=== PATIENT | male | born 1965 | race Caucasian/White ===

== ENCOUNTER → 2018-06-22 10:40 | Outpatient (CLI) | payer BC, SELFPAY ==
[2018-06-22 11:51] LABS: Anion Gap 10.7 mEq/L (5-15); Blood Urea Nitrogen 11 mg/dL (7-18); Calcium 9.6 mg/dL (8.5-10.1); Carbon Dioxide 32 mmol/L (21.0-32.0); Chloride 104 mmol/L (98-107); Chol/HDL Ratio 4.1 (1-3.5); Cholesterol 158 mg/dL (140-200); Creatinine,Serum 1.08 mg/dL (0.70-1.30); Estimated Glomerular Filt Rate 72 ml/min (>60); GFR (African American) 87 ML/MIN (>60); Glucose 87 mg/dL (74-106); HDL Cholesterol 39 mg/dL (27-67); LDL Cholesterol 88 mg/dL (0-130); Potassium 4.7 mmoL/L (3.5-5.1); Sodium 142 mmol/L (136-145); Triglycerides 157 mg/dL (30-200); VLDL Cholesterol 31 mg/dL (0-40)
[2018-06-22 13:03] LABS: Hemoglobin A1C 5.6 % (0.0-7.0)
[2018-06-23 09:24] LABS: HIV Screen 4th Generation wRfx Non Reactive (Non Reactive)
[2018-06-23 09:33] LABS: Hepatitis C Antibody <0.1 s/co ratio (0.0-0.9)
== END ==
PROVIDERS: PCP Internal Medicine Adolescent Medicine; Visit Provider Internal Medicine Adolescent Medicine
DX: Z00.00 Encounter for general adult medical examination without abnormal findings (principal)
CPT/HCPCS: 36415; 80048; 80061; 83036; 86703; 87380; G0432

== ENCOUNTER → 2019-03-29 14:03 | Outpatient (CLI) | payer BC, SELFPAY | PROVIDERS: PCP Internal Medicine Adolescent Medicine; Visit Provider Internal Medicine Adolescent Medicine | DX: G47.33 Obstructive sleep apnea (adult) (pediatric) (principal) | CPT/HCPCS: G0399 ==

== ENCOUNTER → 2019-07-01 09:56 | Outpatient (CLI) | payer BC, SELFPAY ==
[2019-07-01 10:16] LABS: Basophils # 0.1 K/mm3 (0-0.2); Eosinophils # 0.1 K/mm3 (0.0-0.4); Eosinophils % 1.9 % (0.1-12.0); Hematocrit 48.4 % (42.0-52.0); Hemoglobin 15.1 g/dL (14.1-18.0); Lymphocytes # 1.6 K/mm3 (0.7-4.5); Lymphocytes % 30.5 % (10-50); Mean Corpuscular HGB Conc 31.2 g/dL (31.8-35.4); Mean Corpuscular Hemoglobin 28.4 pg (27.0-31.2); Mean Corpuscular Volume 90.9 fl (80-94); Mean Platelet Volume 8.4 fl (7.4-10.4); Monocytes # 0.5 K/mm3 (0.1-1.0); Monocytes % 8.7 % (1.7-9.3); Neutrophils # 3.1 K/mm3 (1.8-7.8); Neutrophils % 57.9 % (37.0-80.0); Platelet Count 244 K/mm3 (142-424); Red Blood Count 5.32 M/mm3 (4.60-6.20); White Blood Count 5.3 K/mm3 (4.8-10.8)
[2019-07-01 11:16] LABS: Alanine Aminotransferase 29 U/L (12-78); Albumin/Globulin Ratio 1.3 (1.1-1.8); Alkaline Phosphatase 77 U/L (46-116); Anion Gap 12.5 mEq/L (5-15); Aspartate Amino Transferase 16 U/L (15-37); Bilirubin,Total 1.1 mg/dL (0.2-1.0); Blood Urea Nitrogen 16 mg/dL (7-18); Calcium 9.4 mg/dL (8.5-10.1); Carbon Dioxide 32 mmol/L (21.0-32.0); Chloride 103 mmol/L (98-107); Chol/HDL Ratio 3.9 (1-3.5); Cholesterol 165 mg/dL (140-200); Creatinine,Serum 1.11 mg/dL (0.70-1.30); Estimated Glomerular Filt Rate 69 ml/min (>60); GFR (African American) 84 ML/MIN (>60); Globulin 3.2 gm/dl (1.3-3.2); Glucose 96 mg/dL (74-106); HDL Cholesterol 42 mg/dL (27-67); LDL Cholesterol 89 mg/dL (0-130); Potassium 4.5 mmoL/L (3.5-5.1); Sodium 143 mmol/L (136-145); Total Protein,Serum 7.2 gm/dL (6.4-8.2); Triglycerides 171 mg/dL (30-200); VLDL Cholesterol 34 mg/dL (0-40)
== END ==
PROVIDERS: Visit Provider Internal Medicine Adolescent Medicine
DX: Z00.00 Encounter for general adult medical examination without abnormal findings (principal); G47.33 Obstructive sleep apnea (adult) (pediatric)
CPT/HCPCS: 36415; 80053; 80061; 85025

== ENCOUNTER → 2021-04-30 12:44 | Outpatient (CLI) | payer BC, OTHER, SELFPAY | PROVIDERS: PCP Internal Medicine Adolescent Medicine; Visit Provider Internal Medicine Adolescent Medicine | DX: R00.2 Palpitations (principal) | CPT/HCPCS: 93225; 93226 ==

== ENCOUNTER 2021-05-30 20:12 | Emergency (ER) | payer BC, OTHER, SELFPAY ==
[2021-05-30 21:00] VITALS: PULSE 75; RESP 14; TEMP 36.3; O2SAT 98; BMI 38.7
[2021-05-30 21:02] VITALS: BP 131/79; PULSE 75; RESP 14; TEMP 36.3
--- NOTE | 2021-05-30 21:21 | HMH.EDUTC ---
[facility] Disposition Clinical Impression: Exposure to COVID-19 virus Disposition: Home, Self-Care Condition on Discharge: Good Instructions: Preventing the Spread of Coronavirus Discharge Instructions, DI for COVID-19 (Suspected or Confirmed ) Additional Instructions: Drink plenty of fluids. Take tylenol for pain or fever. Return if you begin to have difficulty breathing. Follow up with your regular doctor. GO TO THE ER FOR ANY WORSENING SYMPTOMS Quarantine until you know the results of your covid-19 test. If it is positive, the health department should call you and give you further instructions about your length of Quarantine and other things. Notify your school or workplace of your results and follow their instructions regarding return to work/school. Referrals: Edwar Lance MD [Primary Care Provider] - Time of Disposition: 21:24 Medical Decision Making - Medical Records Medical records reviewed: No: I reviewed the patient's medical records. - Noah Inquiry Pt receiving controlled substance: No Vital Signs: 05/30/21 21:00 05/30/21 21:02 Temperature 97.3 F L 97.3 F L Temperature Source Temporal Artery Scan Pulse Rate 75 Pulse Rate [Left] 75 Respiratory Rate 14 14 Blood Pressure 131/79 02 Sat by Pulse Oximetry 98 Orders (Tests/Meds): ORDERS Category Date Time Status Covid-19 Nasal PCR ([facility]) Routine Lab 05/30/21 21:02 Ordered [facility] HPI - General Stated complaint: covid test Time Seen by Provider: 05/30/21 21:21 Mode of Arrival: Ambulatory Source of Information: Patient Limitations: No Limitations Description of Symptoms (Recalled from Triage Doc. by RN): covid test. HEENT Symptoms (Recalled from RN notes): No Resp Symptoms (Recalled from RN notes): No Skin Symptoms (Recalled from RN notes): No MS Symptoms (Recalled from RN notes): No Functional Status (Recalled from RN notes): na - History of Present Illness Provider Complaint: He states that he has been exposed to covid-19 in his home over the past 3 days or so. He denies any symptoms so far. He has not been vaccinated against covid-19. - Related Data Home Medications Medication Instructions Recorded Confirmed gabapentin 300 mg capsule 300 mg PO DAILY 10/11/20 10/11/20 Allergies Allergy/AdvReac Type Severity Reaction Status Date / Time No Known Allergies Allergy Unverified 10/11/20 14:47 - Worker's Comp Is this a Worker's Comp case?: No [facility] History - Hepatitis A Screen Drug use history?: No High risk sexual behaviors?: No History of sexually transmitted infection?: No Currently employed?: No Childcare worker?: No Do you have indoor plumbing?: Yes Do you have electricity?: Yes Attestation statement:: This patient has been screened for Hepatitis A risk factors. I have reviewed the patient's past medical history: Yes Other Surgeries: Yes: No Previous Surgery, Colonoscopy Amputation: No Fractures: No Comment: back surgery in 2012,10/2013, 05/2014, 10/1014, 2017, 2019 - Social History Smoking Status: Never smoker Alcohol Intake: never Substance Use Type: denies use Occupational Status: employed Housing: house Household Members: family, spouse Family Hx:: Asthma, Cancer ROS Obtained: Yes All systems reviewed & no additional complaints - Constitutional Constitutional: Reports system reviewed and no additional complaints, except as docu - Eyes Eyes: Reports system reviewed and no additional complaints, except as docu - ENT Ears, Nose, Mouth, and Throat: Reports system reviewed and no additional complaints, except as docu - Cardiovascular Cardiovascular: Reports system reviewed and no additional complaints, except as docu - Respiratory Respiratory: Reports system reviewed and no additional complaints, except as docu - Gastrointestinal Gastrointestingal: Reports: system reviewed and no additional complaints, except as docu Physical Exam - General General appea
== END 2021-05-30 21:33 | disposition home or self-care (01) ==
PROVIDERS: Emergency Provider Nurse Practitioner Family; PCP Internal Medicine Adolescent Medicine
DX: Z20.822 Contact with and (suspected) exposure to COVID-19 (principal)
CPT/HCPCS: 99202; C9803; G0463; U0003; U0005

== ENCOUNTER 2021-06-14 07:53 | Outpatient (CLI) | payer BC, SELFPAY ==
[2021-06-14 08:45] VITALS: BP 153/94; PULSE 77; RESP 16; TEMP 36.6; O2SAT 95
[2021-06-14 09:00] VITALS: BP 143/89; PULSE 72; RESP 16; TEMP 36.7; O2SAT 95
[2021-06-14 09:30] VITALS: BP 153/93; PULSE 73; RESP 16; TEMP 36.7; O2SAT 96
[2021-06-14 10:34] VITALS: BP 148/90; PULSE 72; RESP 16; TEMP 36.7; O2SAT 95
== END 2021-06-14 10:36 | disposition home or self-care (01) ==
PROVIDERS: PCP Internal Medicine Adolescent Medicine; Visit Provider Internal Medicine Adolescent Medicine
DX: U07.1 COVID-19 (principal)
CPT/HCPCS: 96365

== ENCOUNTER 2021-08-11 07:15 | Emergency (ER) | payer BC, SELFPAY ==
[2021-08-11 07:27] VITALS: BP 159/85; PULSE 69; RESP 18; TEMP 36.4; O2SAT 98; BMI 37.9
--- NOTE | 2021-08-11 07:37 | CT_ITS ---
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 All CT scans at the facility use one or more dose reduction, viz: automated exposure control, ma/kV adjustment per patient size (including targeted exams where dose is matched to indication, i.e. head), or iterative reconstruction technique. FINDINGS: LOWER THORAX: Coronary artery calcification ABDOMEN & PELVIS: The liver, spleen, adrenal glands, and pancreas have an unremarkable appearance. A 5 mm stone is present in the proximal left ureter at the L2 level. This is causing mild left-sided hydronephrosis and proximal hydroureter. A 3 mm stone is present in the lower pole of the left kidney. The right kidney has an unremarkable appearance No intestinal obstruction or free air. Unremarkable appendix. There is colonic diverticulosis but no evidence of diverticulitis. There are postsurgical changes of the lumbar spine with the posterior inter pedicular screws at L3, L2, and L1. L1, L2, L3, and superior aspect L4 all demonstrate a sclerotic appearance. This could be degenerative in nature. Blastic metastasis or renal osteodystrophy/hyperparathyroidism could also cause this finding. Disc spacer devices are present at L3-L4 L4-5 and L5-S1. There are degenerative changes of the thoracic spine with partial fusion of T10-T11 and T8-T9 IMPRESSION: 1. 5 mm proximal left ureteral stone causing mild left-sided hydronephrosis and dilated proximal ureter. Left nephrolithiasis 2. Degenerative and postsurgical changes of the lumbar spine with sclerosis of L1 and L2 and to lesser degree at L3-L4 which may be degenerative in nature. Follow-up may confirm stability as blastic metastasis and renal osteodystrophy/hyperparathyroidism could also cause this finding Dictated by: Ravindra Lemus MD 08/11/2021 09:02 Ravindra Lemus MD in [facility] 08/11/2021 09:02
--- NOTE | 2021-08-11 07:40 | PC.NURSE ---
Called ramonita to request abdominal ct
[2021-08-11 07:53] LABS: Basophils # 0.1 K/mm3 (0-0.2); Basophils % 0.8 % (0.1-2.0); Eosinophils # 0.1 K/mm3 (0.0-0.4); Eosinophils % 1.6 % (0.1-12.0); Lymphocytes # 1.5 K/mm3 (0.7-4.5); Lymphocytes % 22.1 % (10-50); Mean Corpuscular HGB Conc 33.4 g/dL (31.8-35.4); Mean Corpuscular Hemoglobin 29.4 pg (27.0-31.2); Mean Corpuscular Volume 88.2 fl (80-94); Mean Platelet Volume 9.2 fl (7.4-10.4); Monocytes # 0.4 K/mm3 (0.1-1.0); Monocytes % 5.8 % (1.7-9.3); Neutrophils # 4.9 K/mm3 (1.8-7.8); Neutrophils % 69.7 % (37.0-80.0); Platelet Count 239 K/mm3 (142-424); Red Blood Count 5.44 M/mm3 (4.60-6.20); Red Cell Distribution Width 14.3 % (11.5-17.5)
[2021-08-11 07:58] LABS: Alanine Aminotransferase 24 U/L (12-78); Albumin Level 4.3 g/dl (3.5-5.0); Albumin/Globulin Ratio 1.5 (1.1-1.8); Alkaline Phosphatase 70 U/L (38-126); Anion Gap 7.7 mEq/L (5-15); Aspartate Amino Transferase 28 U/L (17-59); Bilirubin,Total 0.9 mg/dl (0.2-1.3); Blood Urea Nitrogen 15 mg/dl (9-20); Calcium 9.8 mg/dl (8.4-10.2); Carbon Dioxide 33 mmol/L (22.0-30.0); Chloride 104 mmol/L (98-107); Creatinine Clearance Estimated 113 mL/min (50-200); Estimated Glomerular Filt Rate 69 ml/min (>60); GFR (African American) 84 ML/MIN (>60); Globulin 2.8 g/dL (1.3-3.2); Glucose 133 mg/dl (74-100); Potassium 4.7 mmoL/L (3.5-5.1); Sodium 140 mmol/L (136-145); Total Protein,Serum 7.1 g/dl (6.3-8.2)
[2021-08-11 08:01] VITALS: BP 156/79; PULSE 74; RESP 18; O2SAT 98
--- NOTE | 2021-08-11 08:08 | PC.NURSE ---
GOING TO CT
--- NOTE | 2021-08-11 08:11 | PC.NURSE ---
Pt went to CT
--- NOTE | 2021-08-11 08:38 | HMH.EDGENADL ---
ED Disposition Clinical Impression: Kidney stone on left side, Hydronephrosis concurrent with and due to calculi of kidney and ureter Disposition: Home, Self-Care Condition on Discharge: Good Referrals: Edwar Lance MD [Primary Care Provider] - - Critical Care Critical Care Time: No Attestation: On 08/11/21, the high probability of a clinically significant, sudden or life threatening deterioration of the following system(s) required my full and direct attention, intervention and personal management. The time I documented below is in addition to time spent performing reported procedures but includes the following listed in this critical care notation. Medical Decision Making - Noah Inquiry Pt receiving controlled substance: No Vital Signs: 08/11/21 07:27 08/11/21 08:01 Temperature 97.5 F L Temperature Source Oral Pulse Rate 74 Pulse Rate [Left Radial] 69 Respiratory Rate 18 18 Blood Pressure 156/79 H Blood Pressure [Right Arm] 159/85 H Blood Pressure Mean 108 Blood Pressure Mean [Right Arm] 109 Blood Pressure Source [Right Arm] Automatic Cuff Blood Pressure Position [Right Arm] Supine 02 Sat by Pulse Oximetry 98 98 Oxygen Delivery Method Room Air - Lab Data Lab Results 08/11/21 07:40: WBC 7.0, RBC 5.44, Hgb 16.0, Hct 48.0, MCV 88.2, MCH 29.4, MCHC 33.4, RDW 14.3, Plt Count 239, MPV 9.2, Neut % (Auto) 69.7, Lymph % (Auto) 22.1, [place] % (Auto) 5.8, Eos % (Auto) 1.6, Baso % (Auto) 0.8, Neut # (Auto) 4.9, Lymph # (Auto) 1.5, [place] # (Auto) 0.4, Eos # (Auto) 0.1, Baso # (Auto) 0.1 08/11/21 07:40: Sodium 140, Potassium 4.7, Chloride 104, Carbon Dioxide 33 H, Anion Gap 7.7, BUN 15, Creatinine 1.10, Estimated Creat Clear 113, Estimated GFR 69, Est GFR ( Amer) 84, Glucose 133 H, Calcium 9.8, Total Bilirubin 0.9, AST 28, ALT 24, Alkaline Phosphatase 70, Total Protein 7.1, Albumin 4.3, Globulin 2.8, Albumin/Globulin Ratio 1.5 08/11/21 08:33: Urine Color Yellow, Urine Appearance Clear, Urine pH 6.5, Ur Specific [place] 1.015, Urine Protein Negative, Urine Glucose (UA) Negative, Urine Ketones Negative, Urine Blood 3+, Urine Nitrate Negative, Urine Bilirubin Negative, Urine Urobilinogen 0.2, Ur Leukocyte Esterase Negative, Urine RBC 20-50, Urine WBC 3-5, Ur Squamous Epith Cells Occasional, Urine Bacteria None Result diagrams: 08/11/21 07:40 08/11/21 07:40 Orders (Tests/Meds): ED MEDICATIONS Discontinued Medications Generic Name Dose Route Start Last Admin Trade Name Freq PRN Reason Stop Dose Admin Sodium Chloride 1,000 mls @ 999 mls/hr 08/11/21 07:45 08/11/21 07:40 Sod Chlor 0.9% 1000ml Bag IV 08/11/21 08:45 999 mls/hr .[id number] YANELI Administration Ketorolac Tromethamine 30 mg 08/11/21 07:36 08/11/21 07:40 Ketorolac 30mg/Ml Vial IV 08/11/21 07:37 30 mg ONCE ONE Administration Ondansetron HCl 4 mg 08/11/21 07:36 08/11/21 07:40 Ondansetron 4mg/2ml Vial IV 08/11/21 07:37 4 mg ONCE ONE Administration - CT Data CT Scan: Abdomen Time Received: 09:[address] Reviewed: Yes: I have reviewed the patient's CT results, I have viewed the radiologist's interpretation Medical Decision Narrative: 55-year-old male history of hypertension, spinal fusion in 2019 presents for acute intermittent left flank pain. No other acute complaints per patient. Has isolated left flank tenderness to palpation that is mild. Vital signs are stable. Patient in no acute distress. He has no urinary symptoms. 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 Differential diagnosis includes but is not limited to nephrolithiasis, [place]STON, infected stone, electrolyte abnormality,hydronephrosis, musculoskeletal pain. Likely acute abdominal aortic aneurysm or dissection without abdominal pain, neurological symptoms, bilateral equal pulses distally in the lower extremities. And hemodynamically stable throughout ED course. Pain completely resolved Toradol here in the ED also g
[2021-08-11 08:39] LABS: Microscopic, Urine URINE MICROSCOPIC (MICROSCOPIC)
[2021-08-11 08:41] LABS: Appearance,Urine CLEAR (Clear); Bilirubin,Urine Negative (Negative); Blood, Urine 3+ (Negative); Color,Urine YELLOW (Yellow); Glucose,Urine (UA) Negative (Negative); Ketones,Urine Negative (Negative); Leukocyte Esterase,Urine Negative (Negative); Nitrate,Urine Negative (Negative); PH,Urine 6.5 (5.0-8.5); Protein,Urine Negative (Negative); Specific Gravity, Urine 1.015 (1.005-1.030); Urobilinogen,Urine 0.2 EU/dl (0.2)
[2021-08-11 09:01] LABS: RBC,Urine 20-50 #/hpf (0-3); Squamous Epithelial Cell,Urine Occasional #/hpf (0-5)
--- NOTE | 2021-08-11 09:42 | PC.NURSE ---
MESSAGE LEFT WITH DHARMESH FOR DR. CHRISTIANSON TO CALL ED ABOUT PT
[2021-08-11 10:16] VITALS: BP 129/89; PULSE 71; RESP 18; TEMP 37.1
== END 2021-08-11 10:16 | disposition home or self-care (01) ==
PROVIDERS: Emergency Medicine; Emergency Provider Student in an Organized Health Care Education/Training Program; PCP Internal Medicine Adolescent Medicine
DX: N13.2 Hydronephrosis with renal and ureteral calculous obstruction (principal); I10 Essential (primary) hypertension
CPT/HCPCS: 36415; 74176; 80053; 81001; 85025; 96365; 96375; 99283; J2405

== ENCOUNTER → 2021-08-12 12:09 | Outpatient (CLI) | payer BC, SELFPAY ==
[2021-08-12 12:11] LABS: Coronavirus 19, PCR Not Detected (NotDetected); Influenza A, PCR Not Detected (NotDetected); Influenza B, PCR Not Detected (NotDetected)
== END ==
PROVIDERS: Visit Provider Urology
DX: Z01.812 Encounter for preprocedural laboratory examination (principal); Z11.52 Encounter for screening for COVID-19; N20.0 Calculus of kidney
CPT/HCPCS: C9803; U0003; U0005

== ENCOUNTER 2021-08-12 12:43 | Day surgery (SDC) | payer BC, SELFPAY ==
[2021-08-12] VITALS (11 sets, daily range): BP systolic 101–140; BP diastolic 48–81; PULSE 70–92; RESP 14–18; TEMP 36.5–36.7; O2SAT 94–100; BMI 37.9
--- NOTE | 2021-08-12 13:03 | HMH.ANESCL ---
[facility] Anesthesia Checklist - Patient Identification Patient Identification: Arm Band - Structural Data Admitted From: Home Planned Operative Procedure/s: Cystoscopy Consent for Planned Operative Procedure(s) Verified: Yes - NPO Status Verified Time NPO: 08:00 (Sip of water with meds) - Airway Assessment C-Spine Mobility Assessed: Yes TMJ Mobility Assessed: Yes Dentition: Good Dentition - Neurological Assessment Level of Consciousness: Awake Hx Seizures: No Numbness or tingling in extremities: No - Anesthesia Plan Anesthesia Risk discussed: Yes Anesthesia Plan: Verified ASA Class: III Anesthesia Type: General [facility] History I have reviewed the patient's past medical history: Yes Medical History: Reports:: Arrhythmia, Gastroesophageal Reflux Disease(GERD), Hypertension *Have you ever received a pneumonia vaccine?: No *Have you received a flu vaccine this season?: Yes Anesthesia experience/problems:: PONV Other Surgeries: Yes: No Previous Surgery, Colonoscopy Amputation: No Fractures: No - *Social History Smoking Status: Never smoker Alcohol Intake: never Substance Use Type: denies use *Occupational Status:: employed Housing: house Household Members: family, spouse *Travel in the last 8 weeks: None Family Hx:: Asthma, Cancer
--- NOTE | 2021-08-12 15:39 | XR_ITS ---
PROCEDURE: XR KUB CLINICAL INDICATION: LEFT STENT PLACEMENT IN OR COMPARISON: No exams were available for comparison FINDINGS: Fluoroscopy time: 1.19 minutes. Interval insertion a left ureteral stent confirmed in position on 2 C-arm images. IMPRESSION: Status post left ureteral stent placement with C-arm assistance Dictated by: Ravindra Lemus MD 08/12/2021 15:46 Ravindra Lemus MD in [facility] 08/12/2021 15:46
--- NOTE | 2021-08-12 15:40 | P.PN_ITS ---
[facility] Anesthesia Record Part I Intake, IV Amount: 100 Estimated blood loss (mL): 0 Urine output (mL): 0 Blood Pressure: 101/48 SaO2: 94 Pulse Rate: 81 Respiratory Rate: 18 Temperature: 98 F Patient is:: Drowsy, Oral/Nasal airway Stable to PACU at:: 15:37
--- NOTE | 2021-08-12 15:53 | HMH.OPNOTE ---
Date of procedure: 08/12/21 Pre-op Diagnosis:: 5 mm left proximal ureteral stone Post-op Diagnosis:: Same Procedure performed:: Cystoscopy with stone manipulation and left stent placement Surgeon:: Branden Ragland MD PUBLIC HEALTH VETERINARIAN:: Zoe King Anesthesia: LMA Estimated blood loss (mL): 0 Clinical Note:: 35-year-old white male seen in the emergency room 2 days ago with left renal colic. CT scan shows a 5 mm stone with signs of obstruction. He presents for urologic management. Operative findings:: 5 mm stone still in the proximal ureter. It was manipulated proximally and a left stent placed without difficulty. Operative note:: Patient taken to the operating room after informed consent was obtained. Preoperative antibiotics and sequential compression devices placed. He was then placed into the dorsal lithotomy position and prepped and draped in the standard surgical fashion. The 22 Rahat passed into the urethra and passed into the bladder without difficulty. The bladder was examined in a systematic fashion. There is no abnormalities noted. The ureteral orifices in their normal anatomic position. A 5 Brazilian ureteral catheter passed into the left ureteral orifice and under fluoroscopy passed up to the left proximal ureteral stone. The stone was manipulated back into the renal pelvis and a 0.035 guidewire then passed through the ureteral catheter and the ureteral catheter was removed. A 4.8 x 26 Brazilian stent was then passed over the guidewire and the guidewire removed. A good curl was noted proximally and distally. The string was left on for later removal. Urojet placed into the urethra for comfort measures. Patient tolerated well no complications. Condition: stable Disposition: PACU Specimens:: None Complications:: None
--- NOTE | 2021-08-12 16:12 | SUR.PHASEI ---
1606- detailed report called to caio wyman in post op at this time. 1608- pt in stable condition in post op at this time.
--- NOTE | 2021-08-12 16:18 | P.PN_ITS ---
[facility] Anesthesia Record Part II Discharge Time: 16:07 Destination: Surgical Day Care (OP Surgery) PACU nurse assessment reviewed?: Yes Patient Condition:: Good Anesthesia Complications:: None Swallowing reflex intact?: Yes Cyanosis?: No Blood Pressure: 114/71 Pulse Rate: 92 Temperature: 98 F Mental Status: Alert & Oriented Pain level:: 0 Nausea and/or vomitting:: None Intake, IV Amount: 0
== END 2021-08-12 17:15 | disposition home or self-care (01) ==
LOC: OR 12:45
PROVIDERS: PCP Internal Medicine Adolescent Medicine; Visit Provider Urology
PROC: (CPT 52330; principal; 2021-08-12 14:15)
DX: N20.1 Calculus of ureter (principal); K21.9 Gastro-esophageal reflux disease without esophagitis; I10 Essential (primary) hypertension; I49.9 Cardiac arrhythmia, unspecified; Z79.899 Other long term (current) drug therapy
CPT/HCPCS: 52330; 74018; 96374; C2617; J2405

== ENCOUNTER 2021-08-24 11:22 | Emergency (ER) | payer BC, SELFPAY ==
[2021-08-24] VITALS (8 sets, daily range): BP systolic 119–145; BP diastolic 61–94; PULSE 94–105; RESP 20–22; TEMP 37.2–39.1; O2SAT 97–99; BMI 37.9
--- NOTE | 2021-08-24 11:39 | HMH.EDGENADL ---
ED Disposition Clinical Impression: S/P ureteral stent placement, Nephrolithiasis Fever Qualifiers: Fever type: unspecified Qualified Code(s): R50.9 - Fever, unspecified Disposition: Home, Self-Care Condition on Discharge: Fair Instructions: DI for Fever (Symptom) -- Adult Additional Instructions: Take antibiotic as prescribed. Tylenol or ibuprofen for fever. See Dr. Ragland in his office on Wednesday. Call him tomorrow if fevers persist. Prescriptions: Cefdinir [Omnicef 300mg Capsule] 300 mg PO BID #20 cap Transmission Status: Received by [id number] Referrals: Edwar Lance MD [Primary Care Provider] - - Critical Care Critical Care Time: No Attestation: On , the high probability of a clinically significant, sudden or life threatening deterioration of the following system(s) required my full and direct attention, intervention and personal management. The time I documented below is in addition to time spent performing reported procedures but includes the following listed in this critical care notation. Medical Decision Making - Medical Records Medical records reviewed: Yes: I reviewed the patient's medical records. MR Comment: Reviewed emergency department visit 08/11/2021, reviewed CT scan result, reviewed operative report 08/12/2021. He had a 5 mm proximal left ureteral stone. He was on nitrofurantoin for 7 days post procedure. - Noah Inquiry Pt receiving controlled substance: No Vital Signs: 08/24/21 11:23 08/24/21 12:31 08/24/21 13:02 Temperature 99.0 F 102.4 F H Temperature Source Oral Oral Pulse Rate 100 H 105 H Pulse Rate [Left Radial] 96 H Respiratory Rate 22 Blood Pressure 142/61 H 119/65 Blood Pressure [Right Arm] 145/94 H Blood Pressure Mean 88 Blood Pressure Mean [Right Arm] 111 Blood Pressure Source [Right Arm] Automatic Cuff Blood Pressure Position [Right Arm] Sitting 02 Sat by Pulse Oximetry 99 99 Oxygen Delivery Method Room Air 08/24/21 14:03 Temperature 100.2 F H Temperature Source Oral Pulse Rate Pulse Rate [Left Radial] Respiratory Rate Blood Pressure Blood Pressure [Right Arm] Blood Pressure Mean Blood Pressure Mean [Right Arm] Blood Pressure Source [Right Arm] Blood Pressure Position [Right Arm] 02 Sat by Pulse Oximetry Oxygen Delivery Method - Lab Data Lab Results 08/24/21 11:40: Urine Color Yellow, Urine Appearance Clear, Urine pH 6.5, Ur Specific [place] 1.020, Urine Protein 2+, Urine Glucose (UA) Negative, Urine Ketones Negative, Urine Blood 3+, Urine Nitrate Negative, Urine Bilirubin Negative, Urine Urobilinogen 1.0, Ur Leukocyte Esterase 2+ A, Urine RBC 20-50, Urine WBC 5-10, Ur Squamous Epith Cells 3-5, Urine Bacteria 1+ 08/24/21 11:40: SARS-CoV-2 (PCR) Not detected, Influenza A Untype (PCR) Not detected, Influenza Type B (PCR) Not detected 08/24/21 11:55: WBC 9.2, RBC 5.15, Hgb 15.4, Hct 45.8, MCV 89.0, MCH 30.0, MCHC 33.7, RDW 14.2, Plt Count 156, MPV 10.7 H, Neut % (Auto) 89.3 H, Lymph % (Auto) 5.5 L, [place] % (Auto) 4.0, Eos % (Auto) 0.9, Baso % (Auto) 0.4, Neut # (Auto) 8.2 H, Lymph # (Auto) 0.5 L, [place] # (Auto) 0.4, Eos # (Auto) 0.1, Baso # (Auto) 0.0, Total Counted 100, Neutrophils % (Manual) 93 H, Lymphocytes % (Manual) 3 L, Monocytes % (Manual) 4, Platelet Estimate Normal 08/24/21 11:55: Sodium 137, Potassium 4.8, Chloride 103, Carbon Dioxide 25, Anion Gap 13.8, BUN 15, Creatinine 1.00, Estimated Creat Clear 124, Estimated GFR 77, Est GFR ( Amer) 94, Glucose 140 H, Calcium 9.8, Total Bilirubin 1.3, AST 55, ALT 34, Alkaline Phosphatase 61, Total Protein 7.3, Albumin 4.2, Globulin 3.1, Albumin/Globulin Ratio 1.4 08/24/21 11:55: Lactate 1.4 Result diagrams: 08/24/21 11:55 08/24/21 11:55 Orders (Tests/Meds): ED MEDICATIONS Generic Name Dose Route Start Last Admin Trade Name Freq PRN Reason Stop Dose Admin Ceftriaxone Sodium 1 gm/ 50 mls @ 100 mls/hr 08/24/21 13:00 12/05/21 12:54 Sodium Chl
--- NOTE | 2021-08-24 11:50 | CT_ITS ---
PROCEDURE INFORMATION: Exam: CT Abdomen And Pelvis Without Contrast Exam date and time: 08/24/2021 11:50 AM Age: 55 years old Clinical indication: Abdominal pain; Flank; Left; Additional info: Fever, ureteral stent, stone, left sided pain TECHNIQUE: Imaging protocol: Computed tomography of the abdomen and pelvis without contrast. Radiation optimization: All CT scans at this facility use at least one of these dose optimization techniques: automated exposure control; mA and/or kV adjustment per patient size (includes targeted exams where dose is matched to clinical indication); or iterative reconstruction. COMPARISON: CT ABDOMEN PELVIS WO CON 08/11/2021 8:09 AM FINDINGS: Lungs: Bibasilar atelectasis. Liver: Normal. No mass. Gallbladder and bile ducts: Normal. No calcified stones. No ductal dilation. Pancreas: Normal. No ductal dilation. Spleen: splenomegaly 14 cm. Adrenal glands: Normal. No mass. Kidneys and ureters: nonobstructing left renal calculus . No ureteral calculus. Stomach and bowel: diverticulosis of the rectosigmoid. No diverticulitis. Appendix: normal appendix Intraperitoneal space: Unremarkable. No free air. No significant fluid collection. Vasculature: Unremarkable. No abdominal aortic aneurysm. Lymph nodes: Unremarkable. No enlarged lymph nodes. Urinary bladder: Ureteral stent extends from the left collecting system to the bladder. There are inflammatory changes around the proximal left ureter and distal left ureter and in the lateral aspect of the left hemipelvis. No ureteral calculus is identified along the course of the ureter. Reproductive: Unremarkable as visualized. Bones/joints: Internal fixation device L1 through L3. Parallel spinous rods and pedicular screws. Lucencies around the pedicular screws at L1 and L2 and L3 may indicate loosening.. Soft tissues: Unremarkable. IMPRESSION: 1. Ureteral stent extends from the left collecting system to the bladder. There are inflammatory changes around the proximal left ureter and distal left ureter and in the lateral aspect of the left hemipelvis. No ureteral calculus is identified along the course of the ureter. 2. Internal fixation device L1 through L3. Parallel spinous rods and pedicular screws. Lucencies around the pedicular screws at L1 and L2 and L3 may indicate loosening.. 3. Nonobstructing left renal calculus . No ureteral calculus. 4. Splenomegaly 14 cm.. Differential diagnosis of splenomegaly is lymphoma/leukemia, mononucleosis, hemolytic anemia, portal hypertension.
[2021-08-24 11:58] LABS: Coronavirus 19, PCR Not Detected (NotDetected); Influenza A, PCR Not Detected (NotDetected); Influenza B, PCR Not Detected (NotDetected); Microscopic, Urine URINE MICROSCOPIC (MICROSCOPIC)
[2021-08-24 12:10] LABS: Basophils % 0.4 % (0.1-2.0); Eosinophils # 0.1 K/mm3 (0.0-0.4); Eosinophils % 0.9 % (0.1-12.0); Hematocrit 45.8 % (42.0-52.0); Hemoglobin 15.4 g/dL (14.1-18.0); Lymphocytes # 0.5 K/mm3 (0.7-4.5); Lymphocytes % 5.5 % (10-50); Mean Corpuscular HGB Conc 33.7 g/dL (31.8-35.4); Mean Platelet Volume 10.7 fl (7.4-10.4); Monocytes # 0.4 K/mm3 (0.1-1.0); Neutrophils # 8.2 K/mm3 (1.8-7.8); Neutrophils % 89.3 % (37.0-80.0); Platelet Count 156 K/mm3 (142-424); Red Blood Count 5.15 M/mm3 (4.60-6.20); Red Cell Distribution Width 14.2 % (11.5-17.5); White Blood Count 9.2 K/mm3 (4.8-10.8)
[2021-08-24 12:12] LABS: MANUAL DIFFERENTIAL MANUAL DIFFERENTIAL (MANUAL DIFF)
[2021-08-24 12:26] LABS: Chloride 103 mmol/L (98-107); Potassium 4.8 mmoL/L (3.5-5.1); Sodium 137 mmol/L (136-145)
[2021-08-24 12:27] LABS: Appearance,Urine CLEAR (Clear); Bilirubin,Urine Negative (Negative); Blood, Urine 3+ (Negative); Color,Urine YELLOW (Yellow); Glucose,Urine (UA) Negative (Negative); Ketones,Urine Negative (Negative); Leukocyte Esterase,Urine 2+ (Negative); Nitrate,Urine Negative (Negative); PH,Urine 6.5 (5.0-8.5); Protein,Urine 2+ (Negative)
[2021-08-24 12:28] LABS: Alanine Aminotransferase 34 U/L (12-78); Alkaline Phosphatase 61 U/L (38-126); Aspartate Amino Transferase 55 U/L (17-59); Bilirubin,Total 1.3 mg/dl (0.2-1.3); Blood Urea Nitrogen 15 mg/dl (9-20); Creatinine Clearance Estimated 124 mL/min (50-200); Estimated Glomerular Filt Rate 77 ml/min (>60); GFR (African American) 94 ML/MIN (>60)
[2021-08-24 12:29] LABS: Albumin Level 4.2 g/dl (3.5-5.0); Albumin/Globulin Ratio 1.4 (1.1-1.8); Anion Gap 13.8 mEq/L (5-15); Calcium 9.8 mg/dl (8.4-10.2); Carbon Dioxide 25 mmol/L (22.0-30.0); Globulin 3.1 g/dL (1.3-3.2); Glucose 140 mg/dl (74-100); Lactic Acid 1.4 mmol/L (0.7-2.1); Total Protein,Serum 7.3 g/dl (6.3-8.2)
[2021-08-24 12:40] LABS: Lymphocytes % 3 % (10-50); Monocytes % 4 % (2-9); Neutrophils % 93 % (42-76); Total Cells Counted 100
[2021-08-24 12:41] LABS: Platelet Estimate Normal
[2021-08-24 12:46] LABS: Bacteria,Urine 1+ /lpf; RBC,Urine 20-50 #/hpf (0-3)
--- NOTE | 2021-08-24 13:29 | PC.NURSE ---
paged Dr. Ragland
--- NOTE | 2021-08-24 13:39 | XR_ITS ---
PROCEDURE INFORMATION: Exam: XR Chest Exam date and time: 08/24/2021 1:39 PM Age: 55 years old Clinical indication: Fever TECHNIQUE: Imaging protocol: XR of the chest. Views: 2 views. COMPARISON: CT ABDOMEN PELVIS WO CON 08/24/2021 12:37 PM FINDINGS: Lungs: Unremarkable. No consolidation. Pleural spaces: Unremarkable. No pleural effusion. No pneumothorax. Heart/Mediastinum: Unremarkable. No cardiomegaly. Bones/joints: Internal fixation device in the lumbar spine IMPRESSION: No acute findings.
--- NOTE | 2021-08-24 13:51 | PC.NURSE ---
Dr. Park speaking with
== END 2021-08-24 14:22 | disposition home or self-care (01) ==
PROVIDERS: Emergency Provider Emergency Medicine; PCP Internal Medicine Adolescent Medicine
DX: N20.0 Calculus of kidney (principal); K21.9 Gastro-esophageal reflux disease without esophagitis; I10 Essential (primary) hypertension
CPT/HCPCS: 71046; 74176; 80053; 81001; 83605; 85007; 85025; 87040; 87077; 87086; 87088; 87186; 96374; 96375; 99283; C9803; U0003; U0005

== ENCOUNTER → 2021-08-27 14:58 | Outpatient (CLI) | payer BC, SELFPAY | PROVIDERS: Visit Provider Urology | DX: Z01.812 Encounter for preprocedural laboratory examination (principal); Z11.52 Encounter for screening for COVID-19; N20.0 Calculus of kidney | CPT/HCPCS: C9803; U0003; U0005 ==

== ENCOUNTER 2021-08-29 10:11 | Day surgery (SDC) | payer BC, SELFPAY ==
[2021-08-29] VITALS (8 sets, daily range): BP systolic 114–151; BP diastolic 67–99; PULSE 74–86; RESP 18; TEMP 36.3–36.9; O2SAT 94–98
[2021-08-29 09:32] LABS: Basophils # 0.2 K/mm3 (0-0.2); Basophils % 1.8 % (0.1-2.0); Eosinophils # 0.3 K/mm3 (0.0-0.4); Eosinophils % 4.1 % (0.1-12.0); Hematocrit 46.5 % (42.0-52.0); Hemoglobin 15.7 g/dL (14.1-18.0); Lymphocytes # 2.7 K/mm3 (0.7-4.5); Mean Corpuscular HGB Conc 33.7 g/dL (31.8-35.4); Mean Corpuscular Hemoglobin 29.7 pg (27.0-31.2); Mean Platelet Volume 7.6 fl (7.4-10.4); Monocytes # 0.5 K/mm3 (0.1-1.0); Monocytes % 5.8 % (1.7-9.3); Neutrophils # 4.5 K/mm3 (1.8-7.8); Neutrophils % 55.3 % (37.0-80.0); Platelet Count 331 K/mm3 (142-424); Red Blood Count 5.29 M/mm3 (4.60-6.20); White Blood Count 8.1 K/mm3 (4.8-10.8)
[2021-08-29 09:47] LABS: Chloride 103 mmol/L (98-107); Potassium 4.9 mmoL/L (3.5-5.1); Sodium 142 mmol/L (136-145)
[2021-08-29 09:49] LABS: Blood Urea Nitrogen 22 mg/dl (9-20); Estimated Glomerular Filt Rate 69 ml/min (>60); GFR (African American) 84 ML/MIN (>60)
[2021-08-29 09:50] LABS: Alanine Aminotransferase 36 U/L (12-78); Albumin Level 4.2 g/dl (3.5-5.0); Albumin/Globulin Ratio 1.3 (1.1-1.8); Alkaline Phosphatase 77 U/L (38-126); Anion Gap 12.9 mEq/L (5-15); Aspartate Amino Transferase 32 U/L (17-59); Bilirubin,Total 0.7 mg/dl (0.2-1.3); Calcium 9.9 mg/dl (8.4-10.2); Carbon Dioxide 31 mmol/L (22.0-30.0); Globulin 3.2 g/dL (1.3-3.2); Glucose 104 mg/dl (74-100); Total Protein,Serum 7.4 g/dl (6.3-8.2)
[2021-08-29 09:56] LABS: Erythrocyte Sedimentation Rate 28 mm/hr (0-20)
--- NOTE | 2021-08-29 10:20 | XR_ITS ---
PROCEDURE: XR KUB CLINICAL INDICATION: kidney stone COMPARISON: CR XR KUB from 08/12/[address] ABDOMEN PELVIS WO CON from 08/24/2021 FINDINGS: There is a left ureteral stent in place which appears in good position. A stone is noted along the upper pole of the left kidney at 4 mm. No ureteral calculi parent. There postsurgical changes of the lumbar spine. Small sclerotic density overlies the right ilium and may be due to a bone island. Degenerative changes of the lumbar spine IMPRESSION: No change left ureteral stent with left nephrolithiasis. Dictated by: Ravindra Lemus MD 08/29/2021 14:28 Ravindra Lemus MD in [facility] 08/29/2021 14:28
--- NOTE | 2021-08-29 13:43 | HMH.ANESCL ---
[facility] Anesthesia Checklist - Structural Data Admitted From: Home Planned Operative Procedure/s: l eswl Consent for Planned Operative Procedure(s) Verified: Yes - Additional verifications Anesthesia Reactions: No Hx Blood Transfusions: No Blood Transfusion Reaction: No - Airway Assessment C-Spine Mobility Assessed: Yes TMJ Mobility Assessed: Yes Dentition: Good Dentition - Neurological Assessment Level of Consciousness: Alert, Appropriate - Anesthesia Plan Anesthesia Risk discussed: Yes Anesthesia Plan: Verified ASA Class: II Anesthesia Type: General [facility] History I have reviewed the patient's past medical history: Yes Medical History: Reports:: Arrhythmia, Gastroesophageal Reflux Disease(GERD), Hypertension Denies:: Cancer, Diabetes Mellitus Type 1, Diabetes Mellitus Type 2, Internal Pacemaker, MRSA, Seizures *Have you ever received a pneumonia vaccine?: No *Have you received a flu vaccine this season?: No Other Medical History: Denies: Blood Transfusion Reaction Anesthesia experience/problems:: none Laterality Cases: Bilateral: Carpal Tunnel Release Other Surgeries: Yes: No Previous Surgery, Colonoscopy. No: Pacemaker Amputation: No Fractures: No - *Social History Last grade of school completed: High school graduate Smoking Status: Never smoker Alcohol Intake: never Substance Use Type: denies use *Occupational Status:: employed Housing: house Household Members: spouse *Travel in the last 8 weeks: None Family Hx:: No significant family history
--- NOTE | 2021-08-29 14:18 | P.OP_ITS ---
Date of procedure: 08/29/21 Pre-op Diagnosis:: Left kidney stone Post-op Diagnosis:: Same Procedure performed:: Left ESWL Surgeon:: Branden Ragland MD SUPERVISING APPRAISER:: Santos Clement Anesthesia: LMA Estimated blood loss (mL): 0 Clinical Note:: 55-year-old white male with history of 5 mm left ureteral stone status post cystoscopy with left ureteral stone manipulation left stent placement on August 12. He resents today for left ESWL. Operative findings:: Preoperative KUB reveals the stone is still in the left upper pole. The stone fr agmented well with lithotripsy. Operative note:: Patient taken to the operating room after informed consent was obtained. He was placed on the operating table in the supine position and general anesthesia administered. Preoperative antibiotics administered and sequential compression devices placed. He was padded appropriately and the saline water bag placed under his left flank and all the bubbles were eradicated from the back. The lithotripter was focused onto the 5 mm left upper pole stone and 3000 shockwaves delivered at a maximum KV of 6. The stone fragmented well. Patient tolerated the procedure well. At the end of the case his left ureteral stent was removed with use of the attached string per urethra meatus. Patient transported to recovery in stable condition. He is to continue the cefdinir. Condition: stable Disposition: PACU Specimens:: Left ureteral stent was not sent Complications:: None
[2021-09-01 13:03] VITALS: BP 131/74; PULSE 78; TEMP 36.4
--- NOTE | 2021-09-01 13:03 | HMH.ANESII ---
[facility] Anesthesia Record Part II Discharge Time: 14:45 Destination: Surgical Day Care (OP Surgery) PACU nurse assessment reviewed?: Yes Patient Condition:: Good Anesthesia Complications:: None Swallowing reflex intact?: Yes Cyanosis?: No Blood Pressure: 131/74 Pulse Rate: 78 Temperature: 97.6 F Mental Status: Alert & Oriented Pain level:: 0 Nausea and/or vomitting:: None Intake, IV Amount: 0
== END 2021-08-29 15:18 | disposition home or self-care (01) ==
LOC: OR 10:13
PROVIDERS: PCP Internal Medicine Adolescent Medicine; Visit Provider Urology
PROC: (CPT 50590; principal; 2021-08-29 11:45)
DX: N20.0 Calculus of kidney (principal); I49.9 Cardiac arrhythmia, unspecified; K21.9 Gastro-esophageal reflux disease without esophagitis; I10 Essential (primary) hypertension; Z79.899 Other long term (current) drug therapy
CPT/HCPCS: 50590; 36415; 74018; 80053; 85025; 85651; 87040; J2405

== ENCOUNTER → 2021-09-18 14:40 | Outpatient (CLI) | payer BC, SELFPAY ==
--- NOTE | 2021-09-18 14:43 | XR_ITS ---
PROCEDURE: XR KUB CLINICAL INDICATION: kidney stone COMPARISON: CT CT ABDOMEN PELVIS WO CON from 08/24/2021 CR XR KUB from 08/29/2021 FINDINGS: The left ureteral stent has been removed. 4 mm stone overlies the mid aspect of the left kidney. No obvious ureteral calculus. Postsurgical changes are present in the lumbar spine as before.. IMPRESSION: Interval removal of left ureteral stent with left nephrolithiasis Dictated by: Ravindra Lemus MD 09/18/2021 16:37 Ravindra Lemus MD in [place] 09/18/2021 16:37
== END ==
PROVIDERS: PCP Internal Medicine Adolescent Medicine; Visit Provider Urology
DX: N20.0 Calculus of kidney (principal)
CPT/HCPCS: 74018

== ENCOUNTER → 2021-10-27 10:37 | Outpatient (CLI) | payer BC, SELFPAY ==
--- NOTE | 2021-10-27 10:49 | US_ITS ---
FINAL REPORT TECHNIQUE: Ultrasound images of the testicles were obtained bilaterally. Color Doppler images were obtained. CLINICAL HISTORY: left sided testicular pain/swelling X 4 days FINDINGS: The right testicle measures 1.9 x 3.3 x 2.7 cm. The left testicle measures 2.1 x 3.4 x 2.8 cm. Arterial flow is identified bilaterally. No intratesticular masses are identified. There are small hydroceles bilaterally. The left epididymis is slightly enlarged. There is increased vascularity surrounding the left testicle. These are consistent with left epididymitis. IMPRESSION: Left epididymitis as described. Small hydroceles bilaterally. Reviewed, Interpreted and Dictated by Mumtaz Gates III, MD Transcribed by Marleen Trevizo Authenticated by Mumtaz Gates III, MD on 10/27/2021 01:06:58 PM [facility]
[2021-10-27 12:10] LABS: Basophils # 0.2 K/mm3 (0-0.2); Basophils % 1.8 % (0.1-2.0); Eosinophils # 0.1 K/mm3 (0.0-0.4); Hematocrit 45.6 % (42.0-52.0); Hemoglobin 14.8 g/dL (14.1-18.0); Mean Corpuscular HGB Conc 32.5 g/dL (31.8-35.4); Mean Corpuscular Hemoglobin 29.4 pg (27.0-31.2); Mean Corpuscular Volume 90.5 fl (80-94); Mean Platelet Volume 8.7 fl (7.4-10.4); Monocytes # 1.1 K/mm3 (0.1-1.0); Monocytes % 11.1 % (1.7-9.3); Neutrophils # 6.9 K/mm3 (1.8-7.8); Neutrophils % 67.1 % (37.0-80.0); Platelet Count 229 K/mm3 (142-424); Red Blood Count 5.04 M/mm3 (4.60-6.20); Red Cell Distribution Width 14.5 % (11.5-17.5); White Blood Count 10.3 K/mm3 (4.8-10.8)
[2021-10-27 12:53] LABS: Chloride 99 mmol/L (98-107); Potassium 4.4 mmoL/L (3.5-5.1); Sodium 136 mmol/L (136-145)
[2021-10-27 12:56] LABS: Alanine Aminotransferase 20 U/L (12-78); Albumin Level 4.4 g/dl (3.5-5.0); Albumin/Globulin Ratio 1.6 (1.1-1.8); Alkaline Phosphatase 72 U/L (38-126); Anion Gap 12.4 mEq/L (5-15); Aspartate Amino Transferase 28 U/L (17-59); Bilirubin,Total 0.9 mg/dl (0.2-1.3); Blood Urea Nitrogen 17 mg/dl (9-20); Carbon Dioxide 29 mmol/L (22.0-30.0); Estimated Glomerular Filt Rate 69 ml/min (>60); GFR (African American) 83 ML/MIN (>60); Globulin 2.7 g/dL (1.3-3.2); Total Protein,Serum 7.1 g/dl (6.3-8.2)
[2021-10-27 12:57] LABS: Calcium 9.7 mg/dl (8.4-10.2); Glucose 71 mg/dl (74-100)
== END ==
PROVIDERS: PCP Internal Medicine Adolescent Medicine; Visit Provider Internal Medicine Adolescent Medicine
DX: N45.3 Epididymo-orchitis (principal)
CPT/HCPCS: 36415; 76870; 80053; 85025

== ENCOUNTER 2023-10-26 08:36 | Outpatient (CLI) | payer BC, SELFPAY ==
--- NOTE | 2023-10-26 08:44 | CT_ITS ---
FINAL REPORT CLINICAL HISTORY: LT LOWER QUAD ABD PAIN, susp diverticultlits COMPARISON: 08/24/2021 FINDINGS: CT OF THE ABDOMEN AND PELVIS WITH CONTRAST Axial CT images of the abdomen and pelvis were obtained after the administration of oral and iv contrast. Coronal reformatted images were also obtained and reviewed.This study was performed with techniques to keep radiation doses as low as reasonably achievable (ALARA). Individualized dose reduction techniques using automated exposure control or adjustment of mA and/or kV according to the patient's size were employed. Abdomen: The lung bases are clear. The heart is normal in size. The liver has an unremarkable appearance, without evidence of mass or biliary ductal dilatation. The spleen is unremarkable. No adrenal mass is present. The pancreas has an unremarkable appearance. There is a less than 3 mm nonobstructing left renal stone. There is no hydronephrosis. The aorta is normal in caliber. There is no free fluid or adenopathy. Pelvis: There are multiple sigmoid diverticula. There is stranding adjacent to the mid sigmoid colon consistent with diverticulitis. There is no evidence of abscess, bowel obstruction, or perforation the appendix is normal. The urinary bladder is unremarkable. There are postoperative changes from fusion of the lumbar spine and degenerative changes of the lumbar spine. IMPRESSION: Acute mid sigmoid diverticulitis. Reviewed, Interpreted and Dictated by Mumtaz Gates III, MD Transcribed by Deysi Fay Authenticated and [facility]
[2023-10-26] MEDS: IOPAMIDOL-370 (76%);100ML BOTTLE 75 ML IV (09:13)
[2023-10-26] MEDS: BARIUM SULFATE(READI-CAT2);450ML BOTTLE 450 ML PO (09:13)
== END 2023-10-26 23:59 ==
LOC: RAD 08:36
PROVIDERS: PCP Internal Medicine Adolescent Medicine; Visit Provider Internal Medicine Adolescent Medicine
DX: R10.32 Left lower quadrant pain (principal)
CPT/HCPCS: 74177; Q9967

== ENCOUNTER 2024-04-19 16:00 | Outpatient (RCR) | payer BC, SELFPAY | END 2024-04-19 16:05 | disposition home or self-care (01) | LOC: PT 16:00 | PROVIDERS: Visit Provider Neurological Surgery | DX: M54.16 Radiculopathy, lumbar region (principal) | CPT/HCPCS: 97010; 97014; 97035; 97110; 97163; G0283 ==

== ENCOUNTER 2025-05-03 08:16 | Outpatient (CLI) | payer BC, SELFPAY ==
--- NOTE | 2025-05-03 08:19 | US_ITS ---
FINAL REPORT TECHNIQUE: Sonographic images of the right upper quadrant were obtained. CLINICAL HISTORY: RUQ PAIN COMPARISON: None FINDINGS: PANCREAS: Unremarkable. LIVER: The liver is fatty infiltrated and enlarged. No focal hepatic lesion. . GALLBLADDER: There are gallstones present. No gallbladder wall thickening or pericholecystic fluid. COMMON DUCT: 3 mm. Normal for age. RIGHT KIDNEY: The right kidney measures 11.6 cm. There is no hydronephrosis, mass, or stone. FREE FLUID: None. IMPRESSION: Enlarged fatty liver. Gallstones. Reviewed, Interpreted and Dictated by Carina Rizo MD Transcribed by Kim Arthur Authenticated and [facility]
--- OUTSIDE RECORDS SUMMARY | 2025-05-03 08:20 | XMS_ITS | Encounter Summary ---
Author Organization [employer] ([place], [place], [place], [place]) Address [address] [place] [address] Care Team Providers Care Dust Handler Name Role Phone Edwar Lance MD Primary Care Provider + [phone] Encounter Details Date Type Department Care Team (Late st Contact Info) Description 06/11/2020 Transcribed Document [facility] [place] [facility] [place] [address] ProviderGonzalez MD [address] [place] [address] [id number] Social History Tobacco Use Types Packs/Day Years Used Date Smoking Tobacco: Never Assessed Sex and Gender Information Value Date Recorded Sex Assigned at Male 03/17/2022 7:15 PM CDT Legal Sex Male 7:15 PM CDT Gender Identity Male 03/17/2022 7:15 PM CDT Sexual Orientation Not on file documented as of this encounter Miscellaneous Notes * Cerner Conversion Note - Gonzalez ProviderMD - 06/11/2020 9:31 AM CDT Pain Assessment Entered On: 06/11/2020 20:30 EDT Performed On: 06/11/2020 14:04 EDT by SASCHA ANDRADE RN Intervention Information: fentaNYL Performed by TERRY THOMAS RN on 06/11/2020 13:34:00 EDT fentaNYL,25mcg IV Push,Right Mid Forearm,Pain (Moderate 4-6) Pain Assessment Pain Assessment : Initial assessment Pain Scale Goal : 3 Pain Scale Used : 0-10 Scale Location : Back Onset : Other: acute on chronic Quality : Aching Pain Radiation : No Pain Improved by : Medication, Relaxation Pain Improved by Intervention : Yes SASCHA ANDRADE RN - 06/11/2020 20:29 EDT Pain Scale Intensity : 7 SASCHA ANDRADE, RN - 06/11/2020 20:29 EDT Image 4 - Images currently included in the form version of this document have not been included in the text rendition version of the form. documented in this encounter Plan of Treatment Not on file documented as of this encounter Visit Diagnoses Not on filedocumented in this encounter Care Teams Dust Handler Relationship Specialty Start Date End Date Edwar Lance MD [address] [place] [address] PCP - General Adolescent Medicine 05/29/24 documented as of this encounter
--- OUTSIDE RECORDS SUMMARY | 2025-05-03 08:20 | XMS_ITS | Clinical Summary ---
Author Organization [facility] Address [address] [place] [address] Phone Care Team Providers Care Full Time Staff Interpreter Name Role Phone Jennifer NAVARRETE, Rai Mahoney [phone] [ ] Conditions or Problems Problem Name Problem Code Onset Date Status Entry Date Provider Comment Standard Description Annotate Morbid obesity due to excess calories E66.01 (ICD-10-C M) 11/24 Active 11/24 Laura Andrae Morbid (severe) obesity due to excess calories Diverticulitis of large intestine K57.32 (ICD-10-C M) 11/24 Active 11/24 Laura Andrae Diverticulitis of large intestine without perforation or abscess without bleeding Medications Medication Instructions Start Date Stop Date Generic Name [facility] Provider BISOPROLOL FUMARATE 10 MG TABS by mouth once a day bisoprolol fumarate 59391863714 Marce Minor RA FISH OIL 1000 MG CAPS by mouth once a day docosahexaenoic acid-epa [id number] Marce Minor FIBER 625 MG TABS by mouth once a day calcium polycarbophil [id number] Marce Minor Medications Administered No information available. Allergies, Adverse Reactions, Alerts Observed no known allergies at Results Date Name Value Unit Range Flag Description Clinical Lists Update: Prelo ad SMOK STATUS Never smoker Toba key account representative smoking status MEDS REVIEW Done Documenta tion of current medications (procedure) Plan of Care No information available. Procedures No information available. Vital Signs No information available. Immunizations No information available. Advance Directives No information available.
--- OUTSIDE RECORDS SUMMARY | 2025-05-03 08:20 | XMS_ITS | Encounter Summary ---
Author Organization [employer] ([place], [place], [place], [place]) Address [address] [place] [address] Care Team Providers Care Hospice Administrator Name Role Phone Edwar Lance MD Primary Care Provider + [phone] Encounter Details Date Type Department Care Team (Late st Contact Info) Description 06/13/2020 Transcribed Document [facility] Family Medicine [address] [place] [address] ProviderGonzalez MD [address] [place] [address] Social History Tobacco Use Types Packs/Day Years Used Date Smoking Tobacco: Never Assessed Sex and Gender Information Value Date Recorded Sex Assigned at Male 03/17/2022 7:15 PM CDT Legal Sex Male 7:15 PM CDT Gender Identity Male 03/17/2022 7:15 PM CDT Sexual Orientation Not on file documented as of this encounter Miscellaneous Notes * Cerner Conversion Note - Gonzalez ProviderMD - 06/13/2020 11:59 AM CDT [facility] Authorization Entered On: 06/13/2020 12:00 EDT Performed On: 06/13/2020 11:59 EDT by SHAVON VAIL Rn-Utilization Review Primary Insurance Authorization Authorization and Policy Numbers : Insurance 1 Health Plan: [employer] Policy Number: [id number] Authorization Number: [id number] Insurance 2 Health Plan: MED[place] Policy Number: [id number] Authorization Number: [id number] Insurance Primary Name : Omega [id number] Authorization Status-Primary : Admit approved Reference Number-Primary : [id number] Authorization Number-Primary : [id number] Number of Days Authorized-Primary : 1 Day(s) Authorized Service Begin Date-Primary : 06/11/2020 EDT Authorized Service End Date-Primary : 06/12/2020 EDT Authorization Comments-Primary : Per Kindra with [employer], Inpt Auth approved 1 additional day. Non DRG, NRD 06/13. Historical Authorization Comments-Primary : Comment 1: please change auth number in star once case is completeclinical faxed for c/s per donny (Ashley Wagner, Rn-Utilization Review 06/12/2020 10:31) Comment 2: per manjinder @ md office auth for omega is [id number] IP x 1day. Medicaid auth is [id number] (Ashley Wagner, Rn-Utilization Review 06/12/2020 10:19) Comment 3: pt is scheduled for INPT lumbar fusion posterior 3 level on Wednesday06/11/2020 (ERNESTINA COOPER, Strategic Intelligence Officer 06/10/2020 14:22) SHAVON VAIL Rn-Utilization Review - 06/13/2020 11:59 EDT documented in this encounter Plan of Treatment Not on file documented as of this encounter Visit Diagnoses Not on filedocumented in this encounter Care Teams Hospice Administrator Relationship Specialty Start Date End Date Edwar Lance MD [address] [place] [address] PCP - General Adolescent Medicine 05/29/24 documented as of this encounter
--- OUTSIDE RECORDS SUMMARY | 2025-05-03 08:21 | XMS_ITS | Encounter Summary ---
Author Organization [employer] ([place], [place], [place], [place]) Address [address] [place] [address] Care Team Providers Care Turning Sander Operator Name Role Phone Edwar Lance MD Primary Care Provider + [phone] Encounter Details Date Type Department Care Team (Late st Contact Info) Description 06/11/2020 Transcribed Document [facility] [place] Family Medicine [address] [place] [address] ProviderGonzalez MD [address] [place], [place] [address] Social History Tobacco Use Types Packs/Day Years Used Date Smoking Tobacco: Never Assessed Sex and Gender Information Value Date Recorded Sex Assigned at Male 03/17/2022 7:15 PM CDT Legal Sex Male 7:15 PM CDT Gender Identity Male 03/17/2022 7:15 PM CDT Sexual Orientation Not on file documented as of this encounter Miscellaneous Notes * Cerner Conversion Note - Gonzalez ProviderMD - 06/11/2020 12:45 PM CDT Evaluation, Physical Therapy Entered On: 06/12/2020 12:43 EDT Performed On: 06/12/2020 9:24 EDT by KARI SPENCER, DONN General Information, PT Visit Type, PT : Initial evaluation Patient Orders : Order Date Order Ordering 06/11/2020 12:45 Physical Therapy Eval and Treat Ordered By: MARLY CANTU MD 06/12/2020 12:30 PT Additional Treatment Ordered By: KARI SPENCER, PT Active Diagnoses : 06/11/2020 12:00 Fusion of spine, lumbar region 06/11/2020 12:00 Spinal stenosis, lumbar region with neurogenic claudication Therapy Diagnosis, PT : Acute pain and difficulty walking Onset of Problem, PT : 06/12/2020 EDT Admission Date : 06/11/2020 05:59 Co-treated by, PT : Occupational Therapist Personal Devices : Personal Devices Glasses Assistive Devices : Assistive Devices No Devices Recorded Precautions in Place : Fall prevention measures, Spinal Precautions General Information Comment, PT : Admit Dx: s/p L1-L3 posterolateral, arthrodesis, LLE radiculopathy Spine Precautions/BRACE Hx: TUSCARORA KARI SPENCER, PT - 06/12/2020 12:31 EDT General Status Patient Received Status : Supine in bed Treatment Start Time : 06/12/2020 9:24 EDT Patient Left Status : Up in chair, Communication board completed, All needs met and within reach Treatment End Time : 06/12/2020 9:50 EDT Treatment Time : 26 Minute(s) KARI SPENCER, PT - 06/12/2020 12:31 EDT History and Environment Living Situation, Therapy : Home Patient Lives With : Adult Child/Children, Spouse Persons Assisting Patient at Home : Alone Persons Providing Information : Patient Home Equipment Therapy, PT : Walker Walker : Walker, front wheel Home Setup : One story Stairs : Yes Stair Location(s) : Outside Outside Stairs, Number of Steps : 1 Railing Outside : No KARI SPENCER, PT - 06/12/2020 12:31 EDT Prior Level of Function PT GRID Prior LOF Ambulation, Household : Independent Prior LOF Ambulation, Community : Independent Prior LOF Bed Mobility : Independent Prior LOF Toileting : Independent Prior LOF Transfer : Independent KARI SPENCER PT - 06/12/2020 12:31 EDT Lower Extremity RLE Active ROM : WFL Right LE Strength : WFL LLE Active ROM : WFL Left LE Strength : WFL KARI SPENCER, PT - 06/12/2020 12:31 EDT Functional Mobility Mobility Grid Supine to Sit : Rehab Minimal assistance Sit to Stand : Rehab Minimal assistance Bed to Chair : Rehab Minimal assistance Stand to Sit : Rehab Minimal assistance KARI SPENCER, PT - 06/12/2020 12:31 EDT Sit to Stand Device : Belt, gait, Walker, front wheel Bed to Chair Device : Belt, gait, Walker, front wheel Stand to Sit Device : Belt, gait, Walker, front wheel Functional MobilityComment : cues for body mechanics and logroll sequencing KARI SPENCER, PT - 06/12/2020 12:31 EDT Gait Training/Assessment, PT Gait Assistance Level : Assist, minimal Walking Distance : 280ft with RWx Alexandro for balance; BRACE (but only the strap due to defective missing velcro pieces) Ambulatory Devices : Gait belt, Walker, front wheel KARI SPENCER, PT - 06/12/2020 12:31 EDT Cognition Assessment, PT Orientation : Oriented x 4 Attention Assessment : Present KARI SPENCER PT - 06/12/2020 12:31 EDT Edu Topics Physical Therapy Education Grid Gait Training : Verbalizes understanding, Returns demonstration, Needs reinforcement Transfer Training : Verbalizes understanding, Returns demonstration, Needs reinforcement KARI SPENCER, PT - 06/12/2020 12:31 EDT Indication Assesessment, PT Physical Therapy Indicated : Yes PT Problem List : Impaired, endurance tolerance, Impaired, gait, Impaired, strength, Impaired, transfers KARI SPENCER, PT - 06/12/2020 12:31 EDT Plan of Care, PT PT Tx Plan/Goals Established w Patient : Yes PT Frequency Rehab : Daily, twice (bid) PT Duration Rehab : Fourteen days PT Treatments Planned : Gait training, Therapeutic exercises, Transfer training KARI SPENCER, PT - 06/12/2020 12:31 EDT Half-Way Goals Mobility/Bed Mobility LTG PT Grid Goal #1 Goal #2 Activity : Supine to sit Sit to stand Assist : Independent, modified Independent, modified Date to Meet : 06/26/2020 EDT 06/26/2020 EDT Goal Status : Intial Goal Intial Goal Comment : via logroll KARI SPENCER PT - 06/12/2020 12:31 EDT KARI SPENCER, PT - 06/12/2020 12:31 EDT Ambulation LTG Grid Goal #1 Device : Walker, front wheel Distance : 300ft Assist : Independent, modified Date to Meet : 06/26/2020 EDT Goal Status : Intial Goal KARI SPENCER PT - 06/12/2020 12:31 EDT Treatment Note Subjective Comment : pt agreed to PTx eval; I go by [place] Patient's Response to Treatment : Stable KARI SPENCER, PT - 06/12/2020 12:31 EDT Additional Objective Information : Reviewed BLT and spine precautions Assisted for bathroom transfer for voiding KARI SPENCER PT - 06/12/2020 12:43 EDT Assessment : pt with back pain, limited endurance, impaired functional mobility but able to ambulate 280ft with RWx Alexandro Plan for Treatment : cont PTx POC REAL SPENCERUAN, PT - 06/12/2020 12:31 EDT Pain Assessment Pain Scaled Used : 0-10 Pain scale Pain Score Pre-Intervention : 3 Location : Back KARI SPENCER, PT - 06/12/2020 12:31 EDT Image 1 - Images currently included in the form version of this document have not been included in the text rendition version of the form. Anticipated Discharge Needs, OT/PT Anticipated Discharge to : Home, with family care Recommend Continued Therapy at Discharge : No SPENCERREALKARI, PT - 06/12/2020 12:31 EDT [place] PT Charges PT Ther Activities Ea 15 Min : 1 JOHANNA KARI, PT - 06/12/2020 12:43 EDT PT Eval Moderate Complexity : 1 JOHANNA KARI, PT - 06/12/2020 12:31 EDT Electronically signed by [facility] Conversion Volleyball Coach Cerner at 01/08/2023 2:03 PM CDT documented in this encounter Plan of Treatment Not on file documented as of this encounter Visit Diagnoses Not on filedocumented in this encounter Care Teams Turning Sander Operator Relationship Specialty Start Date End Date Edwar Lance MD [address] [place] [address] PCP - General Adolescent Medicine 05/29/24 documented as of this encounter
--- OUTSIDE RECORDS SUMMARY | 2025-05-03 08:21 | XMS_ITS | Encounter Summary ---
Author Organization [facility] ([place], [place], [place], [place]) Address [address] [place] [address] Care Team Providers Care Seal Delivery Vehicle Officer Name Role Phone Edwar Lambert MD Primary Care Provider + [phone] Encounter Details Date Type Department Care Team (Late st Contact Info) Description 06/13/2020 Transcribed Document [facility] Family Medicine [address] [place] [address] ProviderGonzalez MD [address] [place] [address] Social History Tobacco Use Types Packs/Day Years Used Date Smoking Tobacco: Never Assessed Sex and Gender Information Value Date Recorded Sex Assigned at Male 03/17/2022 7:15 PM CDT Legal Sex Male 7:15 PM CDT Gender Identity Male 03/17/2022 7:15 PM CDT Sexual Orientation Not on file documented as of this encounter Miscellaneous Notes * Cerner Conversion Note - Gonzalez Tan MD - 06/13/2020 12:24 PM CDT [facility] [place] [address] [place] II :1965 Visit Time:06/11/2020 Your Visit Summary Your Care Team Admitting Physician - MARLY CANTU MD Attending Physician - MARLY CANTU MD Primary Care Physician - EDWAR LAMBERT (REF)BLU Referring Physician - EDWAR LAMBERT (REF), BLU Your Diagnosis Fusion of lumbar spine Lumbar stenosis with neurogenic claudication Other spondylosis with myelopathy, lumbar region, Other spondylosis with myelopathy, lumbar region Discharge Vitals Temperature 36.9 ??C Heart Rate (Monitored) 92 Respiratory Rate 18 Blood Pressure 133/74 What to do next Instructions From Your Care Team Diet after Discharge: Resume usual diet as tolerated Activity after Discharge: No strenuous activity Lifting Restrictions: No heavy lifting over 10 pounds Weight Bearing: Full weight bearing Driving after Discharge: Do not drive Showering/Bathing: May shower, No tub bathing, soaking or swimming; Do not allow water to hit directly on incision, pat incision dry immediately Notify Provider of: Fever above 101 for 24 hours; Increase in pain at site, redness, swelling at incision, drainage or foul odor Wound/Incision Care after Discharge: Keep operative site/wound site clean and dry, Change dressing with dry dressing daily and as needed; May leave open to air after three days Medical Equipment for Home Use: Home Health Services: Community Services: Discharge Activity: don lso when up and about, Discharge Activity: No heavy lifting over 10 lbs Diet: Discharge Diet: Resume usual diet as tolerated Follow-Up Appointments Follow Up with MARLY CANTU When 07/10/2020 01:30 PM EDT Comments Please go to [facility] at 12:45 for x-rays before appointment Where: [address] [place] [address] [address] Business (1) Follow Up with MARLY CANTU When 06/26/2020 03:15 PM EDT Comments Appointment has been made for staple/suture removal Where: [address] [place] [address] [address] Business (1) Medications What How Much When Instructions Next Dose acetaminophen-oxyCODONE (Percocet 7.5 mg-325 mg oral tablet) 1 Tablet(s) Oral Every 6 Hours one tablet every 6 - 8 hours cyclobenzaprine (cyclobenzaprine 10 mg oral tablet) 1 Tablet(s) Oral Three Times A Day as needed for as needed for spasm Refills: 1 as needed docusate (Colace 100 mg oral capsule) 1 Capsule(s) Oral Every Day Printed Prescription in am Take your medications faithfully. Do NOT skip medication. Do NOT stop taking medications without the direction of a physician. Carry a list of your medications with you at all times, and take this medication list with you to your first follow up visit. Report any side effects. Avoid herbal remedies unless discussed with your physician. As part of your treatment plan, your physician may have prescribed a limited course of a controlled substance. This medication may be given to help people with moderate or severe pain or for other medical conditions, but there are risks involved with treatment. Common side effects may include nausea, constipation, drowsiness, sweating, itching, dry mouth, and rash. More serious side effects may include cognitive and motor impairment, like problems with thinking, concentrating, alertness, and movement (e.g. slowed reflexes), and driving and operating heavy machinery can be dangerous. It is important for you to talk to your physician if you have these side effects or questions. These controlled substances can produce physical dependence and be habit-forming if taken for an extended period of time, which means that the body has gotten used to them and may experience withdrawal symptoms if they are abruptly stopped. Withdrawal symptoms can include runny nose, sweating, goose bumps, diarrhea, abdominal cramping, rapid heartbeat, difficulty sleeping, and nervousness. Please dispose of unused and medications per your retail pharmacy guidance. Allergies No Known Allergies Immunizations This Visit influenza virus vaccine, inactivated 06/12/2020 Education Materials Wound Infection A wound infection happens when germs start to grow in a wound. Germs that cause wound infections are most often bacteria. Other types of infections can occur as well. An infection can cause the wound to break open. Wound infections need treatment. If a wound infection is not treated, problems can happen. What are the causes? Most often caused by germs (bacteria) that grow in a wound. ??? Other germs, such as yeast and funguses, can also cause wound infections. What increases the risk? Having a weak body defense system (immune system). ??? Having diabetes. ??? Taking certain medicines (steroids) for a long time. ??? Smoking. ??? Being an older person. ??? Being overweight. ??? Taking certain medicines for cancer treatment. What are the signs or symptoms? Having more redness, swelling, or pain at the wound site. ??? Having more blood or fluid at the wound site. ??? A bad smell coming from a wound or bandage (dressing). ??? Having a fever. ??? Feeling very tired. ??? Having warmth at or around the wound. ??? Having pus at the wound site. How is this treated? This condition is most often treated with an antibiotic medicine. ? The infection should improve 24???48 hours after you start antibiotics. ? After 24???48 hours, redness around the wound should stop spreading. The wound should also be less painful. Follow these instructions at home: Medicines ??? Take or apply ncqm-rby-hedgasf and prescription medicines only as told by your doctor. ??? If you were prescribed an antibiotic medicine, take or apply it as told by your doctor. Do not stop using the antibiotic even if you start to feel better. Wound care ??? Clean the wound each day, or as told by your doctor. ? Wash the wound with mild soap and water. ? Rinse the wound with water to remove all soap. ? Pat the wound dry with a clean towel. Do not rub it. ??? Follow instructions from your doctor about how to take care of your wound. Make sure you: ? Wash your hands with soap and water before and after you change your bandage. If you cannot use soap and water, use hand heading repairer. ? Change your bandage as told by your doctor. ? Leave stitches (sutures), skin glue, or skin tape (adhesive) strips in place if your wound has been closed. They may need to stay in place for 2 weeks or longer. If tape strips get loose and curl up, you may trim the loose edges. Do not remove tape strips completely unless your doctor says it is okay. Some wounds are left open to heal on their own. ??? Check your wound every day for signs of infection. Watch for: ? More redness, swelling, or pain. ? More fluid or blood. ? Warmth. ? Pus or a bad smell. General instructions ??? Keep the bandage dry until your doctor says it can be removed. ??? Do not take baths, swim, or use a hot tub until your doctor approves. Ask your doctor if you may take showers. You may only be allowed to take sponge baths. ??? Raise (elevate) the injured area above the level of your heart while you are sitting or lying down. ??? Do not scratch or pick at the wound. ??? Keep all follow-up visits as told by your doctor. This is important. Contact a doctor if: ??? Medicine does not help your pain. ??? You have more redness, swelling, or pain around your wound. ??? You have more fluid or blood coming from your wound. ??? Your wound feels warm to the touch. ??? You have pus coming from your wound. ??? You notice a bad smell coming from your wound or your bandage. ??? Your wound that was closed breaks open. Get help right away if: ??? You have a red streak going away from your wound. ??? You have a fever. Summary ??? A wound infection happens when germs start to grow in a wound. ??? This condition is usually treated with an antibiotic medicine. ??? Follow instructions from your doctor about how to take care of your wound. ??? Contact a doctor if your wound infection does not start to get better in 24???48 hours, or your symptoms get worse. ??? Keep all follow-up visits as told by your doctor. This is important. This information is not intended to replace advice given to you by your health care provider. Make sure you discuss any questions you have with your health care provider. Document Released: 06/15/2009 Document Revised: 04/18/2019 Document Reviewed: 04/18/2019 [employer] Patient Education ?? 2020 [employer] Spinal Fusion, Adult, Care After This sheet gives you information about how to care for yourself after your procedure. Your health care provider may also give you more specific instructions. If you have problems or questions, contact your health care provider. What can I expect after the procedure? After the procedure, it is common to have: ??? Back pain and stiffness. ??? Pain in the incision area. Follow these instructions at home: Medicines ??? Take rhrz-tmq-hvkcbvv and prescription medicines only as told by your health care provider. These include any pain medicines or blood thinning medicines (anticoagulants). ??? If you were prescribed an antibiotic medicine, take it as told by your health care provider. Do not stop taking the antibiotic even if you start to feel better. ??? Do not drive for 24 hours if you received a medicine to help you relax (sedative). ??? Do not drive or use heavy machinery while taking prescription pain medicine. If you have a brace: ??? Wear the brace as told by your health care provider. Remove it only as told by your health care provider. ??? Keep the brace clean. Managing pain, stiffness, and swelling ??? If directed, put ice on the injured area: ? If you have a removable brace, remove it as told by your health care provider. ? Put ice in a plastic bag. ? Place a towel between your skin and the bag. ? Leave the ice on for 20 minutes, 2-3 times a day. Incision care ??? Follow instructions from your health care provider about how to take care of your incision. Make sure you: ? Wash your hands with soap and water before you change your bandage (dressing). If soap and water are not available, use hand heading repairer. ? Change your dressing as told by your health care provider. ? Leave stitches (sutures), skin glue, or adhesive strips in place. These skin closures may need to be in place for 2 weeks or longer. If adhesive strip edges start to loosen and curl up, you may trim the loose edges. Do not remove adhesive strips completely unless your health care provider tells you to do that. ??? Keep your incision clean and dry. Do not take baths, swim, or use a hot tub until your health care provider approves. ??? Check your incision area every day for signs of infection. Check for: ? More redness, swelling, or pain. ? Fluid or blood. ? Warmth. ? Pus or a bad smell. Physical activity ??? Rest and protect your back as much as possible. ??? Follow instructions from your health care provider about how to move and use good posture to help your spine heal. ??? Do not lift anything that is heavier than 8 lb (3.6 kg) or as told by your health care provider. ??? Do not twist or bend at the waist until your health care provider approves. ??? Avoid: ? Pushing and pulling motions. ? Lifting anything over your head. ? Sitting or lying down in the same position for long periods of time. ??? Do not exercise until your health care provider approves. Once your health care provider has approved exercise, ask him or her what kinds of exercises you can do to make your back stronger (physical therapy). General instructions ??? Wear compression stockings and walk at least every few hours as told by your health care provider. Doing this will help to prevent blood clots and reduce swelling in your legs. ??? Do not use any products that contain nicotine or tobacco, such as cigarettes and e-cigarettes. These can delay bone healing. If you need help quitting, ask your health care provider. ??? To prevent or treat constipation while you are taking prescription pain medicine, your health care provider may recommend that you: ? Drink enough fluid to keep your urine clear or pale yellow. ? Take imqz-fwb-czazula or prescription medicines. ? Eat foods that are high in fiber, such as fresh fruits and vegetables, whole grains, and beans. ? Limit foods that are high in fat and processed sugars, such as fried and sweet foods. ??? Keep all follow-up visits as told by your health care provider. This is important. Contact a health care provider if: ??? You have pain that gets worse or does not get better with medicine. ??? Your legs or feet become painful or swollen. ??? You have more redness, swelling, or pain around your incision. ??? You have fluid or blood coming from your incision. ??? Your incision feels warm to the touch. ??? You have pus or a bad smell coming from your incision. ??? You have a fever. ??? You vomit or feel nausea. ??? You have weakness or numbness in your legs that is new or getting worse. ??? You have trouble controlling urination or bowel movements. Get help right away if: ??? You have severe pain. ??? You have chest pain. ??? You have trouble breathing. ??? You develop a cough. These symptoms may represent a serious problem that is an emergency. Do not wait to see if the symptoms will go away. Get medical help right away. Call your local emergency services (911 in the [place] Do not drive yourself to the hospital. Summary ??? It is common to have pain at the back and incision area. ??? Icing and pain medicines may help to control the pain. Follow directions from your health care provider. ??? Rest and protect your back as much as possible. Do not twist or bend at the waist. Get up and walk at least every few hours as told by your health care provider. This information is not intended to replace advice given to you by your health care provider. Make sure you discuss any questions you have with your health care provider. Document Released: 03/26/2006 Document Revised: 05/27/2019 Document Reviewed: 08/25/2017 [employer] Patient Education ?? 2020 [email or web address] docusate (oral/rectal) (DOK ue sate) Colace, Diocto, Doc-Q-Lace, Docu, Doculase, Docusil, Docusoft S, DocuSol, Dulcolax Stool Softener, Enemeez Mini, Jostin-Tin, Pedia-Lax Stool Softener, Cantu Stool Softener, Promolaxin, Silace, Surfak Stool Softener, Zandra-Q-Lax What is the most important information I should know about docusate? You should not use docusate if you also use mineral oil, unless your doctor tells you to. What is docusate? Docusate is a stool softener that makes bowel movements softer and easier to pass. Docusate is used to relieve occasional constipation (irregularity). There are many brands and forms of docusate available. Not all brands are listed on this leaflet. Docusate may also be used for purposes not listed in this medication guide. What should I discuss with my healthcare provider before using docusate? You should not use docusate if you are allergic to it. Ask a doctor or pharmacist if this medicine is safe to use if you have: ?? stomach pain; ?? nausea; ?? vomiting; or ?? a sudden change in bowel habits that lasts over 2 weeks. Ask a doctor before using this medicine if you are or . Do not give this medicine to a child without medical advice. How should I use docusate? Use exactly as directed on the label, or as prescribed by your doctor. Drink plenty of liquids while you are using docusate. Measure liquid medicine carefully. Use the dosing syringe provided, or use a medicine dose-measuring device (not a kitchen spoon). Do not take the rectal enema by mouth. Rectal medicine is for use only in the rectum. Wash your hands before and after using the enema. To use the enema, lie on your left side with your left leg extended and your right leg slightly bent. Remove the cap from the applicator tip and gently insert the tip into your rectum. Slowly squeeze the bottle to empty the contents into the rectum. After using the enema, lie down on your left side for at least 30 minutes to allow the liquid to distribute throughout your intestines. Avoid using the bathroom, and hold in the enema at least 1 hour, or all night if possible. Read and carefully follow any Instructions for Use provided with your medicine. Ask your doctor or pharmacist if you do not understand these instructions. Docusate generally produces bowel movement in 12 to 72 hours. Call your doctor if your symptoms do not improve after 72 hours. You should not use docusate for longer than 1 week, unless your doctor tells you to. Store at room temperature away from moisture and heat. Do not freeze liquid medicine. What happens if I miss a dose? Since docusate is used when needed, you may not be on a dosing schedule. Skip any missed dose if it's almost time for your next dose. Do not use two doses at one time. What happens if I overdose? Seek emergency medical attention or call the Poison Help line at . What should I avoid while using docusate? Avoid using mineral oil, unless told to do so by a doctor. What are the possible side effects of docusate? Get emergency medical help if you have signs of an allergic reaction: hives; difficult breathing; swelling of your face, lips, tongue, or throat. Stop using docusate and call your doctor at once if you have: ?? rectal bleeding or irritation; or ?? no bowel movement after 72 hours. Less serious side effects may be more likely, and you may have none at all. This is not a complete list of side effects and others may occur. Call your doctor for medical advice about side effects. You may report side effects to FDA at 5-072-BWJ-0100. What other drugs will affect docusate? Other drugs may affect docusate, including prescription and ogdq-iht-jcsvyol medicines, vitamins, and herbal products. Tell your doctor about all your current medicines and any medicine you start or stop using. Where can I get more information? Your pharmacist can provide more information about docusate. Remember, keep this and all other medicines out of the reach of children, never share your medicines with others, and use this medication only for the indication prescribed. Every effort has been made to ensure that the information provided by [employer]') is accurate, up-to-date, and complete, but no guarantee is made to that effect. Drug information contained herein may be time sensitive. [employer] information has been compiled for use by healthcare practitioners and consumers in the [place] and therefore [employer] does not warrant that uses outside of the [place] are appropriate, unless specifically indicated otherwise. [employer]'s drug information does not endorse drugs, diagnose patients or recommend therapy. [employer] drug information is an informational resource designed to assist licensed healthcare practitioners in caring for their patients and/or to serve consumers viewing this service as a supplement to, and not a substitute for, the expertise, skill, knowledge and judgment of healthcare practitioners. The absence of a warning for a given drug or drug combination in no way should be construed to indicate that the drug or drug combination is safe, effective or appropriate for any given patient. [employer] does not assume any responsibility for any aspect of healthcare administered with the aid of information [employer] provides. The information contained herein is not intended to cover all possible uses, directions, precautions, warnings, drug interactions, allergic reactions, or adverse effects. If you have questions about the drugs you are taking, check with your doctor, nurse or pharmacist. Copyright 1222-8445 [employer]. Version: 4.01. Revision Date: 03/27/2019. acetaminophen and oxycodone (a SEET a MIN oh fen and OX i KOE done) Endocet 10/325, Endocet 2.5/325, Endocet 5/325, Endocet 7.5/325, Nalocet, Percocet, Primlev What is the most important information I should know about acetaminophen and oxycodone? MISUSE OF OPIOID MEDICINE CAN CAUSE ADDICTION, OVERDOSE, OR . Keep the medication in a place where others cannot get to it. An overdose of acetaminophen can damage your liver or cause . Call your doctor at once if you have pain in your upper stomach, loss of appetite, dark urine, or jaundice (yellowing of your skin or eyes). Taking opioid medicine during may cause life-threatening withdrawal symptoms in the . Fatal side effects can occur if you use opioid medicine with alcohol, or with other drugs that cause drowsiness or slow your breathing. Stop taking this medicine and call your doctor right away if you have skin redness or a rash that spreads and causes blistering and peeling. What is acetaminophen and oxycodone? Acetaminophen and oxycodone is a combination medicine used to relieve moderate to severe pain. Acetaminophen and oxycodone may also be used for purposes not listed in this medication guide. What should I discuss with my healthcare provider before taking acetaminophen and oxycodone? You should not use this medicine if you are allergic to acetaminophen or oxycodone, or if you have: ?? severe asthma or breathing problems; or ?? a blockage in your stomach or intestines. Tell your doctor if you have ever had: ?? breathing problems, sleep apnea; ?? liver disease; ?? a drug or alcohol addiction; ?? kidney disease; ?? a head injury or seizures; ?? urination problems; or ?? problems with your thyroid, pancreas, or gallbladder. If you use opioid medicine while you are , your baby could become dependent on the drug. This can cause life-threatening withdrawal symptoms in the baby after it is born. Babies born dependent on opioids may need medical treatment for several weeks. Do not breastfeed. This medicine can pass into breast milk and cause drowsiness, breathing problems, or in a nursing baby. How should I take acetaminophen and oxycodone? Follow all directions on your prescription label. Never take this medicine in larger amounts, or for longer than prescribed. An overdose can damage your liver or cause . Tell your doctor if you feel an increased urge to use more of this medicine. Never share this medicine with another person, especially someone with a history of drug abuse or addiction. MISUSE CAN CAUSE ADDICTION, OVERDOSE, OR . Keep the medicine in a place where others cannot get to it. Selling or giving away acetaminophen and oxycodone is against the law. Measure liquid medicine carefully. Use the dosing syringe provided, or use a medicine dose-measuring device (not a kitchen spoon). If you need surgery or medical tests, tell the doctor ahead of time that you are using this medicine. You should not stop using this medicine suddenly. Follow your doctor's instructions about tapering your dose. Store at room temperature away from moisture and heat. Keep track of your medicine. You should be aware if anyone is using it improperly or without a prescription. Do not keep leftover opioid medication. Just one dose can cause in someone using this medicine accidentally or improperly. Ask your pharmacist where to locate a drug take-back disposal program. If there is no take-back program, flush the unused medicine down the toilet. What happens if I miss a dose? Since this medicine is used for pain, you are not likely to miss a dose. Skip any missed dose if it is almost time for your next dose. Do not use two doses at one time. What happens if I overdose? Seek emergency medical attention or call the Poison Help line at . An overdose of acetaminophen and oxycodone can be fatal. The first signs of an acetaminophen overdose include loss of appetite, nausea, vomiting, stomach pain, sweating, and confusion or weakness. Later symptoms may include pain in your upper stomach, dark urine, and yellowing of your skin or the whites of your eyes. Overdose can also cause severe muscle weakness, pinpoint pupils, very slow breathing, extreme drowsiness, or coma. What should I avoid while taking acetaminophen and oxycodone? Avoid driving or operating machinery until you know how this medicine will affect you. Dizziness or drowsiness can cause falls, accidents, or severe injuries. Do not drink alcohol. Dangerous side effects or could occur. Ask a doctor or pharmacist before using any other medicine that may contain acetaminophen (sometimes abbreviated as APAP). Taking certain medications together can lead to a fatal overdose. What are the possible side effects of acetaminophen and oxycodone? Get emergency medical help if you have signs of an allergic reaction: hives; difficulty breathing; swelling of your face, lips, tongue, or throat. Opioid medicine can slow or stop your breathing, and may occur. A person caring for you should seek emergency medical attention if you have slow breathing with long pauses, blue colored lips, or if you are hard to wake up. In rare cases, acetaminophen may cause a severe skin reaction that can be fatal. This could occur even if you have taken acetaminophen in the past and had no reaction. Stop taking this medicine and call your doctor right away if you have skin redness or a rash that spreads and causes blistering and peeling. Call your doctor at once if you have: ?? noisy breathing, sighing, shallow breathing, breathing that stops during sleep; ?? a light-headed feeling, like you might pass out; ?? weakness, tiredness, fever, unusual bruising or bleeding; ?? confusion, unusual thoughts or behavior; ?? problems with urination; ?? liver problems--nausea, upper stomach pain, tiredness, loss of appetite, dark urine, deana-colored stools, jaundice (yellowing of the skin or eyes); or ?? low cortisol levels-- nausea, vomiting, loss of appetite, dizziness, worsening tiredness or weakness. Seek medical attention right away if you have symptoms of serotonin syndrome, such as: agitation, hallucinations, fever, sweating, shivering, fast heart rate, muscle stiffness, twitching, loss of coordination, nausea, vomiting, or diarrhea. Serious side effects may be more likely in older adults and those who are overweight, malnourished, or debilitated. Long-term use of opioid medication may affect fertility (ability to have children) in men or women. It is not known whether opioid effects on fertility are permanent. Common side effects include: ?? dizziness, drowsiness, feeling tired; ?? feelings of extreme happiness or sadness; ?? nausea, vomiting, stomach pain; ?? constipation; or ?? headache. This is not a complete list of side effects and others may occur. Call your doctor for medical advice about side effects. You may report side effects to FDA at 5-826-TUU-4001. What other drugs will affect acetaminophen and oxycodone? You may have breathing problems or withdrawal symptoms if you start or stop taking certain other medicines. Tell your doctor if you also use an antibiotic, antifungal medication, heart or blood pressure medication, seizure medication, or medicine to treat HIV or hepatitis C. Opioid medication can interact with many other drugs and cause dangerous side effects or . Be sure your doctor knows if you also use: ?? cold or allergy medicines, bronchodilator asthma/COPD medication, or a diuretic ('water pill'); ?? medicines for motion sickness, irritable bowel syndrome, or overactive bladder; ?? other narcotic medications--opioid pain medicine or prescription cough medicine; ?? a sedative like Valium--diazepam, alprazolam, lorazepam, Xanax, Klonopin, Versed, and others; ?? drugs that make you sleepy or slow your breathing--a sleeping pill, muscle relaxer, medicine to treat mood disorders or mental illness; ?? drugs that affect serotonin levels in your body--a stimulant, or medicine for depression, Parkinson's disease, migraine headaches, serious infections, or nausea and vomiting. This list is not complete. Other drugs may affect acetaminophen and oxycodone, including prescription and pvtm-szl-xviqgyr medicines, vitamins, and herbal products. Not all possible interactions are listed here. Where can I get more information? Your doctor or pharmacist can provide more information about acetaminophen and oxycodone. Remember, keep this and all other medicines out of the reach of children, never share your medicines with others, and use this medication only for the indication prescribed. Every effort has been made to ensure that the information provided by [employer] is accurate, up-to-date, and complete, but no guarantee is made to that effect. Drug information contained herein may be time sensitive. [employer] information has been compiled for use by healthcare practitioners and consumers in the [place] and therefore [employer] does not warrant that uses outside of the [place] are appropriate, unless specifically indicated otherwise. [facility] drug information does not endorse drugs, diagnose patients or recommend therapy. [facility] drug information is an informational resource designed to assist licensed healthcare practitioners in caring for their patients and/or to serve consumers viewing this service as a supplement to, and not a substitute for, the expertise, skill, knowledge and judgment of healthcare practitioners. The absence of a warning for a given drug or drug combination in no way should be construed to indicate that the drug or drug combination is safe, effective or appropriate for any given patient. [employer] does not assume any responsibility for any aspect of healthcare administered with the aid of information [employer] provides. The information contained herein is not intended to cover all possible uses, directions, precautions, warnings, drug interactions, allergic reactions, or adverse effects. If you have questions about the drugs you are taking, check with your doctor, nurse or pharmacist. Copyright 4295-9734 [employer]. Version: .. Revision Date: 10/11/2019. cyclobenzaprine (garrick roman) Amrix, Comfort Pac with Cyclobenzaprine, Fexmid What is the most important information I should know about cyclobenzaprine? You should not use cyclobenzaprine if you have a thyroid disorder, heart block, congestive heart failure, a heart rhythm disorder, or you have recently had a heart attack. Do not use cyclobenzaprine if you have taken an MAO inhibitor in the past 14 days, such as isocarboxazid, linezolid, phenelzine, rasagiline, selegiline, or tranylcypromine. What is cyclobenzaprine? Cyclobenzaprine is a muscle relaxant. It works by blocking nerve impulses (or pain sensations) that are sent to your brain. Cyclobenzaprine is used together with rest and physical therapy to relieve muscle spasms caused by painful conditions such as an injury. Cyclobenzaprine may also be used for purposes not listed in this medication guide. What should I discuss with my healthcare provider before taking cyclobenzaprine? You should not use cyclobenzaprine if you are allergic to it, or if you have: ?? a thyroid disorder; ?? heart block, heart rhythm disorder, congestive heart failure; or ?? if you have recently had a heart attack. Cyclobenzaprine is not approved for use by anyone younger than 15 years old. Do not use cyclobenzaprine if you have taken an MAO inhibitor in the past 14 days. A dangerous drug interaction could occur. MAO inhibitors include isocarboxazid, linezolid, phenelzine, rasagiline, selegiline, and tranylcypromine. Some medicines can interact with cyclobenzaprine and cause a serious condition called serotonin syndrome. Be sure your doctor knows if you also take stimulant medicine, opioid medicine, herbal products, or medicine for depression, mental illness, Parkinson's disease, migraine headaches, serious infections, or prevention of nausea and vomiting. Ask your doctor before making any changes in how or when you take your medications. Tell your doctor if you have ever had: ?? liver disease; ?? glaucoma; ?? enlarged prostate; or ?? problems with urination. It is not known whether this medicine will harm an unborn baby. Tell your doctor if you are or plan to become . It may not be safe to breast-feed while using this medicine. Ask your doctor about any risk. Older adults may be more sensitive to the effects of this medicine. How should I take cyclobenzaprine? Follow all directions on your prescription label and read all medication guides or instruction sheets. Your doctor may occasionally change your dose. Use the medicine exactly as directed. Cyclobenzaprine is usually taken once daily for only 2 or 3 weeks. Follow your doctor's dosing instructions very carefully. Swallow the capsule whole and do not crush, chew, break, or open it. Take the medicine at the same time each day. Call your doctor if your symptoms do not improve after 3 weeks, or if they get worse. Store at room temperature away from moisture, heat, and light. What happens if I miss a dose? Take the medicine as soon as you can, but skip the missed dose if it is almost time for your next dose. Do not take two doses at one time. What happens if I overdose? Seek emergency medical attention or call the Poison Help line at . An overdose of cyclobenzaprine can be fatal. Overdose symptoms may include severe drowsiness, vomiting, fast heartbeats, tremors, agitation, or hallucinations. What should I avoid while taking cyclobenzaprine? Avoid driving or hazardous activity until you know how this medicine will affect you. Your reactions could be impaired. Avoid drinking alcohol. Dangerous side effects could occur. What are the possible side effects of cyclobenzaprine? Get emergency medical help if you have signs of an allergic reaction: hives; difficult breathing; swelling of your face, lips, tongue, or throat. Stop using cyclobenzaprine and call your doctor at once if you have: ?? fast or irregular heartbeats; ?? chest pain or pressure, pain spreading to your jaw or shoulder; or ?? sudden numbness or weakness (especially on one side of the body), slurred speech, balance problems. Seek medical attention right away if you have symptoms of serotonin syndrome, such as: agitation, hallucinations, fever, sweating, shivering, fast heart rate, muscle stiffness, twitching, loss of coordination, nausea, vomiting, or diarrhea. Serious side effects may be more likely in older adults. Common side effects may include: ?? drowsiness, tiredness; ?? headache, dizziness; ?? dry mouth; or ?? upset stomach, nausea, constipation. This is not a complete list of side effects and others may occur. Call your doctor for medical advice about side effects. You may report side effects to FDA at 5-998-QZC-9650. What other drugs will affect cyclobenzaprine? Using cyclobenzaprine with other drugs that make you drowsy can worsen this effect. Ask your doctor before using opioid medication, a sleeping pill, a muscle relaxer, or medicine for anxiety or seizures. Tell your doctor about all your other medicines, especially: ?? bupropion (Zyban, for smoking cessation); ?? meperidine; ?? tramadol; ?? verapamil; ?? cold or allergy medicine that contains an antihistamine (Benadryl and others); ?? medicine to treat Parkinson's disease; ?? medicine to treat excess stomach acid, stomach ulcer, motion sickness, or irritable bowel syndrome; ?? medicine to treat overactive bladder; or ?? bronchodilator asthma medication. This list is not complete. Other drugs may affect cyclobenzaprine, including prescription and erhi-vdm-etzteco medicines, vitamins, and herbal products. Not all possible drug interactions are listed here. Where can I get more information? Your pharmacist can provide more information about cyclobenzaprine. Remember, keep this and all other medicines out of the reach of children, never share your medicines with others, and use this medication only for the indication prescribed. Every effort has been made to ensure that the information provided by [employer] is accurate, up-to-date, and complete, but no guarantee is made to that effect. Drug information contained herein may be time sensitive. [employer] information has been compiled for use by healthcare practitioners and consumers in the [place] and therefore [employer] does not warrant that uses outside of the [place] are appropriate, unless specifically indicated otherwise. [facility] drug information does not endorse drugs, diagnose patients or recommend therapy. [facility] drug information is an informational resource designed to assist licensed healthcare practitioners in caring for their patients and/or to serve consumers viewing this service as a supplement to, and not a substitute for, the expertise, skill, knowledge and judgment of healthcare practitioners. The absence of a warning for a given drug or drug combination in no way should be construed to indicate that the drug or drug combination is safe, effective or appropriate for any given patient. [employer] does not assume any responsibility for any aspect of healthcare administered with the aid of information [employer] provides. The information contained herein is not intended to cover all possible uses, directions, precautions, warnings, drug interactions, allergic reactions, or adverse effects. If you have questions about the drugs you are taking, check with your doctor, nurse or pharmacist. Copyright 1812-8300 [employer]. Version: 5.01. Revision Date: 06/15/2018. Emergency Awareness and Preventative Care STROKE is an EMERGENCY Every Minute Counts Act FAST and Check for these signs: FACE Does the face look uneven? ARM Does one arm drift down? SPEECH Does their speech sound strange? TIME Call at any sign of stroke Stroke Risk Factors Atrial Fibrillation (irregular heartbeat) Diabetes Family history of stroke Heart Disease Heavy alcohol use High Blood Pressure High Cholesterol Physical inactivity and obesity Smoking Cigarette Smoking The facts are clear, cigarette smoking will shorten your life. Smoking can cause many illnesses along the way. As a healthcare provider, we recommend that you stop smoking. Assistance with quitting is available by contacting 9-234-ERPVAirex EnergyNOW. This is a free resource providing counseling, support, and referral. Or you may contact your personal physician. National Suicide Prevention Lifeline: The National Suicide Prevention Lifeline is a national network of local crisis centers that provides free and confidential emotional support to people in suicidal crisis or emotional distress 24 hours a day, 7 days a week. Don't Wait! Stop a Heart Attack Before it Starts What is a heart attack? A heart attack is damage or to a part of the heart from severely decreased or lack of blood flow to the heart. Over time, arteries can become narrow from the buildup of fat and cholesterol, which is called plaque. The plaque can rupture causing a blood clot to form. When the blood clot forms, the artery can become severely narrowed or completely blocked, causing a heart attack. Heart attack is the leading cause of in the [place]. 85% of muscle damage occurs within the first 2 hours. Delay in the recognition of heart attack symptoms increases the chances of . Know the early symptoms of a heart attack: Nausea Feeling of fullness in chest Jaw Pain Pain that travels down one or both arms Fatigue/being tired Anxiety Back Pain Chest pressure, squeezing, or discomfort Shortness of breath Sweating, or a cold sweat Feeling of impending doom There are unusual signs of a heart attack, too! Women, the elderly, and diabetics may present with atypical symptoms: Fainting/dizziness Weakness Confusion Risk Factors for a Heart Attack Some heart disease risk factors, such as age and family history, cannot be changed. Others, like smoking and lack of exercise, can be changed. Smoking High Cholesterol High Blood Pressure Family History Obesity Age Gender (Males are at higher risk) Lack of Exercise Diabetes Diet Stress Excessive Alcohol Intake If you or someone you know is experiencing the signs and symptoms of a heart attack, DON???T DELAY. Call immediately and seek help. If someone collapses, perform CPR! Do not attempt to drive if you are having symptoms of heart attack. Hands-Only CPR Why Hands-Only CPR? Hands-Only CPR has been shown to be as effective as conventional CPR for cardiac arrests that occur outside of a hospital. Survival depends on immediately receiving CPR from someone nearby. How do you perform Hands-Only CPR? There are two easy steps: Call if you see a teen or adult collapse Push hard and fast in the center of the chest at a beat of 100 beats per minute. Save a life! 4 WAYS TO GET AHEAD OF SEPSIS SEPSIS is a MEDICAL EMERGENCY. Time matters! Infections put you and your family at risk for a life-threatening condition called sepsis. Sepsis is the body's extreme response to an infection. It is life-threatening, and without timely treatment, sepsis can rapidly lead to tissue damage, organ failure, and . Sepsis happens when an infection you already have-in your skin, lungs, urinary tract or somewhere else-triggers a chain reaction throughout your body. 1 PREVENT INFECTIONS Take good care of chronic conditions. Talk to your doctor about getting the recommended vaccines. 2 PRACTICE GOOD HYGIENE Wash your hands frequently. Keep cuts or open sores clean and covered until they are healed. 3 KNOW THE SYMPTOMS Confusion or disorientation Shortness of breath High heart rate Fever, shivering, or feeling very cold Extreme pain or discomfort Clammy or sweaty skin 4 ACT FAST Get medical care IMMEDIATELY if you suspect sepsis or if you have an infection that is not getting better or is getting worse. To learn more about sepsis and how to prevent infections, visit www.cdc.gov/sepsis. Test Results Laboratory or Other Results This Visit (last charted value for your 06/11/2020 visit) Hematology 06/13/2020 3:33 AM WBC: 9.2 K/uL -- Normal range between ( 3.6 and 9.5 ) RBC: 4.52 Million/uL -- Normal range between ( 4.20 and 5.70 ) Hct: 40.7 % -- Normal range between ( 40.1 and 51.0 ) Hgb: 13.5 g/dL -- Normal range between ( 13.5 and 17.3 ) Platelet Count: 196 K/uL -- Normal range between ( 163 and 369 ) MCH: 29.9 pg -- Normal range between ( 25.6 and 32.2 ) MCHC: 33.2 Gram/dL -- Normal range between ( 32.2 and 36.5 ) MCV: 90.0 fL -- Normal range between ( 79.0 and 94.8 ) Slide Review: No Eos %: 1.5 % -- Normal range between ( 0.0 and 7.0 ) [place] #: 0.98 K/uL -- Normal range between ( 0.16 and 1.00 ) Eos #: 0.14 x10(3)/uL -- Normal range between ( 0.00 and 0.80 ) [place] %: 10.6 % -- Normal range between ( 3.0 and 9.0 ) Baso %: 0.4 % -- Normal range between ( 0.0 and 1.5 ) Baso #: 0.04 x10(3)/uL -- Normal range between ( 0.00 and 0.20 ) RDW: 13.3 % -- Normal range between ( 11.7 and 14.9 ) Neut %: 66.8 % -- Normal range between ( 34.0 and 71.0 ) Neut #: 6.18 K/uL -- Normal range between ( 1.56 and 6.13 ) Lymph %: 19.9 % -- Normal range between ( 19.3 and 53.1 ) Lymph #: 1.84 x10(3)/uL -- Normal range between ( 1.00 and 3.90 ) MPV: 10.7 fL -- Normal range between ( 9.4 and 12.4 ) IG#: 0.07 x10(3)/uL -- Normal range between ( 0.00 and 0.05 ) IG%: 0.80 % -- Normal range between ( 0.00 and 0.60 ) Urinalysis 06/11/2020 8:08 AM Ur RBC: 0-2 /HPF Urine Nitrite: Negative Urine Leukocyte Esterase: Negative Urine Appearance: Clear Urine Glucose Dipstick: Negative Urine Blood Dipstick: Negative Urine Type: U CleanCatch Urine Urobilinogen Dipstick: 0.2 EU/dL Urine Protein Dipstick: Negative Urine Color: Yellow Urine Ketones Dipstick: Negative Urine pH Dipstick: 5.5 -- Normal range between ( 6.0 and 8.0 ) Urine Bilirubin Dipstick: Negative Urine Specific [place]: 1.018 -- Normal range between ( 1.005 and 1.030 ) Microbiology 06/07/2020 10:45 AM Novel Coronavirus 2019: Not Detected Blood Bank 06/11/2020 8:08 AM ABO/Rh (ECHO): O NEG Antibody Screen: Negative ABSC General Chemistry 06/13/2020 3:33 AM Creatinine Level: 1.20 mg/dL -- Normal range between ( 0.70 and 1.30 ) Sodium Level: 134 mmol/L -- Normal range between ( 136 and 146 ) Potassium Level: 4.2 mmol/L -- Normal range between ( 3.5 and 5.1 ) Chloride Level: 103 mmol/L -- Normal range between ( 102 and 112 ) Carbon Dioxide Level: 27 mmol/L -- Normal range between ( 21 and 32 ) Anion Gap: 8 -- Normal range between ( 9 and 20 ) Bun/Creatinine: 12.5 -- Normal range between ( 8.0 and 20.0 ) Calcium Level: 8.8 mg/dL -- Normal range between ( 8.4 and 10.1 ) eGFR : >60 mL/min/1.73m2 eGFR NonAfrican: >60 mL/min/1.73m2 Glucose Level: 114 mg/dL -- Normal range between ( 74 and 106 ) Blood Urea Nitrogen: 15 mg/dL -- Normal range between ( 7 and 22 ) 06/12/2020 11:22 AM Glucose POC2: 111 mg/dL -- Normal range between ( 70 and 110 ) Device Comment 1: Notified MD [facility] Diagnostic Radiology 06/11/2020 11:10 AM CR Fluoro in OR: CR Fluoro in OR Patient Name:AL COSTA II, I have received and understand this information and was given the opportunity to ask questions. Patient/Airfreight Loading Supervisor Name: Patient/Airfreight Loading Supervisor Signature: Relationship to Patient: Clinician/Hospital Airfreight Loading Supervisor Signature: Date: documented in this encounter Plan of Treatment Not on file documented as of this encounter Visit Diagnoses Not on filedocumented in this encounter Care Teams Seal Delivery Vehicle Officer Relationship Specialty Start Date End Date Edwar Lambert MD [address] [place] [id number] PCP - General Adolescent Medicine 05/29/24 documented as of this encounter
--- OUTSIDE RECORDS SUMMARY | 2025-05-03 08:21 | XMS_ITS | Encounter Summary ---
Author Organization [employer] ([place], [place], [place], [place]) Address [address] [place] [address] Care Team Providers Care Education Coordinator Name Role Phone Edwar Lance MD Primary Care Provider + [phone] Encounter Details Date Type Department Care Team (Late st Contact Info) Description 06/11/2020 Transcribed Document [facility] [address] [place] [address] Hortencia Stack MD [address] [place], [place] [id number] Social History Tobacco Use Types Packs/Day Years Used Date Smoking Tobacco: Never Assessed Sex and Gender Information Value Date Recorded Sex Assigned at Male 03/17/2022 7:15 PM CDT Legal Sex Male 7:15 PM CDT Gender Identity Male 03/17/2022 7:15 PM CDT Sexual Orientation Not on file documented as of this encounter Miscellaneous Notes * Cerner Conversion Note - Hortencia Stack MD - 06/11/2020 10:19 AM EDT Patient: AL COSTA II Age: 54 years Sex: Male : 1965 Associated Diagnoses: None Author: ARJUN QUEZADA PA 06/11/2020 cc: medical management s/p extension of fusion to L1 per Dr. Zarate HPI: Patient is a 54 yo male admitted to [facility] per Dr. Zarate for an extension of fusion to L1. Preoperatively patient was found to have advanced spondylolisthesis of the lumbar spine and elected surgical intervention after failing conservative treatment. Patient is followed perioperatively while hospitalized for medical management. Patient is seen today postoperatively. Reports this is his 6th spinal operation secondary to persistent back and leg pain associated with difficulty walking. Patient reports that he has baseline pain at 6/10 on a daily basis. Pain rated at 8/10 at this time. Reports he has been healthy lately without f/c/s. No n/v/d. No SOA or Chest Pain. He has regular BMs at baseline with last BM yesterday. Last meal at dinner. No history of postoperative urinary retention. Has postoperative N/V in the past with Scopolamine applied. Patient without other concerns at this time. Reports he has a PCP that he sees regularly for annual lab monitoring. Past Med Hx: Active Problems (8) Back pain History of obstructive sleep apnea [place] (hard of hearing) Left leg numbness Numbness in both legs JASWINDER on CPAP PONV (postoperative nausea and vomiting) Seasonal allergies Active Procedures (1) back surgery Family Hx: Heart disease. Social & Psychosocial Habits Alcohol Comment: none - 10/23/2013 11:43 - YANNA COREAS RN 05/12/2018 Alcohol Use History, Social Habits No Substance Abuse Comment: none - 10/23/2013 11:43 - YANNA COREAS RN 05/12/2018 Recreational Drug Use History No Recreational Drug Use Last 12 Months No Tobacco 10/23/2013 Smoking Status Never smoker 05/12/2018 Smoking Status Never (less than 100 in l Smokeless Tobacco Status Never Allergies: NKDA HOME MEDICATIONS: No qualifying data available Exam: Vitals Signs (last 24 hrs) Last Charted Minimum Maximum Temp 98.2 (JUN 11 07:00) 98.2 (JUN 11 07:00) 98.2 (JUN 11 07:00) Mon HR 79 (JUN 11 07:00) 79 (JUN 11 07:00) 79 (JUN 11 07:00) Resp Rate H 22 (JUN 11 07:00) H 22 (JUN 11 07:00) H 22 (JUN 11 07:00) SBP H 147 (JUN 11 07:00) H 147 (JUN 11 07:00) H 147 (JUN 11 07:00) DBP H 92 (JUN 11 07:00) H 92 (JUN 11 07:00) H 92 (JUN 11:00) SpO2 96 (JUN 11 07:00) 96 (JUN 11:00) 96 (JUN 11:00) General: patient is lethargic but awakens without difficulty. Overweight. HEENT: sclera white without conjunctival injection. No erythema, exudate or ulceration. No thrush present. Neck: Supple without nuchal rigidity Lymphatic: No palpable cervical or axillary LAD Lungs: Clear to auscultation bilaterally without wheezes, rales, or rhonchi. Normal respiratory effort with o2 applied. Good cough effort. Cardiovascular: normal S1/S2; RRR, no m/r/g. Abdomen: soft, non-tender, non-distended, hypoactive bowel sounds throughout. : Negative for Chen catheter Lower extremity: No cyanosis, clubbing or edema Neuro: Alert and oriented x3. No focal deficits. Motor 5/5 upper ext strength MSK: No joint effusions and without limitations to mobility Skin: Without rash; c/d/i Psych: Appropriate in mood and affect and cooperative with exam Data: Labs (Last four charted values) WBC 7.1 (JUN 11) HB 16.1 (JUN 11) HCT 46.4 (JUN 11) Plt 205 (JUN 11) Na 139 (JUN 11) K 4.5 (JUN 11) Cl 107 (JUN 11) CO2 27 (JUN 11) BUN 15 (JUN 11) Cr 1.20 (JUN 11) Glu R 100 (JUN 11) Ca 9.4 (JUN 11) Impression: spondylolisthesis Lspine -Awaiting extension of fusion to L1 per Dr. Zarate JASWINDER with CPAP use Plan: Home CPAP with tubing for nighttime use AM labs Monitor HTN; add PRN's, hold parameters bowel regimen incentive spirometer PT/OT DVT prophylaxis noted Pain management deferred to surgeon will monitor hb/hct daily for signs of ongoing acute blood loss will monitor bun/cr daily for signs of dehydration, prerenal azotemia will monitor for signs/symptoms of post-op wound infection or hospital acquired infectious process resume outpatient medication regimen for comorbidities Scribed by Roberta Loja documented in this encounter Plan of Treatment Not on file documented as of this encounter Visit Diagnoses Not on filedocumented in this encounter Care Teams Education Coordinator Relationship Specialty Start Date End Date Edwar Lance MD [address] [place] [address] [place] [address] PCP - General Adolescent Medicine 05/29/24 documented as of this encounter
--- OUTSIDE RECORDS SUMMARY | 2025-05-03 08:21 | XMS_ITS | Encounter Summary ---
Author Organization [employer] ([place], [place], [place], [place]) Address [address] [place] [address] Care Team Providers Care Greens Keeper Name Role Phone Edwar Lance MD Primary Care Provider + [phone] Encounter Details Date Type Department Care Team (Late st Contact Info) Description 06/11/2020 Transcribed Document [facility] [place] Family Medicine [address] [place] [address] ProviderGonzalez MD [address] [place] [id number] Social History Tobacco Use Types Packs/Day Years [...] AM CDT Pain Assessment Entered On: 06/11/2020 14:21 EDT Performed On: 06/11/2020 13:23 EDT by TERRY THOMAS RN Intervention Information: HYDROmorphone Performed by TERRY THOMAS RN on 06/11/2020 12:53:00 EDT HYDROmorphone,0.5mg IV Push,Right Mid Forearm,Pain (Severe 7-10) Pain Assessment Pain Assessment : Follow-up assessment Pain Scale Goal : 3 Pain Scale Used : 0-10 Scale Location : Back TERRY THOMAS RN - 06/11/2020 14:21 EDT Pain Scale Intensity : 6 TERRY THOMAS RN - 06/11/2020 14:21 EDT Image 4 - Images currently included in the form version of this document have not been included in the text rendition version of the form. documented in this encounter Plan of Treatment Not on file documented as of this encounter Visit Diagnoses Not on filedocumented in this encounter Care Teams Greens Keeper Relationship Specialty Start Date End Date Edwar Lance MD [address] [place] [address] [place] [address] PCP - General Adolescent Medicine 05/29/24 documented as of this encounter
--- OUTSIDE RECORDS SUMMARY | 2025-05-03 08:21 | XMS_ITS | Encounter Summary ---
Author Organization [employer] ([place], [place], [place], [place]) Address [address] [place] [address] Care Team Providers Care Resolution Agent Name Role Phone Edwar Lance MD Primary Care Provider + [phone] Encounter Details Date Type Department Care Team (Late st Contact Info) Description 06/10/2020 Transcribed Document [facility] [place] [address] [place] [address] ProviderGonzalez MD [address] [place], [place] [id number] Social History Tobacco Use Types Packs/Day Years Used Date Smoking Tobacco: Never Assessed Sex and Gender Information Value Date Recorded Sex Assigned at Male 03/17/2022 7:15 PM CDT Legal Sex Male 7:15 PM CDT Gender Identity Male 03/17/2022 7:15 PM CDT Sexual Orientation Not on file documented as of this encounter Miscellaneous Notes * Cerner Conversion Note - Gonzalez ProviderMD - 06/10/2020 2:22 PM CDT UM Authorization Entered On: 06/10/2020 14:22 EDT Performed On: 06/10/2020 14:22 EDT by ERNESTINA COOPER, Nba Player Primary Insurance Authorization Authorization and Policy Numbers : Insurance 1 Health Plan: [employer] Policy Number: [id number] Authorization Number: Insurance 2 Health Plan: MEDICAID [facility] Policy Number: [id number] Authorization Number: Insurance Primary Name : Jose C [id number] Authorization Number-Primary : email to KULWANT remichelle status of auth Authorized Service Begin Date-Primary : 06/11/2020 EDT Authorization Comments-Primary : pt is scheduled for INPT lumbar fusion posterior 3 level on Wednesday06/11/2020 Historical Authorization Comments-Primary : No Authorization Comments Found ERNESTINA COOPER, Nba Player - 06/10/2020 14:22 EDT Electronically signed by Roberto Colunga Conversion Commercial Lines Underwriter Cerner at 01/08/2023 2:30 PM CDT documented in this encounter Plan of Treatment Not on file documented as of this encounter Visit Diagnoses Not on filedocumented in this encounter Care Teams Resolution Agent Relationship Specialty Start Date End Date Edwar Lance MD [address] [place] [address] PCP - General Adolescent Medicine 05/29/24 documented as of this encounter
--- OUTSIDE RECORDS SUMMARY | 2025-05-03 08:21 | XMS_ITS | Encounter Summary ---
Author Organization [employer] ([place], [place], [place], [place]) Address [address] [place] [address] Care Team Providers Care Industrial Health Engineer Name Role Phone Edwar Lance MD Primary Care Provider + [phone] Encounter Details Date Type Department Care Team (Late st Contact Info) Description 06/13/2020 Transcribed Document [facility] [place] [facility] [place] [address] ProviderGonzalez MD [address] [place] [id number] Social History Tobacco Use Types Packs/Day Years Used Date Smoking Tobacco: Never Assessed Sex and Gender Information Value Date Recorded Sex Assigned at Male 03/17/2022 7:15 PM CDT Legal Sex Male 7:15 PM CDT Gender Identity Male 03/17/2022 7:15 PM CDT Sexual Orientation Not on file documented as of this encounter Miscellaneous Notes * Cerner Conversion Note - Gonzalez ProviderMD - 06/13/2020 4:38 PM CDT On Going Discharge Planning Entered On: 06/13/2020 16:38 EDT Performed On: 06/13/2020 16:38 EDT by MIRANDA ROSE RN-Vp Celebrity ServicesControls Project Engineer Progress Note Discharge Arrangements : Patient Post-Acute Information Patient Name: AL COSTA II Gender: Male : [birth year] Age: 54 Years No Post-Acute Placement(s) Listed No Post-Acute Service(s) Listed No Curaspan Referral(s) Listed Discharge Options Discussed with Patient : Home Health Barriers to Discharge Unresolved : All resolved Does the Patient have a Floor to SNF Benefit? : No Physician Agreeable to Move Forward with D/C Plan? : Yes Did you Attend Multidisciplinary Rounds? : Yes MIRANDA ROSE RN-Vp Celebrity [employer] - 06/13/2020 16:38 EDT Electronically signed by [facility] Conversion Speech Pathology Supervisor Cerner at 01/08/2023 2:20 PM CDT documented in this encounter Plan of Treatment Not on file documented as of this encounter Visit Diagnoses Not on filedocumented in this encounter Care Teams Industrial Health Engineer Relationship Specialty Start Date End Date Edwar Lance MD [address] [place] [address] PCP - General Adolescent Medicine 05/29/24 documented as of this encounter
--- OUTSIDE RECORDS SUMMARY | 2025-05-03 08:21 | XMS_ITS | Encounter Summary ---
Author Organization [employer] ([place], [place], [place], [place]) Address [address] [place] [address] Care Team Providers Care Verification Engineer Name Role Phone Edwar Lance MD Primary Care Provider + [phone] Encounter Details Date Type Department Care Team (Late st Contact Info) Description 06/11/2020 Transcribed Document [facility] [place] [address] [place] [address] ProviderGonzalez MD [address] [place], [place] [address] Social History Tobacco Use Types Packs/Day Years [...] Gonzalez ProviderMD - 06/11/2020 12:45 PM CDT Pain Assessment Entered On: 06/11/2020 20:30 EDT Performed On: 06/11/2020 15:24 EDT by SASCHA ANDRADE RN Intervention Information: acetaminophen-oxyCODONE Performed by SASCHA ANDRADE RN on 06/11/2020 14:24:00 EDT acetaminophen-oxyCODONE,1Tab Oral,Pain (Severe 7-10) Pain Assessment Pain Assessment : Follow-up assessment Pain Scale Goal : 3 Pain Scale Used : 0-10 Scale Location : Back Pain Improved by Intervention : Yes SASCHA ANDRADE RN - 06/11/2020 20:30 EDT Pain Scale Intensity : 4 SASCHA ANDRADE RN - 06/11/2020 20:30 EDT Image 4 - Images currently included in the form version of this document have not been included in the text rendition version of the form. documented in this encounter Plan of Treatment Not on file documented as of this encounter Visit Diagnoses Not on filedocumented in this encounter Care Teams Verification Engineer Relationship Specialty Start Date End Date Edwar Lance MD [address] [place] [address] PCP - General Adolescent Medicine 05/29/24 documented as of this encounter
--- OUTSIDE RECORDS SUMMARY | 2025-05-03 08:21 | XMS_ITS | Encounter Summary ---
Author Organization [employer] ([place], [place], [place], [place]) Address [address] [place] [address] Care Team Providers Care Train Driver Name Role Phone Edwar Lance MD Primary Care Provider + [phone] Encounter Details Date Type Department Care Team (Late st Contact Info) Description 06/10/[address] [facility] [place] Family Medicine [address] [place] [address] ProviderGonzalez MD [address] [place] [address] Social History Tobacco Use Types Packs/Day Years Used Date Smoking Tobacco: Never Assessed Sex and Gender Information Value Date Recorded Sex Assigned at Male 03/17/2022 7:15 PM CDT Legal Sex Male 7:15 PM CDT Gender Identity Male 03/17/2022 7:15 PM CDT Sexual Orientation Not on file documented as of this encounter Miscellaneous Notes * Cerner Conversion Note - Gonzalez ProviderMD - 06/10/2020 1:59 PM CDT Spiritual Care Assessment Entered On: 06/11/2020 7:04 EDT Performed On: 06/10/2020 6:49 EDT by JOAQUINA EVERETT General Information Initial Visit : Yes Referred by : Patient Referral Reason Comment : Pre-surgery visit Ministry Provided to : Patient JOAQUINA EVERETT - 06/11/2020 7:03 EDT Spiritual Assessment Spiritual Assessment Comment/Summary Points : Provided pre-surgery visit and prayer. Spirital Assessment Comment/Summary Report : SPIRITUAL ASSESSMENT COMMENT/SUMMARY No qualifying data available. JOAQUINA EVERETT - 06/11/2020 7:03 EDT Interventions Emotional Support : Empathic/Engaged listening Spiritual and Adventism : Prayer shared, Spiritual/Adventism support provided JOAQUINA EVERETT 06/11/2020 7:03 EDT documented in this encounter Plan of Treatment Not on file documented as of this encounter Visit Diagnoses Not on filedocumented in this encounter Care Teams Train Driver Relationship Specialty Start Date End Date Edwra Lance MD [address] [place] [address] PCP - General Adolescent Medicine 05/29/24 documented as of this encounter
--- OUTSIDE RECORDS SUMMARY | 2025-05-03 08:22 | XMS_ITS | Encounter Summary ---
Author Organization [employer] ([place], [place], [place], [place]) Address [address] [place] [address] Care Team Providers Care Software Asset Manager Name Role Phone Edwar Lance MD Primary Care Provider + [phone] Encounter Details Date Type Department Care Team (Late st Contact Info) Description 06/13/2020 Transcribed Document [facility] [place] [facility] [place] [address] ProviderGonzalez MD [address] [place] [id number] Social History Tobacco Use Types Packs/Day Years [...] Gonzalez ProviderMD - 06/13/2020 4:38 PM CDT Final Discharge Planning Entered On: 06/13/2020 16:39 EDT Performed On: 06/13/2020 16:38 EDT by MIRANDA ROSE RN-Car Carder Final Discharge Planning Discharge Arrangements : Patient Post-Acute Information Patient Name: AL COSTA II Gender: Male : [birth year] Age: 54 Years No Post-Acute Placement(s) Listed No Post-Acute Service(s) Listed No Curaspan Referral(s) Listed Important Medicare Message Reviewed With : Other: Commercial Transportation Needs : Family/Friend Follow Up Appointment Scheduled : Yes Is Patient High/Moderate Readmission Risk? : No Patient/Family Notified of Plan : Yes Is Patient Ready for Discharge? : Yes Physician Notified Patient is Ready for Discharge? : Yes Discharge To Care Management : Home/Residential/Alf or Self Care - MIRANDA ROSE RN-Car Carder - 06/13/2020 16:38 EDT Electronically signed by [facility] Conversion Slag Mixer Cerner at 01/08/2023 2:11 PM CDT documented in this encounter Plan of Treatment Not on file documented as of this encounter Visit Diagnoses Not on filedocumented in this encounter Care Teams Software Asset Manager Relationship Specialty Start Date End Date Edwar Lance MD [address] [place] [address] PCP - General Adolescent Medicine 05/29/24 documented as of this encounter
--- OUTSIDE RECORDS SUMMARY | 2025-05-03 08:22 | XMS_ITS | Encounter Summary ---
Author Organization [employer] ([place], [place], [place], [place]) Address [address] [place] [address] Care Team Providers Care Budget Assistant Name Role Phone Edwar Lance MD Primary Care Provider + [phone] Encounter Details Date Type Department Care Team (Late st Contact Info) Description 06/13/2020 Transcribed Document [facility] [place] [facility] [place] [address] ProviderGonzalez MD [address] [place], [place] [address] Social History Tobacco Use Types Packs/Day Years Used Date Smoking Tobacco: Never Assessed Sex and Gender Information Value Date Recorded Sex Assigned at Male 03/17/2022 7:15 PM CDT Legal Sex Male 7:15 PM CDT Gender Identity Male 03/17/2022 7:15 PM CDT Sexual Orientation Not on file documented as of this encounter Miscellaneous Notes * [employer]ner Conversion Note - Gonzalez ProviderMD - 06/13/2020 12:12 PM CDT Patient Education Materials Follows: Wound Infection A wound infection happens when [...] antibiotic medicine. ? The infection should improve 24?48 hours after you start antibiotics. ? After 24?48 hours, redness around the wound should stop spreading. The wound should also be less painful. Follow these instructions at home: Medicines ??? Take or apply mxhu-rak-aoelwmg and prescription medicines only as told by [...] cannot use soap and water, use hand project management. ? Change your bandage as told by [...] does not start to get better in 24?48 hours, or your symptoms get worse. ??? Keep all follow-up visits as told by your doctor. This is important. This information is not intended to replace advice given to you by your health care provider. Make sure you discuss any questions you have with your health care provider. Document Released: 06/15/2009 Document Revised: 04/18/2019 Document Reviewed: 04/18/2019 [employer] Patient Education ? 2020 [employer] Spinal Fusion, Adult, Care After This [...] these instructions at home: Medicines ??? Take euad-scr-yfziuho and prescription medicines only as told by [...] and water are not available, use hand project management. ? Change your dressing as told by [...] urine clear or pale yellow. ? Take drmc-xoc-adhxfsx or prescription medicines. ? Eat foods that [...] 03/26/2006 Document Revised: 05/27/2019 Document Reviewed: 08/25/2017 [employer] Patient Education ? 2020 [employer]. documented in this encounter Plan of Treatment Not on file documented as of this encounter Visit Diagnoses Not on filedocumented in this encounter Care Teams Budget Assistant Relationship Specialty Start Date End Date Edwar Lance MD [address] [place] [address] PCP - General Adolescent Medicine 05/29/24 documented as of this encounter
--- OUTSIDE RECORDS SUMMARY | 2025-05-03 08:22 | XMS_ITS | Encounter Summary ---
Author Organization [employer] ([place], [place], [place], [place]) Address [address] [place] [address] Care Team Providers Care Hand Carver Name Role Phone Edwar Lance MD Primary Care Provider + [phone] Encounter Details Date Type Department Care Team (Late st Contact Info) Description 06/10/2020 Transcribed Document [facility] [place] [facility] [place] [address] ProviderGonzalez MD [address] [place], [place] [id number] Social History Tobacco Use Types Packs/Day Years Used Date Smoking Tobacco: Never Assessed Sex and Gender Information Value Date Recorded Sex Assigned at Male 03/17/2022 7:15 PM CDT Legal Sex Male 7:15 PM CDT Gender Identity Male 03/17/2022 7:15 PM CDT Sexual Orientation Not on file documented as of this encounter Miscellaneous Notes * Cerner Conversion Note - Gonzalez ProviderMD - 06/10/2020 1:56 PM CDT PAT Adult Entered On: 06/10/2020 13:59 EDT Performed On: 06/10/2020 13:56 EDT by YING MIDDLETON Height and Weight, Clinical Dosing Height, Feet : 5 ft(Converted to: 152 cm, 60 Inch) Height, Inches : 5 Inch(Converted to: 0 ft 5 Inch, 12.70 cm) Clinical Height : 165.1 cm Clinical Dosing Weight : 106.77 kg Weight, Pounds : 234.9 lb Body Surface Area (BSA) : 2.12 m2 Body Mass Index : 39.2 kg/m2 (HI) Elizabeth Body Weight : 61 kg Mckenna Martin Rn - 06/11/2020 7:34 EDT Height Source : Measured Height Entry Format : Cavalier Weight Source : Standing scale Weight Entry Format : Cavalier YING MIDDLETON - 06/10/2020 13:56 EDT Health Histories Smoking Status : Never (less than 100 in lifetime; none in last 30 days) Smokeless Tobacco Status : Never YING MIDDLETON - 06/10/2020 13:56 EDT Social History (As Of: 06/10/2020 13:59:54 EDT) Tobacco: Smoking Status Never smoker. (Last Updated: 10/23/2013 11:43:04 EST by YANNA COREAS RN) Never (less than 100 in lifetime) Smoking Status. Never Smokeless Tobacco Status. (Last Updated: 05/12/2018 12:33:25 EDT by Mckenzie Denis RN) Alcohol: Comments: 10/23/2013 11:43 - YANNA COREAS RN: none (Last Updated: 10/23/2013 11:43:10 EST by YANNA COREAS RN) Alcohol Use History No. (Last Updated: 05/12/2018 12:33:30 EDT by Mckenzie Denis RN) Substance Abuse: Comments: 10/23/2013 11:43 - YANNA COREAS RN: none (Last Updated: 10/23/2013 11:43:17 EST by YANNA COREAS RN) Drug Use Hx: No. Use in Last 12 Months: No. (Last Updated: 05/12/2018 12:33:34 EDT by Mckenzie Denis RN) Infectious Disease History Has the patient ever been tested for COVID-19? : Yes, Patient stated results Negative Where are the test results? : In EMR Results Date of COVID-19 test known? : Yes Date of COVID-19 Test : 06/08/2020 EDT Does patient have symptoms of COVID-19? : No COVID19 Screening : No Experiencing Infectious Disease Symptoms : No symptoms Physical contact outside [place] in the last 30 days : No Infectious Disease History : Chicken pox/Shingles Tuberculosis Symptoms : None YING MIDDLETON - 06/10/2020 13:56 EDT COVID19 PreProcedure Screening Is this an Emergent or Add on Procedure? : No Date of COVID-19 test known? : Yes Date of COVID-19 Test : 06/08/2020 EDT Has patient been isolated since the test : Yes Exposed to COVID19 symptoms since test? : No YING MIDDLETON 06/10/2020 13:56 EDT Anesthesia/Transfusion History Family History of Anesthesia Reaction : No prior transfusion(s) Transfusion History : Prior anesthesia reaction Type of Anesthesia Reaction : Excessive nausea/vomiting, Other: aggressive - in 2012 Family History of Anesthesia Reaction : None YING MIDDLETON 06/10/2020 13:56 EDT Functional Assessment Functional ADL Evaluation Index EBN Bathing : Independent (2) Dressing : Independent (2) Toileting : Independent (2) Transferring Bed or Chair : Independent (2) Continence : Independent (2) Feeding : Independent (2) YING MIDDLETON 06/10/2020 13:56 EDT ADL Index Score : 12 YING MIDDLETON 06/10/2020 13:56 EDT Advance Directive Patient has Advance Directive *Q : No, patient refuses Advance Directive information YING MIDDLETON 06/10/2020 13:56 EDT Spiritual/Cultural Needs Any Spiritual/Cultural Needs or Requests : Yes Spiritual/Cultural Needs Comment : preop prayer, surgery 06/12/2014, in at 0600 Spiritual/Cultural Needs Comment : preop prayer, surgery 06/12/2014, in at 0600 YING MIDDLETON - 06/10/2020 13:56 EDT [place] Suicide Severity Rating Scale (C-SSRS) CSSRS Past Month Wish to be : No CSSRS Past Month Suicidal Thoughts : No CSSRS Lifetime Suicide Behavior : No Suicide Severity Rating Score : 0 Suicide Severity Rating : No Additional Care Required at this time Mckenna Martin Rn - 06/11/2020 7:34 EDT Psychosocial History Currently in Unsafe Situation : No Mckenna Martin Rn - 06/11/2020 7:34 EDT Do You Have a History of the Following? : Patient denies history YING MIDDLETON 06/10/2020 13:56 EDT General Info Preferred Name : [place] Arrived From : Home Mode of Arrival on Unit : Ambulatory Legal Guardian : Unaccompanied Support Person/Patient Sales Operations Lead : Yes Support Person/Pt Rep Name : Joi Costa- Support Person/Pt Rep Contact Information : [phone] cell Want Family/Rep/Phys Notified of Admit : No Emergency Contact #1 : none Emergency Contact #1 Phone Number : - Emergency Contact #1 Relationship : - Emergency Contact #2 : - Emergency Contact #2 Phone Number : - Emergency Contact #2 Relationship : - Primary Language : Sami Preferred Communication Mode : Verbal Communication Barrier : None Size Worker Needed : No YING MIDDLETON - 06/10/2020 13:56 EDT Osvaldo Scale Osvaldo Sensory Perception : No impairment Osvaldo Score : 22 Mckenna Martin Rn - 06/11/2020 7:34 EDT Osvaldo Moisture : Rarely moist Osvaldo Activity : Walks occasionally Osvaldo Mobility : No limitation Osvaldo Nutrition : Excellent Osvaldo Friction and Shear : No apparent problem YING MIDDLETON - 06/10/2020 13:56 EDT Sleep Apnea Risk Assmt BiPAP/CPAP Ordered for Home Use : Yes Hx of Obstructive Sleep Apnea Diagnosis : Yes BiPAP/CPAP Used at Home : Yes Age over 50 Years Old : Yes Gender Male : Yes YING MIDDLETON - 06/10/2020 13:56 EDT documented in this encounter Plan of Treatment Not on file documented as of this encounter Visit Diagnoses Not on filedocumented in this encounter Care Teams Hand Carver Relationship Specialty Start Date End Date Edwar Lance MD [address] [place] [address] PCP - General Adolescent Medicine 05/29/24 documented as of this encounter
--- OUTSIDE RECORDS SUMMARY | 2025-05-03 08:22 | XMS_ITS | Encounter Summary ---
Author Organization [employer] ([place], [place], [place], [place]) Address [address] [place] [address] Care Team Providers Care Respiratory Support Technician Name Role Phone Edwar Lance MD Primary Care Provider + [phone] Encounter Details Date Type Department Care Team (Late st Contact Info) Description 06/13/2020 Transcribed Document [facility] [place] [facility] [place] [address] ProviderGonzalez MD [address] [place] [id number] Social History Tobacco Use Types Packs/Day Years Used Date Smoking Tobacco: Never Assessed Sex and Gender Information Value Date Recorded Sex Assigned at Male 03/17/2022 7:15 PM CDT Legal Sex Male 7:15 PM CDT Gender Identity Male 03/17/2022 7:15 PM CDT Sexual Orientation Not on file documented as of this encounter Miscellaneous Notes * Cerner Conversion Note - Historical ProviderMD - 06/13/2020 10:25 AM CDT Patient: AL COSTA II Age: 54 Years Sex: Male : 1965 Assessment/Plan POD 2 ext fusion to L1 - antoni for dvt ppx - lso when up and about, pt/ot eval - dc cheryle - dc home this afternoon after pt VTE Prophylaxis - Medical Enoxaparin 40 mg, SubCutaneous, Inj, [id number], Routine, Start 06/12/20 8:00:00 EDT (GEE FROST) Subjective pain controlled ambulated 400' with PT yesterday amendable to dc home today denies cp soa cough abd pain nv nt Vital Signs T: 37.1 ??C TMIN: 36.6 ??C TMAX: 37.6 ??C HR: 94(Monitored) RR: 18 BP: 99/56 SpO2: 97% Oxygen Settings (Last) Oxygen Therapy Mode: Room air (06/13/20 10:14:00) Oxygen Flow Rate: 2 Liter/Min (06/11/20 18:35:00) Intake & Output Totals Last 24 Hours (7a-7a) IV Fluids & Drains Last 24 Hours (7a-7a) Intake (1) Lactated Ringers Injection intravenous solution 1,000 mL 375 mL Intake Total: 375mL Output (1) Surgical Drain/Tube Output: 200 mL Output Total: 200mL Physical Exam nad incision cdi gibbons 01/22 cheryle to suciton Electronically signed by Interface, [facility] Conversion Law Office Manager Cerner at 01/08/2023 2:04 PM CDT documented in this encounter Plan of Treatment Not on file documented as of this encounter Visit Diagnoses Not on filedocumented in this encounter Care Teams Respiratory Support Technician Relationship Specialty Start Date End Date Edwar Lance MD [address] [place] [address] PCP - General Adolescent Medicine 05/29/24 documented as of this encounter
--- OUTSIDE RECORDS SUMMARY | 2025-05-03 08:22 | XMS_ITS | Encounter Summary ---
Author Organization [employer] ([place], [place], [place], [place]) Address [address] [place] [address] Care Team Providers Care Pants Presser Automatic Name Role Phone Edwar Lambert MD Primary Care Provider + [phone] Encounter Details Date Type Department Care Team (Late st Contact Info) Description 06/13/2020 Transcribed Document [facility] [place] Family Medicine [address] [place] [address] ProviderGonzalez MD [facility] [place], [place] [address] Social History Tobacco Use Types Packs/Day Years Used Date Smoking Tobacco: Never Assessed Sex and Gender Information Value Date Recorded Sex Assigned at Male 03/17/2022 7:15 PM CDT Legal Sex Male 7:15 PM CDT Gender Identity Male 03/17/2022 7:15 PM CDT Sexual Orientation Not on file documented as of this encounter Miscellaneous Notes * Cerner Conversion Note - Gonzalez ProviderMD - 06/13/2020 12:03 PM CDT Patient: AL COSTA II Age: 54 Years Sex: Male : 1965 Admit Date 06/11/2020 05:59 Discharge Date 06/13/2020 Primary Care Provider EDWAR LAMBERT (REF)[facility] Discharge Diagnosis 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/2020 M43.26 ICD-10-CM Lumbar stenosis with neurogenic claudication 06/11/2020 M48.062 ICD-10-CM Procedures SN - Proc - Procedure: Lumbar Fusion Posterior 3 Level (06/11/20 09:06:39) Reason for Hospitalization lumbar fusion Hospital Course 34-year-old male initially evaluated in the office found to have adjacent level disease. Dr. Zarate recommended extension of fusion. After consent was obtained he underwent above said procedure without major complication. Dr. Vasquez team was consulted for medical management. He was transferred from the operating room to the recovery room in stable condition eventually up to the floor in stable condition. He was started on Lovenox postop day 1. Chen was DC'd on postop day 1. FERN drain was DC'd on postop day 2. He participated with PT OT. Showed good functional mobility. His pain was controlled. He remained hemodynamically stable and afebrile during this admission. On postop day 2 he was amenable to DC home. Vital Signs T: 36.9 ??C TMIN: 36.6 ??C TMAX: 37.6 ??C HR: 92(Monitored) RR: 18 BP: 133/74 SpO2: 97% Oxygen Settings (Last) Oxygen Therapy Mode: Room air (06/13/20 10:14:00) Oxygen Flow Rate: 2 Liter/Min (06/11/20 18:35:00) Physical Exam nad incision cdi gibbons 5/5 Discharge Disposition Home Discharge Follow Up No Follow Up Appointments on Record Discharge Medications (3) Active Colace 100 mg oral capsule 100 mg = 1 Cap, Oral, Daily cyclobenzaprine 10 mg oral tablet 10 mg = 1 Tab, PRN, Oral, TID Percocet 7.5 mg-325 mg oral tablet 1 Tab, Oral, Q6H Code Status Start: 06/11/20 12:45:00 EDT, Full Code, Continuous Order Condition on Discharge stable and improved Consulting Physicians DARCY COOL MD-ANS BURBERRY, KEITH, MD-ANS DOODNAUTH, DAVANAND C, MD-INT Current Diet Order Diet, Adult - Ordered -- Start: 06/11/20 12:45:00 EDT, Regular Diet, Isolation: Standard Precautions Patient Discharge Summary Orders Discharge Activity: don lso when up and about, Discharge Activity: No heavy lifting over 10 lbs Diet: Discharge Diet: Resume usual diet as tolerated Pending Labs In Process SENDOUT REPORT [id number], [id number], RT - Routine, 06/11/20 9:15:00 EDT Pathology Tissue Request [id number], [id number], 06/11/20 9:15:00 EDT, Collected, RT - Routine, 06/11/20 12:49:57 EDT, LIBBY HEDRICK, [employer]otech, Specimen Type: AP Specimen, Specimen Desc: EXPLANTED HARDWARE Ordered BMP Basic Metabolic Panel Specimen Type: Blood, AM Draw collect, 06/12/20 4:00:00 EDT, Daily, Lab Collect CBC w/ Auto Diff Specimen Type: Blood, AM Draw collect, 06/12/20 4:00:00 EDT, Daily, Lab Collect Electronically signed by [facility], [facility] Conversion Newspaper Vendor Cerner at 01/08/2023 2:07 PM CDT documented in this encounter Plan of Treatment Not on file documented as of this encounter Visit Diagnoses Not on filedocumented in this encounter Care Teams Pants Presser Automatic Relationship Specialty Start Date End Date Edwar Lambert MD [address] [place] [address] PCP - General Adolescent Medicine 05/29/24 documented as of this encounter
--- OUTSIDE RECORDS SUMMARY | 2025-05-03 08:23 | XMS_ITS | Referral Summary ---
Author Organization [employer] ([place], [place], [place], [place]) Address [address] [place] [address] Care Team Providers Care Supervisor Cigar Processing Name Role Phone Edwar Lance MD Primary Care Provider + [phone] Allergies No known active allergies Medications bisoprolol (ZEBETA) 10 MG tablet Take 1 tablet (10 mg total) by mouth daily. 02/25/2024 Active rosuvastatin (CRESTOR) 20 MG tablet Take 1 tablet (20 mg total) by mouth nightly. 03/07/2024 Active multivitamin per tablet Take 1 tablet by mouth daily. Active inulin (FIBER GUMMIES ORAL) Take 2 Doses by mouth daily. Active omega-3 fatty acids (FISH OIL CONCENTRATE ORAL) Take 2,000 mg by mouth daily. Active oxyCODONE-acetam inophen (PERCOCET) 7.5-325 mg per tablet Take 1 tablet by mouth every 6 (six) hours as needed for pain. Max Daily Amount: 4 tablets 50 tablet 06/01/2024 Active Active Problems Problem Noted Date Diagnosed Date Adjacent segment disease of lumbar spine with history of fusion procedure 05/29/2024 S/P ureteral stent placement 05/19/2024 PONV (postoperative nausea and vomiting) 024 JASWINDER on CPAP 05/19/2024 Numbness of lower extremity 05/19/2024 Nephrolithiasis 05/19/2024 Kidney stone on left side 05/19/2024 Hydronephrosis concurrent wi th and due to calculi of kidney and ureter 05/19/2024 CAHUILLA (hard of hearing) 05/19/2024 History of obstructive sleep apnea 05/19/2024 Back pain 05/19/2024 Social History Tobacco Use Types Packs/Day Years Used Date Smoking Tobacco: Never Smokeless Tobacco: Never Tobacco Cessation:Counseling Given: Not Answered Alcohol Use Standard Drinks/Week Comments Never 0 (1 standard drink = 0.6 oz pur e alcohol) [facility] [place] - Mental Health Answer Date Recorde d Little interest or pleasure in doing things Not at all 05/19/2024 Feeling down, depressed, or hopeless Not at all 05/19/2024 Feeling of Stress Not on file 05/19/2024 CHI Intimate Partner Violence Answer Da te Recorded Within the last year, have y ou been afraid of your partner or ex-partner? No 05/19/2024 Within the last year, have y ou been humiliated or emotionally abused in other ways by your partner or ex-partner? No Within the last year, have y ou been kicked, hit, slapped, or otherwise physically hurt by your partner or ex-partner? No 05/19/2024 Within the last year, have y ou been raped or forced to have any kind of sexual activity by your partner or ex-partner? No 05/19/2024 Food Insecurity Answer Date Recorded Food run out past 12 months Not on file 04/21 Food did not last past 12 months Not on file 05/12/2024 Employment Answer Date Recorded Help finding and keeping a job Not on file 0 05/12/2024 Family and Community Support Answer Guerrero e Recorded Help with Day to Day Activities Not on file 05/12/2024 Feeling Lonely or Isolated Not on file 05/12 Educational Attainment Answer Date Marco Antonio rded Speak language other than Comoran at home Not on file 05/12/2024 Want help with school or training Not on file 05/12/2024 Substance Use Answer Date Recorded Used prescription meds for non-medical reasons N ot on file 05/12/2024 Used illegal drugs past 12 months Not on file 05/12/2024 Sex and Gender Information Value Date Recorded Sex Assigned at Male 03/17/2022 7:15 PM CDT Legal Sex Male 7:15 PM CDT Gender Identity Male 03/17/2022 7:15 PM CDT Sexual Orientation Not on file Last Filed Vital Signs Vital Sign Reading Time Taken Comments Blood Pressure 113/57 06/01/2024 11:28 AM EDT Pulse 77 06/01/2024 11:28 AM EDT Temperature 37.2 C (99 F) 06/01/2024 11:28 AM EDT Respiratory Rate 16 06/01/2024 11:28 AM EDT Oxygen Saturation 92% 06/01/2024 11:28 AM EDT Inhaled Oxygen Concentration - - Weight 106 kg (233 lb 9.6 oz) 05/29/2024 7:07 AM EDT Height 167.6 cm (5' 6 ) 05/29/2024 7:07 AM EDT Body Mass Index 37.7 05/29/2024 7:07 AM EDT Plan of Treatment Not on file Medical Devices Implanted Type Area Dynamics Ax Consultant Device Identifier Shelf Expiration Date Model / Serial / Lot Scr Spne Navarro Fix Fen 5x50mm 550 - [id number] Implanted:Qty : 1 on 05/29/[address] [facility] at [facility] IMPLANTS N/A: Spine Thoracic J &J:DEPUY:DEPUY SPINE 50 / 50 / Trey Spinal 5.5x80mm Ti .185 - [id number] Implanted:Qty : 2 on 05/29/[address] MD at [facility] IMPLANTS N/A: Spine Thoracic J &J:DEPUY:DEPUY SPINE .18 5 / 18 5 / Scr Spne Navarro Fix 5x55mm -555 - [id number] Implanted:Qty : 1 on 05/29/[address] MD at [facility] IMPLANTS N/A: Spine Thoracic J &J:DEPUY:DEPUY SPINE 5 55 / 5 55 / Scr Spne Navarro Fix 6x50mm 650 - [id number] Implanted:Qty : 3 on 05/29/[address] MD at [facility] IMPLANTS N/A: Spine Thoracic J &J:DEPUY:DEPUY SPINE 6 50 / 6 50 / Scr Spne Navarro Fix 7x50mm 750 - Implanted:Qty : 9 on 05/29/[address] MD at [facility] IMPLANTS N/A: Spine Thoracic J &J:DEPUY:DEPUY SPINE 50 / 50 / Felisha Conley Scrw Set Ti - Implanted:Qty : 14 on 05/29/[address] MD at [facility] IMPLANTS N/A: Spine Thoracic J &J:DEPUY:DEPUY SPINE 00 / 00 / Bone Fibers 10.0cc Plfx Crtcl Bl-1800-10 - [id number] Implanted:Qty : 1 on 05/29/[address] MD at [facility] IMPLANTS N/A: Spine LIFENET:LIFENET TRANSPLANT SRV 02/16/2029 BL-1800-1 0 / [id number] / Bone Crush Canc Fd 30ml X2 Can30 - [id number] Implanted:Qty : 1 on 05/29/[address] MD at [facility] IMPLANTS N/A: Spine LIFENET:LIFENET TRANSPLANT SRV 10/04/2028 CAN30 / [id number] / Bone Vivigen Frmble Cell 10cc -1600-003 - [id number] Implanted:Qty : 1 on 05/29/[address] MD at [facility] IMPLANTS N/A: Spine LIFENET:LIFENET TRANSPLANT SRV 02/20/2026 BL-1600-0 03 / [id number] / Explanted Type Area Dynamics Ax Consultant Device Identifier Shelf Expiration Date Model / Serial / Lot Felisha Conely Scrw Set Ti - Explanted:Qty : 1 on 05/29/2024 at [facility] IMPLANTS N/A: Spine Thoracic J &J:DEPUY:DEPUY SPINE 00 / 00 / Scr Spne Navarro Fix 7x50mm - Explanted:Qty : 1 on 05/29/2024 at [facility] IMPLANTS N/A: Spine Thoracic J &J:DEPUY:DEPUY SPINE -7 50 / 50 [place] [id number] BLUE CROSS/BLUE SHIELD Advance Directives For more information, please contact: [phone] * Full Code (Latest Code Status on File) Date Activated Date Inactivated Comments 05/29/2024 1:31 PM 06/01/2024 3:39 PM Care Teams Supervisor Cigar Processing Relationship Specialty Start Date End Date Edwar Lance MD [address] [place] [address] PCP - General Adolescent Medicine 05/29/24
--- OUTSIDE RECORDS SUMMARY | 2025-05-03 08:23 | XMS_ITS | Encounter Summary ---
Author Organization [employer] ([place], [place], [place], [place]) Address [address] [place] [address] Care Team Providers Care Hardware Assembler Name Role Phone Edwar Lance MD Primary Care Provider + [phone] Encounter Details Date Type Department Care Team (Late st Contact Info) Description 06/11/2020 Transcribed Document [facility] [place] [address] [place] [address] Provider, MD Gonzalez [address] [place], [place] [address] Social History Tobacco Use Types Packs/Day Years Used Date Smoking Tobacco: Never Assessed Sex and Gender Information Value Date Recorded Sex Assigned at Male 03/17/2022 7:15 PM CDT Legal Sex Male 7:15 PM CDT Gender Identity Male 03/17/2022 7:15 PM CDT Sexual Orientation Not on file documented as of this encounter Miscellaneous Notes * Cerner Conversion Note - Gonzalez ProviderMD - 06/11/2020 8:58 AM CDT [facility] Main OR PACU Summary Primary Physician: MARLY CANTU MD Finalized Date/Time: 06/11/20 14:24:58 Pt. Name: AL COSTA II, D.O.B./Sex: 1965 Male Med Rec #: [id number] Physician: MARLY CANTU MD Financial #: [id number] Pt. Type: I Room/Bed: [facility]/1 Admit/Disch: 06/11/20 05:59:00 - Institution: [facility] Main OR PACU I Case Times Entry 1 In PACU I 06/11/20 11:34:00 Ready for PACU 06/11/20 13:35:00 Discharge Discharge from PACU 06/11/20 13:35:00 I Last Modified By: TERRY THOMAS, DOMINGUEZ 06/11/20 14:24:50 Finalized By: TERRY THOMAS, RN Document Signatures Signed By: TERRY THOMAS RN 06/11/20 14:24 Electronically signed by Cristine [facility] Conversion Plug Making Operator Cerner at 01/08/2023 2:26 PM CDT documented in this encounter Plan of Treatment Not on file documented as of this encounter Visit Diagnoses Not on filedocumented in this encounter Care Teams Hardware Assembler Relationship Specialty Start Date End Date Edwar Lance MD [address] [place] [address] PCP - General Adolescent Medicine 05/29/24 documented as of this encounter
--- OUTSIDE RECORDS SUMMARY | 2025-05-03 08:23 | XMS_ITS | Encounter Summary ---
Author Organization [employer] ([place], [place], [place], [place]) Address [address] [place] [address] Care Team Providers Care Rf Engineer Name Role Phone Edwar Lance MD Primary Care Provider + [phone] Encounter Details Date Type Department Care Team (Late st Contact Info) Description 06/11/2020 Transcribed Document [facility] [place] [address] [place] [address] ProviderGonzalez MD [address] [place], [place] [address] Social History Tobacco Use Types Packs/Day Years Used Date Smoking Tobacco: Never Assessed Sex and Gender Information Value Date Recorded Sex Assigned at Male 03/17/2022 7:15 PM CDT Legal Sex Male 7:15 PM CDT Gender Identity Male 03/17/2022 7:15 PM CDT Sexual Orientation Not on file documented as of this encounter Miscellaneous Notes * Cerner Conversion Note - Gonzalez ProviderMD - 06/11/2020 5:00 PM CDT Chart Check - Review Order Profile Entered On: 06/11/2020 20:30 EDT Performed On: 06/11/2020 17:00 EDT by SASCHA ANDRADE RN Chart Check Powerplans Initiated/Discontinued as Appropriate : Yes All Active Orders Reviewed : Yes SASCHA ANDRADE RN - 06/11/2020 20:30 EDT Electronically signed by Cristine [facility] Conversion Mortgage Closing Clerk Cerner at 01/08/2023 2:27 PM CDT documented in this encounter Plan of Treatment Not on file documented as of this encounter Visit Diagnoses Not on filedocumented in this encounter Care Teams Rf Engineer Relationship Specialty Start Date End Date Edwar Lance MD [address] [place] [address] PCP - General Adolescent Medicine 05/29/24 documented as of this encounter
--- OUTSIDE RECORDS SUMMARY | 2025-05-03 08:23 | XMS_ITS | Clinical Summary ---
Author Organization [employer] ([place], [place], [place], [place]) Address [address] [place] [address] Care Team Providers Care Cut Roll Machine Offbearer Name Role Phone Edwar Lance MD Primary Care Provider + [phone] Allergies No known active allergies Medications bisoprolol [...] to calculi of kidney and ureter 05/19/2024 NENANA (hard of hearing) 05/19/2024 History of obstructive sleep apnea 05/19/2024 Back pain 05/19/2024 Social History Tobacco Use Types Packs/Day Years Used Date Smoking Tobacco: Never Smokeless Tobacco: Never Tobacco Cessation:Counseling Given: Not Answered Alcohol Use Standard Drinks/Week Comments Never 0 (1 standard drink = 0.6 oz pur e alcohol) [facility] - Mental Health Answer Date Recorde d [...] Marco Antonio rded Speak language other than Salvadorean at home Not on file 05/12/2024 Want [...] 05/29/2024 7:07 AM EDT Plan of Treatment Health Maintenance Due Date Last Done Comments CT Colonography 1965 Colonoscopy 1965 Colorectal Cancer Screening 1965 FOBT/FIT 1964 Fit-DNA (Cologuard) 1965 Sigmoidoscopy 1964 HIV Screening 1979 Hepatitis C Screening 1982 DTAP/TDAP/TD VACCINES (1 - Tdap) 1983 Lipid Panel 1999 Pneumococcal 50+ years (1 of 1 - PCV) 2014 Shingles Vaccine (Zoster) (2 of 2) 05/06/20192018 COVID-19 VACCINE (1 - ) 05/21/2024 Depression Screening (12+) 05/19/2025 05/19/2024 Tobacco Cessation Counseling and Screening (12+) 05/19/2025 05/19/2024 Influenza Vaccine (#1) 2025 05/28/2021, 2019 Medical Devices Implanted Type Area Associate Professor Of Psychology Device Identifier Shelf Expiration Date Model / Serial / Lot Scr Spne Navarro Fix Fen 5x50mm [id number] - [id number] Implanted:Qty : 1 on 05/29/[address] MD at [facility] ([place], [place]) IMPLANTS N/A: Spine Thoracic J &J:DEPUY:DEPUY SPINE -5 50 / -5 50 / Trey Spinal 5.5x80mm Ti [id number] - [id number] Implanted:Qty : 2 on 05/29/[address] MD at [facility] ([place], [place]) IMPLANTS N/A: Spine Thoracic J &J:DEPUY:DEPUY SPINE .18 5 / . 5 / Scr Spne Navarro Fix 5x55mm 555 - [id number] Implanted:Qty : 1 on 05/29/[address] MD at [facility] ([place], [place]) IMPLANTS N/A: Spine Thoracic J &J:DEPUY:DEPUY SPINE 5 55 / 5 55 / Scr Spne Navarro Fix 6x50mm 650 - [id number] Implanted:Qty : 3 on 05/29/[address] MD at [facility] ([place], [place]) IMPLANTS N/A: Spine Thoracic J &J:DEPUY:DEPUY SPINE 50 / 6 50 / Scr Spne Navarro Fix 7x50mm 750 - [id number] Implanted:Qty : 9 on 05/29/[address] MD at [facility] ([place], [place]) IMPLANTS N/A: Spine Thoracic J &J:DEPUY:DEPUY SPINE 7 50 / 7 50 / Mis Malcolm Ply Scrw Set Ti - Implanted:Qty : 14 on 05/29/[address] MD at [facility] ([place], [place]) IMPLANTS N/A: Spine Thoracic J &J:DEPUY:DEPUY SPINE -0 00 / 0 00 / Bone Fibers 10.0cc Plfx Crtcl Bl-1800-10 - [id number] Implanted:Qty : 1 on 05/29/[address] MD at [facility] ([place], [place]) IMPLANTS N/A: Spine LIFENET:LIFENET TRANSPLANT SRV 02/16/2029-1799- 0 / [id number] / Bone Crush Canc Fd 30ml X2 Can30 - [id number] Implanted:Qty : 1 on 05/29/[address] MD at [facility] ([place], [place]) IMPLANTS N/A: Spine LIFENET:LIFENET TRANSPLANT SRV 10/04/2028 CAN30 / [id number] / Bone Vivigen Frmble Cell 10 Bl-1600-003 - [id number] Implanted:Qty : 1 on 05/29/[address] MD at [facility] ([place], [place]) IMPLANTS N/A: Spine LIFENET:LIFENET TRANSPLANT SRV 02/20/2026 BL-1600-0 03 / [id number] / Explanted Type Area Associate Professor Of Psychology Device Identifier Shelf Expiration Date Model / Serial / Lot Mis Malcolm Ply Scrw Set Ti - [id number] Explanted:Qty : 1 on 05/29/[address] [facility] ([place], [place]) IMPLANTS N/A: Spine Thoracic J &J:DEPUY:DEPUY SPINE 00 / 00 / Scr Spne Navarro Fix 7x50mm - Explanted:Qty : 1 on 05/29/[address] [facility] ([place], [place]) IMPLANTS N/A: Spine Thoracic J &J:DEPUY:DEPUY SPINE 50 / 50 / [place] [id number] BLUE CROSS/BLUE SHIELD Advance Directives For more information, please contact: [phone] * Full Code (Latest Code Status on File) Date Activated Date Inactivated Comments 05/29/2024 1:31 PM 06/01/2024 3:39 PM Care Teams Cut Roll Machine Offbearer Relationship Specialty Start Date End Date Edwar Lance MD [address] [place] [address] PCP - General Adolescent Medicine 05/29/24
--- OUTSIDE RECORDS SUMMARY | 2025-05-03 08:23 | XMS_ITS | Encounter Summary ---
Author Organization [employer] ([place], [place], [place], [place]) Address [address] [place] [address] Care Team Providers Care Tobacco Sizer Name Role Phone Edwar Lance MD Primary Care Provider + [phone] Encounter Details Date Type Department Care Team (Late st Contact Info) Description 06/11/2020 Transcribed Document [facility] [place] [address] ProviderGonzalez MD [address] [place] [id number] Social History Tobacco Use Types Packs/Day Years Used Date Smoking Tobacco: Never Assessed Sex and Gender Information Value Date Recorded Sex Assigned at Male 03/17/2022 7:15 PM CDT Legal Sex Male 7:15 PM CDT Gender Identity Male 03/17/2022 7:15 PM CDT Sexual Orientation Not on file documented as of this encounter Miscellaneous Notes * Cerner Conversion Note - Gonzalez ProviderMD - 06/11/2020 1:44 PM CDT Meds to Bed Enrollment Entered On: 06/11/2020 15:15 EDT Performed On: 06/11/2020 13:44 EDT by Guillermo Leroy, JUSTOWRITER OPERATOR-PHARMACY Meds to Bed Enrollment Patient Enrollment Decision: : Yes/enroll in meds to bed program Guillermo Leroy, JUSTOWRITER OPERATOR-PHARMACY - 06/11/2020 15:15 EDT documented in this encounter Plan of Treatment Not on file documented as of this encounter Visit Diagnoses Not on filedocumented in this encounter Care Teams Tobacco Sizer Relationship Specialty Start Date End Date Edwar Lance MD [address] [place] [address] PCP - General Adolescent Medicine 05/29/24 documented as of this encounter
--- OUTSIDE RECORDS SUMMARY | 2025-05-03 08:23 | XMS_ITS | Encounter Summary ---
Author Organization [employer] ([place], [place], [place], [place]) Address [address] [place] [address] Care Team Providers Care Dross Puller Name Role Phone Edwar Lance MD Primary Care Provider + [phone] Encounter Details Date Type Department Care Team (Late st Contact Info) Description 06/11/2020 Transcribed Document [facility] [place] [address] [place] [address] Provider, MD Gonzalez [address] [place], [place] [id number] Social History Tobacco Use Types Packs/Day Years Used Date Smoking Tobacco: Never Assessed Sex and Gender Information Value Date Recorded Sex Assigned at Male 03/17/2022 7:15 PM CDT Legal Sex Male 7:15 PM CDT Gender Identity Male 03/17/2022 7:15 PM CDT Sexual Orientation Not on file documented as of this encounter Miscellaneous Notes * Cerner Conversion Note - Gonzalez ProviderMD - 06/11/2020 8:00 AM CDT [facility] Main OR Preop Summary Primary Physician: MARLY CANTU MD Finalized Date/Time: 06/11/20 08:21:40 Pt. Name: AL COSTA II, D.O.B./Sex: 1965 Male Med Rec #: [id number] Physician: MARLY CANTU MD Financial #: [id number] Pt. Type: I Room/Bed: ASA/2 Admit/Disch: 06/11/20 05:59:00 - Institution: [facility] PreOp Case Times Entry 1 In Preop 06/11/20 06:22:00 Ready for Holding n/a Room Patient Ready for 06/11/20 08:15:00 Surgery Patient Out of Preop 06/11/20 08:20:00 Patient Out of n/a Holding Room Last Modified By: Mckenna Martin Rn 06/11/20 08:21:37 [facility] PreOp Case Times Audit 06/11/20 08:21:37 Branch Administrator: HEATHERLAWRENCE Modifier: HEATHERLAWRENCE 1 <*> Patient Out of Preop 06/11/20 08:20:00 1 <+> Patient Ready for Surgery Finalized By: Mckenna Martin, Rn Document Signatures Signed By: Mckenna Martin Rn 06/11/20 08:21 Electronically signed by Cristine [facility] Conversion Wood Carving Lathe Operator Cerner at 01/08/2023 2:20 PM CDT documented in this encounter Plan of Treatment Not on file documented as of this encounter Visit Diagnoses Not on filedocumented in this encounter Care Teams Dross Puller Relationship Specialty Start Date End Date Edwar Lance MD [address] [place] [address] PCP - General Adolescent Medicine 05/29/24 documented as of this encounter
--- OUTSIDE RECORDS SUMMARY | 2025-05-03 08:23 | XMS_ITS | Encounter Summary ---
Author Organization [employer] ([place], [place], [place], [place]) Address [address] [place] [address] Care Team Providers Care Securities Clerk Name Role Phone Edwar Lance MD Primary Care Provider + [phone] Encounter Details Date Type Department Care Team (Late st Contact Info) Description 06/11/2020 Transcribed Document [facility] [place] [address] [place] [address] ProviderGonzalez MD [address] [place], [place] [id number] Social History Tobacco Use Types Packs/Day Years [...] ProviderMD - 06/11/2020 12:45 PM CDT Evaluation, Occupational Therapy Entered On: 06/12/2020 10:46 EDT Performed On: 06/12/2020 10:32 EDT by GO ARRINGTON, STUDENT-OCCUPATIONAL THERAPIST General Information, OT Visit Type, OT : Initial evaluation Patient Orders : Order Date Order Ordering 06/11/2020 12:45 Occupational Therapy Evaluation and Treatme Ordered By: MARLY CANTU MD Active Diagnoses : 06/11/2020 12:00 Fusion of spine, lumbar region 06/11/2020 12:00 Spinal stenosis, lumbar region with neurogenic claudication Therapy Diagnosis, OT : Decreased I in ADL and fxnl mobility secondary to weakness, resulting in fxnl decline Onset of Problem, OT : 06/12/2020 EDT Admission Date : 06/11/2020 05:59 Co-treated by, OT : Physical Therapist Personal Devices : Personal Devices Glasses Assistive Devices : Assistive Devices No Devices Recorded Precautions in Place : Fall prevention measures General Information Comment, OT : Diagnosis: S/P L1-L2 Laminectomy GO ARRINGTON STUDENT-OCCUPATIONAL THERAPIST - 06/12/2020 10:32 EDT General Status Patient Received Status : Supine in bed Treatment Start Time : 06/12/2020 9:24 EDT Patient Left Status : Up in chair, RN/PCT informed, All needs met and within reach Treatment End Time : 06/12/2020 10:09 EDT Treatment Time : 45 Minute(s) GO ARRINGTON STUDENT-OCCUPATIONAL THERAPIST - 06/12/2020 10:32 EDT History and Environment, OT Living Situation, Therapy : Home Patient Lives With : Adult Child/Children, Spouse Persons Assisting Patient at Home : Alone Home Equipment, Therapy : Cane, Walker Cane : Cane, quad based Walker : Walker, front wheel Home Setup : One story Stairs : Yes Stair Location(s) : Outside Outside Stairs, Number of Steps : 1 Railing Outside : No GO ARRINGTON STUDENT-OCCUPATIONAL THERAPIST - 06/12/2020 10:32 EDT Prior LOF Bathing, OT : Independent Prior LOF Bed Mobility : Independent Prior LOF Upper Body Dressing, OT : Independent Prior LOF Lower Body Dressing, OT : Assist needed (Comment: Assist from spouse for lacing workboots [GO ARRINGTON STUDENT-OCCUPATIONAL THERAPIST - 06/12/2020 10:32 EDT] ) Prior LOF Toileting : Independent Prior LOF Transfer : Independent Prior LOF Grooming, OT : Independent Prior LOF for IADLs, OT : Independent GO ARRINGTON STUDENT-OCCUPATIONAL THERAPIST - 06/12/2020 10:32 EDT Upper Extremity Right UE Active ROM : WFL Right UE Strength : WFL Left UE Active ROM : WFL Left UE Strength : WFL Upper Extremity Strength Impaired : No Right UE Strength : WFL Left UE Strength : WFL GO ARRINGTON STUDENT-OCCUPATIONAL THERAPIST - 06/12/2020 10:32 EDT Self Care/Home Management, OT Self Feeding Assist Level, OT : Supervision or set-up Grooming Assist Level, OT : Supervision or set-up GO ARRINGTON STUDENT-OCCUPATIONAL THERAPIST - 06/12/2020 10:32 EDT Bathing Assist Level, OT : Supervision or set-up AMI SINGH, OTR/L - 06/12/2020 11:10 EDT Upper Body Dressing Assist Level, OT : Supervision or set-up Lower Body Dressing Assist Level, OT : Independent, modified Toileting Assist Level : Supervision or set-up Toilet Transfer Assist Level : Supervision or set-up Bed/Chair/WC Transfer Assist Level : Assist, minimal Bed/Chair/WC Transfer Comment : CGA GO ARRINGTON STUDENT-OCCUPATIONAL THERAPIST - 06/12/2020 10:32 EDT Functional Mobility Mobility Grid AMI SINGH OTR/L - 06/12/2020 11:10 EDT Supine to Sit : Rehab Minimal assistance Bed to Chair : Supervision/set-up GO ARRINGTON STUDENT-OCCUPATIONAL THERAPIST - 06/12/2020 10:32 EDT Sit to Stand : Supervision/set-up (Comment: CGA [GO ARRINGTON STUDENT-OCCUPATIONAL THERAPIST - 06/12/2020 10:32 EDT] ) Stand to Sit : Rehab Minimal assistance (Comment: CGA [GO ARRINGTON STUDENT-OCCUPATIONAL THERAPIST - 06/12/2020 10:32 EDT] ) AMI SINGH OTR/L - 06/12/2020 11:10 EDT Supine to Sit Device : Rails Sit to Stand Device : Belt, gait, Walker, front wheel Bed to Chair Device : Belt, gait, Walker, front wheel Chair to Bed Device : Belt, gait, Walker, front wheel Stand to Sit Device : Belt, gait, Walker, front wheel GO ARRINGTON STUDENT-OCCUPATIONAL THERAPIST - 06/12/2020 10:32 EDT Cognition Assessment, OT Orientation : Oriented x 4 GO ARRINGTON STUDENT-OCCUPATIONAL THERAPIST - 06/12/2020 10:32 EDT Teaching/Learning Assessment Barriers To Learning : None evident Readiness to Learn : Cooperative, Denies need for education Baseline Knowledge of Topic : Good Readiness to Learn : Demonstration, Explanation Learning Style Preferences Patient : Printed materials, Verbal explanation Learning Style Preferences Family : Printed materials, Verbal explanation GO ARRINGTON STUDENT-OCCUPATIONAL THERAPIST - 06/12/2020 10:32 EDT Indication Assessment, OT Occupational Therapy Indicated : No Occupational Therapy Not Indicated : At prior level of function GO ARRINGTON STUDENT-OCCUPATIONAL THERAPIST - 06/12/2020 10:32 EDT Plan of Care, OT OT Tx Plan/Goals Established w Patient : No Reason OT Treatment/Plan Not Established : Pt at fxnl baseline, skilled OT services not needed at this time GO ARRINGTON STUDENT-OCCUPATIONAL THERAPIST - 06/12/2020 10:32 EDT Treatment Note Subjective Comment : PT agreeable, states he has anxiety about pulling something loose Patient's Response to Treatment : Pt tolerated eval well Additional Objective Information : PT supine in bed upon arrival. Demo good logroll, with Min A for sup to sit, sit to stand. Sup for amb in hallway, toileting, Min A for stand to sit in chair. PT provided AE and pt education on use of AE for LB dressing. Pt mod I in LB dressing. Left pt sitting up in chair with RN informed, all needs met, and CL within reach. Assessment : PT provided AE for LB dressing at home. Pt at fxnl baseline, skilled OT services not indicated at this time. Plan for Treatment : Skilled OT services not indicated at this time. GO ARRINGTON STUDENT-OCCUPATIONAL THERAPIST - 06/12/2020 10:32 EDT Pain Assessment Pain Score Pre-Intervention : 0 Pain Comment : Pt did not report pain GO ARRINGTON STUDENT-OCCUPATIONAL THERAPIST - 06/12/2020 10:32 EDT Image 1 - Images currently included in the form version of this document have not been included in the text rendition version of the form. Anticipated Discharge Needs, OT/PT Anticipated Discharge to : Home, with family care, Home, with home health, Outpatient rehabilitation GO ARRINGTON STUDENT-OCCUPATIONAL THERAPIST - 06/12/2020 10:[address] [facility] OT Charges OT Selfcare/Hm Mgmt Ea 15 Min : 1 AMI SINGH OTR/L - 06/12/2020 11:10 EDT OT Eval Low Complexity : 1 GO ARRINGTON STUDENT-OCCUPATIONAL THERAPIST - 06/12/2020 10:32 EDT documented in this encounter Plan of Treatment Not on file documented as of this encounter Visit Diagnoses Not on filedocumented in this encounter Care Teams Securities Clerk Relationship Specialty Start Date End Date Edwar Lance MD [address] [place] [address] PCP - General Adolescent Medicine 05/29/24 documented as of this encounter
--- OUTSIDE RECORDS SUMMARY | 2025-05-03 08:23 | XMS_ITS | Encounter Summary ---
Author Organization [employer] ([place], [place], [place], [place]) Address [address] [place] [address] Care Team Providers Care Diamond Sorter Name Role Phone Edwar Lance MD Primary Care Provider + [phone] Encounter Details Date Type Department Care Team (Late st Contact Info) Description 06/11/2020 Transcribed Document [facility] [place] Family Medicine [address] [place] [address] ProviderGonzalez MD [address] [place] [address] Social History Tobacco Use Types Packs/Day Years Used Date Smoking Tobacco: Never Assessed Sex and Gender Information Value Date Recorded Sex Assigned at Male 03/17/2022 7:15 PM CDT Legal Sex Male 7:15 PM CDT Gender Identity Male 03/17/2022 7:15 PM CDT Sexual Orientation Not on file documented as of this encounter Miscellaneous Notes * Cerner Conversion Note - Gonzalez ProviderMD - 06/11/2020 5:58 AM CDT Admission History, Adult Entered On: 06/11/2020 16:14 EDT Performed On: 06/11/2020 16:00 EDT by SASCHA ANDRADE RN Advance Directive Patient has Advance Directive *Q : No, patient refuses Advance Directive information SASCHA ANDRADE RN - 06/11/2020 16:06 EDT Anesthesia/Transfusion History Family History of Anesthesia Reaction : No prior transfusion(s) Blood Transfusion Acceptable to Patient : Yes Transfusion History : Prior anesthesia reaction Type of Anesthesia Reaction : Excessive nausea/vomiting, Other: aggressive - in 2012 Family History of Anesthesia Reaction : None SASCHA ANDRADE RN - 06/11/2020 16:06 EDT Anticipated Discharge Needs Discharge To, Anticipated : Home Anticipated Discharge Needs at This Time : None SASCHA ANDRADE RN - 06/11/2020 16:21 EDT Education Topics, Admission Orientation DCP GENERIC CODE Bed Control : Verbalizes understanding Call Light : Verbalizes understanding Diet/Room Service : Verbalizes understanding Fall Prevention : Verbalizes understanding Orientation to Room/Bathroom : Verbalizes understanding Patient Rights/Responsibilities : Verbalizes understanding Patient Safety : Verbalizes understanding Rounding : Verbalizes understanding Television/Phone : Verbalizes understanding Visiting Policy : Verbalizes understanding SASCHA ANDRADE RN - 06/11/2020 16:21 EDT Functional Assessment Living Situation : Home Patient Lives With : Spouse Persons Assisting Patient at Home : Alone Mobility Assistance Prior to Admission : Independent Current Home Treatments : None, CPAP Home Equipment : Walker Special Services and Community Resources : None SASCHA ANDRADE RN - 06/11/2020 16:06 EDT General Info Preferred Name : [place] Arrived From : Home Mode of Arrival on Unit : Ambulatory Legal Guardian : Unaccompanied Support Person/Patient Linux System Administrator : Yes Support Person/Pt Rep Name : Joi Costa- Support Person/Pt Rep Contact Information : [phone] cell Want Family/Rep/Phys Notified of Admit : No Emergency Contact #1 : none Emergency Contact #1 Phone Number : - Emergency Contact #1 Relationship : - Emergency Contact #2 : - Emergency Contact #2 Phone Number : - Emergency Contact #2 Relationship : - Primary Language : Croatian Preferred Communication Mode : Verbal Communication Barrier : None Scratcher Tender Needed : No SASCHA ANDRADE RN - 06/11/2020 16:06 EDT Fall Risk Scales ABC Fall Injury Risk : Moderate to high injury risk Injury Moderate to High Risk Interventions : Supervise toileting as indicated MOSER Hx Falls Immediate/Within 3 Months : No Moser Secondary Diagnosis : No MOSER Use of Ambulatory Aid : Crutches/Cane/Walker MOSER IV Therapy or IV Access : Yes Moser Gait/Transferring : Weak Moser Mental Status : Oriented to own ability MOSER Fall Scale Risk Level : 25-45 Medium Risk [place] Fall Interventions : Adequate lighting, Assistive devices within reach, Bed in low position, Call device within reach, Fall prevention handout/education per facility policy, Hourly comfort/safety rounds, Non-slip footwear, Personal items within reach, Reinforced to call for assistance before getting out of bed, Room free of clutter/spills, Upper side-rails up, Wheels locked, Wires/Cords secured SASCHA ANDRADE RN - 06/11/2020 16:21 EDT Fall Risk Education Grid Call light use : Verbalizes understanding Fall Prevention in the Home : Verbalizes understanding Fall Prevention Protocol : Verbalizes understanding Symptom Reporting : Verbalizes understanding Transfer/Mobility Techniques : Verbalizes understanding Wait for Assistance : Verbalizes understanding SASCHA ANDRADE RN - 06/11/2020 16:21 EDT Barriers to Learning : None evident Individuals Taught : Patient, Spouse Readiness to Learn : Cooperative Baseline Knowledge of Topic : Good Teaching Method : Printed materials Learning Style Preferences Family : Printed materials, Verbal explanation Learning Style Preferences Patient : Printed materials, Verbal explanation Teaching Evaluation : Verbalizes understanding Fall Risk Scale Calc Temp : 0 SASCHA ANDRADE RN - 06/11/2020 16:21 EDT ABCs Fall Injury Risk Identification : Bones, Coagulation, Surgery SASCHA ANDRADE RN - 06/11/2020 16:06 EDT Health Histories Smoking Status : Never (less than 100 in lifetime; none in last 30 days) Smokeless Tobacco Status : Never SASCHA ANDRADE RN - 06/11/2020 16:21 EDT Social History (As Of: 06/11/2020 16:27:01 EDT) Tobacco: Smoking Status Never smoker. (Last [...] 05/12/2018 12:33:34 EDT by Mckenzie Denis RN) Height and Weight, Clinical Dosing Height Source : Measured Height Entry Format : [place] Height, Feet : 5 ft(Converted to: 152 cm, 60 Inch) Height, Inches : 5 Inch(Converted to: 0 ft 5 Inch, 12.70 cm) Clinical Height : 165.1 cm Weight Source : Standing scale Weight Entry Format : [place]aden Clinical Dosing Weight : 106.77 kg Weight, Pounds : 234.9 lb Body Surface Area (BSA) : 2.12 m2 Body Mass Index : 39.2 kg/m2 (HI) [place] Body Weight : 61 kg SASCHA ANDRADE RN - 06/11/2020 16:21 EDT Infectious Disease History Has the patient ever [...] No Infectious Disease History : Chicken pox/Shingles Active Surveillance Screen Assessment : Patient does not meet any of above criteria Active Surveillance Screen Negative : Yes Exposure to Contagious Illness : No Tuberculosis Symptoms : None SASCHA ANDRADE RN - 06/11/2020 16:21 EDT Influenza Vaccine Asmt, Adult Previous Vaccines from Immunization Schedule : No qualifying data available. Influenza Immunization, Current Season : No Inactivated Flu Vaccine Contraindications : No contraindications to inactivated influenza vaccine Transplant Workup/Recent Transplant : No Order for Influenza Vaccine : Order for influenza vaccine sent to pharmacy SASCHA ANDRADE RN - 06/11/2020 16:06 EDT Pneumococcal Vaccine Previous Vaccines from Immunization Schedule : No qualifying data available. Pneumonia Immunization Received : No Pneumococcal Risk Assessment < Age 65 : None SASCHA ANDRADE RN - 06/11/2020 16:06 EDT Nutrition History Feeding Ability : Independent Adaptive Feeding Equipment : Regular Eating Poorly Due to Decreased Appetite : No Unplanned Weight Loss in Past 3-6 Months : No Malnutrition Screening Tool Total(mal) : 0 Malnutrition Screening Tool Risk Level : Patient not at risk SASCHA ANDRADE RN - 06/11/2020 16:06 EDT [place] Suicide Severity Rating Scale (C-SSRS) CSSRS Past Month Wish to be : No CSSRS Past Month Suicidal Thoughts : No CSSRS Lifetime Suicide Behavior : No Suicide Severity Rating Score : 0 Suicide Severity Rating : No Additional Care Required at this time SASCHA ANDRADE RN - 06/11/2020 16:06 EDT Psychosocial History Does Someone Depend on You for Care? : No Do You Have a History of the Following? : Patient denies history Currently in Unsafe Situation : No Restraining Order Against Another Person : No SASCHA ANDRADE RN - 06/11/2020 16:21 EDT Sleep Apnea Risk Assmt BiPAP/CPAP Ordered for Home Use : Yes Hx of Obstructive Sleep Apnea Diagnosis : Yes BiPAP/CPAP Used at Home : Yes Age over 50 Years Old : Yes Gender Male : Yes SASCHA ANDRADE RN - 06/11/2020 16:21 EDT Valuables and Belongings Valuables and Belongings : Clothing, Personal devices, Personal items, Respiratory devices, No comfort items, No jewelry Clothing : Outerwear Clothing Disposition : Bedside Personal Device Disposition : Bedside Personal Devices : Glasses Personal Items : Cell phone, Electronic device(s) Personal Items Disposition : Bedside Respiratory Devices : Other: cpap mask Respiratory Device Disposition : Bedside SASCHA ANDRADE RN - 06/11/2020 16:21 EDT Electronically signed by Cristine [facility] Conversion Recruiting Operations Consultant Cerner at 01/08/2023 2:20 PM CDT documented in this encounter Plan of Treatment Not on file documented as of this encounter Visit Diagnoses Not on filedocumented in this encounter Care Teams Diamond Sorter Relationship Specialty Start Date End Date Edwar Lance MD [address] [place] [address] PCP - General Adolescent Medicine 05/29/24 documented as of this encounter
--- OUTSIDE RECORDS SUMMARY | 2025-05-03 08:23 | XMS_ITS | Encounter Summary ---
Author Organization [employer] ([place], [place], [place], [place]) Address [address] [place] [address] Care Team Providers Care Table Cover Folder Name Role Phone Edwar Lance MD Primary Care Provider + [phone] Encounter Details Date Type Department Care Team (Late st Contact Info) Description 06/13/2020 Transcribed Document [facility] Family Medicine [facility] [place] [address] ProviderGonzalez MD [address] [place] [id number] Social History Tobacco Use Types Packs/Day Years Used Date Smoking Tobacco: Never Assessed Sex and Gender Information Value Date Recorded Sex Assigned at Male 03/17/2022 7:15 PM CDT Legal Sex Male 7:15 PM CDT Gender Identity Male 03/17/2022 7:15 PM CDT Sexual Orientation Not on file documented as of this encounter Miscellaneous Notes * Cerner Conversion Note - Historical ProviderMD - 06/13/2020 3:40 PM CDT Discharge Summary, PT Entered On: 06/13/2020 15:43 EDT Performed On: 06/13/2020 15:40 EDT by KULDEEP HARTLEY, PT Discharge Summary Discharge Summary Provider Notified : Nursing Reason for Discharge : Discharged from hospital Discharged to, Therapy : Home, with family care Discharge Summary Comment, PT : PT eval done 06/12 with PT following until discharge to home on 06/13. Pt seen by PT prior discharge and was mod independent for sit-stand and to amb 300' with gt belt and rwx with back brace and amb 50' without AD with supervision. Pt was supervision for up/down 5 steps with 1 handrail and was given post-op back HEP KULDEEP HARTLEY, PT - 06/13/2020 15:40 EDT Fisher Mussel Goals Mobility/Bed Mobility LTG PT Grid Goal #1 Goal #2 Activity : Supine to sit Sit to stand Assist : Independent, modified Independent, modified Date to Meet : 06/26/2020 EDT 06/26/2020 EDT Goal Status : Not met Goal met Date Met : 06/13/2020 EDT Comment : via logroll KULDEEP HARTLEY, PT - 06/13/2020 15:40 EDT KULDEEP HARTLEY, PT - 06/13/2020 15:40 EDT Ambulation LTG Grid Goal #1 Device : Walker, front wheel Distance : 300ft Assist : Independent, modified Date to Meet : 06/26/2020 EDT Goal Status : Goal met Date Met : 06/13/2020 EDT KULDEEP HARTLEY, PT - 06/13/2020 15:40 EDT Electronically signed by Crsitine [facility] Conversion Oral Pathologist Cerner at 01/08/2023 2:07 PM CDT documented in this encounter Plan of Treatment Not on file documented as of this encounter Visit Diagnoses Not on filedocumented in this encounter Care Teams Table Cover Folder Relationship Specialty Start Date End Date Edwar Lance MD [address] [place] [address] PCP - General Adolescent Medicine 05/29/24 documented as of this encounter
--- OUTSIDE RECORDS SUMMARY | 2025-05-03 08:23 | XMS_ITS | Encounter Summary ---
Author Organization [employer] ([place], [place], [place], [place]) Address [address] [place] [address] Care Team Providers Care Senior Graduate Advisor Name Role Phone Edwar Lance MD Primary Care Provider + [phone] Encounter Details Date Type Department Care Team (Late st Contact Info) Description 06/11/2020 Transcribed Document [facility] [place] Family Medicine [address] [place] [address] ProviderGonzalez MD [address] [place] [address] Social History Tobacco Use Types Packs/Day Years Used Date Smoking Tobacco: Never Assessed Sex and Gender Information Value Date Recorded Sex Assigned at Male 03/17/2022 7:15 PM CDT Legal Sex Male 7:15 PM CDT Gender Identity Male 03/17/2022 7:15 PM CDT Sexual Orientation Not on file documented as of this encounter Miscellaneous Notes * Cerner Conversion Note - Gonzalez ProviderMD - 06/11/2020 6:35 AM CDT Patient: AL COSTA II Age: 54 years Sex: Male : 1965 Associated Diagnoses: None Author: CECIL MCKEON APRN Chief Complaint back, LLE pain Review of Systems ROS reviewed as documented in chart no change since last seen by surgeon Health Status Allergies: Allergic Reactions (Selected) No Known Allergies , No qualifying data available Current medications: No qualifying data available , Medications (5) Active Scheduled: (4) ceFAZolin/D5w 2 Gram 50 mL, IV Piggyback, PREOP famotidine 20 mg tab 20 mg 1 Tab, Oral, 1-Time lidocaine 1% *PF* inj 30 mL 0.5 mL, IntraDermal, 1-Time mupirocin 2% nasal oint 1 g 1 Application, Nostrils Both, 1-Time Continuous: (1) lactated ringers 1,000 mL 1,000 mL, IntraVENous, 50 mL/Hr PRN: (0) Problem list: All Problems Seasonal allergies / SNOMED CT 719716723 / Confirmed PONV (postoperative nausea and vomiting) / SNOMED CT 4347825 / Confirmed JASWINDER on CPAP / SNOMED CT 683795084 / Confirmed Left leg numbness / SNOMED CT 619764343 / Confirmed Numbness in both legs / SNOMED CT 031210207 / Confirmed History of obstructive sleep apnea / IMO 45942230 / Confirmed [place] (hard of hearing) / SNOMED CT 78770269 / Confirmed Back pain / PNED [id number] / Confirmed Inactive: left / SNOMED CT 973831993 Resolved: Sinusitis / SNOMED CT 52230490 Resolved: Pneumonia / SNOMED CT 117641178 , Active Problems (8) Back pain History of obstructive sleep apnea [place] (hard of hearing) Left leg numbness Numbness in both legs JASWINDER on CPAP PONV (postoperative nausea and vomiting) Seasonal allergies Histories Past Medical History: Resolved Pneumonia (418934099): Onset on 08/08/2014 at 48 years. Resolved. Sinusitis (89741231): Resolved. Family History: No family history items have been selected or recorded. Procedure history: lumbar fusion in 2014 at 50 Years. Revision of Lumbar Fusion in the week of 06/12/2014 at 48 Years. lumbar fusion in the week of 10/24/2013 at 48 Years. lumbar discectomy in 2012 at 48 Years. bilateral carpal tunnel release. colonoscopy. back surgery. Social History Social & Psychosocial Habits Alcohol Comment: none [...] 100 in l Smokeless Tobacco Status Never . Physical Examination VS/Measurements Vitals Signs (last 24 hrs) Last Charted Minimum Maximum Temp 98.2 (JUN 11 07:00) 98.2 (JUN 11 07:00) 98.2 (JUN 11 07:00) Mon HR 79 (JUN 11 07:00) 79 (JUN 11 07:00) 79 (JUN 11 07:00) Resp Rate H 22 (JUN 11 07:00) H 22 (JUN 11 07:00) H 22 (JUN 11 07:00) SBP H 147 (JUN 11:00) H 147 (JUN 11:00) H 147 (JUN 11:00) DBP H 92 (JUN 11 07:00) H 92 (JUN 11 07:00) H 92 (JUN 11 07:00) SpO2 96 (JUN 11 07:00) 96 (JUN 11:00) 96 (JUN 11:00) , Measurements from flowsheet : Measurements 06/10/2020 13:56 EDT Height Source Measured Height Entry Format Clark Height/Length, UPPER SORBIAN (ft) 5 ft Height/Length UPPER SORBIAN 5 Inch CLINICALHEIGHT 165.1 cm [place] Body Weight 61 kg Weight Source Standing scale Weight Entry Format Clark Weight Latvian lb 234.9 lb CLINICALWEIGHT 106.77 kg Body Surface Area (BSA) 2.12 m2 Body Mass Index 39.2 kg/m2 HI General: Alert and oriented, No acute distress, obese. Eye: Pupils are equal, round and reactive to light, Extraocular movements are intact, glasses. HENT: Normocephalic, [place]. Neck: Supple, Non-tender. Respiratory: Lungs are clear to auscultation, Respirations are non-labored. Cardiovascular: Normal rate, Regular rhythm, No murmur, No gallop, No edema. Gastrointestinal: Soft, Non-tender. Genitourinary: No costovertebral angle tenderness. Lymphatics: No lymphadenopathy neck, axilla, groin. Musculoskeletal: Normal strength, painfuL ROM back. Integumentary: Warm, Dry, [place]. Neurologic: Alert, Oriented. Psychiatric: Cooperative, Appropriate mood & affect. Review / Management Results review: No qualifying data available . Impression and Plan Condition: Stable. documented in this encounter Plan of Treatment Not on file documented as of this encounter Visit Diagnoses Not on filedocumented in this encounter Care Teams Senior Graduate Advisor Relationship Specialty Start Date End Date Edwar Lance MD [address] [place] [address] PCP - General Adolescent Medicine 05/29/24 documented as of this encounter
--- OUTSIDE RECORDS SUMMARY | 2025-05-03 08:24 | XMS_ITS | Encounter Summary ---
Author Organization [employer] ([place], [place], [place], [place]) Address [address] [place] [address] Care Team Providers Care Centrifuge Separator Tender Name Role Phone Edwar Lance MD Primary Care Provider + [phone] Encounter Details Date Type Department Care Team (Late st Contact Info) Description 06/12/2020 Transcribed Document [facility] [place] Family Medicine [facility] [place] [address] ProviderGonzalez MD [address], [place] [address] Social History Tobacco Use Types Packs/Day Years Used Date Smoking Tobacco: Never Assessed Sex and Gender Information Value Date Recorded Sex Assigned at Male 03/17/2022 7:15 PM CDT Legal Sex Male 7:15 PM CDT Gender Identity Male 03/17/2022 7:15 PM CDT Sexual Orientation Not on file documented as of this encounter Miscellaneous Notes * Cerner Conversion Note - Historical ProviderMD - 06/12/2020 8:20 AM CDT Patient: AL COSTA II Age: 54 Years Sex: Male : 1965 Assessment/Plan POD 1 ext fusion to L1 - antoni for dvt ppx - lso when up and about, pt/ot eval - pain control - cont cheryle - is use - anticipate dc in 1-2 days VTE Prophylaxis - Medical Enoxaparin 40 mg, SubCutaneous, Inj, [id number], Routine, Start 06/12/20 8:00:00 EDT (GEE FROST) Subjective unsure if preop leg pain is any better yet incisional pain controlled using IS +voiding, +flatus denies cp soa cough abd pain nv nt Vital Signs T: 36.4 ??C TMIN: 36.4 ??C TMAX: 36.9 ??C HR: 84(Monitored) RR: 16 BP: 141/74 SpO2: 95% HT: 165.1 cm WT: 106.77 kg BMI: 39.2 Oxygen Settings (Last) Oxygen Therapy Mode: Room air (06/12/20 05:30:00) Oxygen Flow Rate: 2 Liter/Min (06/11/20 18:35:00) IV Fluids & Drains Last 24 Hours (7a-7a) Intake (0) No IV fluid intake events found in the last 24 hours. Output (1) Surgical Drain/Tube Output: 255 mL Output Total: 255mL Physical Exam nad A&O incision cdi chreyle to suction, bloody lifts LE off bed Electronically signed by Interface, [facility] Conversion Cattle Trader Cerner at 01/08/2023 2:28 PM CDT documented in this encounter Plan of Treatment Not on file documented as of this encounter Visit Diagnoses Not on filedocumented in this encounter Care Teams Centrifuge Separator Tender Relationship Specialty Start Date End Date Edwar Lance MD [address] [place] [address] PCP - General Adolescent Medicine 05/29/24 documented as of this encounter
--- OUTSIDE RECORDS SUMMARY | 2025-05-03 08:24 | XMS_ITS | Encounter Summary ---
Author Organization [employer] ([place], [place], [place], [place]) Address [address] [place] [address] Care Team Providers Care Golf Course Laborer Name Role Phone Edwar Lance MD Primary Care Provider + [phone] Encounter Details Date Type Department Care Team (Late st Contact Info) Description 06/12/2020 Transcribed Document [facility] [place] Family Medicine [address] [place] [address] ProviderGonzalez MD [address] [place] [address] Social History Tobacco Use Types Packs/Day Years Used Date Smoking Tobacco: Never Assessed Sex and Gender Information Value Date Recorded Sex Assigned at Male 03/17/2022 7:15 PM CDT Legal Sex Male 7:15 PM CDT Gender Identity Male 03/17/2022 7:15 PM CDT Sexual Orientation Not on file documented as of this encounter Miscellaneous Notes * Cerner Conversion Note - Gonzalez ProviderMD - 06/12/2020 10:31 AM CDT UM Authorization Entered On: 06/12/2020 10:34 EDT Performed On: 06/12/2020 10:31 EDT by Ashley Wagner Rn-Utilization Review Primary Insurance Authorization Authorization and Policy Numbers : Insurance 1 Health Plan: [employer]OP[employer] Policy Number: [id number] Authorization Number: [id number] Insurance 2 Health Plan: [place]ID [place] Policy Number: [id number] Authorization Number: Insurance Primary Name : Omega [id number] Authorization Status-Primary : Admit approved Reference Number-Primary : [id number] Authorization Number-Primary : email to PA req status of auth Number of Days Authorized-Primary : 0 Day(s) Authorized Service Begin Date-Primary : 06/11/2020 EDT Authorized Service End Date-Primary : 06/11/2020 EDT Authorization Comments-Primary : please change auth number in star once case is completeclinical faxed for c/s per donny Historical Authorization Comments-Primary : Comment 1: per manjinder @ md office auth for omega is [id number] IP x 1day. Medicaid auth is [id number] (Ashley Wagner, Rn-Utilization Review 06/12/2020 10:19) Comment 2: pt is scheduled for INPT lumbar fusion posterior 3 level on Wednesday06/11/2020 (ERNESTINA COOPER, Deck Cadet 06/10/2020 14:22) Ashley Wagner Rn-Utilization Review - 06/12/2020 10:31 EDT Electronically signed by Cristine [facility] Conversion Gold Assayer Cerner at 01/08/2023 2:10 PM CDT documented in this encounter Plan of Treatment Not on file documented as of this encounter Visit Diagnoses Not on filedocumented in this encounter Care Teams Golf Course Laborer Relationship Specialty Start Date End Date Edwar Lance MD [address] [place] [address] PCP - General Adolescent Medicine 05/29/24 documented as of this encounter
--- OUTSIDE RECORDS SUMMARY | 2025-05-03 08:24 | XMS_ITS | Encounter Summary ---
Author Organization [employer] ([place], [place], [place], [place]) Address [address] [place] [address] Care Team Providers Care Bag Inspector Name Role Phone Edwar Lambert MD Primary Care Provider + [phone] Encounter Details Date Type Department Care Team (Late st Contact Info) Description 06/12/2020 Transcribed Document [facility] [place] Family Medicine [address] [place] [address] ProviderGonzalez MD [address] [place] [id number] Social History Tobacco Use Types Packs/Day Years Used Date Smoking Tobacco: Never Assessed Sex and Gender Information Value Date Recorded Sex Assigned at Male 03/17/2022 7:15 PM CDT Legal Sex Male 7:15 PM CDT Gender Identity Male 03/17/2022 7:15 PM CDT Sexual Orientation Not on file documented as of this encounter Miscellaneous Notes * Cerner Conversion Note - Gonzalez ProviderMD - 06/12/2020 4:06 PM CDT Initial Discharge Planning Entered On: 06/12/2020 16:08 EDT Performed On: 06/12/2020 16:06 EDT by MIRANDA ROSE, RN-Manufacturing Plant Manager Initial Assessment I Previously Documented Living Environment : No qualifying data available. Living Situation : Home Patient Lives With : Adult Child/Children, Spouse Is the Patient a Caregiver at Home? : No Emergency Contact #1 : none Emergency Contact #1 Phone Number : - Emergency Contact #1 Relationship : - Emergency Contact #2 : - Emergency Contact #2 Phone Number : - Emergency Contact #2 Relationship : - Enter Doctors Name : EDWAR LAMBERT (REF)MD-FAM Does Patient have PCP Listed? : Yes MIRANDA ROSE RN-Manufacturing Plant Manager - 06/12/2020 16:06 EDT Initial Assessment II Sensory and Motor Deficits : None Current Home Treatments and Equipment : Walker Does the Patient have a Floor to SNF Benefit? : No MIRANDA ROSE RN-Manufacturing Plant Manager - 06/12/2020 16:06 EDT Discharge Needs I Anticipated Discharge Date : 06/13/2020 EDT Anticipated Discharge To, CM : Home with family care Current Home Treatment/Equipment : Current Home Treatment/Equipment No qualifying data available. Post Acute/Home Treatments : None Documentation Status Complete : Yes MIRANDA ROSE RN-Manufacturing Plant Manager - 06/12/2020 16:06 EDT Discharge Needs II Professional Skilled Services : Professional Skilled Services No qualifying data available. Needs Assistance with Transportation : No Discharge Options Discussed with Patient : Home Health MIRANDA ROSE RN-Manufacturing Plant Manager - 06/12/2020 16:06 EDT Narrative Note Narrative Note : 54yo male pt s/p L1-2 lami with L1 fusion extension. Pt a,jorgeulated 280ft this am. Met with pt at bedside to discuss DCP. Pt has DME at home and has used HH previously. He denies CM needs at this time. CM will follow. MIRANDA ROSE RN-Manufacturing Plant Manager - 06/12/2020 16:06 EDT documented in this encounter Plan of Treatment Not on file documented as of this encounter Visit Diagnoses Not on filedocumented in this encounter Care Teams Bag Inspector Relationship Specialty Start Date End Date Edwar Lambert MD [address] [place] [address] PCP - General Adolescent Medicine 05/29/24 documented as of this encounter
--- OUTSIDE RECORDS SUMMARY | 2025-05-03 08:24 | XMS_ITS | Encounter Summary ---
Author Organization [employer] ([place], [place], [place], [place]) Address [address] [place] [address] Care Team Providers Care Twitchell Operator Name Role Phone Edwar Lance MD Primary Care Provider + [phone] Encounter Details Date Type Department Care Team (Late st Contact Info) Description 06/13/2020 Transcribed Document [facility] [place] [address] [place] [address] ProviderGonzalez MD [address] [place] [address] Social History Tobacco Use Types Packs/Day Years Used Date Smoking Tobacco: Never Assessed Sex and Gender Information Value Date Recorded Sex Assigned at Male 03/17/2022 7:15 PM CDT Legal Sex Male 7:15 PM CDT Gender Identity Male 03/17/2022 7:15 PM CDT Sexual Orientation Not on file documented as of this encounter Miscellaneous Notes * Cerner Conversion Note - Gonzalez ProviderMD - 06/13/2020 12:16 PM CDT Stroke/Warfarin Instructions Entered On: 06/13/2020 12:17 EDT Performed On: 06/13/2020 12:16 EDT by BRADY SEXTON, RN Stroke/Warfarin Instructions Stroke/TIA Discharge Ins : N/A Warfarin Discharge Ins : N/A BRADY SEXTON, RN - 06/13/2020 12:16 EDT documented in this encounter Plan of Treatment Not on file documented as of this encounter Visit Diagnoses Not on filedocumented in this encounter Care Teams Twitchell Operator Relationship Specialty Start Date End Date Edwar Lance MD [address] [place] [address] PCP - General Adolescent Medicine 05/29/24 documented as of this encounter
--- OUTSIDE RECORDS SUMMARY | 2025-05-03 08:24 | XMS_ITS | Encounter Summary ---
Author Organization [employer] ([place], [place], [place], [place]) Address [address] [place] [address] Care Team Providers Care Application Security Developer Name Role Phone Edwar Lance MD Primary Care Provider + [phone] Encounter Details Date Type Department Care Team (Late st Contact Info) Description 06/11/2020 Transcribed Document [facility] [place] [facility] [place] [address] ProviderGonzalez MD [address] [place] [address] Social History Tobacco Use Types Packs/Day Years Used Date Smoking Tobacco: Never Assessed Sex and Gender Information Value Date Recorded Sex Assigned at Male 03/17/2022 7:15 PM CDT Legal Sex Male 7:15 PM CDT Gender Identity Male 03/17/2022 7:15 PM CDT Sexual Orientation Not on file documented as of this encounter Miscellaneous Notes * Cerner Conversion Note - Gonzalez ProviderMD - 06/11/2020 11:20 AM CDT DATE OF PROCEDURE: 06/11/2020 NEUROSURGERY OPERATIVE REPORT SURGEON: Uzair Zarate MD CIVIL DIVISION COMMANDER DEPUTY SHERIFF: Pillo Hwang PA-C, scrubbed and present assisting in cleaning and closure of the wound. PREOPERATIVE DIAGNOSES: 1. Previous L1 and previous L2 to sacrum fusion. 2. 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 POSTOPERATIVE DIAGNOSES: 1. Previous L1 and previous L2 to sacrum fusion. 2. 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 PROCEDURE PERFORMED: 1. L1-L2 laminectomy. 2. Extension of fusion with navigation to L1 (L1-L3 hardware) Zim navigation. 3. Posterolateral arthrodesis, L1-L2, L2-L3. 4. Removal of hardware, L4. 5. Right iliac crest graft. ANESTHESIA: General endotracheal anesthesia. ESTIMATED BLOOD LOSS: 150 mL. COMPLICATIONS: None. HARDWARE: Medtronic Solera pedicle screw and benja system. DRAINS: One subfascial drain. BRIEF HISTORY: Mr. Costa is a 54-year-old gentleman who has undergone multiple lumbar fusions in the past, most recently in 2018. He presented with new onset symptoms since December. Referred pain in the left leg, right paraspinous region. Updated MRI and CT scan were performed. This confirmed the junctional stenosis at L1-L2 that correlated with the patient's symptomatology. There was not evidence of pseudoarthrosis detected. Treatment options were discussed with the patient. The patient failed to respond to conservative measures. The decision was made to proceed with the operation with plans to proceed with extension of the fusion L1. OPERATIVE DETAILS: The patient was intubated without incident, flipped from the supine to the prone position onto the operating table. The pressure points were identified and padded. The lumbar spine was prepped and draped. Time-out was performed. Antibiotics were given. Films were available and reviewed in the room prior to incision. A preliminary navigation spin was performed with the reference range, secured to the skin. This allowed for localization of the incision as well as identification of the right iliac crest. Stab incision made over the right iliac crest. A spinal needle inserted into the cancellous bone and 5 mL of aspirate was obtained for the fusion. The Steinmann pins placed with the navigation into the iliac crest x2. Incision performed in the low back, continued dissection through the scar and subcu fat. Lumbar fascia incised. Exposure of the lumbar spine L1-L4 including the previous hardware from L2-L4. Retractors were placed into the wound. The facet and transverse process of L1 were exposed as well. The set screws of the previous hardware were removed. We removed the rods. There was evidence of posterolateral arthrodesis with bony growth over the previous hardware in the posterolateral gutter. Once the rods were in, the screws were inspected sequentially. No evidence of pseudoarthrosis. The L4 screws were removed. Once this was completed, the reference frame was secured to the Steinmann pins. A second intraoperative navigation spin was performed. Now using the navigation system, the L1 pedicle was identified. Leksell was used to access through the facet complex. Now, the navigated gearshift probe used to access the pedicle, inspected with a ballpoint probe, prepared for placement of the screw with a tap. The following hardware was placed at L1, 7.5 x 50 mm screws x2. The right L3 screw was inspected, had a slightly superior trajectory. This was modified. The screw removed. A 6.5 x 45 screw replaced. A more inferior trajectory that was parallel to the endplate was then used with good bony purchase throughout the new screw angulation. We now turned our attention towards the decompression. The L1 spinous process was removed. This bone was repurposed for autograft. The laminectomy was completed with the Midas drill. This included mobilization of the epidural scar from the previous laminectomy. The laminectomy extended well to the point of the pedicle of the L2 screws and superiorly to the pedicle of the L1 screw. Redundant ligament facet arthropathy was encountered. Both medial facets were removed. This bone was repurposed for autograft. Once laminectomy was completed, transforaminal approach was now undertaken for access to the disk space. Pars drilled out. The remaining ligament within the recess and the foramen was removed. The exiting nerve root was skeletonized out. The disk space was explored. Access collapsed disk space with a small retrolisthesis at this level. Disk material was removed. A small inferior disk protrusion was also removed as part of the decompression. The endplates were prepared for arthrodesis. The access point at L1-L2 did not allow for a cage. We did pack fused material into the disk space to assist with the fusion. At this point, a final AP and lateral x-ray showed excellent placement of the hardware. We turned our attention towards placement of the rods. Posterolateral arthrodesis completed decorticating the remaining lamina, pars, transverse processes from L1-L3, packed the posterolateral corridors with Bern allograft, ViviGen allograft, autograft, iliac crest graft. A 60 mm benja was placed in the patient's right and 70 mm benja placed on the left. Set screws placed. Caps were tightened and then broken off with a counter-torque instrument. The drain was in the subfascial space. The wound was inspected, copiously irrigated. Meticulous hemostasis was achieved. The muscle fascia and subcuticular layers were closed in layers. Prineo mesh used for final wound closure. The drain was secured in place. The iliac pins were removed without incident. The counts were recorded as correct. The patient was flipped from prone to supine position, extubated without incident, and left the OR in stable condition. /[id number] Uzair Zarate MD GP/AQ / GP / MODL /[id number] Electronically signed by Cristine, [facility] Conversion Lead Applications Developer Cerner at 01/08/2023 2:11 PM CDT documented in this encounter Plan of Treatment Not on file documented as of this encounter Visit Diagnoses Not on filedocumented in this encounter Care Teams Application Security Developer Relationship Specialty Start Date End Date Edwar Lance MD [address] [place] [address] PCP - General Adolescent Medicine 05/29/24 documented as of this encounter
--- OUTSIDE RECORDS SUMMARY | 2025-05-03 08:24 | XMS_ITS | Encounter Summary ---
Author Organization [employer] ([place], [place], [place], [place]) Address [address] [place] [address] Care Team Providers Care Flight Surgeon Name Role Phone Edwar Lance MD Primary Care Provider + [phone] Encounter Details Date Type Department Care Team (Late st Contact Info) Description 06/10/2020 Transcribed Document [facility] [place] [address] [place] [address] ProviderGonzalez MD [address] [place] [address] Social History Tobacco Use Types Packs/Day Years Used Date Smoking Tobacco: Never Assessed Sex and Gender Information Value Date Recorded Sex Assigned at Male 03/17/2022 7:15 PM CDT Legal Sex Male 7:15 PM CDT Gender Identity Male 03/17/2022 7:15 PM CDT Sexual Orientation Not on file documented as of this encounter Miscellaneous Notes * Cerner Conversion Note - Gonzalez ProviderMD - 06/10/2020 3:16 PM CDT UM Authorization Entered On: 06/10/2020 15:16 EDT Performed On: 06/10/2020 15:16 EDT by Ashley Wagner Rn-Utilization Review Primary Insurance Authorization Authorization and Policy Numbers : Insurance 1 Health Plan: [employer] Policy Number: [id number] Authorization Number: Insurance 2 Health Plan: MEDICAID [facility] Policy Number: [id number] Authorization Number: Insurance Primary Name : Jose C [id number] Authorization Number-Primary : email to [facility] status of auth Authorized Service Begin Date-Primary : 06/11/2020 EDT Historical Authorization Comments-Primary : Comment 1: pt is scheduled for INPT lumbar fusion posterior 3 level on Wednesday06/11/2020 (ERNESTINA COOPER, Electrical Design Technologist 06/10/2020 14:22) Ashley Wagner, Rn-Utilization Review - 06/10/2020 15:16 EDT Electronically signed by [facility], [facility] Conversion Cabin Furnishings Installer Cerner at 01/08/2023 2:08 PM CDT documented in this encounter Plan of Treatment Not on file documented as of this encounter Visit Diagnoses Not on filedocumented in this encounter Care Teams Flight Surgeon Relationship Specialty Start Date End Date Edwar Lance MD [address] [place] [address] PCP - General Adolescent Medicine 05/29/24 documented as of this encounter
--- OUTSIDE RECORDS SUMMARY | 2025-05-03 08:24 | XMS_ITS | Encounter Summary ---
Author Organization [employer] ([place], [place], [place], [place]) Address [address] [place] [address] Care Team Providers Care Business Reporting Developer Name Role Phone Edwar Lance MD Primary Care Provider + [phone] Encounter Details Date Type Department Care Team (Late st Contact Info) Description 06/12/2020 Transcribed Document [facility] [place] [address] [place] [address] ProviderGonzalez MD [address] [place] [address] Social History Tobacco Use Types Packs/Day Years Used Date Smoking Tobacco: Never Assessed Sex and Gender Information Value Date Recorded Sex Assigned at Male 03/17/2022 7:15 PM CDT Legal Sex Male 7:15 PM CDT Gender Identity Male 03/17/2022 7:15 PM CDT Sexual Orientation Not on file documented as of this encounter Miscellaneous Notes * Cerner Conversion Note - Gonzalez ProviderMD - 06/12/2020 10:19 AM CDT UM Authorization Entered On: 06/12/2020 10:29 EDT Performed On: 06/12/2020 10:19 EDT by Ashley Wagner Rn-Utilization Review Primary Insurance Authorization Authorization and Policy Numbers : Insurance 1 Health Plan: [employer]M [employer] Policy Number: [id number] Authorization Number: [id number] Insurance 2 Health Plan: [place]ID [place] Policy Number: [id number] Authorization Number: Insurance Primary Name : Omega [id number] Authorization Status-Primary : Admit approved Reference Number-Primary : [id number] Authorization Number-Primary : email to [place] req status of auth Number of Days Authorized-Primary : 0 Day(s) Authorized Service Begin Date-Primary : 06/11/2020 EDT Authorized Service End Date-Primary : 06/11/2020 EDT Authorization Comments-Primary : hernando dunbar @ [facility] auth for omega is [id number] IP x 1day. Medicaid auth is [id number] Historical Authorization Comments-Primary : Comment 1: pt is scheduled for INPT lumbar fusion posterior 3 level on Wednesday06/11/2020 (ERNESTINA COOPER, Preschool Teacher Aide 06/10/2020 14:22) Ashley Wagner Rn-Utilization Review - 06/12/2020 10:19 EDT Electronically signed by [facility] Conversion Production Inspector Cerner at 01/08/2023 2:18 PM CDT documented in this encounter Plan of Treatment Not on file documented as of this encounter Visit Diagnoses Not on filedocumented in this encounter Care Teams Business Reporting Developer Relationship Specialty Start Date End Date Edwar Lance MD [address] [place] [address] PCP - General Adolescent Medicine 05/29/24 documented as of this encounter
--- OUTSIDE RECORDS SUMMARY | 2025-05-03 08:24 | XMS_ITS | Encounter Summary ---
Author Organization [employer] ([place], [place], [place], [place]) Address [address] [place] [address] Care Team Providers Care Machinist Wood Name Role Phone Edwar Lance MD Primary Care Provider + [phone] Encounter Details Date Type Department Care Team (Late st Contact Info) Description 06/12/2020 Transcribed Document [facility] [place] [address] [place] [address] ProviderGonzalez MD [address] [place] [address] Social History Tobacco Use Types Packs/Day Years Used Date Smoking Tobacco: Never Assessed Sex and Gender Information Value Date Recorded Sex Assigned at Male 03/17/2022 7:15 PM CDT Legal Sex Male 7:15 PM CDT Gender Identity Male 03/17/2022 7:15 PM CDT Sexual Orientation Not on file documented as of this encounter Miscellaneous Notes * Cerner Conversion Note - Gonzalez ProviderMD - 06/12/2020 10:34 AM CDT UM Authorization Entered On: 06/12/2020 10:34 EDT Performed On: 06/12/2020 10:34 EDT by Ashley Wagner Rn-Utilization Review Primary Insurance Authorization Authorization and Policy Numbers : Insurance 1 Health Plan: [employer]M [employer] Policy Number: [id number] Authorization Number: [id number] Insurance 2 Health Plan: [place] Policy Number: [id number] Authorization Number: [id number] Insurance Primary Name : Omega [id number] Authorization Status-Primary : Admit approved Reference Number-Primary : [id number] Authorization Number-Primary : [id number] Number of Days Authorized-Primary : 0 Day(s) Authorized Service Begin Date-Primary : 06/11/2020 EDT Authorized Service End Date-Primary : 06/11/2020 EDT Historical Authorization Comments-Primary : Comment 1: please change auth number in star once case is completeclinical faxed for c/s per donny (Ashley Wagner, Rn-Utilization Review 06/12/2020 10:31) Comment 2: per manjinder @ [facility] auth for omega is [id number] IP x 1day. Medicaid auth is [id number] (Ashley Wagner, Rn-Utilization Review 06/12/2020 10:19) Comment 3: pt is scheduled for INPT lumbar fusion posterior 3 level on Wednesday06/11/2020 (ERNESTINA COOPER, General Assembler Installer 06/10/2020 14:22) Ashley Wagner, Teresa-Utilization Review - 06/12/2020 10:34 EDT Electronically signed by Cristine [facility] Conversion Warehouse Manager Donny at 01/08/2023 2:15 PM CDT documented in this encounter Plan of Treatment Not on file documented as of this encounter Visit Diagnoses Not on filedocumented in this encounter Care Teams Machinist Wood Relationship Specialty Start Date End Date Edwar Lance MD [address] [place] [address] PCP - General Adolescent Medicine 05/29/24 documented as of this encounter
--- OUTSIDE RECORDS SUMMARY | 2025-05-03 08:24 | XMS_ITS | Encounter Summary ---
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 Family Medicine [address] [place] [address] Provider, MD Gonzalez [address] [place] [address] [id number] Social History Tobacco Use Types Packs/Day Years [...] Gonzalez ProviderMD - 06/11/2020 8:58 AM CDT [facility] Main OR IntraOp Summary Primary Physician: MARLY CANTU MD Finalized Date/Time: 06/12/20 11:05:01 Pt. Name: SCAR COSTA II, D.O.B./Sex: 1965 Male Med Rec #: [id number] Physician: MARLY CANTU MD Financial #: [id number] Pt. Type: I Room/Bed: [facility]/ Admit/Disch: 06/11/20 05:59:00 - Institution: [facility] IntraOp Case Attendance Entry 1 Entry 2 Entry 3 Case Attendee MARLY CANTU MD Byrd, Charlie D, RN JEAN EMERY ST Role Performed Surgeon/Proceduralist, Certified Novell Administrator, First Scrub, First First Time In 06/11/20 08:21:00 06/11/20 08:21:00 06/11/20 08:21:00 Time Out 06/11/20 11:31:00 06/11/20 11:31:00 06/11/20 11:31:00 Procedure Lumbar Fusion Posterior Lumbar Fusion Posterior Lumbar Fusion Posterior 3 Level 3 Level 3 Level Other Attendee Superficial Wound Closed By: Last Modified By: Derick Cummings, Derick Moraes, Derick Moraes, DOMINGUEZ 06/11/20 11:31:51 06/11/20 11:31:51 06/11/20 11:31:51 Entry 4 Entry 5 Entry 6 Case Attendee GEE FROST Mark, SCAGLIOLA MECHANIC Agustina Hayes, Clerk Rating Role Performed Physician fiscal assistant SCAGLIOLA MECHANIC/Nurse Pace Analyst Chest Painting And Sealing Supervisor Time In 06/11/20 08:21:00 06/11/20 08:21:00 06/11/20 08:21:00 Time Out 06/11/20 11:31:00 06/11/20 11:31:00 06/11/20 11:31:00 Procedure Lumbar Fusion Posterior Lumbar Fusion Posterior Lumbar Fusion Posterior 3 Level 3 Level 3 Level Other Attendee Superficial Wound Closed By: Last Modified By: Derick Cummings RN Byrd, Charlie D, Derick Moraes, DOMINGUEZ 06/11/20 11:31:51 06/11/20 11:31:51 06/11/20 11:31:51 Entry 7 Entry 8 Entry 9 Case Attendee OTHER, ATTENDEE #1 OTHER, ATTENDEE #2 BRITTANIE ROWLEY MD-ANS Role Performed Student Vendor Anesthesiologist of Record Time In 06/11/20 08:21:00 06/11/20 08:21:00 06/11/20 08:21:00 Time Out 06/11/20 11:31:00 06/11/20 11:31:00 06/11/20 11:31:00 Procedure Lumbar Fusion Posterior Lumbar Fusion Posterior Lumbar Fusion Posterior 3 Level 3 Level 3 Level Other Attendee RIVKA VERDUZCO SCAGLIOLA MECHANIC STUDENT DAVONTE LANDAVERDE Superficial Wound Closed By: Last Modified By: Derick Cummings RN Byrd, Charlie D, RN Byrd, Charlie D, RN 06/11/20 11:31:51 06/11/20 11:31:51 06/11/20 11:31:51 Entry 10 Entry 11 Case Attendee Mini Gomes, Marcie Weinberg, Brittany Belcher, DOMINGUEZ Pref Card Builder Role Performed Certified Novell Administrator, Second Certified Novell Administrator, Second Time In 06/11/20 09:46:00 06/11/20 11:07:00 Time Out 06/11/20 09:59:00 06/11/20 11:31:00 Procedure Lumbar Fusion Posterior Lumbar Fusion Posterior 3 Level 3 Level Other Attendee BREAK LUNCH RELIEF Superficial Wound Closed By: Last Modified By: Derick Cummings RN Byrd, Charlie D, RN 06/11/20 11:31:51 06/11/20 11:31:51 [facility] IntraOp Case Attendance Audit 06/11/20 11:31:51 Continuing Education Dean: [email or web address] Modifier: [email or web address] 1 <+> Time Out 1 <*> Procedure Lumbar Fusion Posterior 3 Level 2 <+> Time Out 2 <*> Procedure Lumbar Fusion Posterior 3 Level 3 <+> Time Out 3 <*> Procedure Lumbar Fusion Posterior 3 Level 4 <+> Time Out 4 <*> Procedure Lumbar Fusion Posterior 3 Level 5 <+> Time Out 5 <*> Procedure Lumbar Fusion Posterior 3 Level 6 <+> Time Out 6 <*> Procedure Lumbar Fusion Posterior 3 Level 7 <+> Time Out 7 <*> Procedure Lumbar Fusion Posterior 3 Level 8 <+> Time Out 8 <*> Procedure Lumbar Fusion Posterior 3 Level 9 <+> Time Out 9 <*> Procedure Lumbar Fusion Posterior 3 Level 10 <*> Procedure Lumbar Fusion Posterior 3 Level 11 <+> Time Out 11 <*> Procedure Lumbar Fusion Posterior 3 Level 06/11/20 11:16:49 Continuing Education Dean: [email or web address] Modifier: [email or web address] <+> 11 Case Attendee <+> 11 Role Performed <+> 11 Time In <+> 11 Procedure <+> 11 Other Attendee 06/11/20 10:00:30 Continuing Education Dean: [email or web address] Modifier: [email or web address] 1 <*> Procedure Lumbar Fusion Posterior 3 Level 2 <*> Procedure Lumbar Fusion Posterior 3 Level 3 <*> Procedure Lumbar Fusion Posterior 3 Level 4 <*> Procedure Lumbar Fusion Posterior 3 Level 5 <*> Procedure Lumbar Fusion Posterior 3 Level 6 <*> Procedure Lumbar Fusion Posterior 3 Level 7 <+> Time In 7 <*> Procedure Lumbar Fusion Posterior 3 Level 8 <+> Time In 8 <*> Procedure Lumbar Fusion Posterior 3 Level 9 <+> Time In 9 <*> Procedure Lumbar Fusion Posterior 3 Level <+> 10 Case Attendee <+> 10 Role Performed <+> 10 Time In <+> 10 Time Out <+> 10 Procedure <+> 10 Other Attendee 06/11/20 09:05:25 Continuing Education Dean: ANN Modifier: ANN 1 <*> Procedure Lumbar Fusion Posterior 3 Level 2 <+> Time In 2 <*> Procedure Lumbar Fusion Posterior 3 Level 3 <+> Time In 3 <*> Procedure Lumbar Fusion Posterior 3 Level 4 <+> Time In 4 <*> Procedure Lumbar Fusion Posterior 3 Level 5 <+> Time In 5 <*> Procedure Lumbar Fusion Posterior 3 Level 6 <+> Time In 6 <*> Procedure Lumbar Fusion Posterior 3 Level <+> 7 Case Attendee <+> 7 Role Performed <+> 7 Procedure <+> 7 Other Attendee <+> 8 Case Attendee <+> 8 Role Performed <+> 8 Procedure <+> 8 Other Attendee <+> 9 Case Attendee <+> 9 Role Performed <+> 9 Procedure [facility] IntraOp Case Times Entry 1 Patient In Room Time 06/11/20 08:21:00 Out Room Time 06/11/20 11:31:00 Anesthesia Start Time 06/11/20 08:21:00 Stop Time 06/11/20 11:31:00 Surgery / Procedure Times Start Time 06/11/20 08:58:00 Stop Time 06/11/20 11:16:00 Last Modified By: Derick Cummings RN 06/11/20 11:31:31 [facility] IntraOp Case Times Audit 06/11/20 11:31:31 Continuing Education Dean: ANN Modifier: ANN <+> 1 Out Room Time <+> 1 Stop Time 06/11/20 11:28:09 Continuing Education Dean: [email or web address] Modifier: [email or web address] <+> 1 Stop Time 06/11/20 08:59:17 Continuing Education Dean: [email or web address] Modifier: [email or web address] <+> 1 Start Time [facility] IntraOp Cautery Entry 1 Entry 2 ESU Identification Cautery Type Other BiPolar ESU Cautery Type PLASMA BLADE Comments ID Number [id number] ID Type Hospital Number Hospital Number Cautery Settings Cut Setting 7 8 Coag Setting 7 45 Blend Setting Bipolar Setting Argon Setting Argon Rhodes [facility]SU Grounding Pad Ground Pad Type Adult Grounding Pad Type Comment Grounding Pad Site Right thigh Grounding Pad Site Comment Grounding Pad Derick Cummings RN Applied By Grounding Pad Site Warm, Dry, Intact Skin Condition Before Cautery Site Skin Condition WNL Before Comment Grounding Pad Site Unchanged Skin Condition After Cautery Site Skin Condition WNL After Comment Last Modified By: Derick Cummings RN Byrd, Charlie D, RN 06/11/20 09:06:10 06/11/20 09:06:10 [facility] IntraOp Communication Entry 1 Communication To Family/Significant other Comment START Communication By Derick Cummings RN Date and Time 06/11/20 08:59:00 Last Modified By: Derick Cummings RN 06/11/20 09:01:21 [facility] IntraOp Counts Verification Entry 1 Procedure Lumbar Fusion Posterior 3 Level Count Info Count Type Sponge, Sharps, Miscellaneous Counts Verification Baseline/pre-procedure Sequence Count Results Not Applicable Counts Performed By Count Performed By JEAN EMERY ST (Scrub) Count Performed By Derick Cummings RN (RN) Last Modified By: Derick Cummings RN 06/11/20 09:01:41 [facility] IntraOp Counts Final Entry 1 Procedure Lumbar Fusion Posterior 3 Level Final Count Info Count Type Sponge, Sharps, Miscellaneous Counts Verification Skin Closure/end of Sequence procedure Count Results Correct, surgeon notified Counts Performed By Count Performed By JEAN EMERY ST (Scrub) Count Performed By Derick Cummings RN (RN) Last Modified By: Derick Cummings RN 06/11/20 11:04:31 [facility] IntraOp Cultures and Spec Summary Entry 1 Cultrures and Specimens Specimen Ordered: Yes Test(s) Routine/Path-Lab Requested/Final Disposition Last Modified By: Derick Cummings RN 06/11/20 09:16:40 General Comments: A. EXPLANTED HARDWARE [facility] IntraOp Delays Entry 1 Delay Reason Ancillary department delay Duration 21 Minute(s) Comment PATIENT NOT READY IN PREOP Last Modified By: Derick Cummings RN 06/11/20 09:06:23 [facility] IntraOp Departure from OR Entry 1 Integumentary Assessment Integumentary WDL Assessment WDL Transfer/Handoff Transfer to PACU Phase I Handoff Method Bedside/Face to face, Phone call Post-op Transport Stretcher/Gurney Via Patient Transport GEE FROST, Accompanied by Rai Sandoval CRNA, OTHER, ATTENDEE #1 Last Modified By: Derick Cummings RN 06/11/20 09:12:55 [facility] IntraOp Drains and Tubes Entry 1 Device Type Vargas Drain Size 15 FR Drain/Tube Activity Inserted Drain/Tube Suction Bulb Drain/Tube Drainage Serosanguineous Device Location OP SITE Method of Drainage Compression Last Modified By: Derick Cummings RN 06/11/20 11:04:14 [facility] IntraOp Dressing and Packing Entry 1 Type Dressing Location BACK Wound Dressing Item Occlusive dressing Applied By GEE FROST Other Comments PRINEO Last Modified By: Derick Cummings RN 06/11/20 09:13:06 [facility] IntraOp Fire Risk Assessment Entry 1 Fire Info Surgical Site or 0- No Incision Above the Xyphoid Open O2 Source 0- No (Mask or Cannula) Available Ignition 1- Yes (ESU, Laser, Light Source) Fire Risk 1 Assessment Score Fire Score Fire Risk Yes Assessment Complete Fire Risk Derick Cummings, osha inspector Verified By Fire Risk 06/11/20 08:20:00 Assessment Verified Date/Time Fire Risk Standard Fire Yes Safety Precautions Followed Last Modified By: Derick Cummings RN 06/11/20 09:06:47 [facility] IntraOp General Case Information Strategist 1 Case Information OR OR [facility] Case Level 1 Room Verified Yes Wound Class I - Clean Specialty SN Neurosurgery Anesthesia Type General ASA Class 2 Diagnosis Preop Diagnosis LUMBAR RADICULOPATHY M54.16 Postop Same As Preop No Postop Diagnosis SEE MD POST OP NOTE Last Modified By: Derick Cummings RN 06/11/20 09:12:42 [facility] IntraOp General Case Data Audit 06/11/20 09:12:42 Continuing Education Dean: ANN Modifier: ANN <+> 1 Preop Diagnosis <+> 1 Postop Diagnosis [facility] IntraOp Implant Log Entry 1 Entry 2 Entry 3 Type Tissue Implant Tissue Implant Implant (Synthetic) (Biologic) (Biologic) Implant Log Implant Type Hardware Tissue Implant Type Bone Bone Implant BONE VIVIGEN FORMABLE BONE PUTTY GRFT 5CC [facility] Identification [facility]LL [id number] Description Implant Quantity 1 1 2 Implant Site OP SITE OP SITE OP SITE Implant [id number] Identification Model Number Implant [id number] Identification Serial Number Implant Identification Lot Number Implant Lifenet:Lifenet Medtronic:Spine:Sofamor Medtronic:Spine:Sofamor Identification Transplant Srv Zee Koch Slurry Mixer Name: Implant [id number] Identification Catalog Number Implant Size Implant Has an Yes Yes Expiration Date Implant Expiration 05/14/21 07/18/22 Date Wasted Radioactive Material Time Implanted Tissue Implant Continue for Tissue Implant Documentation Tissue Identification Number Graft Prep Per Slurry Mixer Instructions: Tissue Preparation Method: Reconstitution Solution: Reconstitution Solution Lot Number Reconstitution Solution Expiration Date: Thawing Solution Thawing Solution Lot Number Thawing Solution Expiration Date Preparation Materials, Other Preparation Materials, Other Lot Number Preparation Materials, Other Expiration Date Tissue Prepared/Processed By Slurry Mixer Paperwork Completed Implant Type Comment Last Modified By: Derick Cummings RN Byrd, Charlie D, RN Byrd, Charlie D, RN 06/11/20 10:01:55 06/11/20 10:01:55 06/11/20 10:55:10 Entry 4 Entry 5 Entry 6 Type Implant (Synthetic) Implant (Synthetic) Implant (Synthetic) Implant Log Implant Type Hardware Hardware Hardware Tissue Implant Type Implant [facility] [id number] JEANNINE [id number] Identification [id number] Description Implant Quantity 1 6 1 Implant Site OP SITE OP SITE OP SITE Implant Identification Model Number Implant Identification Serial Number Implant Identification Lot Number Implant Medtronic:Spine:Sofamor Medtronic:Spine:Sofamor Medtronic:Spine:Sofamor Identification Zee Koch Slurry Mixer Name: Implant [id number] Identification Catalog Number Implant Size Implant Has an Expiration Date Implant Expiration Date Wasted Radioactive Material Time Implanted Tissue Implant Continue for Tissue Implant Documentation Tissue Identification Number Graft Prep Per Slurry Mixer Instructions: Tissue Preparation Method: Reconstitution Solution: Reconstitution Solution Lot Number Reconstitution Solution Expiration Date: Thawing Solution Thawing Solution Lot Number Thawing Solution Expiration Date Preparation Materials, Other Preparation Materials, Other Lot Number Preparation Materials, Other Expiration Date Tissue Prepared/Processed By Slurry Mixer Paperwork Completed Implant Type Comment Last Modified By: Derick Cummings RN Byrd, Charlie D, RN Byrd, Charlie D, RN 06/11/20 10:55:10 06/11/20 10:55:10 06/11/20 10:55:10 Entry 7 Type Implant (Synthetic) Implant Log Implant Type Hardware Tissue Implant Type Implant [id number] Identification Description Implant Quantity 1 Implant Site OP SITE Implant Identification Model Number Implant Identification Serial Number Implant Identification Lot Number Implant Medtronic:Spine:Sofamor Veronica Koch Slurry Mixer Name: Implant [id number] Identification Catalog Number Implant Size Implant Has an Expiration Date Implant Expiration Date Wasted Radioactive Material Time Implanted Tissue Implant Continue for Tissue Implant Documentation Tissue Identification Number Graft Prep Per Slurry Mixer Instructions: Tissue Preparation Method: Reconstitution Solution: Reconstitution Solution Lot Number Reconstitution Solution Expiration Date: Thawing Solution Thawing Solution Lot Number Thawing Solution Expiration Date Preparation Materials, Other Preparation Materials, Other Lot Number Preparation Materials, Other Expiration Date Tissue Prepared/Processed By Slurry Mixer Paperwork Completed Implant Type Comment Last Modified By: Derick Cummings RN 06/11/20 10:55:10 [facility] IntraOp Implant Log Audit 06/11/20 10:55:10 Continuing Education Dean: [email or web address] Modifier: [email or web address] <+> 3 Implant Identification Description <+> 3 Implant Identification Slurry Mixer Name: <+> 3 Implant Site <+> 3 Implant Quantity <+> 3 Implant Identification Catalog Number <+> 3 Implant Type <+> 3 Type <+> 4 Implant Identification Description <+> 4 Implant Identification Slurry Mixer Name: <+> 4 Implant Site <+> 4 Implant Quantity <+> 4 Implant Identification Catalog Number <+> 4 Implant Type <+> 4 Type <+> 5 Implant Identification Description <+> 5 Implant Identification Slurry Mixer Name: <+> 5 Implant Site <+> 5 Implant Quantity <+> 5 Implant Identification Catalog Number <+> 5 Implant Type <+> 5 Type <+> 6 Implant Identification Description <+> 6 Implant Identification Slurry Mixer Name: <+> 6 Implant Site <+> 6 Implant Quantity <+> 6 Implant Identification Catalog Number <+> 6 Implant Type <+> 6 Type <+> 7 Implant Identification Description <+> 7 Implant Identification Slurry Mixer Name: <+> 7 Implant Site <+> 7 Implant Quantity <+> 7 Implant Identification Catalog Number <+> 7 Implant Type <+> 7 Type [facility] IntraOp Intraoperative Assessment Entry 1 Handoff Method Online nursing summary Valid History / Yes Physical in Chart Preoperative Yes Checklist Reviewed/Evaluated Allergies Reviewed Yes Patient is Latex No Sensitive Isolation Not applicable Precautions Noted Level of WDL Consciousness (WDL = Alert, Oriented to Person, Place, and Time) Skin Assessment No Verified Present Upon IVs Arrival to OR Last Modified By: Derick Cummings RN 06/11/20 09:08:34 [facility] IntraOp Intraoperative Equipment Entry 1 Type Equipment Equipment Equipment Magdi Suction System ID Number [id number] Setting 200 MM HG Intraop Monitoring Electrocardiogram Five lead placement (ECG) Electrode Placement Blood Pressure Non-Invasive BP Device Source Blood Pressure Arm, left upper Location Pulse Oximeter Hand, right Probe Site Antiembolic Devices Antiembolic Devices Sequential compression device, knee high Antiembolic Device Bilateral Location Antiembolic Device [id number] ID Number Scopes Photo/Video Documentation Last Modified By: Derick Cummings RN 06/11/20 09:11:54 [facility] IntraOp Medication Admin Entry 1 Entry 2 Entry 3 Medication/Irrigant lidocaine 1% w/ Bacitracin 50,00units Marcaine 0.25% 30ml epinephrine 1:100,000 powder vial vial - [id number] 30ml vial - [id number] Combo Med List Time Administered Route of LOCAL ADDED TO NS IRRIGATION LOCAL Administration Dose Dose 10 40860 30 Unit of Measure ml units ml Volume Administered By MARLY CANTU MD PHILLIPS, GABRIEL, MD PHILLIPS, GABRIEL, MD Procedure Irrigation Irrigant Volume In Irrigant Volume Out Last Modified By: Derick Cummings RN Byrd, Charlie D, RN Byrd, Charlie D, RN 06/11/20 09:11:24 06/11/20 09:11:24 06/11/20 09:11:24 Entry 4 Entry 5 Entry 6 Medication/Irrigant SEALR AQUAMANTYS BIPLR thrombin 5000units SPNG SURGFOAM 6.0-492236 topical powder - [id number] Combo Med List Time Administered Route of OTHER TOPICAL TOPICAL Administration Dose Dose 5000 1 Unit of Measure units pkt Volume Administered By MARLY CANTU MD PHILLIPS, GABRIEL, MD PHILLIPS, GABRIEL, MD Procedure Irrigation Irrigant Volume In Irrigant Volume Out Last Modified By: Derick Cummings RN Byrd, Charlie D, RN Byrd, Charlie D, RN 06/11/20 09:11:24 06/11/20 09:11:24 06/11/20 09:11:24 [facility] IntraOp Patient Positioning Entry 1 Procedure Lumbar Fusion Posterior 3 Level Body Position Prone Left Arm Position Secured on padded arm board Right Arm Position Secured on padded arm board Left Leg Position Elevated Right Leg Position Elevated Feet Uncrossed Yes Pressure Points Yes Checked Positioning Devices Head Rest, Pad, Arm, Pillows, Safety Strap, Thighs, Wm Table Device Position PRONE ON WM TABLE WITH CHEST, HIP, AND THIGH PADS Positioned By Derick Cummings RN, MARLY CANTU MD, Rai Sandoval, RACHID, MARGOT, GEE, OTHER, ATTENDEE #1 Position Verified Positioning Yes Verified by Anesthesia Positioning Yes Verified by Surgeon Last Modified By: Derick Cummings RN 06/11/20 09:10:12 [facility] IntraOp Sign In Entry 1 Patient, Site, Yes Procedure Identified Surgical Consent Yes Confirmed Relevant Surgical Yes Documents Available Surgical Site N/A Marked by person performing procedure Anesthesia Machine Yes Check Completed Medication Checks Yes Completed Allergies Yes Airway Difficult No Airway/Aspiration Risk Difficult Yes Airway/Aspiration Intervention Equipment Available Blood Loss Risk Yes Blood Loss Yes Intervention Equipment Prepared and Ready Blood Identifiers Not applicable Verified Per Policy Hypothermia Risk Yes Warming Measures Yes Taken Last Modified By: Derick Cummings RN 06/11/20 09:09:31 [facility] IntraOp Sign Out Entry 1 RN Confirmation Surgical Yes Procedure(s) Identified Instrument, Sponge Yes and Sharps Counts Correct/Documented Equipment Problems Yes Documented Specimen Labeled Yes Correctly Urinary Catheter N/A Documented in IView Garcia Patient Yes Recovery Concerns Reviewed with Anesthesia Provider, Surgeon and RN Garcia Patient Yes Management Concerns Reviewed with Anesthesia Provider, Surgeon and RN Safety Checklist Yes Elements Complete? RN Sign Out Derick Cummings RN Signature RN Sign Out 06/11/20 11:31:00 Signature Date/Time Plan of Care Outcome - Fire Risk OUTCOME STATEMENT: Goal met Patient is free from injury related to surgical fire Plan of Care Outcome - Pt Positioning OUTCOME STATEMENT: Goal met Absence of signs and symptoms of positioning injury. Plan of Care Outcome - Skin Prep OUTCOME STATEMENT: Goal met Intraoperative care is consistent with measures to prevent infection Plan of Care Outcome - Xray/Images OUTCOME STATEMENT: Goal met Absence of observable signs or symptoms of radiation injury Plan of Care Outcome - Counts OUTCOME STATEMENT: Goal met Absence of signs and symptoms of injury related to extraneous objects Last Modified By: Derick Cummings RN 06/11/20 11:31:45 [facility] IntraOp Sign Out Audit 06/11/20 11:31:45 Continuing Education Dean: ANN Modifier: [email or web address] <+> 1 RN Sign Out Signature Date/Time [facility] IntraOp Skin Prep Entry 1 Entry 2 Procedure Lumbar Fusion Posterior Lumbar Fusion Posterior 3 Level 3 Level Prescribed Yes Yes Pre-Surgical Prep Completed Prep Area BACK BACK Intraop Prep Integumentary WDL WDL Assessment WDL WDL Patient Exceptions Patients Normal Integumentary Variance(s) Integumentary Assessment Comment Prep Agents Alcohol, Chlorhexadine DuraPrep gluconate Prep by MARLY CANTU MD Byrd, Charlie D, RN Skin Prep Comment Hair Removal Methods No hair removal No hair removal performed performed Hair Removal Site Hair Removal By Last Modified By: Derick Cummings RN Byrd, Charlie D, RN 06/11/20 09:09:09 06/11/20 09:09:09 [facility] IntraOp Surgical Procedures Entry 1 Procedure Lumbar Fusion Posterior 3 Level Additional (EXTENSION OF FUSION TO Procedure L1 WITH ZIEHM) Description Primary Procedure Yes Primary Surgeon MARLY CANTU MD Start 06/11/20 08:58:00 Stop 06/11/20 11:16:00 Anesthesia Type General Specialty SN Neurosurgery Wound Class I - Clean Last Modified By: Derick Cummings RN 06/11/20 11:31:50 [facility] IntraOp Surgical Procedures Audit 06/11/20 11:31:50 Continuing Education Dean: ANN Modifier: [email or web address] <+> 1 Stop [facility] IntraOp Temp Regulation Devices Entry 1 Temp Regulation Temperature Forced Air Warming Regulation Device device, Warm blankets Temperature 35041 Regulation Device Serial/Unit Number Temperature Upper body Regulation Site Temperature Device 43 C Setting Temperature JaimeRai, SCAGLIOLA MECHANIC Regulation Device Applied by Last Modified By: Derick Cummings RN 06/11/20 09:08:45 [facility] IntraOP Time Out Entry 1 Procedure to be Lumbar Fusion Posterior Performed 3 Level Time Out Time Out Pause Time 06/11/20 08:57:00 All activity Yes suspended (unless life threatening emergency) Team Verbally Correct patient Confirms Information identity, Consent form is present and accurate, Agreement on the procedure to be done, Correct patient position, Relevant images/results properly labeled/appropriately displayed, Confirm antibiotics have been administered, Confirm the skin prep has dried, Confirm prosthesis/implant/devic e is present, Performed in location of procedure after prepped/draped Antibiotic Yes Prophylaxis Administered Or In Progress Within the Last 60 Minutes Beta Ger N/A Administered Venous Yes Thromboembolism Prophylaxis Required Anticipated Critical Events Surgeon None expected Anesthesia Provider None expected Nursing Assures Sterility of instruments, Equipment concerns or issues, Implant Availability Essential Imaging Yes Labeled and Displayed Last Modified By: Derick Cummings RN 06/11/20 08:59:14 [facility] IntraOp X-Ray and Images Entry 1 X-Ray/Imaging Type Fluoroscopy Fluoroscopy Type C-Arm Site BACK Information Lead Name Agustina Hayes, Clerk Rating Protective Devices Yes Used Last Modified By: Derick Cummings RN 06/11/20 09:06:36 Case Comments <None> Finalized By: RADHA RHODES Document Signatures Signed By: Derick Cummings RN 06/11/20 11:32 RADHA RHODES 06/12/20 11:05 Unfinalized History Date/Time Username Reason for Unfinalizing Freetext Reason for Unfinalizing 06/12/20 11:02 WATTSDR Correct Billing Electronically signed by Cristine [facility] Conversion [employer]ner at 01/08/2023 2:23 PM CDT documented in this encounter Plan of Treatment Not on file documented as of this encounter Visit Diagnoses Not on filedocumented in this encounter Care Teams Rear Load Truck Driver Relationship Specialty Start Date End Date Edwar Lance MD [address] [place] [address] PCP - General Adolescent Medicine 05/29/24 documented as of this encounter
--- OUTSIDE RECORDS SUMMARY | 2025-05-03 08:24 | XMS_ITS | Encounter Summary ---
Author Organization [employer] ([place], [place], [place], [place]) Address [address] [place] [address] Care Team Providers Care Data Support Specialist Name Role Phone Edwar Lance MD Primary Care Provider + [phone] Encounter Details Date Type Department Care Team (Late st Contact Info) Description 06/11/2020 Transcribed Document [facility] Family Medicine [address] [place] [address] ProviderGonzalez MD [address] [place] [id number] Social History Tobacco Use Types Packs/Day Years [...] AM CDT Pain Assessment Entered On: 06/11/2020 12:53 EDT Performed On: 06/11/2020 13:10 EDT by TERRY THOMAS RN Intervention Information: fentaNYL Performed by TERRY THOMAS RN on 06/11/2020 12:40:00 EDT fentaNYL,25mcg IV Push,Right Mid Forearm,Pain (Severe 7-10) Pain Assessment Pain Assessment : Follow-up assessment Pain Scale Goal : 3 Pain Scale Used : 0-10 Scale Location : Back TERRY THOMAS RN - 06/11/2020 12:53 EDT Pain Scale Intensity : 8 TERRY THOMAS RN - 06/11/2020 12:53 EDT Image 4 - Images currently included in the form version of this document have not been included in the text rendition version of the form. documented in this encounter Plan of Treatment Not on file documented as of this encounter Visit Diagnoses Not on filedocumented in this encounter Care Teams Data Support Specialist Relationship Specialty Start Date End Date Edwar Lance MD [address] [place] [address] PCP - General Adolescent Medicine 05/29/24 documented as of this encounter
--- OUTSIDE RECORDS SUMMARY | 2025-05-03 08:24 | XMS_ITS | Encounter Summary ---
Author Organization [employer] ([place], [place], [place], [place]) Address [address] [place] [address] Care Team Providers Care Public Information Relations Manager Name Role Phone Edwar Lance MD Primary Care Provider + [phone] Encounter Details Date Type Department Care Team (Late st Contact Info) Description 06/11/2020 Transcribed Document [facility] Family Medicine [facility] [place] [address] ProviderGonzalez MD [address] [place] [id number] Social History Tobacco Use Types Packs/Day Years [...] 12:45 PM CDT Pain Assessment Entered On: 06/13/2020 0:37 EDT Performed On: 06/12/2020 23:40 EDT by Sharon Mccain LPN Intervention Information: acetaminophen-oxyCODONE Performed by Sharon Mccain LPN on 06/12/2020 22:40:00 EDT acetaminophen-oxyCODONE,1Tab Oral,Pain (Moderate 4-6) Pain Assessment Pain Assessment : Follow-up assessment Pain Scale Goal : 3 Pain Scale Used : 0-10 Scale Location : Back Onset : Acute Quality : Aching, Sharp Pain Radiation : No Pain Worsened by : Movement Pain Improved by : Medication, Repositioning Pain Intervention, Drug : Medicated Pain Intervention, Non-Drug : Positioning Opioid Adverse Effects : None Pain Improved by Intervention : Yes Sharon Mccain LPN - 06/13/2020 0:36 EDT Pain Scale Intensity : 2 Sharon Mccain LPN - 06/13/2020 0:36 EDT Image 4 - Images currently included in the form version of this document have not been included in the text rendition version of the form. Electronically signed by Cristine, [facility] Conversion Director Patient Financial Services Cerner at 01/08/2023 2:15 PM CDT documented in this encounter Plan of Treatment Not on file documented as of this encounter Visit Diagnoses Not on filedocumented in this encounter Care Teams Public Information Relations Manager Relationship Specialty Start Date End Date Edwar Lance MD [address] [place] [address] PCP - General Adolescent Medicine 05/29/24 documented as of this encounter
--- OUTSIDE RECORDS SUMMARY | 2025-05-03 08:24 | XMS_ITS | Encounter Summary ---
Author Organization [employer] ([place], [place], [place], [place]) Address [address] [place] [address] Care Team Providers Care Business Librarian Name Role Phone Edwar Lance MD Primary Care Provider + [phone] Encounter Details Date Type Department Care Team (Late st Contact Info) Description 06/13/2020 Transcribed Document [facility] Radiology [address] [place] [address] Hortencia Stack MD [address] [place] [address] Social History Tobacco Use Types Packs/Day Years Used Date Smoking Tobacco: Never Assessed Sex and Gender Information Value Date Recorded Sex Assigned at Male 03/17/2022 7:15 PM CDT Legal Sex Male 7:15 PM CDT Gender Identity Male 03/17/2022 7:15 PM CDT Sexual Orientation Not on file documented as of this encounter Miscellaneous Notes * [employer]ner Conversion Note - Hortencia Stack MD - 06/13/2020 9:25 AM EDT Patient: AL COSTA II Age: 54 years Sex: Male : 1965 Associated Diagnoses: None Author: ARJUN QUEZADA PA 06/13/2020 cc: medical management s/p extension of fusion to L1 per Dr. Zarate S: Patient is seen sitting in BSC. Reports he is well without f/c/s. no n/v/d. Worked with therapy and was a bit lightheaded today. Feeling better now. Plans for drain removal and home d/c today. Patient without acute concerns today. HPI: Patient is a 54 yo male admitted to [facility] per Dr. Zarate for an extension of [...] Back pain History of obstructive sleep apnea [place] (hard of hearing) Left leg numbness Numbness in both legs JASWINDER on CPAP PONV (postoperative nausea and vomiting) Seasonal allergies Active Procedures (1) back surgery Allergies: NKDA HOME MEDICATIONS: No qualifying data available Exam: Vitals Signs (last 24 hrs) Last Charted Minimum Maximum Temp 98.7 (JUN 13 06:00) 97.9 (JUN 13 01:27) 99.3 (JUN 12 10:42) Mon HR 94 (JUN 13 07:48) 80 (JUN 12 10:42) 95 (JUN 12 21:58) Resp Rate 18 (JUN 13 07:48) 16 (JUN 12 10:42) 18 (JUN 12 18:00) SBP 99 (JUN 13 06:00) 99 (JUN 13 06:00) H 152 (JUN 12 15:19) DBP L 56 (JUN 13 06:00) L 56 (JUN 13 06:00) 90 (JUN 12 15:19) MAP 76 (JUN 13 06:00) 76 (JUN 13 06:00) 125 (JUN 12 15:19) SpO2 97 (JUN 13 07:48) 95 (JUN 12 18:00) 99 (JUN 12 10:42) General: patient is lethargic but awakens without difficulty. Overweight. HEENT: sclera white without conjunctival injection. No erythema, exudate or ulceration. No thrush present. Neck: Supple without nuchal rigidity Lymphatic: No palpable cervical or axillary LAD Lungs: Clear to auscultation bilaterally without wheezes, rales, or rhonchi. Normal respiratory effort without o2 applied. Cardiovascular: normal S1/S2; RRR, no m/r/g. Abdomen: soft, non-tender, non-distended, hypoactive bowel sounds throughout. : Negative for Chen catheter Lower extremity: No cyanosis, clubbing or edema Neuro: Alert and oriented x3. No focal deficits. Motor 5/5 upper ext strength MSK: No joint effusions and without limitations to mobility. Diminished ROM Lumbar spine. Skin: Without rash; c/d/i FERN in placed with bloody drainage. Psych: Appropriate in mood and affect and cooperative with exam Data: Blood Gases (Current Encounter/Past 24 Hours) No Blood Gas Results Found (Past 24 Hours) Electrolytes(BMP) Results (Current Encounter/Past 24 Hours) Sodium Level 134 mmol/L LOW 06/13/2020 04:43 Potassium Level 4.2 mmol/L 06/13/2020 04:43 Chloride Level 103 mmol/L 06/13/2020 04:43 Carbon Dioxide Level 27 mmol/L 06/13/2020 04:43 Anion Gap 8 LOW 06/13/2020 04:43 Blood Urea Nitrogen 15 mg/dL 06/13/2020 04:43 Glucose Level 114 mg/dL HI 06/13/2020 04:43 Calcium Level 8.8 mg/dL 06/13/2020 04:43 Creatinine Level 1.20 mg/dL 06/13/2020 04:43 Cardiac Markers (Current Encounter/Past 24 Hours) No Cardiac Marker Results Found (Past 24 Hours) CBC Results (Current Encounter/Past 24 Hours) WBC 9.2 K/uL 06/13/2020 04:25 Hct 40.7 % 06/13/2020 04:25 Hgb 13.5 g/dL 06/13/2020 04:25 Platelet Count 196 K/uL 06/13/2020 04:25 CMP Results (Current Encounter/Past 24 Hours) Creatinine Level 1.20 mg/dL 06/13/2020 04:43 Bun/Creatinine 12.5 06/13/2020 04:43 eGFR >60 mL/min/1.73m2 06/13/2020 04:43 eGFR NonAfrican >60 mL/min/1.73m2 06/13/2020 04:43 Sodium Level 134 mmol/L LOW 06/13/2020 04:43 Potassium Level 4.2 mmol/L 06/13/2020 04:43 Chloride Level 103 mmol/L 06/13/2020 04:43 Carbon Dioxide Level 27 mmol/L 06/13/2020 04:43 Anion Gap 8 LOW 06/13/2020 04:43 Blood Urea Nitrogen 15 mg/dL 06/13/2020 04:43 Glucose Level 114 mg/dL HI 06/13/2020 04:43 Calcium Level 8.8 mg/dL 06/13/2020 04:43 Coagulation Results (Current Encounter/Past 24 Hours) No Coagulation Results Found (Past 24 Hours) Creatinine Clearance (Current Encounter/Past 24 Hours) Creatinine Level 1.20 mg/dL 06/13/2020 04:43 Bun/Creatinine 12.5 06/13/2020 04:43 Estimated Creatinine Clearance 60.50 mL/Min 06/13/2020 04:43 Radiology Results (Last 48 hours) [id number] -- 06/11/2020 05:59 CR Fluoro in OR (06/11/2020 11:10) Result: FLUOROSCOPY TIMEPROCEDURE: Fluoroscopy in the operating room.HISTORY: Back pain.FINDINGS: 2.1 minutes of fluoroscopy time were provided by the radiologydepartment for the clinical service. 3 intraoperative spot films demonstrate L1-L2 fusion Please see the operative report.IMPRESSION: Fluoroscopy provided as aboveImages reviewed, interpreted, and dictated by Db Ca MD Impression: spondylolisthesis Lspine -s/p extension of fusion to L1 per Dr. Zarate JASWINDER with CPAP use Mild Hypotension Plan: Anticipate DC home later today per ortho NS 500 cc Bolus prior to d/c Drain out today Home CPAP with tubing for nighttime use Monitor HTN; add PRN's, hold parameters bowel regimen incentive spirometer PT/OT DVT prophylaxis noted; Lovenox per neurosurgery Pain management deferred to surgeon Discussed with patient side effects of narcotics including chronic constipation. Discussed with patient timeline for bowel movement not to exceed 7 days from date of procedure. At which point, recommend enema, suppository, Magnesium Citrate OTC Discussed with patient signs and symptoms of infection requiring urgent evaluation. Scribed by Roberta Loja documented in this encounter Plan of Treatment Not on file documented as of this encounter Visit Diagnoses Not on filedocumented in this encounter Care Teams Business Librarian Relationship Specialty Start Date End Date Edwar Lance MD [address] [place] [address] PCP - General Adolescent Medicine 05/29/24 documented as of this encounter
--- OUTSIDE RECORDS SUMMARY | 2025-05-03 08:25 | XMS_ITS | Encounter Summary ---
Author Organization [employer] [facility] ([place], [place], [place], [place]) Address [address] [place] [address] Care Team Providers Care Environmental Planner Name Role Phone Edwar Lance MD Primary Care Provider + [phone] Encounter Details Date Type Department Care Team (Late st Contact Info) Description 06/12/2020 Transcribed Document [facility] Family Medicine [address] [place] [address] ProviderGonzalez MD [address] [place] [id number] Social History Tobacco Use Types Packs/Day Years Used Date Smoking Tobacco: Never Assessed Sex and Gender Information Value Date Recorded Sex Assigned at Male 03/17/2022 7:15 PM CDT Legal Sex Male 7:15 PM CDT Gender Identity Male 03/17/2022 7:15 PM CDT Sexual Orientation Not on file documented as of this encounter Miscellaneous Notes * [employer]ner Conversion Note - Historical ProviderMD - 06/12/2020 12:30 PM CDT Treatment Intervention, PT Entered On: 06/12/2020 15:46 EDT Performed On: 06/12/2020 14:45 EDT by LAURENCE ANTONIO PTA General Information, PT Visit Type, PT : Treatment Note Patient Orders : Order Date Order Ordering 06/11/2020 12:45 Physical Therapy Eval and Treat Ordered By: MARLY CANTU MD 06/12/2020 12:30 PT Additional Treatment Ordered By: KARI SPENCER PT Active Diagnoses : 06/11/2020 12:00 Fusion of spine, lumbar region 06/11/2020 12:00 Spinal stenosis, lumbar region with neurogenic claudication Therapy Diagnosis, PT : Acute pain and difficulty walking Admission Date : 06/11/2020 05:59 Personal Devices : Personal Devices Glasses Assistive Devices : Assistive Devices No Devices Recorded Precautions in Place : Fall prevention measures LAURENCE ANTONIO PTA 06/12/2020 15:38 EDT General Status Patient Received Status : Supine in bed Treatment Start Time : 06/12/2020 14:22 EDT Patient Left Status : Up in chair, RN/PCT informed, All needs met and within reach RN/PCT Informed Comment : nsg Maggie Treatment End Time : 06/12/2020 14:45 EDT Treatment Time : 23 Minute(s) LAURENCE ANTONIO PTA 06/12/2020 15:38 EDT Therapeutic Activities Standing Activities Grid Activity #1 Activities : Static Position : Standing unsupported Time : 2 minutes Assistance : Supervision Patient Response/Comment : pt stood to use commode and wash hands at sink LAURENCE ANTONIO PTA - 06/12/2020 15:38 EDT Functional Mobility Mobility Grid Supine to Sit : Supervision/set-up Sit to Stand : Supervision/set-up Stand to Sit : Supervision/set-up LAURENCE ANTONIO PTA 06/12/2020 15:38 EDT Gait Training/Assessment, PT Weight Bearing Status : Full Gait Assistance Level : Assist, minimal Walking Distance : 400' Ambulatory Devices : Gait belt, Walker, front wheel, Other: band of lumbar brace Left Lower Gait Deviation : [place], decreased, Step length, decreased Right Lower Gait Deviation : [place], decreased, Step length, decreased Gait Training Comment : 2 standing rest breaks LAURENCE ANTONIO PTA - 06/12/2020 15:38 EDT Cognitive Treatment, PT Orientation : Oriented x 4 LAURENCE ANTONIO PTA 06/12/2020 15:38 EDT Edu Topics Physical Therapy Education Grid Bed Mobility Training : Needs further teaching Gait Training : Needs further teaching Role of Physical Therapy : Verbalizes understanding Safety : Needs further teaching Transfer Training : Needs further teaching LAURENCE ANTONIO PTA 06/12/2020 15:38 EDT Indication Assesessment, PT Physical Therapy Indicated : Yes LAURENCE ANTONIO PTA 06/12/2020 15:38 EDT Plan of Care, PT PT Tx Plan/Goals Established w Patient : Yes LAURENCE ANTONIO PTA 06/12/2020 15:38 EDT Custodial Goals Mobility/Bed Mobility LTG PT Grid Goal #1 Goal #2 Activity : Supine to sit Sit to stand Assist : Independent, modified Independent, modified Date to Meet : 06/26/2020 EDT 06/26/2020 EDT Goal Status : Progressing, continue Progressing, continue Comment : via logroll LAURENCE ANTONIONAYELY - 06/12/2020 15:38 EDT LAURENCE ANTONIONAYELY - 06/12/2020 15:38 EDT Ambulation LTG Grid Goal #1 Device : Walker, front wheel Distance : 300ft Assist : Independent, modified Date to Meet : 06/26/2020 EDT Goal Status : Progressing, continue LAURENCE ANTONIO CREAM RIPENER - 06/12/2020 15:38 EDT Treatment Note Subjective Comment : pt agreeable to PTx, nsg cleared pt for PTx Assessment : pt able to ambulate with very minimal assistance for safety, pt would benefit with further PT for endurance training Plan for Treatment : continue POC LAURENCE ANTONIONAYELY - 06/12/2020 15:38 EDT Pain Assessment Pain Score During-Intervention : 4 Location : Back Pain Improved by : Medication, Relaxation, Repositioning LAURENCE ANTONIONAYELY - 06/12/2020 15:38 EDT Image 1 - Images currently included in the form version of this document have not been included in the text rendition version of the form. Anticipated Discharge Needs, OT/PT Anticipated Discharge to : Home, with home health Recommend Continued Therapy at Discharge : Yes LAURENCE ANTONIONAYELY - 06/12/2020 15:38 EDT [facility] PT Charges CREAM RIPENER PT Therap. Exercise 15 min-CREAM RIPENER : 1 PT Ther Activities Ea 15 Min-CREAM RIPENER : 1 ANTONIOLAURENCENAYELY - 06/12/2020 15:38 EDT Electronically signed by Cristine [facility] Conversion Product Marketing Executive Cerner at 01/08/2023 2:28 PM CDT documented in this encounter Plan of Treatment Not on file documented as of this encounter Visit Diagnoses Not on filedocumented in this encounter Care Teams Environmental Planner Relationship Specialty Start Date End Date Edwar Lance MD [address] [place] [address] PCP - General Adolescent Medicine 05/29/24 documented as of this encounter
--- OUTSIDE RECORDS SUMMARY | 2025-05-03 08:25 | XMS_ITS | Encounter Summary ---
Author Organization [employer] ([place], [place], [place], [place]) Address [address] [place] [address] Care Team Providers Care School Custodian Name Role Phone Edwar Lance MD Primary Care Provider + [phone] Encounter Details Date Type Department Care Team (Late st Contact Info) Description 06/12/2020 Transcribed Document [facility] Radiology [address] [place] [address] Hortencia Stack MD [address] [place], [place] [id number] Social History Tobacco Use Types Packs/Day Years Used Date Smoking Tobacco: Never Assessed Sex and Gender Information Value Date Recorded Sex Assigned at Male 03/17/2022 7:15 PM CDT Legal Sex Male 7:15 PM CDT Gender Identity Male 03/17/2022 7:15 PM CDT Sexual Orientation Not on file documented as of this encounter Miscellaneous Notes * [employer]ner Conversion Note - Hortencia Stack MD - 06/12/2020 9:27 AM EDT Patient: AL COSTA II Age: 54 years Sex: Male : 1965 Associated Diagnoses: None Author: ARJUN QUEZADA PA 06/12/2020 cc: medical management s/p extension of fusion to L1 per Dr. Zarate S: Patient is seen today sitting in BSC. Reports that he got about 6 hours of sleep last night . Did not want to use CPAP. Reports no f/c/s. No n/v/d. Good flatus. Good PO intake. WQalking > 250 feet. Plans for home in the morning. HPI: Patient is a 54 yo male admitted to [facility] per Dr. Zarate for an extension of [...] Back pain History of obstructive sleep apnea [place] (hard of hearing) Left leg numbness Numbness in both legs JASWINDER on CPAP PONV (postoperative nausea and vomiting) Seasonal allergies Active Procedures (1) back surgery Allergies: NKDA HOME MEDICATIONS: No qualifying data available Exam: Vitals Signs (last 24 hrs) Last Charted Minimum Maximum Temp 97.5 (JUN 12 05:30) 97.5 (JUN 12 05:30) 98.3 (JUN 11 18:05) Mon HR 84 (JUN 12 05:30) 66 (JUN 11 12:45) 91 (JUN 11 20:32) Resp Rate 16 (JUN 12 05:00) L 8 (JUN 11 12:45) H 22 (JUN 11 12:20) SBP H 141 (JUN 12 05:30) 107 (JUN 11 20:32) H 161 (JUN 11 12:30) DBP 74 (JUN 12 05:30) 63 (JUN 12 01:22) 87 (JUN 11 12:40) MAP 88 (JUN 12 05:30) 76 (JUN 12 01:22) 111 (JUN 11 12:40) SpO2 95 (JUN 12 05:30) 95 (JUN 12 05:30) 100 (JUN 11 11:34) General: patient is lethargic but awakens without [...] Data: Labs (Last four charted values) WBC H 10.7 (JUN 12) 7.1 (JUN 11) HB 13.6 (JUN 12) 16.1 (JUN 11) HCT 40.7 (JUN 12) 46.4 (JUN 11) Plt 203 (JUN 12) 205 (JUN 11) Na L 135 (JUN 12) 139 (JUN 11) K 4.3 (JUN 12) 4.5 (JUN 11) Cl 104 (JUN 12) 107 (JUN 11) CO2 28 (JUN 12) 27 (JUN 11) BUN 19 (JUN 12) 15 (JUN 11) Cr 1.30 (JUN 12) 1.20 (JUN 11) Glu R H 119 (JUN 12) 100 (JUN 11) Ca 8.6 (JUN 12) 9.4 (JUN 11) Impression: spondylolisthesis Lspine -s/p extension of fusion to L1 per Dr. Zarate JASWINDER with CPAP use Plan: Home CPAP with tubing for nighttime use AM labs look good Monitor HTN; add PRN's, hold parameters bowel regimen incentive spirometer PT/OT DVT prophylaxis noted; Lovenox per neurosurgery Pain management deferred to surgeon will monitor [...] on filedocumented in this encounter Care Teams School Custodian Relationship Specialty Start Date End Date Edwar Lance MD [address] [place] [address] PCP - General Adolescent Medicine 05/29/24 documented as of this encounter
== END 2025-05-03 23:59 | disposition home or self-care (01) ==
LOC: RAD 08:17
PROVIDERS: PCP Internal Medicine Adolescent Medicine; Visit Provider Internal Medicine Adolescent Medicine
DX: K76.0 Fatty (change of) liver, not elsewhere classified (principal); K80.20 Calculus of gallbladder without cholecystitis without obstruction
CPT/HCPCS: 76705

== ENCOUNTER 2025-05-10 08:15 | Outpatient (CLI) | payer BC, SELFPAY | END 2025-05-10 23:59 | disposition home or self-care (01) | LOC: RAD 08:16 | PROVIDERS: PCP Internal Medicine Adolescent Medicine; Visit Provider Internal Medicine Adolescent Medicine | DX: R69 Illness, unspecified (principal) ==

== ENCOUNTER 2025-06-20 10:19 | Outpatient (CLI) | payer BC, SELFPAY ==
[2025-06-20 08:20] VITALS: BMI 38.7
--- NOTE | 2025-06-20 10:28 | ECG_ITS ---
APPROVED REPORT Exam: Resting ECG HR:62 bpm ECG Measurements Heart Rate 62 AXES IN 211 P 34 QRSd 105 QRS 41 QT 417 T 52 QTc 421 Conclusion SINUS RHYTHM WITH FIRST DEGREE AV BLOCK NONSPECIFIC ST ELEVATION [0.05+ mV ST ELEVATION] ABNORMAL ECG UNCONFIRMED REPORT Electronically signed by : Edwar Lance MD 06/21/2025 09:00:50
--- OUTSIDE RECORDS SUMMARY | 2025-06-20 10:50 | XMS_ITS | Clinical Summary ---
Author Organization [facility] Address [address] [place] [id number] Phone Care Team Providers Care Knitter Machine Name Role Phone Jennifer NAVARRETE, Rai Mahoney [phone] [ ] Conditions or Problems Problem [...] Instructions Start Date Stop Date Generic Name [facility] Provider BISOPROLOL FUMARATE 10 MG TABS by mouth once a day bisoprolol fumarate [id number] Marce Minor RA FISH OIL 1000 MG CAPS by mouth once a day docosahexaenoic acid-epa [id number] Marce Minor FIBER 625 MG TABS by mouth once a day calcium polycarbophil [id number] Marce Minor Medications Administered No information available. Allergies, Adverse Reactions, Alerts Observed no known allergies at Results Date Name Value Unit Range Flag Description Clinical Lists Update: Prelo ad SMOK STATUS Never smoker Toba sales account executive smoking status MEDS REVIEW Done Documenta tion of current medications (procedure) Plan of Care No information available. Procedures No information available. Vital Signs No information available. Immunizations No information available. Advance Directives No information available.
--- OUTSIDE RECORDS SUMMARY | 2025-06-20 10:51 | XMS_ITS | Encounter Summary ---
Author Organization [employer] ([place], [place], [place], [place]) Address [address] [place] [address] Care Team Providers Care Fish Cleaner Name Role Phone Edwar Lance MD Primary Care Provider + [phone] Encounter Details Date Type Department Care Team (Late st Contact Info) Description 06/11/2020 Transcribed Document [facility] Family Medicine [facility] [place] [address] ProviderGonzalez MD [address] [place] [address] Social History Tobacco Use Types Packs/Day Years [...] on filedocumented in this encounter Care Teams Fish Cleaner Relationship Specialty Start Date End Date Edwar Lance MD [address] [place] [address] PCP - General Adolescent Medicine 05/29/24 documented as of this encounter
--- OUTSIDE RECORDS SUMMARY | 2025-06-20 10:51 | XMS_ITS | Encounter Summary ---
Author Organization [employer] ([place], [place], [place], [place]) Address [address] [place] [address] Care Team Providers Care Qc Analyst Name Role Phone Edwar Lance MD Primary Care Provider + [phone] Encounter Details Date Type Department Care Team (Late st Contact Info) Description 06/11/2020 Transcribed Document [facility] [place] Medicine [address] [place] [address] ProviderGonzalez MD [address] [place], [place] [address] Social History Tobacco Use Types Packs/Day Years [...] Physical Therapy Eval and Treat Ordered By: AMRLY CANTU MD 06/12/2020 12:30 PT Additional Treatment [...] posterolateral, arthrodesis, LLE radiculopathy Spine Precautions/BRACE Hx: TANACROSS KARI SPENCER, PT - 06/12/2020 12:31 EDT [...] KARI SPENCER, PT - 06/12/2020 12:31 EDT Correction Goals Mobility/Bed Mobility LTG PT Grid Goal [...] agreed to PTx eval; I go by Sherrill Patient's Response to Treatment : Stable KARI [...] No SPENCERREALKARI, PT - 06/12/2020 12:31 EDT [place] PT Charges PT Ther Activities Ea 15 Min : 1 JOHANNA KARI, PT - 06/12/2020 12:43 EDT PT Eval Moderate Complexity : 1 JOHANNA KARI, PT - 06/12/2020 12:31 EDT Electronically signed by [facility] Conversion [employer] Cerner at 01/08/2023 2:03 PM CDT documented in this encounter Plan of Treatment Not on file documented as of this encounter Visit Diagnoses Not on filedocumented in this encounter Care Teams Qc Analyst Relationship Specialty Start Date End Date Edwar Lance MD [address] [place] [address] PCP - General Adolescent Medicine 05/29/24 documented as of this encounter
--- OUTSIDE RECORDS SUMMARY | 2025-06-20 10:51 | XMS_ITS | Encounter Summary ---
Author Organization [employer] ([place], [place], [place], [place]) Address [address] [place] [address] Care Team Providers Care Pulpit Operator Name Role Phone Edwar Lance MD Primary Care Provider + [phone] Encounter Details Date Type Department Care Team (Late st Contact Info) Description 06/11/2020 Transcribed Document [facility] [place] [address] [place] [address] ProviderGonzalez MD [address] [place], [place] [id number] Social History Tobacco Use Types Packs/Day Years [...] on filedocumented in this encounter Care Teams Pulpit Operator Relationship Specialty Start Date End Date Edwar Lance MD [address] [place] [address] PCP - General Adolescent Medicine 05/29/24 documented as of this encounter
--- OUTSIDE RECORDS SUMMARY | 2025-06-20 10:51 | XMS_ITS | Encounter Summary ---
Author Organization [employer] ([place], [place], [place], [place]) Address [address] [place] [address] Care Team Providers Care Hemotherapist Name Role Phone Edwar Lance MD Primary Care Provider + [phone] Encounter Details Date Type Department Care Team (Late st Contact Info) Description 06/13/2020 Transcribed Document [facility] [place] [facility] [place] [address] ProviderGonzalez MD [address] [place], [place] [address] Social History Tobacco Use Types Packs/Day Years [...] at home: Medicines ??? Take or apply huul-fdp-cfekrfo and prescription medicines only as told by [...] cannot use soap and water, use hand site supervisor. ? Change your bandage as told by [...] 06/15/2009 Document Revised: 04/18/2019 Document Reviewed: 04/18/2019 [employer] Patient Education ? 2020 [employer] Spinal Fusion, Adult, Care After This [...] these instructions at home: Medicines ??? Take jfhy-klv-zaifkuk and prescription medicines only as told by [...] and water are not available, use hand site supervisor. ? Change your dressing as told by [...] urine clear or pale yellow. ? Take wgxc-bsy-txdpyuw or prescription medicines. ? Eat foods that [...] 03/26/2006 Document Revised: 05/27/2019 Document Reviewed: 08/25/2017 [employer] Patient Education ? 2020 [employer]. documented in this encounter Plan of Treatment Not on file documented as of this encounter Visit Diagnoses Not on filedocumented in this encounter Care Teams Hemotherapist Relationship Specialty Start Date End Date Edwar Lance MD [address] [place] [address] PCP - General Adolescent Medicine 05/29/24 documented as of this encounter
--- OUTSIDE RECORDS SUMMARY | 2025-06-20 10:51 | XMS_ITS | Encounter Summary ---
Author Organization [employer] ([place], [place], [place], [place]) Address [address] [place] [address] Care Team Providers Care Revenue Tax Specialist Name Role Phone Edwar Lance MD Primary Care Provider + [phone] Encounter Details Date Type Department Care Team (Late st Contact Info) Description 06/11/2020 Transcribed Document [facility] [place] [address] [place] [address] ProviderGonzalez MD [address] [place] [address] Social History Tobacco Use Types Packs/Day Years [...] All Problems Seasonal allergies / SNOMED CT 149821195 / Confirmed PONV (postoperative nausea and vomiting) / SNOMED CT 1794089 / Confirmed JASWINDER on CPAP / SNOMED CT 123826826 / Confirmed Left leg numbness / SNOMED CT 310278867 / Confirmed Numbness in both legs / SNOMED CT 407704335 / Confirmed History of obstructive sleep apnea / IMO 11717362 / Confirmed [place] (hard of hearing) / SNOMED CT 92190244 / Confirmed Back pain / PNED [id number] / Confirmed Inactive: left / SNOMED CT 133247063 Resolved: Sinusitis / SNOMED CT 97304063 Resolved: Pneumonia / SNOMED CT 833569166 , Active Problems (8) Back pain History of obstructive sleep apnea [place] (hard of hearing) Left leg numbness Numbness in both legs JASWINDER on CPAP PONV (postoperative nausea and vomiting) Seasonal allergies Histories Past Medical History: Resolved Pneumonia (635327940): Onset on 08/08/2014 at 48 years. Resolved. Sinusitis (09747394): Resolved. Family History: No family history items [...] EDT Height Source Measured Height Entry Format Gila Height/Length, YAKUT (ft) 5 ft Height/Length YAKUT 5 Inch CLINICALHEIGHT 165.1 cm D[place]ur Body Weight 61 kg Weight Source Standing scale Weight Entry Format Gila Weight Bulgarian lb 234.9 lb CLINICALWEIGHT 106.77 kg Body Surface Area (BSA) 2.12 m2 Body Mass Index 39.2 kg/m2 HI General: Alert and oriented, No acute distress, obese. Eye: Pupils are equal, round and reactive to light, Extraocular movements are intact, glasses. HENT: Normocephalic, [place]. Neck: Supple, Non-tender. Respiratory: Lungs are clear to auscultation, Respirations are non-labored. Cardiovascular: Normal rate, Regular rhythm, No murmur, No gallop, No edema. Gastrointestinal: Soft, Non-tender. Genitourinary: No costovertebral angle tenderness. Lymphatics: No lymphadenopathy neck, axilla, groin. Musculoskeletal: Normal strength, painfuL ROM back. Integumentary: Warm, Dry, [place]. Neurologic: Alert, Oriented. Psychiatric: Cooperative, Appropriate mood & affect. Review / Management Results review: No qualifying data available . Impression and Plan Condition: Stable. documented in this encounter Plan of Treatment Not on file documented as of this encounter Visit Diagnoses Not on filedocumented in this encounter Care Teams Revenue Tax Specialist Relationship Specialty Start Date End Date Edwar Lance MD [address] [place] [address] PCP - General Adolescent Medicine 05/29/24 documented as of this encounter
--- OUTSIDE RECORDS SUMMARY | 2025-06-20 10:51 | XMS_ITS | Encounter Summary ---
Author Organization [employer] ([place], [place], [place], [place]) Address [address] [place] [address] Care Team Providers Care Brass Reclaimer Name Role Phone Edwar Lance MD Primary Care Provider + [phone] Encounter Details Date Type Department Care Team (Late st Contact Info) Description 06/11/2020 Transcribed Document [facility] [place] Family Medicine [address] [place] [address] Provider, MD Gonzalez [address] [place] [id number] Social History Tobacco Use Types Packs/Day Years [...] Gonzalez ProviderMD - 06/11/2020 8:58 AM CDT [facility] Main OR IntraOp Summary Primary Physician: MARLY CANTU MD Finalized Date/Time: 06/12/20 11:05:01 Pt. Name: SCAR COSTA II, D.O.B./Sex: 1965 Male Med Rec #: [id number] Physician: MARLY CANTU MD Financial #: [id number] Pt. Type: I Room/Bed: [facility]/ Admit/Disch: 06/11/20 05:59:00 - Institution: [facility] IntraOp Case Attendance Entry 1 Entry 2 Entry 3 Case Attendee MARLY CANTU MD Byrd, Charlie D, RN JEAN EMERY ST Role Performed Surgeon/Proceduralist, Dice Dealer, First Scrub, First First Time In 06/11/20 [...] Entry 6 Case Attendee GEE FROST Mark, IN HOME CAREGIVER Agustina Hayes, Airborne Weapons Technical Manager Role Performed Physician or assistant IN HOME CAREGIVER/Nurse Litharge Supervisor Rfid Manager Time In 06/11/20 08:21:00 06/11/20 08:21:00 06/11/20 [...] Level 3 Level Other Attendee RIVKA VERDUZCO IN HOME CAREGIVER STUDENT DAVONTE LANDAVERDE Superficial Wound Closed By: Last Modified By: Derick Cummings RN Byrd, Charlie D, RN Byrd, Charlie D, RN 06/11/20 11:31:51 06/11/20 11:31:51 06/11/20 11:31:51 Entry 10 Entry 11 Case Attendee Mini Gomes, Marcie Weinberg, Brittany Belcher, DOMINGUEZ Pref Card Builder Role Performed Dice Dealer, Second Dice Dealer, Second Time In 06/11/20 09:46:00 06/11/20 11:07:00 Time Out 06/11/20 09:59:00 06/11/20 11:31:00 Procedure Lumbar Fusion Posterior Lumbar Fusion Posterior 3 Level 3 Level Other Attendee BREAK LUNCH RELIEF Superficial Wound Closed By: Last Modified By: Derick Cummings RN Byrd, Charlie D, RN 06/11/20 11:31:51 06/11/20 11:31:51 [facility] IntraOp Case Attendance Audit 06/11/20 11:31:51 Diagrammer: [email or web address] Modifier: [email or web address] 1 <+> Time Out [...] Lumbar Fusion Posterior 3 Level 06/11/20 11:16:49 Diagrammer: [email or web address] Modifier: [email or web address] <+> 11 Case Attendee <+> 11 Role Performed <+> 11 Time In <+> 11 Procedure <+> 11 Other Attendee 06/11/20 10:00:30 Diagrammer: [email or web address] Modifier: [email or web address] 1 <*> Procedure Lumbar [...] Procedure <+> 10 Other Attendee 06/11/20 09:05:25 Diagrammer: ANN Modifier: ANN 1 <*> Procedure Lumbar [...] <+> 9 Role Performed <+> 9 Procedure [facility] IntraOp Case Times Entry 1 Patient In Room Time 06/11/20 08:21:00 Out Room Time 06/11/20 11:31:00 Anesthesia Start Time 06/11/20 08:21:00 Stop Time 06/11/20 11:31:00 Surgery / Procedure Times Start Time 06/11/20 08:58:00 Stop Time 06/11/20 11:16:00 Last Modified By: Derick Cummings RN 06/11/20 11:31:31 [facility] IntraOp Case Times Audit 06/11/20 11:31:31 Diagrammer: ANN Modifier: ANN <+> 1 Out Room Time <+> 1 Stop Time 06/11/20 11:28:09 Diagrammer: [email or web address] Modifier: [email or web address] <+> 1 Stop Time 06/11/20 08:59:17 Diagrammer: [email or web address] Modifier: [email or web address] <+> 1 Start Time [facility] IntraOp Cautery Entry 1 Entry 2 ESU Identification Cautery Type Other BiPolar ESU Cautery Type PLASMA BLADE Comments ID Number [id number] ID Type Hospital Number Hospital Number Cautery [...] Charlie D, RN 06/11/20 09:06:10 06/11/20 09:06:10 [facility] IntraOp Communication Entry 1 Communication To Family/Significant other Comment START Communication By Derick Cummings RN Date and Time 06/11/20 08:59:00 Last Modified By: Derick Cummings RN 06/11/20 09:01:21 [facility] IntraOp Counts Verification Entry 1 Procedure Lumbar Fusion Posterior 3 Level Count Info Count Type Sponge, Sharps, Miscellaneous Counts Verification Baseline/pre-procedure Sequence Count Results Not Applicable Counts Performed By Count Performed By JEAN EMERY ST (Scrub) Count Performed By Derick Cummings RN (RN) Last Modified By: Derick Cummings RN 06/11/20 09:01:41 [facility] IntraOp Counts Final Entry 1 Procedure Lumbar Fusion Posterior 3 Level Final Count Info Count Type Sponge, Sharps, Miscellaneous Counts Verification Skin Closure/end of Sequence procedure Count Results Correct, surgeon notified Counts Performed By Count Performed By JEAN EMERY ST (Scrub) Count Performed By Derick Cummings RN (RN) Last Modified By: Derick Cummings RN 06/11/20 11:04:31 [facility] IntraOp Cultures and Spec Summary Entry 1 Cultrures and Specimens Specimen Ordered: Yes Test(s) Routine/Path-Lab Requested/Final Disposition Last Modified By: Derick Cummings RN 06/11/20 09:16:40 General Comments: A. EXPLANTED HARDWARE [facility] IntraOp Delays Entry 1 Delay Reason Ancillary department delay Duration 21 Minute(s) Comment PATIENT NOT READY IN PREOP Last Modified By: Derick Cummings RN 06/11/20 09:06:23 [facility] IntraOp Departure from OR Entry 1 Integumentary Assessment Integumentary WDL Assessment WDL Transfer/Handoff Transfer to PACU Phase I Handoff Method Bedside/Face to face, Phone call Post-op Transport Stretcher/Gurney Via Patient Transport GEE FROST, Accompanied by Rai Sandoval CRNA, OTHER, ATTENDEE #1 Last Modified By: Derick Cummings RN 06/11/20 09:12:55 [facility] IntraOp Drains and Tubes Entry 1 Device Type Vargas Drain Size 15 FR Drain/Tube Activity Inserted Drain/Tube Suction Bulb Drain/Tube Drainage Serosanguineous Device Location OP SITE Method of Drainage Compression Last Modified By: Derick Cummings RN 06/11/20 11:04:14 [facility] IntraOp Dressing and Packing Entry 1 Type Dressing Location BACK Wound Dressing Item Occlusive dressing Applied By GEE FROST Other Comments PRINEO Last Modified By: Derick Cummings RN 06/11/20 09:13:06 [facility] IntraOp Fire Risk Assessment Entry 1 Fire Info Surgical Site or 0- No Incision Above the Xyphoid Open O2 Source 0- No (Mask or Cannula) Available Ignition 1- Yes (ESU, Laser, Light Source) Fire Risk 1 Assessment Score Fire Score Fire Risk Yes Assessment Complete Fire Risk Derick Cummings, peer tutor Verified By Fire Risk 06/11/20 08:20:00 Assessment Verified Date/Time Fire Risk Standard Fire Yes Safety Precautions Followed Last Modified By: Derick Cummings RN 06/11/20 09:06:47 [facility] IntraOp General Case Data Base Design Analyst 1 Case Information OR OR [facility] Case Level 1 Room Verified Yes Wound Class I - Clean Specialty SN Neurosurgery Anesthesia Type General ASA Class 2 Diagnosis Preop Diagnosis LUMBAR RADICULOPATHY M54.16 Postop Same As Preop No Postop Diagnosis SEE MD POST OP NOTE Last Modified By: Derick Cummings RN 06/11/20 09:12:42 [facility] IntraOp General Case Data Audit 06/11/20 09:12:42 Diagrammer: ANN Modifier: ANN <+> 1 Preop Diagnosis <+> 1 Postop Diagnosis [facility] IntraOp Implant Log Entry 1 Entry 2 Entry 3 Type Tissue Implant Tissue Implant Implant (Synthetic) (Biologic) (Biologic) Implant Log Implant Type Hardware Tissue Implant Type Bone Bone Implant BONE VIVIGEN FORMABLE BONE PUTTY GRFT 5CC [facility] Identification [id number] Description Implant Quantity 1 1 2 Implant Site OP SITE OP SITE OP SITE Implant [id number] Identification Model Number Implant [id number] Identification Serial Number Implant Identification Lot Number Implant Lifenet:Lifenet Medtronic:Spine:Sofamor Medtronic:Spine:Sofamor Identification Transplant Srv Zee Koch Design Draftsman Name: Implant [id number] Identification Catalog Number Implant Size Implant Has an Yes Yes Expiration Date Implant Expiration 05/14/21 07/18/22 Date Wasted Radioactive Material Time Implanted Tissue Implant Continue for Tissue Implant Documentation Tissue Identification Number Graft Prep Per Design Draftsman Instructions: Tissue Preparation Method: Reconstitution Solution: Reconstitution Solution Lot Number Reconstitution Solution Expiration Date: Thawing Solution Thawing Solution Lot Number Thawing Solution Expiration Date Preparation Materials, Other Preparation Materials, Other Lot Number Preparation Materials, Other Expiration Date Tissue Prepared/Processed By Design Draftsman Paperwork Completed Implant Type Comment Last Modified By: Derick Cummings RN Byrd, Charlie D, RN Byrd, Charlie D, RN 06/11/20 10:01:55 06/11/20 10:01:55 06/11/20 10:55:10 Entry 4 Entry 5 Entry 6 Type Implant (Synthetic) Implant (Synthetic) Implant (Synthetic) Implant Log Implant Type Hardware Hardware Hardware Tissue Implant Type Implant [facility] [id number] JEANNINE [id number] Identification [id number] Description Implant Quantity 1 6 1 Implant Site OP SITE OP SITE OP SITE Implant Identification Model Number Implant Identification Serial Number Implant Identification Lot Number Implant Medtronic:Spine:Sofamor Medtronic:Spine:Sofamor Medtronic:Spine:Sofamor Identification Zee Koch Design Draftsman Name: Implant [id number] Identification Catalog Number Implant Size Implant Has an Expiration Date Implant Expiration Date Wasted Radioactive Material Time Implanted Tissue Implant Continue for Tissue Implant Documentation Tissue Identification Number Graft Prep Per Design Draftsman Instructions: Tissue Preparation Method: Reconstitution Solution: Reconstitution Solution Lot Number Reconstitution Solution Expiration Date: Thawing Solution Thawing Solution Lot Number Thawing Solution Expiration Date Preparation Materials, Other Preparation Materials, Other Lot Number Preparation Materials, Other Expiration Date Tissue Prepared/Processed By Design Draftsman Paperwork Completed Implant Type Comment Last Modified By: Derick Cummings RN Byrd, Charlie D, RN Byrd, Charlie D, RN 06/11/20 10:55:10 06/11/20 10:55:10 06/11/20 10:55:10 Entry 7 Type Implant (Synthetic) Implant Log Implant Type Hardware Tissue Implant Type Implant JEANNINE [id number] Identification Description Implant Quantity 1 Implant Site OP SITE Implant Identification Model Number Implant Identification Serial Number Implant Identification Lot Number Implant Medtronic:Spine:Sofamor Veronica Koch Design Draftsman Name: Implant [id number] Identification Catalog Number Implant Size Implant Has an Expiration Date Implant Expiration Date Wasted Radioactive Material Time Implanted Tissue Implant Continue for Tissue Implant Documentation Tissue Identification Number Graft Prep Per Design Draftsman Instructions: Tissue Preparation Method: Reconstitution Solution: Reconstitution Solution Lot Number Reconstitution Solution Expiration Date: Thawing Solution Thawing Solution Lot Number Thawing Solution Expiration Date Preparation Materials, Other Preparation Materials, Other Lot Number Preparation Materials, Other Expiration Date Tissue Prepared/Processed By Design Draftsman Paperwork Completed Implant Type Comment Last Modified By: Derick Cummings RN 06/11/20 10:55:10 [facility] IntraOp Implant Log Audit 06/11/20 10:55:10 Diagrammer: [email or web address] Modifier: [email or web address] <+> 3 Implant Identification Description <+> 3 Implant Identification Design Draftsman Name: <+> 3 Implant Site <+> 3 Implant Quantity <+> 3 Implant Identification Catalog Number <+> 3 Implant Type <+> 3 Type <+> 4 Implant Identification Description <+> 4 Implant Identification Design Draftsman Name: <+> 4 Implant Site <+> 4 Implant Quantity <+> 4 Implant Identification Catalog Number <+> 4 Implant Type <+> 4 Type <+> 5 Implant Identification Description <+> 5 Implant Identification Design Draftsman Name: <+> 5 Implant Site <+> 5 Implant Quantity <+> 5 Implant Identification Catalog Number <+> 5 Implant Type <+> 5 Type <+> 6 Implant Identification Description <+> 6 Implant Identification Design Draftsman Name: <+> 6 Implant Site <+> 6 Implant Quantity <+> 6 Implant Identification Catalog Number <+> 6 Implant Type <+> 6 Type <+> 7 Implant Identification Description <+> 7 Implant Identification Design Draftsman Name: <+> 7 Implant Site <+> 7 Implant Quantity <+> 7 Implant Identification Catalog Number <+> 7 Implant Type <+> 7 Type [facility] IntraOp Intraoperative Assessment Entry 1 Handoff Method [...] Modified By: Derick Cummings RN 06/11/20 09:08:34 [facility] IntraOp Intraoperative Equipment Entry 1 Type Equipment Equipment Equipment Magdi Suction System ID Number [id number] Setting 200 MM HG Intraop Monitoring Electrocardiogram Five lead placement (ECG) Electrode Placement Blood Pressure Non-Invasive BP Device Source Blood Pressure Arm, left upper Location Pulse Oximeter Hand, right Probe Site Antiembolic Devices Antiembolic Devices Sequential compression device, knee high Antiembolic Device Bilateral Location Antiembolic Device [id number] ID Number Scopes Photo/Video Documentation Last Modified By: Derick Cummings RN 06/11/20 09:11:54 [facility] IntraOp Medication Admin Entry 1 Entry 2 Entry 3 Medication/Irrigant lidocaine 1% w/ Bacitracin 50,00units Marcaine 0.25% 30ml epinephrine 1:100,000 powder vial vial - [id number] 30ml vial - [id number] Combo Med List Time Administered Route of LOCAL ADDED TO NS IRRIGATION LOCAL Administration Dose Dose 10 21936 30 Unit of Measure ml units ml Volume Administered By MARLY CANTU MD PHILLIPS, GABRIEL, MD PHILLIPS, GABRIEL, MD Procedure Irrigation Irrigant Volume In Irrigant Volume Out Last Modified By: Derick Cummings RN Byrd, Charlie D, RN Byrd, Charlie D, RN 06/11/20 09:11:24 06/11/20 09:11:24 06/11/20 09:11:24 Entry 4 Entry 5 Entry 6 Medication/Irrigant SEALR AQUAMANTYS BIPLR thrombin 5000units SPNG SURGFOAM 6.0-242451 topical powder - [id number] Combo Med List Time Administered Route of OTHER TOPICAL TOPICAL Administration Dose Dose 5000 1 Unit of Measure units pkt Volume Administered By MARLY CANTU MD PHILLIPS, GABRIEL, MD PHILLIPS, GABRIEL, MD Procedure Irrigation Irrigant Volume In Irrigant Volume Out Last Modified By: Derick Cummings RN Byrd, Charlie D, RN Byrd, Charlie D, RN 06/11/20 09:11:24 06/11/20 09:11:24 06/11/20 09:11:24 [facility] IntraOp Patient Positioning Entry 1 Procedure Lumbar [...] Modified By: Derick Cummings RN 06/11/20 09:10:12 [facility] IntraOp Sign In Entry 1 Patient, Site, [...] Modified By: Derick Cummings RN 06/11/20 09:09:31 [facility] IntraOp Sign Out Entry 1 RN Confirmation [...] Modified By: Derick Cummings RN 06/11/20 11:31:45 [facility] IntraOp Sign Out Audit 06/11/20 11:31:45 Diagrammer: ANN Modifier: [email or web address] <+> 1 RN Sign Out Signature Date/Time [facility] IntraOp Skin Prep Entry 1 Entry 2 Procedure Lumbar Fusion Posterior Lumbar Fusion Posterior 3 Level 3 Level Prescribed Yes Yes Pre-Surgical Prep Completed Prep Area BACK BACK Intraop Prep Integumentary WDL WDL Assessment WDL WDL Patient Exceptions Patients Normal Integumentary Variance(s) Integumentary Assessment Comment Prep Agents Alcohol, Chlorhexadine DuraPrep gluconate Prep by MARLY CNATU MD Byrd, Charlie D, RN Skin Prep Comment Hair Removal Methods No hair removal No hair removal performed performed Hair Removal Site Hair Removal By Last Modified By: Derick Cummings RN Byrd, Charlie D, RN 06/11/20 09:09:09 06/11/20 09:09:09 [facility] IntraOp Surgical Procedures Entry 1 Procedure Lumbar Fusion Posterior 3 Level Additional (EXTENSION OF FUSION TO Procedure L1 WITH ZIEHM) Description Primary Procedure Yes Primary Surgeon MARLY CANTU MD Start 06/11/20 08:58:00 Stop 06/11/20 11:16:00 Anesthesia Type General Specialty SN Neurosurgery Wound Class I - Clean Last Modified By: Derick Cummings RN 06/11/20 11:31:50 [facility] IntraOp Surgical Procedures Audit 06/11/20 11:31:50 Diagrammer: ANN Modifier: [email or web address] <+> 1 Stop [facility] IntraOp Temp Regulation Devices Entry 1 Temp Regulation Temperature Forced Air Warming Regulation Device device, Warm blankets Temperature 37084 Regulation Device Serial/Unit Number Temperature Upper body Regulation Site Temperature Device 43 C Setting Temperature JaimeRai, IN HOME CAREGIVER Regulation Device Applied by Last Modified By: Derick Cummings RN 06/11/20 09:08:45 [facility] IntraOP Time Out Entry 1 Procedure to [...] Modified By: Derick Cummings RN 06/11/20 08:59:14 [facility] IntraOp X-Ray and Images Entry 1 X-Ray/Imaging Type Fluoroscopy Fluoroscopy Type C-Arm Site BACK Double End Chucking Machine Operator Name Agustian Hayes, Airborne Weapons Technical Manager Protective Devices Yes Used Last Modified By: Derick Cummings RN 06/11/20 09:06:36 Case Comments <None> Finalized By: RADHA RHODES Document Signatures Signed By: Derick Cummings RN 06/11/20 11:32 RADHA RHODES 06/12/20 11:05 Unfinalized History Date/Time Username Reason for Unfinalizing Freetext Reason for Unfinalizing 06/12/20 11:02 [email or web address] Correct Billing Electronically signed by [facility] Conversion Chemical Process Project Engineer Cerner at 01/08/2023 2:23 PM CDT documented in this encounter Plan of Treatment Not on file documented as of this encounter Visit Diagnoses Not on filedocumented in this encounter Care Teams Brass Reclaimer Relationship Specialty Start Date End Date Edwar Lance MD [address] [place] [address] PCP - General Adolescent Medicine 05/29/24 documented as of this encounter
--- OUTSIDE RECORDS SUMMARY | 2025-06-20 10:51 | XMS_ITS | Encounter Summary ---
Author Organization [employer] ([place], [place], [place], [place]) Address [address] [place] [address] Care Team Providers Care Ship Manager Name Role Phone Edwar Lance MD Primary Care Provider + [phone] Encounter Details Date Type Department Care Team (Late st Contact Info) Description 06/10/[address] [facility] [place] Family Medicine [address] [place] [address] ProviderGonzalez MD [address] [place], [place] [address] Social History Tobacco Use Types Packs/Day Years [...] On: 06/10/2020 14:22 EDT by ERNESTINA COOPER, Real Estate Asset Manager Primary Insurance Authorization Authorization and Policy Numbers : Insurance 1 Health Plan: ANTHEM HMOPPO Policy Number: [id number] Authorization Number: Insurance 2 Health Plan: MEDICAID [facility] Policy Number: [id number] Authorization Number: Insurance Primary Name : Jose C [id number] Authorization Number-Primary : email to KULWANT remichelle status of auth Authorized Service Begin Date-Primary : 06/11/2020 EDT Authorization Comments-Primary : pt is scheduled for INPT lumbar fusion posterior 3 level on Wednesday06/11/2020 Historical Authorization Comments-Primary : No Authorization Comments Found ERNESTINA COOPER, Real Estate Asset Manager - 06/10/2020 14:22 EDT Electronically signed by Roberto Colunga Conversion Continuous Vulcanizing Machine Operator Cerner at 01/08/2023 2:30 PM CDT documented in this encounter Plan of Treatment Not on file documented as of this encounter Visit Diagnoses Not on filedocumented in this encounter Care Teams Ship Manager Relationship Specialty Start Date End Date Edwar Lance MD [address] [place] [address] PCP - General Adolescent Medicine 05/29/24 documented as of this encounter
--- OUTSIDE RECORDS SUMMARY | 2025-06-20 10:51 | XMS_ITS | Referral Summary ---
Author Organization [employer] ([place], [place], [place], [place]) Address [address] [place] [address] Care Team Providers Care Material Inspector Name Role Phone Edwar Lance MD Primary Care Provider + [phone] Allergies No known active allergies Medications bisoprolol [...] to calculi of kidney and ureter 05/19/2024 KOI (hard of hearing) 05/19/2024 History of obstructive sleep apnea 05/19/2024 Back pain 05/19/2024 Social History Tobacco Use Types Packs/Day Years Used Date Smoking Tobacco: Never Smokeless Tobacco: Never Tobacco Cessation:Counseling Given: Not Answered Alcohol Use Standard Drinks/Week Comments Never 0 (1 standard drink = 0.6 oz pur e alcohol) [facility] Intimate Partner Violence Answer Da te [...] Marco Antonio rded Speak language other than Hungarian at home Not on file 05/12/2024 Want [...] on file Medical Devices Implanted Type Area Pilling Machine Operator Device Identifier Shelf Expiration Date Model / Serial / Lot Scr Spne Naavrro Fix Fen 5x50mm 550 - [id number] Implanted:Qty : 1 on 05/29/[address] MD at [facility] IMPLANTS N/A: Spine Thoracic J &J:DEPUY:DEPUY SPINE 50 / 50 / Trey Spinal 5.5x80mm Ti 633.185 - [id number] Implanted:Qty : 2 on 05/29/[address] MD at [facility] IMPLANTS N/A: Spine Thoracic J &J:DEPUY:DEPUY SPINE .18 5 .18 5 / Scr Spne Navarro Fix 5x55mm 555 - [id number] Implanted:Qty : 1 on 05/29/[address] MD at [facility] IMPLANTS N/A: Spine Thoracic J &J:DEPUY:DEPUY SPINE 55 / 55 / Scr Spne Navarro Fix 6x50mm - [id number] Implanted:Qty : 3 on 05/29/[address] MD at [facility] IMPLANTS N/A: Spine Thoracic J &J:DEPUY:DEPUY SPINE 50 / 50 / Scr Spne Navarro Fix 7x50mm 750 - [id number] Implanted:Qty : 9 on 05/29/[address] MD at [facility] IMPLANTS N/A: Spine Thoracic J &J:DEPUY:DEPUY SPINE 50 / 50 / Mis Malcolm Conley Scrw Set Ti - Implanted:Qty : 14 on 05/29/[address] MD at [facility] IMPLANTS N/A: Spine Thoracic J &J:DEPUY:DEPUY SPINE 0 00 / 00 / Bone Fibers 10.0cc Plfx Crtcl -1800-10 - [id number] Implanted:Qty : 1 on 05/29/[address] MD at [facility] IMPLANTS N/A: Spine LIFENET:LIFENET TRANSPLANT SRV 02/16/2029 BL-1800-1 0 / [id number] / Bone Crush Canc Fd 30ml X2 Can30 - [id number] Implanted:Qty : 1 on 05/29/[address] MD at [facility] IMPLANTS N/A: Spine LIFENET:LIFENET TRANSPLANT SRV 10/04/2028 CAN30 / [id number] / Bone Vivigen Frmble Cell 10cc Bl-1600-003 - [id number] Implanted:Qty : 1 on 05/29/[address] MD at [facility] IMPLANTS N/A: Spine LIFENET:LIFENET TRANSPLANT SRV 02/20/2026 BL-1600-0 03 / [id number] / Explanted Type Area Pilling Machine Operator Device Identifier Shelf Expiration Date Model / Serial / Lot Felisha Conley Scrw Set Ti - Explanted:Qty : 1 on 05/29/2024 at [facility] IMPLANTS N/A: Spine Thoracic J &J:DEPUY:DEPUY SPINE 0 00 / 00 / Scr Spne Navarro Fix 7x50mm - Explanted:Qty : 1 on 05/29/2024 at [facility] IMPLANTS N/A: Spine Thoracic J &J:DEPUY:DEPUY SPINE 50 / 50 / [place] [id number] BLUE CROSS/BLUE SHIELD Advance Directives For more information, please contact: [phone] * Full Code (Latest Code Status on File) Date Activated Date Inactivated Comments 05/29/2024 1:31 PM 06/01/2024 3:39 PM Care Teams Material Inspector Relationship Specialty Start Date End Date Edwar Lance MD [address] [place] [address] PCP - General Adolescent Medicine 05/29/24
--- OUTSIDE RECORDS SUMMARY | 2025-06-20 10:51 | XMS_ITS | Encounter Summary ---
Author Organization [employer] ([place], [place], [place], [place]) Address [address] [place] [address] Care Team Providers Care Welt Slasher Name Role Phone Edwar Lance MD Primary Care Provider + [phone] Encounter Details Date Type Department Care Team (Late st Contact Info) Description 06/11/2020 Transcribed Document [facility] [place] Family Medicine [address] [place] [address] ProviderGonzalez MD [facility] [place], [place] [address] Social History Tobacco Use Types Packs/Day Years [...] on filedocumented in this encounter Care Teams Welt Slasher Relationship Specialty Start Date End Date Edwar Lance MD [address] [place] [address] PCP - General Adolescent Medicine 05/29/24 documented as of this encounter
--- OUTSIDE RECORDS SUMMARY | 2025-06-20 10:51 | XMS_ITS | Encounter Summary ---
Author Organization [employer] ([place], [place], [place], [place]) Address [address] [place] [address] Care Team Providers Care Brick Tester Name Role Phone Edwar Lance MD Primary Care Provider + [phone] Encounter Details Date Type Department Care Team (Late st Contact Info) Description 06/11/2020 Transcribed Document [facility] [place] [address] [place] [address] ProviderGonzalez MD [facility] [place] [address] Social History Tobacco Use Types Packs/Day Years [...] 16:06 EDT General Info Preferred Name : [place] Arrived From : Home Mode of Arrival on Unit : Ambulatory Legal Guardian : Unaccompanied Support Person/Patient Watch Train Inspector : Yes Support Person/Pt Rep Name : Joi Costa- Support Person/Pt Rep Contact Information : [phone] cell Want Family/Rep/Phys Notified of Admit : No Emergency Contact #1 : none Emergency Contact #1 Phone Number : - Emergency Contact #1 Relationship : - Emergency Contact #2 : - Emergency Contact #2 Phone Number : - Emergency Contact #2 Relationship : - Primary Language : Vietnamese Preferred Communication Mode : Verbal Communication Barrier : None Attorney Lawyer Needed : No SASCHA ANDRADE RN - [...] Scale Risk Level : 25-45 Medium Risk [place] Fall Interventions : Adequate lighting, Assistive devices [...] Source : Measured Height Entry Format : Dillon Height, Feet : 5 ft(Converted to: 152 cm, 60 Inch) Height, Inches : 5 Inch(Converted to: 0 ft 5 Inch, 12.70 cm) Clinical Height : 165.1 cm Weight Source : Standing scale Weight Entry Format : Dillon Clinical Dosing Weight : 106.77 kg Weight, Pounds : 234.9 lb Body Surface Area (BSA) : 2.12 m2 Body Mass Index : 39.2 kg/m2 (HI) [place] Body Weight : 61 kg SASCHA ANDRADE [...] SASCHA ANDRADE RN - 06/11/2020 16:06 EDT [place] Suicide Severity Rating Scale (C-SSRS) CSSRS Past [...] 06/11/2020 16:21 EDT Electronically signed by Cristine [facility] Conversion Radio Frequency Design Engineer Cerner at 01/08/2023 2:20 PM CDT documented in this encounter Plan of Treatment Not on file documented as of this encounter Visit Diagnoses Not on filedocumented in this encounter Care Teams Brick Tester Relationship Specialty Start Date End Date Edwar Lance MD [address] [place] [address] PCP - General Adolescent Medicine 05/29/24 documented as of this encounter
--- OUTSIDE RECORDS SUMMARY | 2025-06-20 10:51 | XMS_ITS | Encounter Summary ---
Author Organization [employer] ([place], [place], [place], [place]) Address [address] [place] [address] Care Team Providers Care Wood Preserving Plant Laborer Name Role Phone Edwar Lance MD Primary Care Provider + [phone] Encounter Details Date Type Department Care Team (Late st Contact Info) Description 06/13/2020 Transcribed Document [facility] [place] Family Medicine [facility] [place] [address] ProviderGonzalez MD [address] [place] [id number] Social History Tobacco Use Types Packs/Day Years [...] - Medical Enoxaparin 40 mg, SubCutaneous, Inj, [id number], Routine, Start 06/12/20 8:00:00 EDT (GEE FROST) [...] cheryle to suciton Electronically signed by Interface, [facility] Conversion O And M Supervisor Cerner at 01/08/2023 2:04 PM CDT documented in this encounter Plan of Treatment Not on file documented as of this encounter Visit Diagnoses Not on filedocumented in this encounter Care Teams Wood Preserving Plant Laborer Relationship Specialty Start Date End Date Edwar Lance MD [address] [place] [address] PCP - General Adolescent Medicine 05/29/24 documented as of this encounter
--- OUTSIDE RECORDS SUMMARY | 2025-06-20 10:51 | XMS_ITS | Encounter Summary ---
Author Organization [employer] ([place], [place], [place], [place]) Address [address] [place] [address] Care Team Providers Care Training Technician Name Role Phone Edwar Lance MD Primary Care Provider + [phone] Encounter Details Date Type Department Care Team (Late st Contact Info) Description 06/13/2020 Transcribed Document [facility] [place] Family Medicine [facility] [place] [address] ProviderGonzalez MD [address] [place] [id number] Social History Tobacco Use Types Packs/Day Years [...] On: 06/13/2020 16:38 EDT by MIRANDA ROSE RN-Business Asst Final Discharge Planning Discharge Arrangements : Patient [...] : Yes Discharge To Care Management : Home/Residential/Detention or Self Care - MIRANDA ROSE RN-Business Asst - 06/13/2020 16:38 EDT Electronically signed by [facility] Conversion Supervisor Mill Cerner at 01/08/2023 2:11 PM CDT documented in this encounter Plan of Treatment Not on file documented as of this encounter Visit Diagnoses Not on filedocumented in this encounter Care Teams Training Technician Relationship Specialty Start Date End Date Edwar Lance MD [address] [place] [address] PCP - General Adolescent Medicine 05/29/24 documented as of this encounter
--- OUTSIDE RECORDS SUMMARY | 2025-06-20 10:51 | XMS_ITS | Encounter Summary ---
Author Organization [employer] ([place], [place], [place], [place]) Address [address] [place] [address] Care Team Providers Care Church Secretary Name Role Phone Edwar Lance MD Primary Care Provider + [phone] Encounter Details Date Type Department Care Team (Late st Contact Info) Description 06/11/2020 Transcribed Document [facility] [place] [address] [place] [address] ProviderGonzalez MD [address] [place] [id number] Social History Tobacco Use Types Packs/Day Years [...] on filedocumented in this encounter Care Teams Church Secretary Relationship Specialty Start Date End Date Edwar Lance MD [address] [place] [address] PCP - General Adolescent Medicine 05/29/24 documented as of this encounter
--- OUTSIDE RECORDS SUMMARY | 2025-06-20 10:51 | XMS_ITS | Encounter Summary ---
Author Organization [employer] ([place], [place], [place], [place]) Address [address] [place] [address] Care Team Providers Care Doll Wig Maker Name Role Phone Edwar Lance MD Primary Care Provider + [phone] Encounter Details Date Type Department Care Team (Late st Contact Info) Description 06/11/2020 Transcribed Document [facility] [place] [facility] [place] [address] ProviderGonzalez MD [address] [place] [address] Social History Tobacco Use Types Packs/Day Years [...] Performed On: 06/11/2020 13:44 EDT by Guillermo eLroy, TOOL AND MACHINE MAINTAINER-PHARMACY Meds to Bed Enrollment Patient Enrollment Decision: : Yes/enroll in meds to bed program Guillermo Leroy, TOOL AND MACHINE MAINTAINER-PHARMACY - 06/11/2020 15:15 EDT documented in this encounter Plan of Treatment Not on file documented as of this encounter Visit Diagnoses Not on filedocumented in this encounter Care Teams Doll Wig Maker Relationship Specialty Start Date End Date Edwar Lance MD [address] [place] [address] PCP - General Adolescent Medicine 05/29/24 documented as of this encounter
--- OUTSIDE RECORDS SUMMARY | 2025-06-20 10:51 | XMS_ITS | Encounter Summary ---
Author Organization [employer] ([place], [place], [place], [place]) Address [address] [place] [address] Care Team Providers Care Sweater Operator Name Role Phone Edwar Lance MD Primary Care Provider + [phone] Encounter Details Date Type Department Care Team (Late st Contact Info) Description 06/10/2020 Transcribed Document [facility] [place] [address] [place] [address] ProviderGonzalez MD [address] [place] [address] Social History Tobacco Use Types Packs/Day Years [...] Emotional Support : Empathic/Engaged listening Spiritual and Buddhism : Prayer shared, Spiritual/Buddhism support provided JOAQUINA EVERETT 06/11/2020 7:03 EDT documented in this encounter Plan of Treatment Not on file documented as of this encounter Visit Diagnoses Not on filedocumented in this encounter Care Teams Sweater Operator Relationship Specialty Start Date End Date Edwar Lance MD [address] [place] [address] PCP - General Adolescent Medicine 05/29/24 documented as of this encounter
--- OUTSIDE RECORDS SUMMARY | 2025-06-20 10:51 | XMS_ITS | Encounter Summary ---
Author Organization [employer] ([place], [place], [place], [place]) Address [address] [place] [address] Care Team Providers Care Limousine Driver Name Role Phone Edwar Lance MD Primary Care Provider + [phone] Encounter Details Date Type Department Care Team (Late st Contact Info) Description 06/11/2020 Transcribed Document [facility] [place] Family Medicine [address] [place] [address] ProviderGonzalez MD [address] [place], [place] [address] Social History Tobacco Use Types Packs/Day Years [...] 06/11/2020 20:30 EDT Electronically signed by Cristine [facility] Conversion Plant And Maintenance Technician Cerner at 01/08/2023 2:27 PM CDT documented in this encounter Plan of Treatment Not on file documented as of this encounter Visit Diagnoses Not on filedocumented in this encounter Care Teams Limousine Driver Relationship Specialty Start Date End Date Edwar Lance MD [address] [place] [address] PCP - General Adolescent Medicine 05/29/24 documented as of this encounter
--- OUTSIDE RECORDS SUMMARY | 2025-06-20 10:51 | XMS_ITS | Encounter Summary ---
Author Organization [employer] ([place], [place], [place], [place]) Address [address] [place] [address] Care Team Providers Care Patient Companion Name Role Phone Edwar Lance MD Primary Care Provider + [phone] Encounter Details Date Type Department Care Team (Late st Contact Info) Description 06/11/2020 Transcribed Document [facility] [place] Family Medicine [address] [place] [address] Provider, MD Gonzalez [address] [place], [place] [address] Social History Tobacco Use Types Packs/Day Years [...] Gonzalez ProviderMD - 06/11/2020 8:00 AM CDT [facility] Main OR Preop Summary Primary Physician: MARLY CANTU MD Finalized Date/Time: 06/11/20 08:21:40 Pt. Name: AL COSTA II, D.O.B./Sex: 1965 Male Med Rec #: [id number] Physician: MARLY CANTU MD Financial #: [id number] Pt. Type: I Room/Bed: ASA/2 Admit/Disch: 06/11/20 05:59:00 - Institution: [facility] PreOp Case Times Entry 1 In Preop 06/11/20 06:22:00 Ready for Holding n/a Room Patient Ready for 06/11/20 08:15:00 Surgery Patient Out of Preop 06/11/20 08:20:00 Patient Out of n/a Holding Room Last Modified By: Mckenna Martin Rn 06/11/20 08:21:37 [facility] PreOp Case Times Audit 06/11/20 08:21:37 Medical Secretary: HEATHERLAWRENCE Modifier: HEATHERLAWRENCE 1 <*> Patient Out of Preop 06/11/20 08:20:00 1 <+> Patient Ready for Surgery Finalized By: Mckenna Martin, Rn Document Signatures Signed By: Mckenna Martin Rn 06/11/20 08:21 Electronically signed by Cristine [facility] Conversion Tailing Hand Cerner at 01/08/2023 2:20 PM CDT documented in this encounter Plan of Treatment Not on file documented as of this encounter Visit Diagnoses Not on filedocumented in this encounter Care Teams Patient Companion Relationship Specialty Start Date End Date Edwar Lance MD [address] [place] [address] PCP - General Adolescent Medicine 05/29/24 documented as of this encounter
--- OUTSIDE RECORDS SUMMARY | 2025-06-20 10:51 | XMS_ITS | Encounter Summary ---
Author Organization [employer] ([place], [place], [place], [place]) Address [address] [place] [address] Care Team Providers Care Grounds Cleaner Name Role Phone Edwar Lance MD Primary Care Provider + [phone] Encounter Details Date Type Department Care Team (Late st Contact Info) Description 06/10/2020 Transcribed Document [facility] [place] [facility] [place] [place] [address] ProviderGonzalez MD [address] [place], [place] [address] Social History Tobacco Use Types Packs/Day Years [...] Body Mass Index : 39.2 kg/m2 (HI) [place] Body Weight : 61 kg Mckenna Martin Rn - 06/11/2020 7:34 EDT Height Source : Measured Height Entry Format : Ware Weight Source : Standing scale Weight Entry Format : Ware YING MIDDLETON - 06/10/2020 13:56 EDT Health [...] 0600 YING MIDDLETON - 06/10/2020 13:56 EDT [place] Suicide Severity Rating Scale (C-SSRS) CSSRS Past [...] 13:56 EDT General Info Preferred Name : [place] Arrived From : Home Mode of Arrival on Unit : Ambulatory Legal Guardian : Unaccompanied Support Person/Patient Transplant Surgeon : Yes Support Person/Pt Rep Name : Joi Costa- Support Person/Pt Rep Contact Information : [phone] cell Want Family/Rep/Phys Notified of Admit : No Emergency Contact #1 : none Emergency Contact #1 Phone Number : - Emergency Contact #1 Relationship : - Emergency Contact #2 : - Emergency Contact #2 Phone Number : - Emergency Contact #2 Relationship : - Primary Language : Estonian Preferred Communication Mode : Verbal Communication Barrier : None Environmental Inspector Needed : No YING MIDDLETON - 06/10/2020 [...] on filedocumented in this encounter Care Teams Grounds Cleaner Relationship Specialty Start Date End Date Edwar Lance MD [address] [place] [address] PCP - General Adolescent Medicine 05/29/24 documented as of this encounter
--- OUTSIDE RECORDS SUMMARY | 2025-06-20 10:51 | XMS_ITS | Encounter Summary ---
Author Organization [employer] ([place], [place], [place], [place]) Address [address] [place] [address] Care Team Providers Care Lobbyist Name Role Phone Edwar Lambert MD Primary Care Provider + [phone] Encounter Details Date Type Department Care Team (Late st Contact Info) Description 06/13/2020 Transcribed Document [facility] [place] [address] [place] [address] ProviderGonzalez MD [facility] [place], [place] [address] Social History Tobacco Use Types Packs/Day Years [...] Date 06/13/2020 Primary Care Provider EDWAR LAMBERT (REF[facility] Discharge Diagnosis 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/2020 [...] tolerated Pending Labs In Process SENDOUT REPORT [id number], [id number], RT - Routine, 06/11/20 9:15:00 EDT Pathology Tissue Request [id number], [id number], 06/11/20 9:15:00 EDT, Collected, RT - Routine, 06/11/20 12:49:57 EDT, LIBBY HEDRICK, [employer]otech, Specimen Type: AP Specimen, Specimen Desc: EXPLANTED HARDWARE Ordered BMP Basic Metabolic Panel Specimen Type: Blood, AM Draw collect, 06/12/20 4:00:00 EDT, Daily, Lab Collect CBC w/ Auto Diff Specimen Type: Blood, AM Draw collect, 06/12/20 4:00:00 EDT, Daily, Lab Collect Electronically signed by [facility] Conversion Gift Shop Clerk Cerner at 01/08/2023 2:07 PM CDT documented in this encounter Plan of Treatment Not on file documented as of this encounter Visit Diagnoses Not on filedocumented in this encounter Care Teams Lobbyist Relationship Specialty Start Date End Date Edwar Lambert MD [address] [place] [address] PCP - General Adolescent Medicine 05/29/24 documented as of this encounter
--- OUTSIDE RECORDS SUMMARY | 2025-06-20 10:51 | XMS_ITS | Encounter Summary ---
Author Organization [employer] ([place], [place], [place], [place]) Address [address] [place] [address] Care Team Providers Care Insurance Agency Owner Name Role Phone Edwar Lance MD Primary Care Provider + [phone] Encounter Details Date Type Department Care Team (Late st Contact Info) Description 06/13/2020 Transcribed Document [facility] [place] Medicine [facility] [address] ProviderGonzalez MD [address] [place] [address] Social History Tobacco Use Types Packs/Day Years [...] On: 06/13/2020 16:38 EDT by MIRANDA ROSE RN-Registered Sales AssistantPediatrician Managing Partner Progress Note Discharge Arrangements : Patient Post-Acute [...] Attend Multidisciplinary Rounds? : Yes MIRANDA ROSE RN-Registered Sales Assistant - 06/13/2020 16:38 EDT Electronically signed by [facility] Conversion Embedded Processor Cerner at 01/08/2023 2:20 PM CDT documented in this encounter Plan of Treatment Not on file documented as of this encounter Visit Diagnoses Not on filedocumented in this encounter Care Teams Insurance Agency Owner Relationship Specialty Start Date End Date Edwar Lance MD [address] [place] [address] PCP - General Adolescent Medicine 05/29/24 documented as of this encounter
--- OUTSIDE RECORDS SUMMARY | 2025-06-20 10:51 | XMS_ITS | Encounter Summary ---
Author Organization [employer] ([place], [place], [place], [place]) Address [address] [place] [address] Care Team Providers Care Funding Analyst Name Role Phone Edwar Lance MD Primary Care Provider + [phone] Encounter Details Date Type Department Care Team (Late st Contact Info) Description 06/11/2020 Transcribed Document [facility] [place] [address] [place] [address] ProviderGonzalez MD [address] [place], [place] [address] Social History Tobacco Use Types Packs/Day Years [...] on filedocumented in this encounter Care Teams Funding Analyst Relationship Specialty Start Date End Date Edwar Lance MD [address] [place] [address] PCP - General Adolescent Medicine 05/29/24 documented as of this encounter
--- OUTSIDE RECORDS SUMMARY | 2025-06-20 10:51 | XMS_ITS | Encounter Summary ---
Author Organization [employer] ([place], [place], [place], [place]) Address [address] [place] [address] Care Team Providers Care Meat Scrubber Name Role Phone Edwar Lance MD Primary Care Provider + [phone] Encounter Details Date Type Department Care Team (Late st Contact Info) Description 06/11/2020 Transcribed Document [facility] Family Medicine [address] [place] [address] Provider, MD Gonzalez [address], [place] [address] Social History Tobacco Use Types Packs/Day Years [...] Gonzalez ProviderMD - 06/11/2020 8:58 AM CDT [facility] Main OR PACU Summary Primary Physician: MARLY CANTU MD Finalized Date/Time: 06/11/20 14:24:58 Pt. Name: AL COSTA II, D.O.B./Sex: 1965 Male Med Rec #: [id number] Physician: MARLY CANTU MD Financial #: [id number] Pt. Type: I Room/Bed: [facility]/1 Admit/Disch: 06/11/20 05:59:00 - Institution: [facility] Main OR PACU I Case Times Entry 1 In PACU I 06/11/20 11:34:00 Ready for PACU 06/11/20 13:35:00 Discharge Discharge from PACU 06/11/20 13:35:00 I Last Modified By: TERRY THOMAS, DOMINGUEZ 06/11/20 14:24:50 Finalized By: TERRY THOMAS, RN Document Signatures Signed By: TERRY THOMAS RN 06/11/20 14:24 Electronically signed by Cristine [facility] Conversion High Rigger Cerner at 01/08/2023 2:26 PM CDT documented in this encounter Plan of Treatment Not on file documented as of this encounter Visit Diagnoses Not on filedocumented in this encounter Care Teams Meat Scrubber Relationship Specialty Start Date End Date Edwar Lance MD [address] [place] [address] PCP - General Adolescent Medicine 05/29/24 documented as of this encounter
--- OUTSIDE RECORDS SUMMARY | 2025-06-20 10:51 | XMS_ITS | Encounter Summary ---
Author Organization [employer] ([place], [place], [place], [place]) Address [address] [place] [address] Care Team Providers Care Blending Plant Operator Name Role Phone Edwar Lance MD Primary Care Provider + [phone] Encounter Details Date Type Department Care Team (Late st Contact Info) Description 06/11/2020 Transcribed Document [facility] Radiology [address] [place] [address] Hortencia Stack MD [address] [place], [place] [id number] Social History Tobacco Use Types Packs/Day Years [...] is a 54 yo male admitted to [facility] per Dr. Zarate for an extension [...] Back pain History of obstructive sleep apnea [place] (hard of hearing) Left leg numbness Numbness [...] on filedocumented in this encounter Care Teams Blending Plant Operator Relationship Specialty Start Date End Date Edwar Lance MD [address] [place] [address] PCP - General Adolescent Medicine 05/29/24 documented as of this encounter
--- OUTSIDE RECORDS SUMMARY | 2025-06-20 10:51 | XMS_ITS | Continuity of Care Document ---
Author Organization [facility], NEUROSURGERY [address] Address [address] [place] [address] Care Team Providers Care Quality Assurance Analyst Name Role Phone NAVEEN LAMBERT Primary Care Provider Assessment Encounter Date Assessment Date Assessment LastModified by Organization Details LastModified Time 05/25/2025 05/25/2025 Scar Costa is a 59-year-old man status post numerous lumbar surgeries in the past, most recently extension to T9 from previous L1-S1 in 05/2024 who returns for follow-up visit. I studied his repeat T-spine and L-spine x-rays performed today, which show no hardware complications . He continues to do well. He will return for a follow-up visit in [address] [email or web address] Not available 05/25/2025 13:12:26 Plan of Treatment Reminders Order Date Submit Date Provider Last Modified By Organization Details Last Modified Time Details Appointments CT SCAN 2025 10:00A M ct_scan Not available Not available Not available CT SCAN 2025 10:20A M ct_scan Not available Not available Not available RECHEC K r 2025 10:45A M KYLAH DOBBS MD Not available Not available Not available Lab None record ed. Referral None record ed. Procedures None record ed. Surgeries None record ed. Imaging None record ed. Medication Orders None record ed. Patient TargetsNo targets recorded. Patient InstructionsNo instructions recorded. Reason for Referral None Reported. Results Created Date Observation Date Name Description Value Unit Range Abnormal Flag Note LastModifiedBy Organization Detail LastModifiedTime 05/14/20 25 05/12/2025 elect lynn dueñasgr am No observ ation record ed. [email or web address] Not Available 2024 10:54:55 05/25/2005/25/2025 XR, thora cic spine , [address] [address] [phone] Paticassie t Name: PIPPA COATESCEL Ye Villaseñor t : 1964 Paticassie t Orderi ng Provid er: ALEXANDRE DOBBS EXAM DATE: 2024 EXAM: XR THORAC IC AP/LAT CLINIC AL INFORM ATION: Back pain. IMAGES PROVID ED: AP, and latera l views of the thorac ic spine. COMPAR MONET: None. FINDIN GS: Previo us thorac olumba r spine fusion . The visibl e hardwa re shows no compli cation s. Diffus e degene rative endpla te spurri ng with flowin g calcif icatio n along the anteri or verteb ral body line likely indica tive of DISH. No radiog raphic eviden ce of injury is noted. IMPRES NELL: Modera te DDD with likely DISH Interp reted By: Arthur Penaloza MD Electr onical ly Signed By: Arthur Penaloza MD on 05/25/20 12:42 PM INTERFACE [facility] Radiology [address], [address], 05/25/2025 12:47:28 05/25/2005/25/2025 XR, lumbo sacra l spine , 2 or [address] [address] [phone] Paticassie t Name: PIPPA Villaseñor t : 1964 Patien t Orderi ng Provid er: ALEXANDRE DOBBS EXAM DATE: 2024 EXAM: XR LUMBAR AP/LAT CLINIC AL INFORM ATION: Back pain. IMAGES PROVID ED: AP, latera l and coned down views of the lumbar spine. COMPAR MONET: 2024 FINDIN GS: Previo us thorac olumba r sacral fusion . The hardwa re visibl e shows no compli cation . No loosen ing is seen. There is no hardwa re fractu re in. Stable appear ance. No radiog raphic eviden ce of injury is noted. IMPRES NELL: Stable . Uncomp licate d appear ing thorac olumba r sacral fusion Interp reted By: Arthur Penaloza MD Electr onical ly Signed By: Arthur Penaloza MD on 05/25/20 12:43 PM INTERFACE [facility] Radiology [address], [address], 05/25/2025 12:48:26 Result Notes Documentation Provider Name and Address Organization Details Recorded Time Xr, Thoracic Spine, 2 View : [place] [address] Patient Name: SCAR COSTA Patient : 1965 Patient Ordering Provider: ALEXANDRE DOBBS EXAM DATE: 05/25/2025 EXAM: XR THORACIC AP/LAT CLINICAL INFORMATION: Back pain. IMAGES PROVIDED: AP, and lateral views of the thoracic spine. COMPARISON: None. FINDINGS: Previous thoracolumbar spine fusion. The visible hardware shows no complications. Diffuse degenerative endplate spurring with flowing calcification along the anterior vertebral body line likely indicative of DISH. No radiographic evidence of injury is noted. IMPRESSION: Moderate DDD with likely DISH Interpreted By: Arthur Penaloza MD Not Available [facility] 05/25/2025 12:47:28 Xr, Lumbosacral Spine, 2 Or 3 View : [address] [address] Patient Name: SCAR COSTA Patient : 1965 Patient Ordering Provider: ALEXANDRE DOBBS EXAM DATE: 05/25/2025 EXAM: XR LUMBAR AP/LAT CLINICAL INFORMATION: Back pain. IMAGES PROVIDED: AP, lateral and coned down views of the lumbar spine. COMPARISON: 11/24/2024 FINDINGS: Previous thoracolumbar sacral fusion. The hardware visible shows no complication. No loosening is seen. There is no hardware fracture in. Stable appearance. No radiographic evidence of injury is noted. IMPRESSION: Stable. Uncomplicated appearing thoracolumbar sacral fusion Interpreted By: Arthur Penaloza MD Not Available [facility] 05/25/2025 12:48:26 Procedures Surgical History Date Name Laterality Status Provider Name and Address Organization Details Recorded Time 09/19/20 18 Echocardiogram - Stress Test completed BRIJESH VAIL MD [address] [place], [address], [facility] 09/21/2018 08:20:45 09/19/20 18 Stress Test - Echo completed BRIJESH VAIL MD [address] [place], [address], [facility] 09/22/2018 10:09:26 05/24/20 18 LUMBAR FUSION (SURG) completed [facility] 05/27/2018 13:01:29 11/12/19 15 Back Surgery completed Kathy Gerhard [facility] 04/20/2018 13:21:56 06/12/20 14 revision of fusion of lumbar spine completed [facility] 09/12/2018 08:33:20 Carpal tunnel surgery completed [facility] 09/12/2018 08:32:39 primary lumbar discectomy completed [facility] 09/12/2018 08:34:00 Imaging Results None recorded. Procedure Notes None recorded. Medical Equipment None Reported. Allergies No known drug allergies Medications Name Sig Start Date Stop Date Status Note LastModified by Organization Details LastModified Time cyclobenzap rine 10 mg tablet Take 1 tablet 3 times a day by oral route as needed. active Not Available Not Available No t Available Percocet 7.5 mg-325 mg tablet Take 1 tablet every 6 hours by oral route as needed. 2023 active Not Available Not Available Not Avai lable ibuprofen 800 mg tablet TAKE 1 TABLET BY MOUTH THREE TIMES DAILY NEEDED active Not Available Not Available No t Available prednisone 20 mg tablet TAKE 1 TABLET BY MOUTH ONCE DAILY active Not Available Not Available No t Available metronidazo le 500 mg tablet TAKE 1 TABLET BY MOUTH THREE TIMES DAILY FOR 7 DAYS active Not Available Not Available No t Available ciprofloxac in 500 mg tablet TAKE 2 TABLETS BY MOUTH EVERY 12 HOURS FOR 10 DAYS active Not Available Not Available No t Available sulfamethox azole 800 mg-trimetho prim 160 mg tablet TAKE 1 TABLET BY MOUTH TWICE DAILY active Not Available Not Available No t Available bisoprolol fumarate 10 mg tablet TAKE 1 TABLET BY MOUTH ONCE DAILY active Not Available Not Available No t Available bisoprolol fumarate 5 mg tablet active Not Available Not Available No t Available amoxicillin 875 mg tablet TAKE 1 TABLET BY MOUTH TWICE DAILY FOR 7 DAYS active Not Available Not Available No t Available oseltamivir 75 mg capsule TAKE 1 CAPSULE BY MOUTH TWICE DAILY FOR 5 DAYS active Not Available Not Available No t Available gabapentin 300 mg capsule TAKE 1 CAPSULE BY MOUTH THREE TIMES DAILY active Not Available Not Available No t Available diclofenac sodium 75 mg tablet,marie yed release 09/12 completed Not Available Not Available Not Available mupirocin 2 % topical ointment active Not Available Not Available Not Available levofloxaci n 500 mg tablet TAKE 1 TABLET BY MOUTH ONCE DAILY FOR 7 DAYS active Not Available Not Available No t Available methylpredn isolone 4 mg tablets in a dose pack TAKE BY MOUTH DIRECTED ON INSIDE OF PACKAGE active Not Available Not Available No t Available diazepam 5 mg tablet Take 1 tablet twice a day by oral route as needed. 09/12 completed Not Available Not Available Not Available amoxicillin 875 mg-potassiu m clavulanate 125 mg tablet active Not Available Not Available Not Available cyclobenzap rine 5 mg tablet active Not Available Not Available Not Available rosuvastati n 20 mg tablet TAKE 1 TABLET BY MOUTH ONCE DAILY active Not Available Not Available No t Available Havrix (PF) 1,440 TABATHA unit/mL intramuscul ar syringe active Not Available Not Available N ot Available Afluria 4688-6727 (PF) 45 mcg(15 mcg x 3)/0.5 mL intramuscul ar syringe 09/12 completed Not Available Not Available Not Available Vitals Date Recorded Body height Provider Name an d Address Organization Details Last Updated DateTime 05/25/2025 170.18 [facility] 13:07:49 Social History Question Answer Notes LastModified by Organizat ion Details LastModified Time Tobacco Smoking Status Never Smoker Kathy varma, [facility] 04/20/2018 13:21:15 Live Alone Or With Others? With Others Information not available 09/12/2018 Marital Status Informatio n not available 09/12/2018 What Was The Date Of Your Most Recent Tobacco Screening? 09/14/2018 [id number] Information not available 11/07/2019 How Many Children Do You Have? 2 Information not available 09/12/2018 Has Tobacco Cessation Counseling Been Provided? No Information not available 09/12/2018 Sex: Male Functional Status Question Answer Note LastModified by Organizat ion Details LastModified Time What is your level of alcohol consumption? 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 Family History Relationship Description Onset Age of this Age Resolved Age Notes LastModified by Organization Details LastModified Time Unspecified Relation Hypertensive disorder Not available 2017 08:31:27 Unspecified Relation Family history of malignant neoplasm Not available 2017 08:31:33 Medical History Condition Response TENS Unit for current problem N Massage Therapy for current problem N Coronary Artery Disease N Traction for current problem N Gout N Other N Thyroid Disease N Atrial Fibrillation N Hyperthyroidism N Heart Arrhythmia N Narcotic Pain Medication for current pro blem Y Emphysema N Lung Disease N COPD N Hypothyroidism N Injections for current problem N Pacemaker N Peripheral Arterial Disease N Edema N Nervous Illness N Vascular Disease N Deep Vein Thrombosis N Anxiety Disorder N Hiatal hernia N Arthritis N Acid Reflux (GERD) N Cancer N Stroke N History of Blood Thinners N Blood Thinners N Shortness of Breath N High Cholesterol N Liver Disease N Arrhythmia N Dialysis N Fibromyalgia N Kidney Disease N Endocrine Disorder N Heart Problems N Neuro-modulating Drugs for current probl em N Heart Conditions N Implanted Cardiac Device N Black Lung N Thyroid Problems N Steroid Pack for current problem N NSAID Use N Osteoporosis/Osteopenia N Chest Pain N Heart Attack (NM) N Ulcers N Mental Illness N Diabetes N Rheumatic Fever N Cardiomyopathy N Bleeding Disorder N Heart Murmur N Tuberculosis N Genetic Disorder N AIDS/HIV N Congestive Heart Failure (CHF) N Hyperlipidemia N Chiropractor treatment for current probl em N Kidney Failure N Asthma N Ultrasound Treatment for current problem N Cardiac Disease N Peripheral Vascular Disease N Epilepsy/Seizures N Jaundice N Sleep Apnea Y Thyroid Disorder N GERD/Reflux N Warfarin Management N Physical Therapy Treatments for current problem N Heart Disease N Pulmonary Embolism N Restless leg syndrome N Hypertension N Past Encounters Encounter ID Performer Location Encounter Start Date Encounter Closed Date Diagnosis/Indication Diagnosis SNOMED-CT Code Diagnosis ICD10 Code Diagnosis IMO Codes Diagnosis Note [id number] ALEXANDRE DOBBS MD [facility] [address] [place] [address] 05/25/2025 12:37:14 05/26/2025 04:27:21 Thoracic myelopathy 5130927745 9103 M47.14 [id number] Health Concerns Section Related Observation LastModified by Organization Detai ls LastModified Time None Recorded Concern Status LastModified by Organization Details LastModified Time None Recorded Payers Encounter Date Sequence Insurance Name Policy Number Policy [place] Covered Member ID [place] Member ID Guarantor Name 05/25/2025 1 [place] [id number] Gertrude Costa [id number] Scar Costa Notes Date Note Type Note Provider Name and Address Organization Details Recorded Time 05/25/2025 text/html ROS as noted in the HPI Scar Costa is a 59-year-old man status post numerous lumbar surgeries in the past, most recently extension to T9 from previous L1-S1 in 05/2024 who returns for follow-up visit. He continues to do very well postoperatively with continued resolution of his preoperative symptoms. He has some chronic scapular pain but otherwise has no radicular symptoms. He is pleased with his results. ALEXANDRE DOBBS MD [address] [place] [address], [phone], [facility] 05/25/2025 13:13:06
--- OUTSIDE RECORDS SUMMARY | 2025-06-20 10:51 | XMS_ITS | Clinical Summary ---
Author Organization [employer] ([place], [place], [place], [place]) Address [address] [place] [address] Care Team Providers Care Weeder Thinner Name Role Phone Edwar Lance MD Primary Care Provider + [phone] Allergies No known active allergies Medications bisoprolol [...] to calculi of kidney and ureter 05/19/2024 [place] (hard of hearing) 05/19/2024 History of obstructive [...] Marco Antonio rded Speak language other than Sinhala at home Not on file 05/12/2024 Want [...] FOBT/FIT 1965 Fit-DNA (Cologuard) 1965 Sigmoidoscopy 1965 Depression Screening (12+) 1976 HIV Screening 1979 Hepatitis C Screening 1982 DTAP/TDAP/TD VACCINES (1 - Tdap) 1983 Lipid Panel 1999 Pneumococcal 50+ years (1 of 1 - PCV) 2014 Shingles Vaccine (Zoster) (2 of 2) 05/06/20192018 Tobacco Cessation Counseling and Screening (12+) 05/19/2025 05/19/2024 COVID-19 VACCINE (1 - season) 2025 Influenza Vaccine (#1) 2025 05/28/2021, 2019 Medical Devices Implanted Type Area Doorperson Device Identifier Shelf Expiration Date Model / Serial / Lot Scr Spne Navarro Fix Fen 5x50mm 7-27-550 - [id number] Implanted:Qty : 1 on 05/29/[address] MD at [facility] IMPLANTS N/A: Spine Thoracic J &J:DEPUY:DEPUY SPINE -5 50 / - 50 / Trey Spinal 5.5x80mm Ti - [id number] Implanted:Qty : 2 on 05/29/[address] MD at [facility] IMPLANTS N/A: Spine Thoracic J &J:DEPUY:DEPUY SPINE .18 5 / 5 / Scr Spne Navarro Fix 5x55mm -555 - [id number] Implanted:Qty : 1 on 05/29/[address] MD at [facility] IMPLANTS N/A: Spine Thoracic J &J:DEPUY:DEPUY SPINE 5 55 / 55 / Scr Spne Navarro Fix 6x50mm 650 - [id number] Implanted:Qty : 3 on 05/29/[address] MD at [facility] IMPLANTS N/A: Spine Thoracic J &J:DEPUY:DEPUY SPINE 50 / 50 / Scr Spne Navarro Fix 7x50mm 750 - Implanted:Qty : 9 on 05/29/[address] MD at [facility] IMPLANTS N/A: Spine Thoracic J &J:DEPUY:DEPUY SPINE 50 / 50 / Mis Malcolm Ply Scrw Set Ti - Implanted:Qty : 14 on 05/29/[address] MD at [facility] IMPLANTS N/A: Spine Thoracic J &J:DEPUY:DEPUY SPINE -0 00 / 00 / Bone Fibers 10.0cc Plfx Crtcl -1800-10 - [id number] Implanted:Qty : 1 on 05/29/[address] MD at [facility] IMPLANTS N/A: Spine LIFENET:LIFENET TRANSPLANT SRV 02/16/2029 BL-1800-1 0 / [id number] / Bone Crush Canc Fd 30ml X2 Can30 - [id number] Implanted:Qty : 1 on 05/29/2024 by Alexandru tS MD at [facility] IMPLANTS N/A: Spine LIFENET:LIFENET TRANSPLANT SRV 10/04/2028 CAN30 / [id number] / Bone Vivigen Frmble Cell 10cc Bl-1600-003 - [id number] Implanted:Qty : 1 on 05/29/[address] MD at [facility] IMPLANTS N/A: Spine LIFENET:LIFENET TRANSPLANT SRV 02/20/2026 BL-1600-0 03 / [id number] / Explanted Type Area Doorperson Device Identifier Shelf Expiration Date Model / Serial / Lot Felisha Conley Scrw Set Ti 000 - [id number] Explanted:Qty : 1 on 05/29/2024 at [facility] IMPLANTS N/A: Spine Thoracic J &J:DEPUY:DEPUY SPINE 00 / 00 / Scr Spne Navarro Fix 7x50mm - Explanted:Qty : 1 on 05/29/2024 at [facility] IMPLANTS N/A: Spine Thoracic J &J:DEPUY:DEPUY SPINE 50 / 50 / Insurance BLUE CROSS/BLUE SHIELD Advance Directives For more information, please contact: [phone] * Full Code (Latest Code Status on File) Date Activated Date Inactivated Comments 05/29/2024 1:31 PM 06/01/2024 3:39 PM Care Teams Weeder Thinner Relationship Specialty Start Date End Date Edwar Lance MD [address] [place] [address] PCP - General Adolescent Medicine 05/29/24
--- OUTSIDE RECORDS SUMMARY | 2025-06-20 10:51 | XMS_ITS | Encounter Summary ---
Author Organization [employer] ([place], [place], [place], [place]) Address [address] [place] [address] Care Team Providers Care Stamp Pad Maker Name Role Phone Edwar Lance MD Primary Care Provider + [phone] Encounter Details Date Type Department Care Team (Late st Contact Info) Description 06/13/2020 Transcribed Document [facility] [place] Family Medicine [address] [place] [address] ProviderGonzalez MD [address] [place] [address] Social History Tobacco Use Types Packs/Day Years [...] 1 Health Plan: [employer]OP[employer] Policy Number: [id number] Authorization Number: [id number] Insurance 2 Health Plan: [place] Policy Number: [id number] Authorization Number: [id number] Insurance Primary Name : Omega [id number] Authorization Status-Primary : Admit approved Reference Number-Primary : [id number] Authorization Number-Primary : [id number] Number of Days Authorized-Primary : 1 Day(s) Authorized Service Begin Date-Primary : 06/11/2020 EDT Authorized Service End Date-Primary : 06/12/2020 EDT Authorization Comments-Primary : Per Kindra with [employer], Inpt Auth approved 1 additional day. Non DRG, NRD 06/13. Historical Authorization Comments-Primary : Comment 1: please change auth number in star once case is completeclinical faxed for c/s per donny (Ashley Wagner, Rn-Utilization Review 06/12/2020 10:31) Comment 2: per manjinder @ md office auth for omega is [id number] IP x 1day. Medicaid auth is [id number] (Ashley Wagner, Rn-Utilization Review 06/12/2020 10:19) Comment 3: pt is scheduled for INPT lumbar fusion posterior 3 level on Wednesday06/11/2020 (ERNESTINA COOPER, Commercial Center Manager 06/10/2020 14:22) SHAVON VAIL Rn-Utilization Review - 06/13/2020 11:59 EDT Electronically signed by Roberto Colunga Conversion Distribution Operations Supervisor Cerner at 01/08/2023 2:27 PM CDT documented in this encounter Plan of Treatment Not on file documented as of this encounter Visit Diagnoses Not on filedocumented in this encounter Care Teams Stamp Pad Maker Relationship Specialty Start Date End Date Edwar Lance MD [address] [place] [address] PCP - General Adolescent Medicine 05/29/24 documented as of this encounter
--- OUTSIDE RECORDS SUMMARY | 2025-06-20 10:51 | XMS_ITS | Encounter Summary ---
Author Organization [employer] ([place], [place], [place], [place]) Address [address] [place] [address] Care Team Providers Care Material Disposition Inspector Name Role Phone Edwar Lambert MD Primary Care Provider + [phone] Encounter Details Date Type Department Care Team (Late st Contact Info) Description 06/13/2020 Transcribed Document [facility] [place] [address] [place] [address] ProviderGonzalez MD [address] [place] [address] Social History Tobacco Use Types [...] Tan MD - 06/13/2020 12:24 PM CDT [facility] [place] [address] [place] COSTA II :1965 Visit Time:06/11/2020 [...] 01:30 PM EDT Comments Please go to [facility] on [facility] at 12:45 for x-rays before appointment Where: [address] [place] [address] [address] Business (1) Follow Up with MARLY CANTU When 06/26/2020 03:15 PM EDT Comments Appointment has been made for staple/suture removal Where: [address] [place] [address] [address] Business (1) Medications What How [...] at home: Medicines ??? Take or apply tjuo-kpn-dutgucn and prescription medicines only as told by [...] cannot use soap and water, use hand care team assistant. ? Change your bandage as told by [...] 06/15/2009 Document Revised: 04/18/2019 Document Reviewed: 04/18/2019 [employer] Patient Education ?? 2020 [employer] Spinal Fusion, Adult, Care After This [...] these instructions at home: Medicines ??? Take pxuj-jml-lsadsaz and prescription medicines only as told by [...] and water are not available, use hand care team assistant. ? Change your dressing as told by [...] urine clear or pale yellow. ? Take fjpu-opx-yaltqsn or prescription medicines. ? Eat foods that [...] 03/26/2006 Document Revised: 05/27/2019 Document Reviewed: 08/25/2017 [employer] Patient Education ?? 2020 [employer]. docusate (oral/rectal) (DOK ue sate) Colace, Diocto, [...] may report side effects to FDA at 1-245-JYN-7363. What other drugs will affect docusate? Other drugs may affect docusate, including prescription and crnd-gjs-zlblrmk medicines, vitamins, and herbal products. Tell your [...] to ensure that the information provided by [employer]. ('Mult[employer]') is accurate, up-to-date, and complete, but no guarantee is made to that effect. Drug information contained herein may be time sensitive. [employer] information has been compiled for use by healthcare practitioners and consumers in the [place] and therefore [employer] does not warrant that uses outside of the [place] are appropriate, unless specifically indicated otherwise. [employer]'s drug information does not endorse drugs, diagnose patients or recommend therapy. [employer] drug information is an informational resource designed [...] effective or appropriate for any given patient. [employer] does not assume any responsibility for any aspect of healthcare administered with the aid of information Ad[employer] provides. The information contained herein is not intended to cover all possible uses, directions, precautions, warnings, drug interactions, allergic reactions, or adverse effects. If you have questions about the drugs you are taking, check with your doctor, nurse or pharmacist. Copyright 0248-4768 [employer]. Version: 4.01. Revision Date: 03/27/2019. acetaminophen and [...] may report side effects to FDA at 4-268-WWK-2350. What other drugs will affect acetaminophen and [...] affect acetaminophen and oxycodone, including prescription and bjpe-kyy-xsfvmhb medicines, vitamins, and herbal products. Not all [...] to ensure that the information provided by [employer]. ('[employer]') is accurate, up-to-date, and complete, but no guarantee is made to that effect. Drug information contained herein may be time sensitive. [employer] information has been compiled for use by healthcare practitioners and consumers in the [place] and therefore [employer] does not warrant that uses outside of the [place] are appropriate, unless specifically indicated otherwise. [employer] drug information does not endorse drugs, diagnose patients or recommend therapy. [employer] drug information is an informational resource designed [...] effective or appropriate for any given patient. [employer] does not assume any responsibility for any aspect of healthcare administered with the aid of information Ad[employer] provides. The information contained herein is not intended to cover all possible uses, directions, precautions, warnings, drug interactions, allergic reactions, or adverse effects. If you have questions about the drugs you are taking, check with your doctor, nurse or pharmacist. Copyright 0776-2990 [employer]. Version: .. Revision Date: 10/11/2019. cyclobenzaprine (garrick [...] may report side effects to FDA at 7-274-JZF-9234. What other drugs will affect cyclobenzaprine? Using [...] drugs may affect cyclobenzaprine, including prescription and gdah-esf-tdzduzc medicines, vitamins, and herbal products. Not all [...] to ensure that the information provided by [employer]. ('Multum') is accurate, up-to-date, and complete, but no guarantee is made to that effect. Drug information contained herein may be time sensitive. Ad[employer] information has been compiled for use by healthcare practitioners and consumers in the [place] and therefore [employer] does not warrant that uses outside of the [place] are appropriate, unless specifically indicated otherwise. [employer] drug information does not endorse drugs, diagnose patients or recommend therapy. [employer] drug information is an informational resource designed [...] effective or appropriate for any given patient. [employer] does not assume any responsibility for any aspect of healthcare administered with the aid of information [employer] provides. The information contained herein is not intended to cover all possible uses, directions, precautions, warnings, drug interactions, allergic reactions, or adverse effects. If you have questions about the drugs you are taking, check with your doctor, nurse or pharmacist. Copyright 1454-7281 [employer]. Version: 5.01. Revision Date: 06/15/2018. Emergency Awareness [...] Assistance with quitting is available by contacting 9-293-OVIZBubbles and BeyondNOW. This is a free resource providing counseling, [...] range between ( 0.0 and 7.0 ) [place] #: 0.98 K/uL -- Normal range between ( 0.16 and 1.00 ) [place]os #: 0.14 x10(3)/uL -- Normal range between ( 0.00 and 0.80 ) [place] %: 10.6 % -- Normal range between [...] ) Urine Bilirubin Dipstick: Negative Urine Specific [place]: 1.018 -- Normal range between ( 1.005 [...] was given the opportunity to ask questions. Patient/Jamb Cutter Name: Patient/Jamb Cutter Signature: Relationship to Patient: Clinician/Hospital Jamb Cutter Signature: Date: documented in this encounter Plan of Treatment Not on file documented as of this encounter Visit Diagnoses Not on filedocumented in this encounter Care Teams Material Disposition Inspector Relationship Specialty Start Date End Date Edwar Lambert MD [address] [place] [address] PCP - General Adolescent Medicine 05/29/24 documented as of this encounter
--- OUTSIDE RECORDS SUMMARY | 2025-06-20 10:51 | XMS_ITS | Encounter Summary ---
Author Organization [employer] ([place], [place], [place], [place]) Address [address] [place] [address] Care Team Providers Care Geosciences Professor Name Role Phone Edwar Lance MD Primary Care Provider + [phone] Encounter Details Date Type Department Care Team (Late st Contact Info) Description 06/13/2020 Transcribed Document [facility] [place] Family Medicine [facility] [place] [address] ProviderGonzalez MD [address] [place] [address] Social History Tobacco Use Types Packs/Day Years [...] KULDEEP HARTLEY, PT - 06/13/2020 15:40 EDT Call Specialist Goals Mobility/Bed Mobility LTG PT Grid Goal [...] - 06/13/2020 15:40 EDT Electronically signed by Cristine [facility] Conversion Telephone Collector Cerner at 01/08/2023 2:07 PM CDT documented in this encounter Plan of Treatment Not on file documented as of this encounter Visit Diagnoses Not on filedocumented in this encounter Care Teams Geosciences Professor Relationship Specialty Start Date End Date Edwar Lance MD [address] [place] [address] PCP - General Adolescent Medicine 05/29/24 documented as of this encounter
--- OUTSIDE RECORDS SUMMARY | 2025-06-20 10:52 | XMS_ITS | Encounter Summary ---
Author Organization [employer] ([place], [place], [place], [place]) Address [address] [place] [address] Care Team Providers Care Metallurgical Tester Name Role Phone Edwar Lance MD Primary Care Provider + [phone] Encounter Details Date Type Department Care Team (Late st Contact Info) Description 06/11/2020 Transcribed Document [facility] [place] [facility] [place] [address] ProviderGonzalez MD [address] [place] [address] Social History Tobacco Use Types Packs/Day Years [...] NEUROSURGERY OPERATIVE REPORT SURGEON: Uzair Zarate MD CARDIAC CATHETERIZATION TECHNOLOGIST: Pillo Hwang PA-C, scrubbed and present assisting [...] from L1-L3, packed the posterolateral corridors with [place] allograft, ViviGen allograft, autograft, iliac crest graft. [...] and left the OR in stable condition. /[id number] Uzair Zarate MD GP/AQ / GP / MODL /[id number] Electronically signed by Cristine, [facility] Conversion Note Teller Cerner at 01/08/2023 2:11 PM CDT documented in this encounter Plan of Treatment Not on file documented as of this encounter Visit Diagnoses Not on filedocumented in this encounter Care Teams Metallurgical Tester Relationship Specialty Start Date End Date Edwar Lance MD [address] [place] [address] PCP - General Adolescent Medicine 05/29/24 documented as of this encounter
--- OUTSIDE RECORDS SUMMARY | 2025-06-20 10:52 | XMS_ITS | Encounter Summary ---
Author Organization [employer] ([place], [place], [place], [place]) Address [address] [place] [address] Care Team Providers Care Firewood Cutter Name Role Phone Edwar Lance MD Primary Care Provider + [phone] Encounter Details Date Type Department Care Team (Late st Contact Info) Description 06/12/2020 Transcribed Document [facility] [place] Medicine [facility] [place] [address] ProviderGonzalez MD [address] [place] [id number] Social History Tobacco Use Types Packs/Day Years [...] Yes LAURENCE ANTONIO PTA 06/12/2020 15:38 EDT [facility] Goals Mobility/Bed Mobility LTG PT Grid Goal [...] Goal Status : Progressing, continue LAURENCE ANTONIO SURFACE LOGGING SYSTEMS LOGGER - 06/12/2020 15:38 EDT Treatment Note Subjective [...] Yes LAURENCE ANTONIONAYELY - 06/12/2020 15:38 EDT [place] PT Charges SURFACE LOGGING SYSTEMS LOGGER PT Therap. Exercise 15 min-SURFACE LOGGING SYSTEMS LOGGER : 1 PT Ther Activities Ea 15 Min-SURFACE LOGGING SYSTEMS LOGGER : 1 ANTONIOLAURENCENAYELY - 06/12/2020 15:38 EDT Electronically signed by Cristine [facility] Conversion Saw Sharpener Cerner at 01/08/2023 2:28 PM CDT documented in this encounter Plan of Treatment Not on file documented as of this encounter Visit Diagnoses Not on filedocumented in this encounter Care Teams Firewood Cutter Relationship Specialty Start Date End Date Edwar Lance MD [address] [place] [address] PCP - General Adolescent Medicine 05/29/24 documented as of this encounter
--- OUTSIDE RECORDS SUMMARY | 2025-06-20 10:52 | XMS_ITS | Encounter Summary ---
Author Organization [employer] ([place], [place], [place], [place]) Address [address] [place] [address] Care Team Providers Care Customer Accounts Advisor Name Role Phone Edwar Lance MD Primary Care Provider + [phone] Encounter Details Date Type Department Care Team (Late st Contact Info) Description 06/12/2020 Transcribed Document [facility] [place] Family Medicine [address] [place] [address] ProviderGonzalez MD [address] [place] [address] Social History Tobacco Use Types Packs/Day Years [...] 1 Health Plan: ANTHEM HMOPPO Policy Number: [id number] Authorization Number: [id number] Insurance 2 Health Plan: [place] Policy Number: [id number] Authorization Number: Insurance Primary Name : Omega [id number] Authorization Status-Primary : Admit approved Reference Number-Primary : [id number] Authorization Number-Primary : email to PA req status of auth Number of Days Authorized-Primary : 0 Day(s) Authorized Service Begin Date-Primary : 06/11/2020 EDT Authorized Service End Date-Primary : 06/11/2020 EDT Authorization Comments-Primary : hernando dunbar @ [place] office auth for omega is [id number] IP x 1day. Medicaid auth is [id number] Historical Authorization Comments-Primary : Comment 1: pt is scheduled for INPT lumbar fusion posterior 3 level on Wednesday06/11/2020 (ERNESTINA COOPER, Manager Access 06/10/2020 14:22) Ashley Wagner Rn-Utilization Review - 06/12/2020 10:19 EDT Electronically signed by [facility] Conversion Dressmaking Teacher Cerner at 01/08/2023 2:18 PM CDT documented in this encounter Plan of Treatment Not on file documented as of this encounter Visit Diagnoses Not on filedocumented in this encounter Care Teams Customer Accounts Advisor Relationship Specialty Start Date End Date Edwar Lance MD [address] [place] [address] PCP - General Adolescent Medicine 05/29/24 documented as of this encounter
--- OUTSIDE RECORDS SUMMARY | 2025-06-20 10:52 | XMS_ITS | Encounter Summary ---
Author Organization [employer] ([place], [place], [place], [place]) Address [address] [place] [address] Care Team Providers Care Engagement Quality Consultant Name Role Phone Edwar Lance MD Primary Care Provider + [phone] Encounter Details Date Type Department Care Team (Late st Contact Info) Description 06/12/2020 Transcribed Document [facility] [place] [address] [place] [address] ProviderGonzalez MD [address] [place] [address] Social History Tobacco Use Types Packs/Day Years [...] 1 Health Plan: ANTHEM HMOPPO Policy Number: [id number] Authorization Number: [id number] Insurance 2 Health Plan: [place] Policy Number: [id number] Authorization Number: Insurance Primary Name : Omega [id number] Authorization Status-Primary : Admit approved Reference Number-Primary : [id number] Authorization Number-Primary : email to PA req [...] @ [place] office auth for omega is [id number] IP x 1day. Medicaid auth is [id number] (Ashley Wagner, Rn-Utilization Review 06/12/2020 10:19) Comment 2: pt is scheduled for INPT lumbar fusion posterior 3 level on Wednesday06/11/2020 (ERNESTINA COOPER, Exhaust And Muffler Repairer 06/10/2020 14:22) Ashley Wagner Rn-Utilization Review - 06/12/2020 10:31 EDT Electronically signed by Cristine [facility] Conversion Precision Inspector Cerner at 01/08/2023 2:10 PM CDT documented in this encounter Plan of Treatment Not on file documented as of this encounter Visit Diagnoses Not on filedocumented in this encounter Care Teams Engagement Quality Consultant Relationship Specialty Start Date End Date Edwar Lance MD [address] [place] [address] PCP - General Adolescent Medicine 05/29/24 documented as of this encounter
--- OUTSIDE RECORDS SUMMARY | 2025-06-20 10:52 | XMS_ITS | Encounter Summary ---
Author Organization [employer] ([place], [place], [place], [place]) Address [address] [place] [address] Care Team Providers Care Roll Edge Stitcher Hand Name Role Phone Edwar Lambert MD Primary Care Provider + [phone] Encounter Details Date Type Department Care Team (Late st Contact Info) Description 06/12/2020 Transcribed Document [facility] [place] [address] [place] [address] ProviderGonzalez MD [address] [place] [address] Social History Tobacco Use Types Packs/Day Years [...] On: 06/12/2020 16:06 EDT by MIRANDA ROSE, RN-Triage Register Nurse Initial Assessment I Previously Documented Living Environment [...] have PCP Listed? : Yes MIRANDA ROSE RN-Triage Register Nurse - 06/12/2020 16:06 EDT Initial Assessment II Sensory and Motor Deficits : None Current Home Treatments and Equipment : Walker Does the Patient have a Floor to SNF Benefit? : No MIRANDA ROSE RN-Triage Register Nurse - 06/12/2020 16:06 EDT Discharge Needs I Anticipated Discharge Date : 06/13/2020 EDT Anticipated Discharge To, CM : Home with family care Current Home Treatment/Equipment : Current Home Treatment/Equipment No qualifying data available. Post Acute/Home Treatments : None Documentation Status Complete : Yes MIRANDA ROSE RN-Triage Register Nurse - 06/12/2020 16:06 EDT Discharge Needs II Professional Skilled Services : Professional Skilled Services No qualifying data available. Needs Assistance with Transportation : No Discharge Options Discussed with Patient : Home Health MIRANDA ROSE RN-Triage Register Nurse - 06/12/2020 16:06 EDT Narrative Note Narrative Note : 54yo male pt s/p L1-2 lami with L1 fusion extension. Pt a,jorgeulated 280ft this am. Met with pt at bedside to discuss DCP. Pt has DME at home and has used HH previously. He denies CM needs at this time. CM will follow. MIRANDA ROSE RN-Triage Register Nurse - 06/12/2020 16:06 EDT documented in this encounter Plan of Treatment Not on file documented as of this encounter Visit Diagnoses Not on filedocumented in this encounter Care Teams Roll Edge Stitcher Hand Relationship Specialty Start Date End Date Edwar Lambert MD [address] [place] [address] PCP - General Adolescent Medicine 05/29/24 documented as of this encounter
--- OUTSIDE RECORDS SUMMARY | 2025-06-20 10:52 | XMS_ITS | Encounter Summary ---
Author Organization [employer] ([place], [place], [place], [place]) Address [address] [place] [address] Care Team Providers Care Physician Office Nurse Name Role Phone Edwar Lance MD Primary Care Provider + [phone] Encounter Details Date Type Department Care Team (Late st Contact Info) Description 06/13/2020 Transcribed Document [facility] Radiology [address] [place] [address] Hortencia Stack MD [address] [place] [address] Social History Tobacco Use Types Packs/Day [...] is a 54 yo male admitted to [facility] per Dr. Zarate for an extension [...] Back pain History of obstructive sleep apnea [place] (hard of hearing) Left leg numbness Numbness [...] 06/13/2020 04:43 Radiology Results (Last 48 hours) [id number] -- 06/11/2020 05:59 CR Fluoro in OR [...] on filedocumented in this encounter Care Teams Physician Office Nurse Relationship Specialty Start Date End Date Edwar Lance MD [address] [place] [address] PCP - General Adolescent Medicine 05/29/24 documented as of this encounter
--- OUTSIDE RECORDS SUMMARY | 2025-06-20 10:52 | XMS_ITS | Encounter Summary ---
Author Organization [employer] ([place], [place], [place], [place]) Address [address] [place] [address] Care Team Providers Care Golf Club Assembler Name Role Phone Edwar Lance MD Primary Care Provider + [phone] Encounter Details Date Type Department Care Team (Late st Contact Info) Description 06/12/2020 Transcribed Document [facility] Radiology [address] [place] [address] Hortencia Stack MD [address] [place], [place] [id number] Social History Tobacco Use Types Packs/Day Years [...] is a 54 yo male admitted to [facility] per Dr. Zarate for an extension of [...] History of obstructive sleep apnea [place] (hard of hearing) Left leg numbness Numbness [...] filedocumented in this encounter Care Teams Golf Club Assembler Relationship Specialty Start Date End Date Edwar Lance MD [address] [place] [address] PCP - General Adolescent Medicine 05/29/24 documented as of this encounter
--- OUTSIDE RECORDS SUMMARY | 2025-06-20 10:52 | XMS_ITS | Encounter Summary ---
Author Organization [employer] ([place], [place], [place], [place]) Address [address] [place] [address] Care Team Providers Care Transportation Project Manager Name Role Phone Edwar Lance MD Primary Care Provider + [phone] Encounter Details Date Type Department Care Team (Late st Contact Info) Description 06/10/2020 Transcribed Document [facility] [place] [address] [place] [address] ProviderGonzalez MD [address] [place] [address] Social History Tobacco Use Types Packs/Day Years [...] 1 Health Plan: ANTHEM HMOPPO Policy Number: [id number] Authorization Number: Insurance 2 Health Plan: MEDICAID [facility] Policy Number: [id number] Authorization Number: Insurance Primary Name : Jose C [id number] Authorization Number-Primary : email to KULWANT medina status of auth Authorized Service Begin Date-Primary : 06/11/2020 EDT Historical Authorization Comments-Primary : Comment 1: pt is scheduled for INPT lumbar fusion posterior 3 level on Wednesday06/11/2020 (ERNESTINA COOPER, Ice Cream Vault Worker 06/10/2020 14:22) Ashley Wagner, Rn-Utilization Review - 06/10/2020 15:16 EDT Electronically signed by [facility], [facility] Conversion Site Project Manager Cerner at 01/08/2023 2:08 PM CDT documented in this encounter Plan of Treatment Not on file documented as of this encounter Visit Diagnoses Not on filedocumented in this encounter Care Teams Transportation Project Manager Relationship Specialty Start Date End Date Edwar Lance MD [address] [place] [address] PCP - General Adolescent Medicine 05/29/24 documented as of this encounter
--- OUTSIDE RECORDS SUMMARY | 2025-06-20 10:52 | XMS_ITS | Encounter Summary ---
Author Organization [employer] ([place], [place], [place], [place]) Address [address] [place] [address] Care Team Providers Care Physician Allergist Immunologist Name Role Phone Edwar Lance MD Primary Care Provider + [phone] Encounter Details Date Type Department Care Team (Late st Contact Info) Description 06/11/2020 Transcribed Document [facility] [place] Medicine [facility] [place] [address] ProviderGonzalez MD [address] [place] [address] Social History Tobacco Use Types Packs/Day Years [...] of the form. Electronically signed by Cristine, [facility] Conversion Operations Research Group Manager Cerner at 01/08/2023 2:15 PM CDT documented in this encounter Plan of Treatment Not on file documented as of this encounter Visit Diagnoses Not on filedocumented in this encounter Care Teams Physician Allergist Immunologist Relationship Specialty Start Date End Date Edwar Lance MD [address] [place] [address] PCP - General Adolescent Medicine 05/29/24 documented as of this encounter
--- OUTSIDE RECORDS SUMMARY | 2025-06-20 10:52 | XMS_ITS | Encounter Summary ---
Author Organization [employer] ([place], [place], [place], [place]) Address [address] [place] [address] Care Team Providers Care Head Bander And Liner Operator Name Role Phone Edwar Lance MD Primary Care Provider + [phone] Encounter Details Date Type Department Care Team (Late st Contact Info) Description 06/13/2020 Transcribed Document [facility] [place] [address] [place] [address] ProviderGonzalez MD [address] [place] [address] Social History Tobacco Use Types Packs/Day Years [...] on filedocumented in this encounter Care Teams Head Bander And Liner Operator Relationship Specialty Start Date End Date Edwar Lance MD [address] [place] [address] PCP - General Adolescent Medicine 05/29/24 documented as of this encounter
--- OUTSIDE RECORDS SUMMARY | 2025-06-20 10:52 | XMS_ITS | Encounter Summary ---
Author Organization [employer] ([place], [place], [place], [place]) Address [address] [place] [address] Care Team Providers Care Custom Stock Maker Name Role Phone Edwar Lnace MD Primary Care Provider + [phone] Encounter Details Date Type Department Care Team (Late st Contact Info) Description 06/12/2020 Transcribed Document [facility] Family Medicine [address] [place] [address] ProviderGonzalez MD [address] [place] [address] Social History Tobacco Use Types Packs/Day Years [...] 1 Health Plan: [employer] Policy Number: [id number] Authorization Number: [id number] Insurance 2 Health Plan: [place]ID [place] Policy Number: [id number] Authorization Number: [id number] Insurance Primary Name : Omega [id number] Authorization Status-Primary : Admit approved Reference Number-Primary : [id number] Authorization Number-Primary : [id number] Number of Days Authorized-Primary : 0 Day(s) Authorized Service Begin Date-Primary : 06/11/2020 EDT Authorized Service End Date-Primary : 06/11/2020 EDT Historical Authorization Comments-Primary : Comment 1: please change auth number in star once case is completeclinical faxed for c/s per donny (Ashley Wagner, Rn-Utilization Review 06/12/2020 10:31) Comment 2: per manjinder @ md office auth for omega is [id number] IP x 1day. Medicaid auth is [id number] (Ashley Wagner, Rn-Utilization Review 06/12/2020 10:19) Comment 3: pt is scheduled for INPT lumbar fusion posterior 3 level on Wednesday06/11/2020 (ERNESTINA COOPER, Arnp 06/10/2020 14:22) Ashley Wagner, Teresa-Utilization Review - 06/12/2020 10:34 EDT Electronically signed by [facility] Conversion Sweatband Separator Donny at 01/08/2023 2:15 PM CDT documented in this encounter Plan of Treatment Not on file documented as of this encounter Visit Diagnoses Not on filedocumented in this encounter Care Teams Custom Stock Maker Relationship Specialty Start Date End Date Edwar Lance MD [address] [place] [address] PCP - General Adolescent Medicine 05/29/24 documented as of this encounter
--- OUTSIDE RECORDS SUMMARY | 2025-06-20 10:52 | XMS_ITS | Encounter Summary ---
Author Organization [employer] ([place], [place], [place], [place]) Address [address] [place] [address] Care Team Providers Care Shine Worker Name Role Phone Edwar Lance MD Primary Care Provider + [phone] Encounter Details Date Type Department Care Team (Late st Contact Info) Description 06/12/2020 Transcribed Document [facility] Family Medicine [facility] [place] [address] ProviderGonzalez MD [address] [place], [place] [address] Social History Tobacco Use Types Packs/Day Years [...] - Medical Enoxaparin 40 mg, SubCutaneous, Inj, [id number], Routine, Start 06/12/20 8:00:00 EDT (GEE RFOST) Subjective unsure if preop leg pain is [...] 255mL Physical Exam nad A&O incision cdi cheryle to suction, bloody lifts LE off bed Electronically signed by Interface, [facility] Conversion Oil Refinery Operator Cerner at 01/08/2023 2:28 PM CDT documented in this encounter Plan of Treatment Not on file documented as of this encounter Visit Diagnoses Not on filedocumented in this encounter Care Teams Shine Worker Relationship Specialty Start Date End Date Edwar Lance MD [address] [place] [address] PCP - General Adolescent Medicine 05/29/24 documented as of this encounter
--- OUTSIDE RECORDS SUMMARY | 2025-06-20 10:52 | XMS_ITS | Data Portability ---
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 No sutures or amarilys removed, insicion is healing well. All questions answered. Temp parking pass given. [email or web address] Not available 06/14/2024 10:20:05 07/12/2024 07/12/2024 IMAGING: I personally reviewed the images with Dr. St and read the radiologist's report. Hardware satisfactorily in place. ASSESSMENT: Scar Costa is a 58-year-old male s/p fusion extension to T9 from prior L1-S1 (05/29/2024) who presents to the clinic for his first postop appointment, with thoracic and lumbar x-rays through on 07/12/2024. Dr. St discusses with patient his lower abdominal paresthesia and numbness is likely related to nerve irritation from surgery. Patient's lightheadedness experienced with standing quickly may be due to orthostatic hypotension and dehydration. Patient is encouraged to hydrate adequately and follow-up with his primary care provider if his symptoms continue. Overall patient is encouraged to allow more time for his body to heal from surgery. We will have him follow-up in 6 weeks with another set of thoracic and lumbar x-rays. Patient agreeable to plan. PLAN: Follow-up in 6 weeks with AP lateral thoracic and lumbar x-rays [email or web address] Not available 07/13/2024 10:53:17 08/25/2024 08/25/2024 Scar Costa is a 58-year-old male status post fusion extension to T9 from previous L1-S1 on 05/29/[address] presenting to the clinic for a follow-up. Lumbar x-rays from today reviewed by myself and Dr. St. Images reveal satisfactory hardware placement with no clear complications. We will have the patient follow-up in 3 months with repeat x-rays. [email or web address] Not available 08/25/2024 14:12:51 11/24/2024 11/24/2024 Scar Costa is a 59-year-old male status post fusion extension to T9 from previous L1-S1 on 05/29/2024 who presents to the clinic for a follow-up. Lumbar x-rays today reviewed by myself and Dr. St. Images reveal satisfactory hardware placement with no evidence of loosening. However, the images do not capture the entire fusion in all of the hardware. We will have him get thoracic x-rays today as well. He will follow-up in 6 months with repeat lumbar and thoracic x-rays prior to his visit. [email or web address] Not available 11/24/2024 13:38:29 05/25/2025 05/25/2025 Scar Costa is a 59-year-old man status post numerous lumbar surgeries in the past, most recently extension to T9 from previous L1-S1 in 05/2024 who returns for follow-up visit. I studied his repeat T-spine and L-spine x-rays performed today, which show no hardware complications. He continues to do well. He will return for a follow-up visit in [address] [email or web address] Not available 05/25/2025 13:12:26 Plan of Treatment Reminders Order Date Submit Date Provider Last Modified By Organization Details Last Modified Time Details Appointments CT SCAN 2025 10:00A M ct_scan Not available Not available Not available CT SCAN 2025 10:20A M ct_scan Not available Not available Not available JASONEC K r 2025 10:45A M KYLAH ST MD Not available Not available Not available Lab None record ed. Referral None record ed. Procedures None record ed. Surgeries None record ed. Imaging None record ed. Medication Orders None record ed. Patient TargetsNo targets recorded. Patient InstructionsNo instructions recorded. Reason for Referral None Reported. Results Created Date Observation Date Name Description Value Unit Range Abnormal Flag Note LastModifiedBy Organization Detail LastModifiedTime 07/12/20 24 07/12/2024 XR, thora cic spine , 2 view [place] [address] [place] [address] Patien t Name: PIPPA Dang PURCEL L Patien t : 1964 Patien t Orderi ng Provid er: [facility] EXAM DATE: 2023 EXAM: XR THORAC IC AP/LAT CLINIC AL INFORM ATION: Back pain. IMAGES PROVID ED: AP, and latera l views of the thorac ic spine. COMPAR MONET: None. FINDIN GS: Metall ic hardwa re for fusion is in place extend ing from T9 into the L-spin e. The visibl e portio n shows no compli cation . No loosen ing is seen. Modera te diffus e degene rative change s of the T-spin e. No radiog raphic eviden ce of injury is noted. IMPRES NELL: Modera te diffus e DDD with previo us thorac olumba r spine fusion Interp reted By: Arthur Penaloza MD Electr onical ly Signed By: Arthur Penaloza MD on 2023 1:23 PM [email or web address] [facility] Radiology [facility] [address] [facility], [place], [phone], 08/08/2024 13:45:49 07/12/20 24 07/12/2024 XR, lumbo sacra l spine , 2 or 3 view [facility] [address] [place] [address] Patien t Name: PIPPA Dang PURCEL L Patien t : 1964 Patien t Orderi ng Provid er: [facility] EXAM DATE: 2023 EXAM: XR LUMBAR AP/LAT CLINIC AL INFORM ATION: Back pain. IMAGES PROVID ED: AP, latera l and coned down views of the lumbar spine. COMPAR MONET: None. FINDIN GS: Thorac olumba r fusion is presen t with metall ic fixati ng rods extend ing from T9 to L3. Previo us interb jony fusion L4-5 and L5-S1. No hardwa re compli cation visibl e hardwa re. No loosen ing is noted. No radiog raphic eviden ce of injury is noted. IMPRES NELL: Previo us thorac olumba r spine fusion with no compli cation s identi fied Interp reted By: Arthur Penaloza MD Electr onical ly Signed By: Arthur Penaloza MD on 2023 1:[email or web address] [place] [address], [phone], 08/08/2024 13:45:49 08/25/20 24 08/25/2024 XR, thora cic spine , [address] [address] Patien t Name: PIPPA Rashid Alton JAXONLYUDMILA Ye Patien t : 1964 Patien t Orderi ng Provid er: [facility]LEXANDRE ST EXAM DATE: 2023 EXAM: XR THORAC IC AP/LAT CLINIC AL INFORM ATION: Back pain. IMAGES PROVID ED: AP, and latera l views of the thorac ic spine. COMPAR MONET: 2023 FINDIN GS: Curvat ure, alignm ent, verteb ral body height s and disc spaces are normal . No radiog raphic eviden ce of injury is noted. Previo us thorac olumba r fusion . The visibl e portio n of the thorac ic compon ent which begins at T9 shows no compli cation . Diffus e degene rative spurri ng is presen t with flowin g spurli ke change s which may indica te underl rafael DISH IMPRES NELL: 1. Stable appear ance of the T-spin e with modera te DDD of possib le DISH Interp reted By: Arthur Penaloza MD Electr onical ly Signed By: Arthur Penaloza MD on 024 1:20 PM [email or web address] [facility] [address] [place], [address], 08/30/2024 12:37:31 08/25/20 24 08/25/2024 XR, lumbo sacra l spine , 2 or 3 view [place] [facility] [address] [place] [address] [place] [address] Patien t Name: PIPPA Belcher Paticassie t : 1964 Patien t Orderi ng Provid er: ALEXANDRE ST EXAM DATE: 2023 EXAM: XR LUMBAR AP/LAT CLINIC AL INFORM ATION: Back pain. IMAGES PROVID ED: AP, latera l and coned down views of the lumbar spine. COMPAR MONET: 2023 FINDIN GS: Previo us camp dishwasher ior fixati on and interb jony fusion T9-L3 with previo us interb jony fusion of L3-4, L4-5, and L5-S1. No compli cation s are visibl e. No loosen ing is presen t. No radiog raphic eviden ce of injury is noted. IMPRES NELL: Stable thorac olumba r sacral fusion Interp reted By: Arthur Penaloza MD Electr onical ly Signed By: Arthur Penaloza MD on 024 1:[email or web address] Radiology [facility] [address] [place] [address], [phone], 08/30/2024 12:37:31 11/25/19 25 11/24/2024 XR, lumbo sacra l spine , 2 or 3 view [facility] [address] [place] [address] [place] [address] Patien t Name: PIPPA Villaseñor t : 1964 Patien t Orderi ng Provid er: ALEXANDRE ST EXAM DATE: 2024 EXAM: XR LUMBAR AP/LAT CLINIC AL INFORM ATION: Back pain. IMAGES PROVID ED: AP, latera l and coned down views of the lumbar spine. COMPAR MONET: 2023 FINDIN GS: Previo us T9-L3 camp dishwasher ior fusion . There is also interb jony fusion L3-S1. No hardwa re loosen ing or compli cation is visual ized. No parasp inal soft tissue diseas e. No radiog raphic eviden ce of injury is noted. IMPRES NELL: Previo us thorac olumba r sacral fusion withou t compli cation Interp reted By: Arthur Penaloza MD Electr onical ly Signed By: Arthur Penaloza MD on 11/25/19 11:31 AM [email or web address] [facility] [address] [place] [address], [phone], 01/02/2025 15:54:08 11/25/1911/24/2024 XR, thora cic spine , 2 view [facility] [address] [place] [address] [phone] Patien t Name: PIPPA Belcher Paticassie t : 1964 Patien t Orderi ng Provid er: ALEXANDRE ST EXAM DATE: 2024 EXAM: XR THORAC IC AP/LAT CLINIC AL INFORM ATION: Back pain. IMAGES PROVID ED: AP, and latera l views of the thorac ic spine. COMPAR MONET: None. FINDIN GS: Curvat ure, alignm ent, verteb ral body height s and disc spaces are normal . No radiog raphic eviden ce of injury is noted. Hardwa re is noted extend ing from T9 to L3 4 fusion . The hardwa re is stable and shows no loosen ing or other compli cation . Diffus e degene rative spurri ng is again noted IMPRES NELL: Stable . Modera te DDD with previo us thorac olumba r fusion Interp reted By: Arthur Penaloza MD Electr onical ly Signed By: Arthur Penaloza MD on 11/25/19 1:58 PM [email or web address] [facility] [address] [place], [address], 01/02/2025 15:53:52 05/14/2005/12/2025 elect lynn guevara am No observ ation record ed. [email or web address] Not Available 2024 10:54:55 05/25/2005/25/2025 XR, thora cic spine , [address] [place] [address] Patien t Name: PIPPA Villaseñor t : 1964 Paticassie t Orderi ng Provid er: ALEXANDRE ST EXAM DATE: 2024 EXAM: XR THORAC IC [...] Penaloza MD on 05/25/20 12:42 PM INTERFACE [facility] [address] [place] [address], [phone], 05/25/2025 12:47:28 05/25/2005/25/2025 XR, lumbo sacra l spine , 2 or [address] [place] [address] Patien t Name: PIPPA RAMSAY L Charleen t : 1964 Patien t Orderi ng Provid er: ALEXANDRE ST EXAM DATE: 2024 EXAM: XR LUMBAR AP/LAT [...] Penaloza MD on 05/25/20 12:43 PM INTERFACE [facility]iology [address], [phone], 05/25/2025 12:48:26 Result Notes Documentation Provider Name and Address Organization Details Recorded Time Xr, Thoracic Spine, 2 View : [place] [address] Patient Name: SCAR COSTA Patient : 1965 Patient Ordering Provider: ALEXANDRE ST EXAM DATE: 07/12/2024 EXAM: XR THORACIC AP/LAT CLINICAL INFORMATION: Back pain. IMAGES PROVIDED: AP, and lateral views of the thoracic spine. COMPARISON: None. FINDINGS: Metallic hardware for fusion is in place extending from T9 into the L-spine. The visible portion shows no complication. No loosening is seen. Moderate diffuse degenerative changes of the T-spine. No radiographic evidence of injury is noted. IMPRESSION: Moderate diffuse DDD with previous thoracolumbar spine fusion Interpreted By: Arthur Penaloza MD XNDRE ST MD [address] [place] [address], [phone], [facility] 08/08/2024 13:45:49 Xr, Lumbosacral Spine, 2 Or 3 View : [address] [address] Patient Name: SCAR COSTA Patient : 1965 Patient Ordering Provider: ALEXANDRE ST EXAM DATE: 07/12/2024 EXAM: XR LUMBAR AP/LAT CLINICAL INFORMATION: Back pain. IMAGES PROVIDED: AP, lateral and coned down views of the lumbar spine. COMPARISON: None. FINDINGS: Thoracolumbar fusion is present with metallic fixating rods extending from T9 to L3. Previous interbody fusion L4-5 and L5-S1. No hardware complication visible hardware. No loosening is noted. No radiographic evidence of injury is noted. IMPRESSION: Previous thoracolumbar spine fusion with no complications identified Interpreted By: Arthur Penaloza MD ANDRE ST MD [address] [place] [address], [phone], [facility] 08/08/2024 13:45:49 Xr, Thoracic Spine, 2 View : [address] [address] Patient Name: SCAR COSTA Patient : 1965 Patient Ordering Provider: ALEXANDRE ST EXAM DATE: 08/25/2024 EXAM: XR THORACIC AP/LAT CLINICAL INFORMATION: Back pain. IMAGES PROVIDED: AP, and lateral views of the thoracic spine. COMPARISON: 07/12/2024 FINDINGS: Curvature, alignment, vertebral body heights and disc spaces are normal. No radiographic evidence of injury is noted. Previous thoracolumbar fusion. The visible portion of the thoracic component which begins at T9 shows no complication. Diffuse degenerative spurring is present with flowing spurlike changes which may indicate underlying DISH IMPRESSION: 1. Stable appearance of the T-spine with moderate DDD of possible DISH Interpreted By: Arthur Penaloza MD ANDRE ST MD [address] [place] [address], [phone], [facility] 08/30/2024 12:37:31 Xr, Lumbosacral Spine, 2 Or 3 View : [address] [address] Patient Name: SCAR COSTA Patient : 1965 Patient Ordering Provider: ALEXANDRE ST EXAM DATE: 08/25/2024 EXAM: XR LUMBAR AP/LAT CLINICAL INFORMATION: Back pain. IMAGES PROVIDED: AP, lateral and coned down views of the lumbar spine. COMPARISON: 07/12/2024 FINDINGS: Previous posterior fixation and interbody fusion T9-L3 with previous interbody fusion of L3-4, L4-5, and L5-S1. No complications are visible. No loosening is present. No radiographic evidence of injury is noted. IMPRESSION: Stable thoracolumbar sacral fusion Interpreted By: Arthur Penaloza MD ANDRE ST MD [address] [place] [address], [phone], [facility] 08/30/2024 12:37:31 Xr, Thoracic Spine, 2 View : [place] [address] Patient Name: SCAR COSTA Patient : 1965 Patient Ordering Provider: ALEXANDRE ST EXAM DATE: 11/24/2024 EXAM: XR THORACIC AP/LAT CLINICAL INFORMATION: Back pain. IMAGES PROVIDED: AP, and lateral views of the thoracic spine. COMPARISON: None. FINDINGS: Curvature, alignment, vertebral body heights and disc spaces are normal. No radiographic evidence of injury is noted. Hardware is noted extending from T9 to L3 4 fusion. The hardware is stable and shows no loosening or other complication. Diffuse degenerative spurring is again noted IMPRESSION: Stable. Moderate DDD with previous thoracolumbar fusion Interpreted By: Arthur Penaloza MD ANDRE ST MD [address] [place] [address], [phone], [facility] 01/02/2025 15:53:52 Xr, Lumbosacral Spine, 2 Or 3 View : [place] [address] Patient Name: SCAR COSTA Patient : 1965 Patient Ordering Provider: ALEXANDRE ST EXAM DATE: 11/24/2024 EXAM: XR LUMBAR AP/LAT CLINICAL INFORMATION: Back pain. IMAGES PROVIDED: AP, lateral and coned down views of the lumbar spine. COMPARISON: 08/25/2024 FINDINGS: Previous T9-L3 posterior fusion. There is also interbody fusion L3-S1. No hardware loosening or complication is visualized. No paraspinal soft tissue disease. No radiographic evidence of injury is noted. IMPRESSION: Previous thoracolumbar sacral fusion without complication Interpreted By: Arthur Penaloza MD ANDRE ST MD [address] [place] [address], [phone] 01/02/2025 15:54:08 Xr, Thoracic Spine, 2 View : [place] [address] Patient Name: SCAR COSTA Patient : 1965 Patient Ordering Provider: ALEXANDRE ST EXAM DATE: 05/25/2025 EXAM: XR THORACIC AP/LAT [...] Interpreted By: Arthur Penaloza MD Not Available [facility] 05/25/2025 12:47:28 Xr, Lumbosacral Spine, 2 Or 3 View : [address] [address] Patient Name: SCAR COSTA Patient : 1965 Patient Ordering Provider: ALEXANDRE ST EXAM DATE: 05/25/2025 EXAM: XR LUMBAR AP/LAT [...] Interpreted By: Arthur Penaloza MD Not Available [facility] 05/25/2025 12:48:26 Procedures Surgical History Date Name Laterality Status Provider Name and Address Organization Details Recorded Time 09/19/20 18 Echocardiogram - Stress Test completed BRIJESH VAIL MD [address] [place], [address], [facility] 09/21/2018 08:20:45 09/19/20 18 Stress Test - Echo completed BRIJESH VAIL MD [address] [place], [address], [facility] 09/22/2018 10:09:26 05/24/20 18 LUMBAR FUSION (SURG) completed Kathy [facility] 05/27/2018 13:01:29 11/12/19 15 Back Surgery completed Kathy Gerhard [facility] 04/20/2018 13:21:56 06/12/20 14 revision of fusion of lumbar spine completed [facility] 09/12/2018 08:33:20 Carpal tunnel surgery completed [facility] 09/12/2018 08:32:39 primary lumbar discectomy completed [facility] 09/12/2018 08:34:00 Imaging Results None recorded. [...] Available Not Available N ot Available Afluria [id number] (PF) 45 mcg(15 mcg x 3)/0.5 mL intramuscul ar syringe 09/12 completed Not Available Not Available Not Available Vitals Date Recorded Body height Body mass index (BMI) Body weight Systolic And Diastolic Provider Name and Address Organization Details Last Updated DateTime 11/24/2024 170.18 cm 36.8 kg/m2 159367.21 g 127/74 mm[Hg] [facility] 11/24/2024 13:03:32 Date Recorded Body height Provider Name an d Address Organization Details Last Updated DateTime 05/25/[address] [facility] 05/25/2025 13:07:49 Date Recorded Body height Body mass index (BMI) Body weight Systolic And Diastolic Provider Name and Address Organization Details Last Updated DateTime 07/12/2024 170.18 cm 36.8 kg/m2 711552.21 g 122/82 mm[Hg] Ebony Xavier [facility] 07/12/2024 13:38:14 Social History Question Answer Notes LastModified by Organizat ion Details LastModified Time Tobacco Smoking Status Never Smoker Kathy Hennessy kojo, [facility] 04/20/2018 13:21:15 Live Alone Or With Others? With Others Information not available 09/12/2018 Marital Status Informatio n not available 09/12/2018 What Was The Date Of Your Most Recent Tobacco Screening? 09/14/2018 8 Information not available 11/07/2019 How Many [...] available 2017 08:31:33 Medical History Condition Response Massage Therapy for current problem N Coronary Artery Disease N Other N Gout N Atrial Fibrillation N Hyperthyroidism N Heart Arrhythmia N Emphysema N COPD N Injections for current problem N Peripheral Arterial Disease N Nervous Illness N Edema N Anxiety Disorder N Arthritis N Hiatal hernia N Acid Reflux (GERD) N Cancer N Stroke N Arrhythmia N Fibromyalgia N Endocrine Disorder N Kidney Disease N Heart Problems N Heart Conditions N Implanted Cardiac Device N Black Lung N NSAID Use N Ulcers N Rheumatic Fever N Bleeding Disorder N Tuberculosis N Genetic Disorder N AIDS/HIV N Chiropractor treatment for current probl em N Ultrasound Treatment for current problem N Asthma N Cardiac Disease N Peripheral Vascular Disease N Jaundice N Thyroid Disorder N GERD/Reflux N Restless leg syndrome N Pulmonary Embolism N TENS Unit for current problem N Traction for current problem N Thyroid Disease N Narcotic Pain Medication for current pro blem Y Lung Disease N Hypothyroidism N Pacemaker N Vascular Disease N Deep Vein Thrombosis N History of Blood Thinners N Blood Thinners N Shortness of Breath N High Cholesterol N Liver Disease N Dialysis N Neuro-modulating Drugs for current probl em N Thyroid Problems N Steroid Pack for current problem N Osteoporosis/Osteopenia N Chest Pain N Heart Attack (VT) N Mental Illness N Diabetes N Cardiomyopathy N Heart Murmur N Congestive Heart Failure (CHF) N Kidney Failure N Hyperlipidemia N Epilepsy/Seizures N Sleep Apnea Y Warfarin Management N Physical Therapy Treatments for current problem N Heart Disease N Hypertension N Past Encounters Encounter ID Performer Location Encounter Start Date Encounter Closed Date Diagnosis/Indication Diagnosis SNOMED-CT Code Diagnosis ICD10 Code Diagnosis IMO Codes Diagnosis Note [id number] UZAIR CANTU MD [facility] [address] [place] [address] 04/20/2018 12:52:17 04/21/2018 14:01:21 History of lumbar fusion [id number] 9106 Z98.1 Lumbar radiculopathy 128 [id number] M54.16 -Progressi ve recurrent left lumbar radicular symptoms. Some sensory deficit on exam. Progressiv e in nature. The patient has attempted therapy in the past and not had a robust result. I think given his history of multiple surgeries in the past is worthwhile to start with updated imaging. Plan to get an x-ray of the lumbar spine as well as an MRI of lumbar spine. Once this is reviewed then we will contact the patient and make definitive recommenda tions. As noted in the history of present illness, the patient is not open for injections . [id number] UZAIR CANTU MD [facility] [address] [place] [address] 05/03/2018 14:48:07 05/12/2018 10:34:10 Spinal stenosis of lumbar region 50153360 M48.222 [id number] UZAIR CANTU MD [facility] [address] [place] [address] 06/10/2018 13:19:38 06/10/2018 13:54:35 [id number] UZAIR CANTU MD [facility] [address] [place] [address] 06/22/2018 15:01:23 06/22/2018 20:31:41 Postoperative care [id number] Z48.89 -The patient is making expected progress at 1 month. Cleared to start bending and twisting. Plans to return to work with our consent in 2 weeks. We will see him back in 3 months with repeat x-rays. Contact us earlier if he develops any issues. [id number] BRIJESH VAIL MD CARDIOLOG Y [address] [place] [address] 09/12/2018 08:11:35 09/12/2018 09:43:25 Atypical chest pain [id number] R07.89 The patient's had an isolated episode of atypical exertional chest discomfort in the absence of any coronary artery disease risk factors. Although he states his cholestero l is normal I don't have the actual results and I'm unable to calculate his 10 year ASCVD risk score. I suspect he falls into a low risk category in the absence of any other standard risks. Neverthele ss I suggested he undergo stress echocardio gram evaluation . Obesity [id number] E66.9 The patient's increased BMI was discussed. The patient is aware of the importance of weight loss and will attempt to follow improved diet. Palpitations [id number] R0 0.2 I think the patient's chief complaint is probably due to palpitatio ns and ectopy. He's going to be supplied with a 30 day event recorder so we can correlate his symptoms, should they recur, with his EKG tracing. [id number] BRIJESH VAIL MD [facility] [address] [place] [address] [place] [address] 09/12/2018 09:13:47 09/12/2018 09:14:31 Palpitations 09725133 R00.2 I think the patient's chief complaint is probably due to palpitatio ns and ectopy. He's going to be supplied with a 30 day event recorder so we can correlate his symptoms, should they recur, with his EKG tracing. [id number] UZAIR CANTU MD [facility] [address] [facility] [address] [place] [address] 09/14/2018 15:12:01 09/15/2018 09:39:02 Postoperative care [id number] Z48.89 -The patient has resumed regular activity without complicati on. X-rays are stable today in the clinic. He is hardware from L2-L4 and previous fusion L4 to S1. So far everything is looking good. Cleared to resume regular activity but he will continue to take lumbar precaution s with lifting restrictio ns. We will see him back in 8 months with x-rays. [id number] BRIJESH VAIL MD [facility] [address] [facility] ,[address] [place] [address] 09/19/2018 09:42:44 09/22/2018 10:43:41 [id number] BRIJESH VAIL MD [facility] [address] [place] [address] 09/19/2018 09:43:44 09/19/2018 13:28:11 Palpitations [id number] R00.2 [id number] U[facility]IR CANTU [facility] [address] [place] [address] 04/19/2019 09:14:22 04/21/2019 15:40:45 Lumbar spondylosis [id number] M47.819 [id number] UZAIR CANTU [facility] [address] [place] [address] 04/05/2020 09:34:37 04/09/2020 14:52:39 Lumbar radiculopathy [id number] M54.16 -Progressi ve recurrent left lumbar radicular symptoms. Some sensory deficit on exam. Progressiv e in nature. The patient has attempted therapy in the past and not had a robust result. I think given his history of multiple surgeries in the past is worthwhile to start with updated imaging. Plan to get MRI of the lumbar spine with and without contrast. We will see the patient once the imaging is complete. Also, trial of gabapentin 300 mg daily at bedtime then increased to twice a day. Discussed the risks, benefits of this Medication . He continues to work daily. We'll do our best to maintain the patient's good functional status. History of lumbar fusion [id number] Z98.1 -X-ray was taken of the lumbar spine. Hardware is present at L2-4. Interbody cages L2 to the sacrum. No abnormalit y with the hardware. The patient has evidence of good interbody fusion from L2 to the sacrum without complicati on. This informatio n was communicat ed to the patient. [id number] SP FLORES PA-C [facility] [address] [place] [address] 05/22/2020 14:57:01 05/23/2020 10:24:21 Lumbar radiculopathy [id number] M54.16 [id number] UZAIR CANTU MD SURGERY SCHEDULE [address] [place] [address] 06/18/2020 10:19:12 06/18/2020 13:23:39 [id number] UZAIR CANTU MD [facility]OS[facility] [address] [place] [address] 06/26/2020 14:57:04 06/27/2020 16:24:19 [id number] UZAIR CANTU MD [facility] [address] [place] [address] 07/10/2020 13:21:36 07/10/2020 21:02:00 Postoperative care [id number] Z48.89 -Extension of fusion L1. Uncomplica darrin course. Numbness and a T12 distributi on. Slowly improving. Likely result of intraopera tive retraction . Anticipate slow improvemen t over the next 6 months. X-rays look good today. The patient was given a copy of the x-rays. We'll see him back in 3 months with another set of x-rays. Continue to follow him for a year for this operation. Medrol Dosepak to see if this helps with some of the numbness in his abdomen [id number] SP FLORES PA-C [facility] [address] [place] [address] 10/16/2020 10:56:14 10/18/2020 10:09:44 Postoperative care [id number] Z48.89 patient is a 55-year-ol d male status post extension of fusion to L1 on 06/11/[address] Uzair Cantu. The patient is doing extremely well at this time. He is being seen today for his second follow-up. patient also get occasional back and leg pain states that is usually when he has been working all day. The pain is not bothersome enough to keep him from doing his daily activities . Overall he is very pleased with the results of the surgery. Patient had a lumbar MRI with and without last month due to continued pain. Discussed the results with him today. Patient did not get x-ray today because he had the MRI. Patient will see us back in 3-4 months with another set of AP and lateral lumbar x-rays. We will continue to see the patient until he is 1 year postop.tobias fox is to call for any questions in the meantime and was happy with this plan Patient had a lumbar MRI with and without contrast on 08/21/20 at the [facility]. -showed uncomplica darrin fusion with no new concerning findings of cord or nerve impingrobyn t. [id number] SP FLORES PA-C [facility] [address] [place] [address] 01/03/2021 15:09:48 01/03/2021 16:19:10 Postoperative care [id number] Z48.89 patient is a 55-year-ol d male status post extension of previous fusion to L1 on 06/11/[address] Uzair Tejeda. The patient presents for his third postoperat odalis appointmen t. The patient is overall doing okay at this time. He is no longer having any back pain. Still experience s a dull ache in the posterior aspect of the thighs and buttocks bilaterall y. 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 He has not gone to formal physical therapy recently but he does still have the old packets given to him from previous therapy visits. He tries to do some of his exercises at home when he can. we have artery gotten one postoperat odalis MRI for the patient back in August due to continued pain. This was negative for any acute findings. Although the patient is not working wants to be we are happy with the improvemen t in symptoms thus far and believe that with time the patient will continue to improve. We will see the patient back for final follow-up at the year ferddy with another set of AP lateral lumbar x-rays. If he still didn't want that time and the x-ray remains stable he will be released from our care as it pertains to the surgery. He has to call for any questions and is happy with this plan. AP and lateral lumbar x-rays confirmed that the [facility] howed uncomplica darrin fusion with no evidence of hardware loosening or infection. [id number] SP FLORES PA-C [facility] [address] [place] [address] 05/14/2021 14:40:02 05/15/2021 14:17:57 Postoperative care [id number] Z48.89 Patient is a 55-year-ol d male status post L2-L4 fusion on 05/24/18 with subsequent extension of fusion to L1 on 06/11/20, both with Dr. Cantu. Patient has had a somewhat complicate d postoperat odalis course. He is not having much back pain anymore but is still having significan t pain in the left buttocks and the anterior and lateral left calf. Gets occasional pain in the lateral left thigh but this is not as often. He does get back pain at his right side worse than left. He is taking gabapentin at bedtime which helps.. He has not done any formal physical therapy since surgery but has done therapy on his own at home. Has also not been to pain management since his surgery. Last August we did get a new MRI which we reviewed with him at that time. There were no further surgical issues on the MRI and we recommende d further conservati ve treatment. Discussed with the patient that as that was 9 months ago we could obtain his imaging at this time. The patient would like to hold off on this. I then discussed sending the patient dependent management for injections but he also declined. He would like to see us in 3 months inset at that time if he is not doing better he would agree to pain management . If he is not better pain management he agreed to then get a new MRI. We did also briefly touch on the subject of a possible stimulator in the future if none of the conservati ve treatment mentioned helps. He knows to call with any questions in the meantime and is happy with this Patient AP lateral lumbar x-rays today at the [facility] S how stable placement of hardware with no evidence of loosening or complicati on [id number] SP FLORES PA-C [facility] [address] [place] [address] 08/06/2021 09:33:11 08/07/2021 10:15:37 Lumbar radiculopathy [id number] M54.16 Patient is a 55-year-ol d male with 6 previous back surgeries. The last two were an L2-L4 fusion on 05/24/18 and extension of fusion to L1 on 06/11/20, both with Dr. Cantu. Patient presents for follow-up of his back pain today. Pain is in the back and goes to the buttocks bilaterall y and the left anterior and lateral calf. He is on gabapentin and nothing else for the pain. This does help him sleep but does not help with the symptoms during the day. Has not been to physical therapy or pain management postoperat ively. Last imaging was a lumbar MRI from August 2020. Had a similar discussion to that of what I had with him at his appointmen t in April. Discussed the views are doing better we have 3 main options which are to start him in physical therapy, start him in pain management , or update imaging. At the last appointmen t and today the patient has declined for both financial and personal reasons. He does not want to go to extensive measures if he feels the pain is still bearable. I told him that is okay and we can start seeing him on an as-needed basis. He knows to call if he does want any of the above recommende d referrals or imaging and we can get that ordered and see him back in the office. He is happy with this plan. Patient was seen by myself and No new imaging [id number] MARY COREA APRN [facility] [address] [place] [address] 02/17/2024 09:07:36 02/18/2024 04:16:24 Lumbar radiculopathy [id number] M54.16 Thoracic radiculopathy [id number] M54.14 History of lumbar fusion [id number] [address]98.[id number] MD [facility] [address] [place] [address] 03/15/2024 08:53:34 03/16/2024 05:19:04 Thoracic radiculopathy [id number] M54.[id number] MD [facility] [address] [place] [address] 04/25/2024 09:04:28 04/28/2024 13:35:[id number] MD [facility] [address] [place] [address] 06/14/2024 09:46:06 06/17/2024 04:21:[id number] MD SURGERY SCHEDULE [address] [place] [address] 06/14/2024 14:30:20 06/19/2024 12:52:44 [id number] ANN SIMPSON PA-C [facility] [address] [place] [address] 07/12/2024 13:32:30 07/18/2024 08:09:34 Postoperative visit [id number] Z48.89 [id number] DELORES HURLEY PA-C [facility] [address] [place] [address] 08/25/2024 13:33:43 08/29/2024 11:11:49 Thoracic radiculopathy [id number] M54.14 [id number] DELORES HURLEY PA-C [facility] [address] [place] [address] 11/24/2024 12:47:03 11/25/2024 05:16:18 Thoracic myelopathy [id number] [address]95[id number] MD NEUROSURG [facility] [address] [place] [address] 05/25/2025 12:37:14 05/26/2025 04:27:21 Thoracic myelopathy [id number] 9103 M47.14 [id number] Health Concerns Section Related Observation LastModified by Organization Detai ls LastModified Time None Recorded Concern Status LastModified by Organization Details LastModified Time None Recorded Advance Directives Directive None Recorded Payers Insurance Date Sequence Insurance Name Policy Number Policy Coughlin Covered Member ID Coughlin Member ID Guarantor Name 05/14/2021 2 [employer] [id number] Scar Dang Pursell [id number] Scar Dang [place] 05/28/2025 1 [place] [id number] [place] [id number] Scar Dang [place] 08/02/2018 PAYMENT PLAN Scar Dang Jul[place] 06/30/2019 PAYMENT PLAN Scar Dang [place] 01/16/2021 2 [place] [facility] - FFS/TRADITION AL Scar Dang Pursell [id number] Scar Dang [place] 06/12/2025 PAYMENT PLAN Scar Solercell Notes Date Note Type Note Provider Name and Address Organization Details Recorded Time 07/12/2024 text/html ROS as noted in the HPI Scar Costa is a 58-year-old male s/p fusion extension to T9 from prior L1-S1 (05/29/2024) who presents to the clinic for his first postop appointment, with thoracic and lumbar x-rays through on 07/12/2024. Prior to surgery patient was experiencing thoracolumbar pain with radiation into his bilateral sides. He states this has largely resolved. However, he experiences numbness and paresthesia along his lower abdomen centrally. He states this has been present since his second lumbar surgery. He denies pain or numbness into his groin and denies saddle anesthesia. He also reports a few episodes of lightheadedness with quickly changing position from sitting to standing. He denies syncopal episodes and denies vision loss. He states this is only occurred with position changing. He states he does not drink adequate amount of water. Patient also states after long periods of walking, at times his right foot does not dorsiflex as quickly as his mind tells it to. He largely denies dropfoot and denies falling. He also states his fingertips in all digits except his thumbs in both hands have felt numb since surgery. He denies a change in numbness related to temperature change. He denies clumsiness with his hands and denies issues with buttons or jars. PA and physician visit. ANN SIMPSON PA-C [address] [place], [address], [facility] 07/13/2024 10:53:33 08/25/2024 text/html ROS as noted in the HPI Scar Costa is a 58-year-old male status post fusion extension to T9 from previous L1-S1 on 05/29/[address] presenting to the clinic for a follow-up. He advises that he is no longer experiencing any thoracolumbar pain. The numbness and paresthesias that he was complaining of at his last visit have also improved. He feels as if his balance and strength continue to improve as well. He does complain of numbness to all of his fingertips. 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 DELORES HURLEY PA-C [address] [place], [address], [facility] 08/25/2024 14:32:22 11/24/2024 text/html ROS as noted in the HPI Scar Costa is a 59-year-old male status post fusion extension to T9 from previous L1-S1 on 05/29/2024 who presents to the clinic for a follow-up. He advises that he will occasionally have some pain in his back, just above the incision. He denies any abdominal pain or pain in his lower extremities. The numbness and paresthesias have improved. He states that his balance continues to improve and he has not had any recent falls. He is pleased with his postoperative progress at this time. DELORES HURLEY PA-C [address] [place], [address], [facility] 11/24/2024 13:38:50 05/25/2025 text/html ROS as noted in the [...] He is pleased with his results. ALEXANDRE ST MD [facility] [place], [address], [facility] 05/25/2025 13:13:06
[2025-06-20 11:05] LABS: Hematocrit 44.3 % (42.0-52.0); Hemoglobin 15.2 g/dL (14.1-18.0); Immature Granulocytes % 0.2 %; Mean Corpuscular HGB Conc 34.3 g/dL (31.8-35.4); Mean Corpuscular Hemoglobin 29.5 pg (27.0-31.2); Mean Corpuscular Volume 86.0 fl (80-94); Nucleated Red Blood Cells % 0 %; Platelet Count 172 K/mm3 (142-424); Red Blood Count 5.15 M/mm3 (4.60-6.20); Red Cell Distribution Width-SD 42.5 fL; White Blood Count 5.3 K/mm3 (4.8-10.8)
[2025-06-20 11:24] LABS: Alanine Aminotransferase 37 U/L (12-78); Albumin Level 4.3 g/dl (3.5-5.0); Albumin/Globulin Ratio 1.8 (1.1-1.8); Alkaline Phosphatase 81 U/L (38-126); Anion Gap 11.3 mEq/L (5-15); Aspartate Amino Transferase 40 U/L (17-59); Bilirubin,Total 1.3 mg/dl (0.2-1.3); Blood Urea Nitrogen 12 mg/dl (9-20); Calcium 9.3 mg/dl (8.4-10.2); Carbon Dioxide 28 mmol/L (22.0-30.0); Chloride 104 mmol/L (98-107); Creatinine Clearance Estimated 134 mL/min (50-200); Creatinine,Serum 0.90 mg/dl (0.66-1.25); Estimated Glomerular Filt Rate 86 ml/min (>60); GFR (African American) 104 ML/MIN (>60); Globulin 2.4 g/dL (1.3-3.2); Glucose 92 mg/dl (74-100); Potassium 4.3 mmoL/L (3.5-5.1); Sodium 139 mmol/L (136-145); Total Protein,Serum 6.7 g/dl (6.3-8.2)
== END 2025-06-20 23:59 | disposition home or self-care (01) ==
LOC: PREOP 10:20
PROVIDERS: PCP Internal Medicine Adolescent Medicine; Visit Provider Surgery
DX: Z01.810 Encounter for preprocedural cardiovascular examination (principal); Z01.812 Encounter for preprocedural laboratory examination; I44.0 Atrioventricular block, first degree; R94.31 Abnormal electrocardiogram [ECG] [EKG]
CPT/HCPCS: 80053; 85025; 93005

== ENCOUNTER 2025-07-05 06:03 | Day surgery (SDC) | payer BC, SELFPAY ==
[2025-06-20 12:42] VITALS: BMI 38.7
[2025-07-05] VITALS (10 sets, daily range): BP systolic 121–139; BP diastolic 71–96; PULSE 64–72; RESP 16–18; TEMP 36.2–43; O2SAT 94–99; BMI 38.7
[2025-07-05] MEDS: LACTATED RINGERS 1000ML 1,000 ML 25 ML IV (06:35)
--- NOTE | 2025-07-05 06:58 | P.HP_ITS ---
HPI HPI HPI: Patient presents for cholecystectomy. He states that he has had some symptoms of epigastric and right upper quadrant pain since October 15, 2022. He underwent gallbladder ultrasound on 05/03/2025 which revealed gallstones without wall thickening without findings of cholecystitis with normal common bile duct and some fatty infiltration of the liver. This was prompted by routine blood work done through Dr. Lance's office on 05/02/2025 which revealed isolated bilirubin of 1.6. CBC and remainder of the comprehensive metabolic panel were unremarkable. Risk assessment was requested through his primary care provider's office. There were recommendations for stress testing which was ordered through Dr. Lance's office but the patient declined proceeding with this. It was felt that since he is doing significant mount a walking without the stress test that the issue would not be pressed. Patient has had some ongoing symptomatology consistent with gallbladder disease. Repeat bilirubin is 1.3. [facility] Disclaimer: The information contained in this section may have been updated after the patient was seen, as this information can be updated by other users. 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 current occupational exposures/hazards: No caffeine: No Have you lived/traveled outside US in past 30 days?: No Contact w/someone who lives/traveled outside US past 30 days?: No Exposure to someone with infectious disease in past 14 days?: No Do you have a fever (greater than 100.4 F or 38 C)?: No Have you tested positive for COVID-19?: No Exposed to someone with COVID-19 in past 14 days?: No Do you have a sore throat?: No Do you have a cough?: No Do you have any weakness?: No Are you experiencing any nausea/vomitting?: No Do you have any diarrhea?: No Are you experiencing any unusual bleeding?: No Do you have any muscle aches/pain?: No Do you have any abdominal pain?: No Are you experiencing loss of taste or smell?: No Other Medical History Have you received the Flu Vaccine for this season: No Have you received the Pneumonia Vaccine: No Meds Home Medications and Allergies Home Medications ?Medication ?Instructions ?Recorded ?Confirmed ?Type gabapentin 300 mg capsule 300 mg PO DAILY Pain 1 07/05/25 History bisoprolol fumarate 10 mg tablet 10 mg PO DAILY heartr ate 08/12/21 07/05/25 History omega 0-ict-jke-fish oil 900 1 cap PO DAILY 05/10/25 History mg-1,400 mg capsule,delayed release (Fish Oil) rosuvastatin 20 mg tablet 20 mg PO DAILY 05/10/2506/20 History New Prescriptions to Start Prescriptions: Allergies Allergy/AdvReac Type Severity Reaction Status Date / Time No Known Allergies Allergy Verified 07/05/25 06:33 Exam Data for Last 24 hours Vital signs and Labs for Last 24 Hours: Temp Pulse Resp BP Pulse Ox O2 Del Method 97.1 F L 64 16 130/82 97 Room Air 07/05/25 06:20 07/05/25 06:20 07/05/25 06:20 07/05/25 06:20 07/05/25 06:20 07/05/25 06:20 I & O for Last 24 hours: Intake & Output 07/02/25 07/03/25 07/04/25 07/05/25 11:59 11:59 11:59 11:59 Weight 240 lb Constitutional Constitutional: no acute distress *Routine HEENT Exam Head: Present normocephalic Eye: Present EOMI and PERRL ENT: Present mucous membranes moist *Routine Neck Exam Neck: Present supple; Absent lymphadenopathy *Routine Respiratory Exam Respiratory: Present CTA bilaterally *Routine Cardiovascular Exam Cardiovascular: Present RRR *Routine Abdominal Exam Abdominal: Present soft and normoactive bowel sounds; Absent tenderness *Routine Rectal Exam Rectal:: deferred *Routine Genitalia Exam Genitalia:: deferred *Routine Extremities Exam Extremities: Absent cyanosis, clubbing or edema *Routine Skin Exam Skin: Present warm; Absent rash *Routine Neurological Exam Neurological: Present alert and oriented X3
--- NOTE | 2025-07-05 07:04 | P.PNANES_ITS ---
[facility] Disclaimer: The information contained in this section may have been updated after the patient was seen, as this information can be updated by other users. 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 current occupational exposures/hazards: No caffeine: No Have you lived/traveled outside US in past 30 days?: No Contact w/someone who lives/traveled outside US past 30 days?: No Exposure to someone with infectious disease in past 14 days?: No Do you have a fever (greater than 100.4 F or 38 C)?: No Have you tested positive for COVID-19?: No Exposed to someone with COVID-19 in past 14 days?: No Do you have a sore throat?: No Do you have a cough?: No Do you have any weakness?: No Are you experiencing any nausea/vomitting?: No Do you have any diarrhea?: No Are you experiencing any unusual bleeding?: No Do you have any muscle aches/pain?: No Do you have any abdominal pain?: No Are you experiencing loss of taste or smell?: No [facility] Anesthesia Checklist Patient Identification Patient Identification: Arm Band Structural Data Admitted From: Home Planned Operative Procedure/s: Laparoscopic Cholecystectomy Consent for Planned Operative Procedure(s) Verified: Yes Verified Documents: Surgical Consent and History and Physical NPO Status Verified Time NPO: 00:00 Additional verifications Anesthesia Reactions: No Hx Blood Transfusions: No Blood Transfusion Reaction: No Airway Assessment Mallampati Score:: Class II C-Spine Mobility Assessed: Yes TMJ Mobility Assessed: Yes Dentition: Good Dentition Neurological Assessment Level of Consciousness: Awake, Alert and Appropriate Anesthesia Plan Anesthesia Risk discussed: Yes Anesthesia Plan: Verified ASA Class: II Anesthesia Type: General
[2025-07-05] MEDS: CEFAZOLIN 2GM VIAL 2 GM (07:06)
[2025-07-05] MEDS: LIDOCAINE 1% 20ML MDV 20 ML (07:29)
--- NOTE | 2025-07-05 08:25 | P.OP_ITS ---
Date of procedure: 07/05/25 Pre-op Diagnosis:: Symptomatic gallstones Post-op Diagnosis:: Same Procedure performed:: Laparoscopic cholecystectomy Surgeon:: Mumtaz Liu MD [employer]IC:: Kwaku Weber Anesthesia: GETMary Estimated blood loss (mL): 10 Operative findings:: He had some fatty infiltration of the liver. He had a somewhat distended gallbladder with thick bile. No obvious palpable gallstones. Operative note:: Consent was obtained patient was taken the operating room. He was given preoperative intravenous antibiotics. In the operating room he was placed in a supine position. General anesthesia was induced via endotracheal tube. Abdomen was prepped and draped in the standard surgical fashion. Subumbilical skin incision was made and while performing abdominal wall lift Veress needle was inserted. CO2 pneumoperitoneum was achieved to 15 mmHg. 5 mm trocar was inserted at the umbilicus. Intraperitoneal contents were visualized. He had some fatty infiltration of the liver. He was positioned in reverse Trendelenburg and left side down. A couple 5 mm trocars were inserted in the right upper abdomen. 11 mm trocar was inserted in the epigastrium. Gallbladder was grasped and retracted anteriorly and superiorly over the dome of the liver. Infundibulum of the gallbladder was retracted anterior laterally. There is some fatty infiltration around the neck of the gallbladder. Blunt dissection was carried out incising the visceral peritoneum of the neck of the gallbladder. Prolonged dissection was carried out ultimately isolating the cystic duct and cystic artery. The cystic duct was isolated and clipped and sharply divided. Cystic artery was carefully coagulated with harmonic dmitry and divided. Gallbladder was dissected free from the liver in a retrograde fashion using ultrasonic harmonic dmitry. There was a tiny unavoidable spillage of bile from the cystic duct on the gallbladder and this was suctioned free. A Endoloop was used to close the cystic duct on the gallbladder. Gallbladder was removed from the peritoneal cavity via the epigastric trocar site which required some minimal extension of fascial and skin incision for delivery. Irrigation and suctioning was performed until clear. Fascia at the epigastric trocar site was closed with a couple of 0 Vicryl sutures using the Neftaly-Castro laparoscopic fascial closure device. Trocars were then removed as CO2 pneumoperitoneum was evacuated. Local anesthetic was infiltrated. Skin incision was closed with 4-0 Monocryl in a subcuticular fashion. Steri-Strips and dressings were applied. Condition: stable Disposition: PACU Complications:: None immediately apparent
--- NOTE | 2025-07-05 08:36 | P.PNANES_ITS ---
[facility] Anesthesia Record Part I Anesthesia Record I Intake, IV Amount: 600 Hydration: Adequate Estimated blood loss (mL): 0 Urine output (mL): 0 Blood Products used (#): none Blood Pressure: 135/90 SaO2: 94 Pulse Rate: 72 Airway Patency: Patent Respiratory Rate: 16 Temperature: 97.8 F Patient is:: Nasal O2, Oral/Nasal airway, Stable and Somnolent Stable to PACU at:: 08:34
--- NOTE | 2025-07-06 07:29 | EXP.ANES.II ---
[facility] Anesthesia Record Part II Anesthesia Record Part II Discharge Time: 09:02 Destination: Surgical Day Care (OP Surgery) PACU nurse assessment reviewed?: Yes Patient Condition:: Good Anesthesia Complications:: None Swallowing reflex intact?: Yes Airway Patency: Patent Cyanosis?: No Blood Pressure: 139/82 SaO2: 96 Respiratory Rate: 16 Pulse Rate: 71 Temperature: 97.2 F Mental Status: Alert & Oriented Pain level:: 0 Nausea and/or vomitting:: None Intake, IV Amount: 0 Hydration: Adequate
[2025-07-06 07:30] VITALS: BP 139/82; PULSE 71; RESP 16; TEMP 36.2; O2SAT 96
== END 2025-07-05 09:50 | disposition home or self-care (01) ==
PROVIDERS: PCP Internal Medicine Adolescent Medicine; Visit Provider Surgery
PROC: 0FT44ZZ Resection of Gallbladder, Percutaneous Endoscopic Approach (ICD-10-PCS; CPT 47562; principal; 2025-07-05 07:30)
DX: K80.10 Calculus of gallbladder with chronic cholecystitis without obstruction (principal); K76.0 Fatty (change of) liver, not elsewhere classified; E78.5 Hyperlipidemia, unspecified; I10 Essential (primary) hypertension; Z79.899 Other long term (current) drug therapy
CPT/HCPCS: 47562; 96374; J0690; J1100; J2003; J2250; J2405; J2704; J2795; J3010; J7120